=== PATIENT | female | born 1975 | race Caucasian/White ===

== ENCOUNTER 2018-06-09 14:32 | Emergency (ER) | payer OTHER ==
[2018-06-09 16:18] LABS: Urine Blood NEGATIVE (NEG); Urine Glucose NEGATIVE (NEG); Urine Protein NEGATIVE (NEG); Urine Specific Gravity 1.025 (1.005-1.030)
--- NOTE | 2018-06-09 16:25 | ER ---
Nurse's Notes [facility] Name: Dwight Hylton Age: 42 yrs Sex: Female : 1975 Arrival Date: 06/09/2018 Time: 14:34 Bed 28 Private MD: Diagnosis: Acute pharyngitis Presentation: 06/09 14:49 Presenting complaint: Patient states: Sore throat x 1 week. "I feel like something is aj caught in my throat. It feels like something is growing off my tonsils". Patchy exudate noted on bilateral tonsils. Left tonsil appears asymmetrical. Transition of care: patient was not received from another setting of care. Onset of symptoms was June 03, 2018. Risk Assessment: Do you want to hurt yourself or someone else? Patient reports no desire to harm self or others. Initial Sepsis Screen: Does the patient meet any 2 criteria? No. Patient's initial sepsis screen is negative. Does the patient have a suspected source of infection? No. Patient's initial sepsis screen is negative. Care prior to arrival: None. 14:49 Method Of Arrival: Ambulatory 14:49 Acuity: LUCIO 3 aj Triage Assessment: 14:51 General: Appears in no apparent distress. comfortable, Behavior is calm, cooperative, aj appropriate for age. Pain: Complains of pain in left aspect of posterior pharynx and right aspect of posterior pharynx. EENT: Throat has patchy exudate has enlarged tonsils bilaterally Reports pain when swallowing. Neuro: Level of Consciousness is awake, alert, obeys commands, Oriented to person, place, time, situation, Appropriate for age. Respiratory: Airway is patent Respiratory effort is even, unlabored, Respiratory pattern is regular, symmetrical. Derm: Skin is intact, is healthy with good turgor, Skin is pink, warm \\T\\ dry. normal. 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 - Social history:: Smoking status: Patient/guardian denies using tobacco. - Ebola Screening: : Patient negative for fever greater than or equal to 101.5 degrees Fahrenheit, and additional compatible Ebola Virus Disease symptoms Patient denies exposure to infectious person Patient denies travel to an Ebola-affected area in the 21 days before illness onset No symptoms or risks identified at this time. Screenin:15 Abuse screen: Denies threats or abuse. Denies injuries from another. Nutritional rv screening: No deficits noted. Tuberculosis screening: No symptoms or risk factors identified. Fall Risk None identified. Assessment: 15:12 General: Appears in no apparent distress. uncomfortable, Behavior is calm, cooperative. rv Pain: Complains of pain in THROAT. Neuro: Level of Consciousness is awake, alert, obeys commands, Oriented to person, place, time, situation. Cardiovascular: Heart tones S1 S2 present. Respiratory: Airway is patent Breath sounds are clear bilaterally. GI: No signs and/or symptoms were reported involving the gastrointestinal system. : No signs and/or symptoms were reported regarding the genitourinary system. EENT: Throat is reddened . Derm: Skin is intact. Vital Signs: 14:51 BP 171 / 82; Pulse 97; Resp 17; Temp 98.8; Pulse Ox 99% on R/A; Weight 83.91 kg; Height aj 5 ft. 5 in. (165.10 cm); 15:57 BP 131 / 84; Pulse 80; Pulse Ox 98% on R/A; rv 14:51 Body Mass Index 30.79 (83.91 kg, 165.10 cm) aj ED Course: 14:34 Patient arrived in ED. as 14:51 Triage completed. aj 14:51 Arm band placed on left wrist. Patient placed in waiting room, Patient notified of wait aj time. 14:59 Kristin Perez NP is PHCP. rh1 14:59 Edgar Lerma MD is Attending Physician. rh1 15:16 Patient has correct armband on for positive identification. Bed in low position. Call rv light in reach. Side rails up X 1. Adult w/ patient. Pulse ox on. NIBP on. 15:45 Inserted saline lock: 20 gauge in right antecubital area, using aseptic technique. rv 16:25 Cassie Sanchez MD is Referral Physician. rh1 16:55 No provider procedures requiring assistance completed. IV discontinued, bleeding rv controlled, No redness/swelling at site. Pressure dressing applied. Administered Medications: 15:29 CANCELLED (Duplicate Order): Decadron 10 mg IM once rv 15:45 Drug: Decadron - Dexamethasone 10 mg Route: IVP; Site: right antecubital; rv 16:17 Follow up: Response: No adverse reaction rv 15:56 Drug: Clindamycin 900 mg Route: IVPB; Infused Over: 30 mins; Site: right antecubital; rv 16:18 Follow up: Response: No adverse reaction; IV Status: Completed infusion rv Outcome: 16:25 Discharge ordered by . rh1 16:55 Discharged to home ambulatory. rv 16:55 Condition: improved 16:55 Discharge instructions given to patient, family, Instructed on discharge instructions, follow up and referral plans. medication usage. 16:56 Patient left the ED. rv Signatures: Cindy Hillman, RN RN Karolina Hatch Rachel, YASMANI DESIGN DRAFTER CHIEF rh1 Ammon Knowles RN RN rv
--- NOTE | 2018-06-09 16:26 | EDPHYS ---
Physician Documentation [facility] Name: Dwight Hylton Age: 42 yrs Sex: Female : 1975 Arrival Date: 06/09/2018 Time: 14:34 Bed 28 Private MD: ED Physician Edgar Lerma HPI: 06/09 15:10 This 42 yrs old Female presents to ER via Ambulatory with complaints of rh1 Swollen Glands, Sore Throat. 15:10 Onset: The symptoms/episode began/occurred last week, and became worse today. rh1 Associated signs and symptoms: Pertinent positives: sore throat, Pertinent negatives: congestion, cough, fever, nasal discharge, shortness of breath, vomiting. Modifying factors: The patient symptoms are alleviated by nothing, the patient symptoms are aggravated by swallowing. The patient has not experienced similar symptoms in the past. She reports sore throat for the past 1 week, with feeling of swelling at the left side yesterday. Throughout the day today she has felt something hitting her "vocal cords" causing her to gag. Denies any fever/chills, vomiting, SOB, dysphagia.. 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 - Social history:: Smoking status: Patient/guardian denies using tobacco. - Ebola Screening: : Patient negative for fever greater than or equal to 101.5 degrees Fahrenheit, and additional compatible Ebola Virus Disease symptoms Patient denies exposure to infectious person Patient denies travel to an Ebola-affected area in the 21 days before illness onset No symptoms or risks identified at this time. ROS: 15:10 Constitutional: Negative for fever, chills rh1 15:10 ENT: Positive for sore throat, Negative for rhinorrhea, sinus congestion, difficulty swallowing, difficulty handling secretions, hoarseness. 15:10 Neck: Negative for pain with movement, pain at rest, stiffness. 15:10 Cardiovascular: Negative for chest pain. 15:10 Respiratory: Negative for cough, dyspnea on exertion, shortness of breath, wheezing. 15:10 Abdomen/GI: Negative for abdominal pain, nausea, vomiting, and diarrhea. 15:10 Skin: Negative for rash. 15:10 Neuro: Negative for altered mental status, dizziness. 15:10 All other systems are negative. Exam: 15:10 Constitutional: This is a well developed, well nourished patient who is awake, alert, rh1 and in no acute distress. Head/Face: Normocephalic, atraumatic. Chest/axilla: Normal chest wall appearance and motion. Nontender with no deformity. No lesions are appreciated. Cardiovascular: Regular rate and rhythm with a normal S1 and S2. No gallops, murmurs, or rubs. No JVD. No pulse deficits. Respiratory: Lungs have equal breath sounds bilaterally, clear to auscultation. No rales, rhonchi or wheezes noted. No increased work of breathing. Abdomen/GI: Soft, non-tender, with normal bowel sounds. No distension. No guarding or rebound. No evidence of tenderness throughout. Back: No spinal tenderness. No costovertebral tenderness. Full range of motion. Skin: Warm, dry with normal turgor. Normal color with no rashes, no lesions, and no evidence of cellulitis. 15:10 ENT: External ear(s): are unremarkable, no pain with movement, Ear canal(s): are normal, clear, no cerumen impaction, no erythema, no foreign body, no purulent discharge, no swelling, TM's: are normal, no evidence of bulging, no dullness, no erythema, no fluid levels, no hemotympanum, no rupture, normal bony landmarks, Nose: is normal, no drainage, no edema, Mouth: is normal, (-) tongue elevation (-) trismus no lip abnormalities, no mucosal abnormalities, Posterior pharynx: Airway: normal, no evidence of obstruction, patent, Tonsils: bilaterally enlarged, with erythema, with exudate, tonsils 2.5 + bilaterally, left with exudate; no appreciable palacial erythema/fullness bilaterally; bilaterally with deep crypts; at medial left tonsil with approx. 3 mm area of thin tissue extending medially, Uvula: midline, non-edematous, erythema, swelling, that is moderate, erythema, that is moderate, exudate, that is moderate, at left. 15:10 Neck: External neck: swelling, is not appreciated, ROM/movement: pain, is not appreciated, limited range of motion, is not appreciated, Lymph nodes: lymphadenopathy is appreciated, anterior cervical nodes, submandibular nodes. 15:10 Neuro: Orientation: is normal, to person, place \\T\\ time. Mentation: is normal, lucid, able to follow commands, Motor: is normal, moves all fours, Gait: is steady, at a normal pace, without difficulty. Vital Signs: 14:51 BP 171 / 82; Pulse 97; Resp 17; Temp 98.8; Pulse Ox 99% on R/A; Weight 83.91 kg; Height aj 5 ft. 5 in. (165.10 cm); 15:57 BP 131 / 84; Pulse 80; Pulse Ox 98% on R/A; rv 14:51 Body Mass Index 30.79 (83.91 kg, 165.10 cm) aj MDM: 15:10 Patient medically screened. [facility] 16:24 Data reviewed: vital signs, nurses notes, lab test result(s), and as a result, I will 1 discharge patient. Data interpreted: Pulse oximetry: on room air is 98 %. Interpretation: normal. Counseling: I had a detailed discussion with the patient and/or guardian regarding: the historical points, exam findings, and any diagnostic results supporting the discharge/admit diagnosis, lab results, the need for outpatient follow up, an ENT specialist, a family practitioner, to return to the emergency department if symptoms worsen or persist or if there are any questions or concerns that arise at home. 06/09 15:18 Order name: Trinity Screen Profile; Complete Time: 16:11 [facility] 06/09 15:18 Order name: Strep; Complete Time: 16:16 [facility] 06/09 16:05 Order name: Urine Dipstick--Ancillary (enter results); Complete Time: 16:24 06/09 16:05 Order name: Urine --Ancillary (enter results); Complete Time: 16:24 06/09 16:16 Order name: Throat Culture [facility] 06/09 15:18 Order name: IV Start; Complete Time: 15:23 rh1 Administered Medications: 15:29 CANCELLED (Duplicate Order): Decadron 10 mg IM once rv 15:45 Drug: Decadron - Dexamethasone 10 mg Route: IVP; Site: right antecubital; rv 16:17 Follow up: Response: No adverse reaction rv 15:56 Drug: Clindamycin 900 mg Route: IVPB; Infused Over: 30 mins; Site: right antecubital; rv 16:18 Follow up: Response: No adverse reaction; IV Status: Completed infusion rv Disposition: 17:12 Co-signature as Attending Physician, Edgar Lerma MD I agree with the assessment and kdr plan of care. Disposition: 06/09/18 16:25 Discharged to Home. Impression: Acute pharyngitis. - Condition is Stable. - Discharge Instructions: Pharyngitis. - Prescriptions for Clindamycin HCl 300 mg Oral Capsule - take 1 capsule by ORAL route every 8 hours for 10 days; 30 capsule. - Medication Reconciliation Form, Thank You Letter, Antibiotic Education, Prescription Opioid Use form. - Follow up: Private Physician; When: 1 - 2 days; Reason: Recheck today's complaints, Continuance of care, Re-evaluation by your physician. Follow up: Cassie Sanchez MD; When: 5 - 6 days; Reason: If symptoms return, Further diagnostic work-up, Recheck today's complaints, Continuance of care. Follow up: Emergency Department; When: As needed; Reason: Fever > 102 F, If symptoms return, Trouble breathing, Worsening of condition. - Problem is new. - Symptoms have improved. Signatures: Dispatcher [employer] Cindy Martínez, RN Edgar Carter MD MD kdr Jones, Rachel, YASMANI FILM OR TAPE LIBRARIAN rh1 Ammon Knowles RN RN rv Corrections: (The following items were deleted from the chart) 15:29 15:18 Decadron 10 mg IM once ordered. rh1 rv 15:29 15:29 Decadron 10 mg IM once ordered. rv rv 16:56 16:25 06/09/2018 16:25 Discharged to Home. Impression: Acute pharyngitis. Condition is rv Stable. Forms are Medication Reconciliation Form, Thank You Letter, Antibiotic Education, Prescription Opioid Use. Follow up: Private Physician; When: 1 - 2 days; Reason: Recheck today's complaints, Continuance of care, Re-evaluation by your physician. Follow up: Cassie Sanchez; When: 5 - 6 days; Reason: If symptoms return, Further diagnostic work-up, Recheck today's complaints, Continuance of care. Follow up: Emergency Department; When: As needed; Reason: Fever > 102 F, If symptoms return, Trouble breathing, Worsening of condition. Problem is new. Symptoms have improved. rh1
== END 2018-06-09 16:56 | disposition home or self-care (01) ==
LOC: ER 14:32
DX: J02.9 Acute pharyngitis, unspecified (principal); I10 Essential (primary) hypertension; Z88.0 Allergy status to penicillin
CPT/HCPCS: 36415; 81003; 81025; 86308; 87070; 87081; 96365; 96375; 99283

== ENCOUNTER 2019-09-05 15:48 | Emergency (ER) | payer SELFPAY ==
[2019-09-05 16:33] LABS: Absolute Lymphocytes (CBC) 1.7 K/uL (0.7-4.9); Basophils % 0.6 % (0-1.3); Hematocrit 24.6 % (36.0-45.0); Lymphocytes % 20.6 % (15.3-44.8); RBC Red Blood Cell Count 3.15 M/uL (3.86-4.86)
[2019-09-05 16:42] LABS: Protime INR 0.94
[2019-09-05 16:55] LABS: ALT/SGPT 42 U/L (12-78); AST/SGOT 21 U/L (15-37); Albumin 3.6 g/dL (3.4-5.0); Alkaline Phosphatase 86 U/L (45-117); BUN Blood Urea Nitrogen 10 mg/dL (7-18); Bicarbonate 21 mmol/L (21-32); Bilirubin Direct 0.1 mg/dL (0-0.2); Bilirubin Total 0.4 mg/dL (0.2-1.0); Glucose Level 149 mg/dL (74-106); Magnesium 1.8 mg/dL (1.8-2.4); NT PRO-BNP 89 pg/mL (<125); Potassium 3.5 mmol/L (3.5-5.1); Protein, Total 6.9 g/dL (6.4-8.2); Sodium Level 140 mmol/L (136-145); Troponin (Emerg Dept Use Only) < 0.02 ng/mL (0.0-0.045)
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
--- NOTE | 2019-09-05 18:05 | ER ---
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 Reports midsternal chest pain that radiated to her left breast. She was given Nitro 0.4mg SQ, ASA 81 mg PO and NS IV by EMS and chest pain resolved. Patient denies pain at this time. Reports that she had a heart attack on June, but has not has chest pain since then until today. Transition of care: patient was not received from another setting of care. Onset of symptoms was September 05, 2019. Risk Assessment: Do you want to hurt yourself or someone else? Patient reports no desire to harm self or others. Initial Sepsis Screen: Does the patient meet any 2 criteria? No. Patient's initial sepsis screen is negative. Does the patient have a suspected source of infection? No. Patient's initial sepsis screen is negative. Care prior to arrival: None. 15:54 Method Of Arrival: EMS: [facility] aj 15:54 Acuity: LUCIO 2 aj1 Triage Assessment: 15:59 General: Appears in no apparent distress. comfortable, Behavior is calm, cooperative, aj1 appropriate for age. Pain: Denies pain. Cardiovascular: Rhythm is regular. 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 - Social history:: Smoking status: Patient/guardian denies using tobacco. - Ebola Screening: : Patient denies travel to an Ebola-affected area in the 21 days before illness onset. Screenin:00 Abuse screen: Denies threats or abuse. Denies injuries from another. Nutritional aj1 screening: No deficits noted. Tuberculosis screening: No symptoms or risk factors identified. 19:15 Fall Risk Ambulatory Aid- None/Bed Rest/Nurse Assist (0 pts). Gait- Normal/Bed cc3 Rest/Wheelchair (0 pts) Mental Status- Oriented to own ability (0 pts). Assessment: 16:00 General: Appears in no apparent distress. comfortable, Behavior is calm, cooperative, aj1 appropriate for age. Pain: Denies pain. Pain: pain is resolved at this time Pain began suddenly. Neuro: Level of Consciousness is awake, alert, obeys commands, Oriented to person, place, time, situation, Speech is normal, Facial symmetry appears normal. Cardiovascular: Reports chest pain, that is now resolved, patient has a history of HI Heart tones S1 S2 present Patient's skin is warm and dry. Rhythm is regular. Respiratory: Airway is patent Respiratory effort is even, unlabored, Respiratory pattern is regular, symmetrical. GI: No signs and/or symptoms were reported involving the gastrointestinal system. : No signs and/or symptoms were reported regarding the genitourinary system. EENT: No signs and/or symptoms were reported regarding the EENT system. Derm: No signs and/or symptoms reported regarding the dermatologic system. Skin is pink, warm \T\ dry. normal. Musculoskeletal: No signs and/or symptoms reported regarding the musculoskeletal system. Circulation, motion, and sensation intact. 17:00 Reassessment: Patient appears in no apparent distress at this time. No changes from aj1 previously documented assessment. Patient and/or family updated on plan of care and expected duration. Pain level reassessed. Patient is alert, oriented x 3, equal unlabored respirations, skin warm/dry/pink. 18:02 Reassessment: Patient and/or family updated on plan of care and expected duration. Pain aj1 level reassessed. General: Appears in no apparent distress. comfortable, Behavior is calm, cooperative, appropriate for age. Pain: Denies pain. Neuro: Level of Consciousness is awake, alert, obeys commands, Oriented to person, place, time, situation, Speech is normal, Facial symmetry appears normal. Cardiovascular: Patient's skin is warm and dry. Rhythm is sinus rhythm. Respiratory: Airway is patent Respiratory effort is even, unlabored, Respiratory pattern is regular, symmetrical. GI: No signs and/or symptoms were reported involving the gastrointestinal system. : No signs and/or symptoms were reported regarding the genitourinary system. EENT: No signs and/or symptoms were reported regarding the EENT system. Derm: No signs and/or symptoms reported regarding the dermatologic system. Skin is pink, warm \T\ dry. normal. Musculoskeletal: No signs and/or symptoms reported regarding the musculoskeletal system. Circulation, motion, and sensation intact. 19:13 Reassessment: Patient appears in no apparent distress at this time. No changes from aj1 previously documented assessment. Patient and/or family updated on plan of care and expected duration. Pain level reassessed. Patient is alert, oriented x 3, equal unlabored respirations, skin warm/dry/pink. 19:15 Reassessment: Patient appears in no apparent distress at this time. Patient and/or cc3 family updated on plan of care and expected duration. Pain level reassessed. Patient is alert, oriented x 3, equal unlabored respirations, skin warm/dry/pink. Received this female patient from morning shift RN Olena as a case of chest pain but currently patient denies pain. With IV cannula gauge 20 at the right hand saline locked. Patient denies pain at this time. General: Appears in no apparent distress. comfortable, Behavior is calm, cooperative, appropriate for age. Pain: Denies pain. Neuro: Level of Consciousness is awake, alert, obeys commands, Oriented to person, place, time, situation, Appropriate for age. Cardiovascular: Heart tones S1 S2 present Capillary refill < 3 seconds in bilateral fingers Patient's skin is warm and dry. Rhythm is sinus rhythm. Respiratory: Airway is patent Respiratory effort is even, unlabored, Respiratory pattern is regular, symmetrical. GI: Abdomen is round non-distended. : No signs and/or symptoms were reported regarding the genitourinary system. EENT: No signs and/or symptoms were reported regarding the EENT system. Derm: Skin is intact, is healthy with good turgor, Skin is pink, warm \T\ dry. normal. Musculoskeletal: Circulation, motion, and sensation intact. Range of motion: intact in all extremities. 19:35 Reassessment: Called lab to do phlebotomy for the patient. cc3 20:00 Reassessment: Patient appears in no apparent distress at this time. Patient and/or cc3 family updated on plan of care and expected duration. Pain level reassessed. Patient is alert, oriented x 3, equal unlabored respirations, skin warm/dry/pink. hydro plant technician came to do phlebotomy for the patient for repeat troponin and abo/rh no charge. 21:15 Reassessment: Patient appears in no apparent distress at this time. Patient and/or cc3 family updated on plan of care and expected duration. Pain level reassessed. Patient is alert, oriented x 3, equal unlabored respirations, skin warm/dry/pink. FLORENCE Bernstein discharged the patient home with prescription given. IV cannula removed and patient left ER vitally stable and ambulatory with her family. No valuables left in the patient's room. Patient denies pain at this time. Patient states feeling better. Patient states symptoms have improved. Vital Signs: 15:59 BP 120 / 62; Pulse 94; Resp 18; Temp 97.2; Pulse Ox 100% on R/A; Weight 101.6 kg (R); aj1 Height 5 ft. 5 in. (165.10 cm) (R); Pain 0/10; 17:00 BP 125 / 72; Pulse 79; Resp 18; Pulse Ox 100% on R/A; aj1 18:00 BP 122 / 75; Pulse 77; Resp 18; Pulse Ox 97% on R/A; aj1 19:00 BP 121 / 56; Pulse 90; Resp 19; Pulse Ox 99% on R/A; aj1 20:06 BP 115 / 67; Pulse 84; Resp 19 S; Temp 97.8(O); Pulse Ox 100% on R/A; Pain 0/10; cc3 21:10 BP 118 / 63; Pulse 85; Resp 17 S; Pulse Ox 100% on R/A; Pain 0/10; cc3 15:59 Body Mass Index 37.28 (101.60 kg, 165.10 cm) [facility] ED Course: 15:54 Patient arrived in ED. [facility] 15:54 Rip Bernstein PA is PHCP. [facility] 15:54 Edgar Lerma MD is Attending Physician. jm 15:57 Triage completed. aj1 15:59 Arm band placed on. aj1 16:00 Patient has correct armband on for positive identification. 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 Pulse aj1 ox on. NIBP on. 16:00 No provider procedures requiring assistance completed. Maintain EMS IV. Dressing aj1 intact. Good blood return noted. Site clean \T\ dry. Gauge \T\ site: 20g right hand. Patient maintains SpO2 saturation greater than 95% on room air. 16:01 EKG done, by medical instrument technician. reviewed by Rip HENRIQUEZ. sm3 16:03 Olena Winter, RN is Primary Nurse. aj1 18:04 Tyshawn Novak DO is Hospitalizing Provider. jmm 18:32 XRAY Chest (1 view) In Process Unspecified. EDMS 21:15 IV discontinued, intact, bleeding controlled, No redness/swelling at site. Pressure cc3 dressing applied. Administered Medications: No medications were administered Outcome: 18:05 Decision to Hospitalize by Provider. jmm 20:59 Discharge ordered by MD. [facility] 21:15 Discharged to home ambulatory, with family. cc3 21:15 Condition: stable 21:15 Discharge instructions given to patient, Instructed on discharge instructions, follow up and referral plans. medication usage, Demonstrated understanding of instructions, follow-up care, medications, Prescriptions given X 1. 21:25 Patient left the ED. cc3 Signatures: Dispatcher [employer] EDOlena Holland, RN RN Rip Fisher PA PA jmm Montes, Shakira 3 Vonnie Arenas cc3 Corrections: (The following items were deleted from the chart) 09/06 05:03 09/05 20:00 Reassessment: hydro plant technician came to do phlebotomy for the patient for cc3 repeat troponin and abo/rh no charge. cc3
--- NOTE | 2019-09-05 18:41 | RAD REPORT ---
EXAM DESCRIPTION: RAD - Chest Single View - 09/05/2019 6:31 pm CLINICAL HISTORY: CHEST PAIN Chest pain. COMPARISON: <Comparisons> FINDINGS: Portable technique limits examination quality. The lungs are grossly clear. The heart is normal in size. No displaced fractures. IMPRESSION: No acute intrathoracic process suspected.
[2019-09-05 23:14] VITALS: BP 115/67; TEMP 97.8; O2SAT 100
--- NOTE | 2019-09-06 07:24 | EKG ---
Test Date: 2019-09-05 Test Time: 15:53:58 Construction Administrator: YUNG MEASUREMENT RESULTS: Intervals: Rate: 89 WY: 138 QRSD: 90 QT: 380 QTc: 462 [place]: P: 62 WY: 138 QRS: 46 T: -9 INTERPRETIVE STATEMENTS: Normal sinus rhythm Cannot rule out Anterior infarct, age undetermined Abnormal ECG No previous ECG available for comparison Electronically Signed On 09-06-19 07:22:13 CDT by Slim Cabrera
== END 2019-09-05 21:25 | disposition home or self-care (01) ==
LOC: ER 15:48
DX: R07.9 Chest pain, unspecified (principal); I10 Essential (primary) hypertension; E78.5 Hyperlipidemia, unspecified; I25.2 Old myocardial infarction; Z88.0 Allergy status to penicillin; Z79.82 Long term (current) use of aspirin
CPT/HCPCS: 36415; 71045; 80048; 80076; 83735; 83880; 84484; 85025; 85610; 86850; 86900; 86901; 93005; 99285

== ENCOUNTER 2021-03-17 15:51 | Emergency (ER) | payer SELFPAY ==
--- OUTSIDE RECORDS SUMMARY | 2021-03-17 15:55 | XMS REPORT | Continuity of Care Document ---
:1975 Author Organization [facility] t Address [address] [place] [address] Care Team Providers Name Role Phone Andrea Castillo DO Attending Clinician Care, Primary Attending Clinician Unavailable Doctor Unassigned, Name Attending Clinician Unavailable Payers Payer Name Policy Type Policy Number Effective Date Expiration Date S ource Problems This patient has no known problems. Allergies, Adverse Reactions, Alerts Allergy Allergy Status Severity Reaction(s) Onset Inactive Treating Comm ents Source Name Type Date Date Clinician No Known DA Active U 2019-11 [facility] s 00:00: [address] [place] DA Active SV 2019-11 [facility] ins 0[facility]10 [facility] 00:00: [address] Medications This patient has no known medications. Procedures This patient has no known procedures. Encounters Start End Encounter Admission Attending Care Care Encounter Source Date/Time Date/Time Type Type Clinicians Facility Department ID 2021-01-28 2021-01-28 Patient STACY Castillo [id number] 00:00:00 00:00:00 Outreach [facility] [id number] Andrea REN [id number] RUMA [id number] 2021-01-21 2021-01-21 Office [facility] [id number] 13:42:32 15:04:25 Visit [facility] [id number] [facility] [id number] UNIT [id number] 2021-01-21 2021-01-21 Orders Doctor TYRONE [id number] 00:00:00 00:00:00 Only Unassigned, [place] 350.1.13.10 [place] [facility] [id number] [id number] Results Test Description Test Time Test Comments Results Result Comments Source TROPONIN-I 2020-08-23 12:02:00 Test Item Value Reference Range Interpretation Comme nts TROPONIN-I (test code = TROPI) 0.065 NG/ML 0.012-0.033 H [id number] 07:38:00 Test Item Value Reference Range Interpretation Comments TROPONIN-I (test code = TROPI) 0.088 NG/ML 0.012-0.033 H COMPREHENSIVE METABOLIC [id number] 07:37:00 Test Item Value Reference Range Interpretation Comments SODIUM (test code = 138 MMOL/L 137-145 N NA) POTASSIUM (test code 3.7 MMOL/L 3.5-5.1 N = K) CHLORIDE (test code = 106 MMOL/L 98-107 N CL) CARBON DIOXIDE (test 24 MMOL/L 22-30 N code = CO2) ANION GAP (test code 12 MMOL/L 14-24 L = GAP) GLUCOSE (test code = 101 MG/DL 74-106 N GLU) BLOOD UREA NITROGEN 8 MG/DL 7-17 N (test code = BUN) GLOMERULAR FILTRATION > 60 Report ing units: RATE (test code = ml/min/1.7 3 m2 GFR) (Modified MDRD Formula)Referen ce Range: > or = 6 0 ml/min/1.73 m2 CREATININE (test code 0.70 MG/DL 0.52-1.04 N = CREAT) TOTAL PROTEIN (test 6.1 G/DL 6.3-8.2 L code = PROT) ALBUMIN (test code = 3.5 G/DL 3.5-5.0 N ALB) CALCIUM (test code = 8.4 MG/DL 8.4-10.2 N CA) BILIRUBIN TOTAL (test 0.8 MG/DL 0.2-1.3 Eltrom bopag code = BILT) Interference fo r Vitros Product TBil, BuBc: ======= ======= ======A ssay Eltrombop ag Analyte/ Max Observed Avg. Bias Concentratio n Concentration Concentration== ======= ======= ======= =======TBil 7 mg/dl TBil/ 1.2m g/dl +0.23mg.dl +0.20mg/dlBuBc 3.5mg/dl Bu/0.8mg/dl +0.25mg/dl +0.24mg/dlBuBc 7 mg/dl Bu/14.2mg/dl +0.38mg/dl +0.25mg/dlBuBc 5mg/dl Bc/0mg/dl +0.25mg/dl +0.15mg/dlBuBc 3.5mg/dl Bc/2.8mg/dl +0.25mg/dl +0.23mg/dl SGOT/AST (test code = 89 UNITS/L 14-36 H AST) SGPT/ALT (test code = 52 UNITS/L <35 ALT) ALKALINE PHOSPHATASE 75 UNITS/L 38-126 (test code = ALKP) [id number] 07:37:00 Test Item Value Reference Range Interpretation Comments MAGNESIUM (test code = MAG) 2.0 MG/DL 1.6-2.3 N COMPREHENSIVE METABOLIC [id number] 07:28:00 Test Item Value Reference Range Interpretation Comments SODIUM (test code = NA) 138 MMOL/L 137-145 N POTASSIUM (test code = K) 3.7 MMOL/L 3.5-5.1 N CHLORIDE (test code = CL) 106 MMOL/L 98-107 N CARBON DIOXIDE (test code = CO2) MMOL/L 22-30 GLUCOSE (test code = GLU) MG/DL 74-106 BLOOD UREA NITROGEN (test code = MG/DL 7-17 BUN) GLOMERULAR FILTRATION RATE (test code = GFR) CREATININE (test code = CREAT) MG/DL 0.52-1.04 TOTAL PROTEIN (test code = PROT) G/DL 6.3-8.2 ALBUMIN (test code = ALB) 3.5 G/DL 3.5-5.0 N CALCIUM (test code = CA) MG/DL 8.7-9.7 BILIRUBIN TOTAL (test code = BILT) MG/DL 0.2-1.3 SGOT/AST (test code = AST) UNITS/L 15-37 SGPT/ALT (test code = ALT) UNITS/L <35 ALKALINE PHOSPHATASE (test code = UNITS/L 38-126 ALKP) [id number] 07:28:00 Test Item Value Reference Range Interpretation Comments MAGNESIUM (test code = MAG) MG/DL 1.6-2.3 COMPREHENSIVE METABOLIC [id number] 07:27:00 Test Item Value Reference Range Interpretation Comments SODIUM (test code = NA) MMOL/L 137-145 POTASSIUM (test code = K) MMOL/L 3.5-5.1 CHLORIDE (test code = CL) 106 MMOL/L 98-107 N CARBON DIOXIDE (test code = CO2) MMOL/L 22-30 GLUCOSE (test code = GLU) MG/DL 74-106 BLOOD UREA NITROGEN (test code = MG/DL 7-17 BUN) GLOMERULAR FILTRATION RATE (test code = GFR) CREATININE (test code = CREAT) MG/DL 0.52-1.04 TOTAL PROTEIN (test code = PROT) G/DL 6.3-8.2 ALBUMIN (test code = ALB) 3.5 G/DL 3.5-5.0 N CALCIUM (test code = CA) MG/DL 8.7-9.7 BILIRUBIN TOTAL (test code = BILT) MG/DL 0.2-1.3 SGOT/AST (test code = AST) UNITS/L 15-37 SGPT/ALT (test code = ALT) UNITS/L <35 ALKALINE PHOSPHATASE (test code = UNITS/L 38-126 ALKP) [id number] 07:27:00 Test Item Value Reference Range Interpretation Comments MAGNESIUM (test code = MAG) MG/DL 1.6-2.3 CBC W/AUTO [id number] 07:06:00 Test Item Value Reference Range Interpretation Comments WHITE BLOOD CELL (test code = 7.9 K/MM3 3.8-9.8 N WBC) RED BLOOD CELL (test code = 4.34 M/MM3 3.58-4.97 N RBC) HEMOGLOBIN (test code = HGB) 12.8 G/DL 11.2-14.9 N HEMATOCRIT (test code = HCT) 39.8 % 33.2-43.5 N MEAN CELL VOLUME (test code = 92 fL 80.7-99.1 N MCV) MEAN CELL HGB (test code = MCH) 29.5 pg 27.0-34.1 N MEAN CELL HGB CONCETRATION 32.2 % 32.2-35.7 N (test code = MCHC) RED CELL DISTRIBUTION WIDTH 14.1 % 12.1-15.2 N (test code = RDW) PLATELET COUNT (test code = 247 K/MM3 129-368 N PLT) MEAN PLATELET VOLUME (test code 11.8 fl 7.4-10.4 H = MPV) NEUTROPHIL % (test code = NT%) 65.1 % 43-75 N IMMATURE GRANULOCYTE % (test 0.4 % 0.0-2.0 N code = IG%) LYMPHOCYTE % (test code = LY%) 23.8 % 14-44 N MONOCYTE % (test code = MO%) 7.6 % 4-13 N EOSINOPHIL % (test code = EO%) 2.3 % 0-6 N BASOPHIL % (test code = BA%) 0.8 % 0-2 N NUCLEATED RBC % (test code = 0.0 % 0-1.0 N NRBC%) NEUTROPHIL # (test code = NT#) 5.14 K/mm3 2.0-7.6 N IMMATURE GRANULOCYTE # (test 0.03 x10 3/uL 0-0.03 N code = IG#) LYMPHOCYTE # (test code = LY#) 1.88 K/mm3 1.0-3.8 N MONOCYTE # (test code = MO#) 0.60 K/mm3 0.1-0.8 N EOSINOPHIL # (test code = EO#) 0.18 K/mm3 0.0-0.2 N BASOPHIL # (test code = BA#) 0.06 K/mm3 0.0-0.2 N NUCLEATED RBC # (test code = 0.00 K/mm3 0.0-0.1 N NRBC#) LIPID PROFILE (CORONARY RISK)2020-08-22 22:35:00 Test Item Value Reference Range Interpretation Comments TRIGLYCERIDES (test 239 MG/DL TRIGLYCE RIDES code = TRIG) REFERENCE RANGE:Normal: < 150 mg/dLBorderline High: 150-199 mg/dLHi gh: 200-499 mg/dLVe ry High: >=500 mg/ dL CHOLESTEROL (test code 150 MG/DL <200 = CHOL) HDL CHOLESTEROL (test 39 MG/DL 40-59 L code = HDL) LIPOPROTEIN LDL (test 83 MG/DL 0-99 N code = LDL) OPTIMAL........ .<100 mg/dLNEAR OPTIMAL/ABOVE OPTIMAL........ .100-12 9 mg/dL BORDERLINE HIGH.........13 0-159 mg/dL HIGH.........16 0-189 mg/dL VERY HIGH...... ...>/= 190 mg/dL GLYCOSYLATED HEMOGLOBIN [id number] 22:25:00 Test Item Value Reference Range Interpretation Comments GLYCOSYLATED 6.0 % 4.8-5.9 H Any condition t hat HEMOGLOBIN (HA1C) shortens e rythocyte (test code = survival or dec reasesmean GLYHGB) erythrocyte age (e.g., recovery from a cute blood loss,hemolytic anemia) will falsely lo wer HGBA1c resultsregardle ss of the method used. H GBA1c results from [facility] HbSS, HbCC, and HbSc must be interpreted with cautiongiven th e pathological pr ocesses, including anemia,increase d red cell turnover, trans fusion requirements, thatadversely i mpact HGBA1c as a mar ker of long-term glycemiccontrol . Alternative for ms of testing such as fructosaminesho uld be considered for these patients. MEAN BLOOD GLUCOSE 126 MG/DL 70-110 H (test code = MBG) LIPID PROFILE (CORONARY RISK)2020-08-22 22:24:00 Test Item Value Reference Range Interpretation Comments TRIGLYCERIDES (test code = TRIG) MG/DL CHOLESTEROL (test code = CHOL) 150 MG/DL <200 HDL CHOLESTEROL (test code = HDL) MG/DL 40-59 LIPOPROTEIN LDL (test code = LDL) MG/DL 0-99 LIPID PROFILE (CORONARY RISK)2020-08-22 22:24:00 Test Item Value Reference Range Interpretation Comments TRIGLYCERIDES (test 239 MG/DL TRIGLYCE RIDES code = TRIG) REFERENCE RANGE:Normal: < 150 mg/dLBorderline High: 150-199 mg/dLHi gh: 200-499 mg/dLVe ry High: >=500 mg/ dL CHOLESTEROL (test code 150 MG/DL <200 = CHOL) HDL CHOLESTEROL (test 39 MG/DL 40-59 L code = HDL) LIPOPROTEIN LDL (test MG/DL 0-99 code = LDL) [id number] 20:45:00 Test Item Value Reference Range Interpretation Comments TROPONIN-I (test code = TROPI) 0.091 NG/ML 0.012-0.033 H BASIC METABOLIC [id number] 20:25:00 Test Item Value Reference Range Interpretation Comments SODIUM (test code = 138 MMOL/L 137-145 N NA) POTASSIUM (test code = 3.8 MMOL/L 3.5-5.1 N K) CHLORIDE (test code = 107 MMOL/L 98-107 N CL) CARBON DIOXIDE (test 21 MMOL/L 22-30 L code = CO2) GLUCOSE (test code = 112 MG/DL 74-106 H GLU) BLOOD UREA NITROGEN 8 MG/DL 7-17 N (test code = BUN) GLOMERULAR FILTRATION > 60 Report ing units: RATE (test code = GFR) ml/mi n/1.73 m2 (Modified MDRD Formula)Referen ce Range: > or = 6 0 ml/min/1.73 m2 CREATININE (test code 0.60 MG/DL 0.52-1.04 N = CREAT) CALCIUM (test code = 8.8 MG/DL 8.4-10.2 N CA) HEPATIC FUNCTION [id number] 20:25:00 Test Item Value Reference Range Interpretation Comments TOTAL PROTEIN (test 7.0 G/DL 6.3-8.2 N code = PROT) ALBUMIN (test code = 4.1 G/DL 3.5-5.0 N ALB) BILIRUBIN TOTAL 0.7 MG/DL 0.2-1.3 N Eltrombopag (test code = BILT) Interfere nce for Vitros Product TBil, BuBc: ======= ======= ======A ssay Eltrombop ag Analyte/ Max Observed Avg. Bias Concentratio n Concentration Concentration== ======= ======= ======= =======TBil 7 mg/dl TBil/ 1.2m g/dl +0.23mg.dl +0.20mg/dlBuBc 3.5mg/dl Bu/0.8mg/dl +0.25mg/dl +0.24mg/dlBuBc 7 mg/dl Bu/14.2mg/dl +0.38mg/dl +0.25mg/dlBuBc 5mg/dl Bc/0mg/dl +0.25mg/dl +0.15mg/dlBuBc 3.5mg/dl Bc/2.8mg/dl +0.25mg/dl +0.23mg/dl BILIRUBIN DIRECT 0.0 MG/DL 0.0-0.3 N Eltrombopag (test code = BILD) Interfere nce for Vitros Product TBil, BuBc: ======= ======= ======A ssay Eltrombop ag Analyte/ Max Observed Avg. Bias Concentratio n Concentration Concentration== ======= ======= ======= =======TBil 7 mg/dl TBil/ 1.2m g/dl +0.23mg.dl +0.20mg/dlBuBc 3.5mg/dl Bu/0.8mg/dl +0.25mg/dl +0.24mg/dlBuBc 7 mg/dl Bu/14.2mg/dl +0.38mg/dl +0.25mg/dlBuBc 5mg/dl Bc/0mg/dl +0.25mg/dl +0.15mg/dlBuBc 3.5mg/dl Bc/2.8mg/dl +0.25mg/dl +0.23mg/dl SGOT/AST (test code 111 UNITS/L 14-36 H = AST) SGPT/ALT (test code 59 UNITS/L <35 = ALT) ALKALINE PHOSPHATASE 89 UNITS/L 38-126 N (test code = ALKP) [id number] 20:25:00 Test Item Value Reference Range Interpretation Comments LIPASE (test code = LIP) 58 UNITS/L 23-300 N [id number] 20:25:00 Test Item Value Reference Range Interpretation Comments MAGNESIUM (test code = MAG) 2.1 MG/DL 1.6-2.3 N LIPOPROTEIN LDL [id number] 20:25:00 Test Item Value Reference Range Interpretation Comments LIPOPROTEIN LDL DIRECT 80 mg/dL 100-129 L ===== (test code = LDLDIR) ======= ==Refe rence Interval: mg/dL mmol/L--------- ------ ------ ------ --Optimal <100 <2.6Near/abov e optimal 100-129 2.6-3.3Borderli ne High 130-159 3.4-4.1High 16 0-189 4.1-4.9Ve ry High >=190 >=4.9========= This LDL result is a direct measurement.=== ====== HCG SERUM [id number] 20:25:00 Test Item Value Reference Range Interpretation Comments HCG SERUM QUAL (test code = HCGQL) NEGATIVE NEGATIVE A THYROID STIMULATING [id number] 20:25:00 Test Item Value Reference Range Interpretation Comments THYROID STIMULATING 3.640 MIU/L 0.465-4.68 N Please b e aware that HORMONE (test code = bias re sults for TSH TSH) may occur forpa tient who are taking Biotin suppleme nts. [id number] 20:25:00 Test Item Value Reference Range Interpretation Comments TROPONIN-I (test code = TROPI) 0.069 NG/ML 0.012-0.033 H - CTA CHEST FOR [id number] 20:22:00 Patient Name: THERESA BROWN Unit No: [id number] EXAMS: CPT CODE: [id number] [place] [address] DICTATION LOCATION: H30 HISTORY: Chest pain. TECHNIQUE: Axial images of the chest were obtained following intravenous administration of 100 cc of Isovue-370 contrast evaluate the pulmonary artery phase at 7:50 PM. No prior exams are available for comparison. All CT scans are performed using radiation dose reduction techniques. Technical factors are evaluated and adjusted to ensure appropriate moderation of exposure. Automated dose management technology is applied to adjust the radiation dose tominimize exposure while achieving a diagnostic-quality image. FINDINGS: The lungs are clear. No pleural or pericardial effusion is seen. Heart size is at the upper limits of normal and pulmonary vascular prominence is present. There is no evidence of an acute aortic abnormality or pulmonary embolus on either side. A 2.5 cm left thyroidlobe nodule is present. Dedicated thyroid ultrasound recommended for further evaluation. No thoracic adenopathy is seen. Limited views of the upper abdomen show no acute findings. Review of the skeleton with bone windows shows no acute or destructive process. IMPRESSION: 1. Mild cardiac and pulmonary vascular prominence. 2. No evidence of pulmonary embolus or acute aortic abnormality. 3. 2.5 cm left thyroid nodule that should be furtherevaluated with a dedicated thyroid ultrasound. 4. No other significant findings. at 2021 Reported and signed by: James Rico Jr., M.D. CC: Kulwant De Oliveira MD Technologist: Andrea E. Haque, RT(R); ... CTDI: DLP: Trnscrpt: 08/22/2020 (2021) t.[email or web address].[id number] [facility] NAME: THERESA BROWN PHYS: [place] [address] : 1975 AGE:45 SEX: F LOC: Z.625 A PHONE #: [phone] EXAM DATE: 08/22/2020 STATUS: ADM IN FAX #: [phone] RAD #: D/C DT PAGE 1 Signed Report Patient Name: THERESA BROWN Unit No: [id number] EXAMS: CPT CODE: [id number] [place] [id number] <Continued> Orig Print D/T: S: 08/22/2020 (2024) [facility] NAME: THERESA BROWN PHYS: [place] [address] : 1975 AGE: 45 SEX: F LOC: Z.625 A PHONE #: [phone] EXAM DATE: 08/22/2020 STATUS: ADM IN FAX #: [phone] RAD #: D/C DT PAGE 2 Signed ReportBASIC METABOLIC [id number] 18:32:00 Test Item Value Reference Range Interpretation Comments SODIUM (test code = 138 MMOL/L 137-145 N NA) POTASSIUM (test code = 3.8 MMOL/L 3.5-5.1 N K) CHLORIDE (test code = 107 MMOL/L 98-107 N CL) CARBON DIOXIDE (test 21 MMOL/L 22-30 L code = CO2) GLUCOSE (test code = 112 MG/DL 74-106 H GLU) BLOOD UREA NITROGEN 8 MG/DL 7-17 N (test code = BUN) GLOMERULAR FILTRATION > 60 Report ing units: RATE (test code = GFR) ml/mi n/1.73 m2 (Modified MDRD Formula)Referen ce Range: > or = 6 0 ml/min/1.73 m2 CREATININE (test code 0.60 MG/DL 0.52-1.04 N = CREAT) CALCIUM (test code = 8.8 MG/DL 8.4-10.2 N CA) HEPATIC FUNCTION [id number] 18:32:00 Test Item Value Reference Range Interpretation Comments TOTAL PROTEIN (test 7.0 G/DL 6.3-8.2 N code = PROT) ALBUMIN (test code = 4.1 G/DL 3.5-5.0 N ALB) BILIRUBIN TOTAL 0.7 MG/DL 0.2-1.3 N Eltrombopag (test code = BILT) Interfere nce for Vitros Product TBil, BuBc: ======= ======= ======A ssay Eltrombop ag Analyte/ Max Observed Avg. Bias Concentratio n Concentration Concentration== ======= ======= ======= =======TBil 7 mg/dl TBil/ 1.2m g/dl +0.23mg.dl +0.20mg/dlBuBc 3.5mg/dl Bu/0.8mg/dl +0.25mg/dl +0.24mg/dlBuBc 7 mg/dl Bu/14.2mg/dl +0.38mg/dl +0.25mg/dlBuBc 5mg/dl Bc/0mg/dl +0.25mg/dl +0.15mg/dlBuBc 3.5mg/dl Bc/2.8mg/dl +0.25mg/dl +0.23mg/dl BILIRUBIN DIRECT 0.0 MG/DL 0.0-0.3 N Eltrombopag (test code = BILD) Interfere nce for Vitros Product TBil, BuBc: ======= ======= ======A ssay Eltrombop ag Analyte/ Max Observed Avg. Bias Concentratio n Concentration Concentration== ======= ======= ======= =======TBil 7 mg/dl TBil/ 1.2m g/dl +0.23mg.dl +0.20mg/dlBuBc 3.5mg/dl Bu/0.8mg/dl +0.25mg/dl +0.24mg/dlBuBc 7 mg/dl Bu/14.2mg/dl +0.38mg/dl +0.25mg/dlBuBc 5mg/dl Bc/0mg/dl +0.25mg/dl +0.15mg/dlBuBc 3.5mg/dl Bc/2.8mg/dl +0.25mg/dl +0.23mg/dl SGOT/AST (test code 111 UNITS/L 14-36 H = AST) SGPT/ALT (test code 59 UNITS/L <35 = ALT) ALKALINE PHOSPHATASE 89 UNITS/L 38-126 N (test code = ALKP) [id number] 18:32:00 Test Item Value Reference Range Interpretation Comments LIPASE (test code = LIP) 58 UNITS/L 23-300 N [id number] 18:32:00 Test Item Value Reference Range Interpretation Comments MAGNESIUM (test code = MAG) 2.1 MG/DL 1.6-2.3 N LIPOPROTEIN LDL [id number] 18:32:00 Test Item Value Reference Range Interpretation Comments LIPOPROTEIN LDL DIRECT (test code = mg/dL 100-129 LDLDIR) HCG SERUM [id number] 18:32:00 Test Item Value Reference Range Interpretation Comments HCG SERUM QUAL (test code = HCGQL) NEGATIVE NEGATIVE A THYROID STIMULATING [id number] 18:32:00 Test Item Value Reference Range Interpretation Comments THYROID STIMULATING 3.640 MIU/L 0.465-4.68 N Please b e aware that HORMONE (test code = bias re sults for TSH TSH) may occur forpa tient who are taking Biotin suppleme nts. [id number] 18:32:00 Test Item Value Reference Range Interpretation Comments TROPONIN-I (test code = TROPI) 0.069 NG/ML 0.012-0.033 H B-TYPE NATRIURETIC [id number] 18:20:00 Test Item Value Reference Range Interpretation Comments B-TYPE NATRIURETIC PEPTIDE (test 138.0 PG/ML 0-100 H code = BNP) BASIC METABOLIC [id number] 18:14:00 Test Item Value Reference Range Interpretation Comments SODIUM (test code = 138 MMOL/L 137-145 N NA) POTASSIUM (test code = 3.8 MMOL/L 3.5-5.1 N K) CHLORIDE (test code = 107 MMOL/L 98-107 N CL) CARBON DIOXIDE (test 21 MMOL/L 22-30 L code = CO2) GLUCOSE (test code = 112 MG/DL 74-106 H GLU) BLOOD UREA NITROGEN 8 MG/DL 7-17 N (test code = BUN) GLOMERULAR FILTRATION > 60 Report ing units: RATE (test code = GFR) ml/mi n/1.73 m2 (Modified MDRD Formula)Referen ce Range: > or = 6 0 ml/min/1.73 m2 CREATININE (test code 0.60 MG/DL 0.52-1.04 N = CREAT) CALCIUM (test code = 8.8 MG/DL 8.4-10.2 N CA) HEPATIC FUNCTION [id number] 18:14:00 Test Item Value Reference Range Interpretation Comments TOTAL PROTEIN (test 7.0 G/DL 6.3-8.2 N code = PROT) ALBUMIN (test code = 4.1 G/DL 3.5-5.0 N ALB) BILIRUBIN TOTAL 0.7 MG/DL 0.2-1.3 N Eltrombopag (test code = BILT) Interfere nce for Vitros Product TBil, BuBc: ======= ======= ======A ssay Eltrombop ag Analyte/ Max Observed Avg. Bias Concentratio n Concentration Concentration== ======= ======= ======= =======TBil 7 mg/dl TBil/ 1.2m g/dl +0.23mg.dl +0.20mg/dlBuBc 3.5mg/dl Bu/0.8mg/dl +0.25mg/dl +0.24mg/dlBuBc 7 mg/dl Bu/14.2mg/dl +0.38mg/dl +0.25mg/dlBuBc 5mg/dl Bc/0mg/dl +0.25mg/dl +0.15mg/dlBuBc 3.5mg/dl Bc/2.8mg/dl +0.25mg/dl +0.23mg/dl BILIRUBIN DIRECT 0.0 MG/DL 0.0-0.3 N Eltrombopag (test code = BILD) Interfere nce for Vitros Product TBil, BuBc: ======= ======= ======A ssay Eltrombop ag Analyte/ Max Observed Avg. Bias Concentratio n Concentration Concentration== ======= ======= ======= =======TBil 7 mg/dl TBil/ 1.2m g/dl +0.23mg.dl +0.20mg/dlBuBc 3.5mg/dl Bu/0.8mg/dl +0.25mg/dl +0.24mg/dlBuBc 7 mg/dl Bu/14.2mg/dl +0.38mg/dl +0.25mg/dlBuBc 5mg/dl Bc/0mg/dl +0.25mg/dl +0.15mg/dlBuBc 3.5mg/dl Bc/2.8mg/dl +0.25mg/dl +0.23mg/dl SGOT/AST (test code 111 UNITS/L 14-36 H = AST) SGPT/ALT (test code 59 UNITS/L <35 = ALT) ALKALINE PHOSPHATASE 89 UNITS/L 38-126 N (test code = ALKP) [id number] 18:14:00 Test Item Value Reference Range Interpretation Comments LIPASE (test code = LIP) 58 UNITS/L 23-300 N [id number] 18:14:00 Test Item Value Reference Range Interpretation Comments MAGNESIUM (test code = MAG) 2.1 MG/DL 1.6-2.3 N LIPOPROTEIN LDL [id number] 18:14:00 Test Item Value Reference Range Interpretation Comments LIPOPROTEIN LDL DIRECT (test code = mg/dL 100-129 LDLDIR) HCG SERUM [id number] 18:14:00 Test Item Value Reference Range Interpretation Comments HCG SERUM QUAL (test code = HCGQL) NEGATIVE NEGATIVE A THYROID STIMULATING [id number] 18:14:00 Test Item Value Reference Range Interpretation Comments THYROID STIMULATING HORMONE (test code MIU/L 0.465-4.68 = TSH) [id number] 18:14:00 Test Item Value Reference Range Interpretation Comments TROPONIN-I (test code = TROPI) 0.069 NG/ML 0.012-0.033 H BASIC METABOLIC [id number] 18:08:00 Test Item Value Reference Range Interpretation Comments SODIUM (test code = 138 MMOL/L 137-145 N NA) POTASSIUM (test code = 3.8 MMOL/L 3.5-5.1 N K) CHLORIDE (test code = 107 MMOL/L 98-107 N CL) CARBON DIOXIDE (test 21 MMOL/L 22-30 L code = CO2) GLUCOSE (test code = 112 MG/DL 74-106 H GLU) BLOOD UREA NITROGEN 8 MG/DL 7-17 N (test code = BUN) GLOMERULAR FILTRATION > 60 Report ing units: RATE (test code = GFR) ml/mi n/1.73 m2 (Modified MDRD Formula)Referen ce Range: > or = 6 0 ml/min/1.73 m2 CREATININE (test code 0.60 MG/DL 0.52-1.04 N = CREAT) CALCIUM (test code = 8.8 MG/DL 8.4-10.2 N CA) HEPATIC FUNCTION [id number] 18:08:00 Test Item Value Reference Range Interpretation Comments TOTAL PROTEIN (test 7.0 G/DL 6.3-8.2 N code = PROT) ALBUMIN (test code = 4.1 G/DL 3.5-5.0 N ALB) BILIRUBIN TOTAL 0.7 MG/DL 0.2-1.3 N Eltrombopag (test code = BILT) Interfere nce for Vitros Product TBil, BuBc: ======= ======= ======A ssay Eltrombop ag Analyte/ Max Observed Avg. Bias Concentratio n Concentration Concentration== ======= ======= ======= =======TBil 7 mg/dl TBil/ 1.2m g/dl +0.23mg.dl +0.20mg/dlBuBc 3.5mg/dl Bu/0.8mg/dl +0.25mg/dl +0.24mg/dlBuBc 7 mg/dl Bu/14.2mg/dl +0.38mg/dl +0.25mg/dlBuBc 5mg/dl Bc/0mg/dl +0.25mg/dl +0.15mg/dlBuBc 3.5mg/dl Bc/2.8mg/dl +0.25mg/dl +0.23mg/dl BILIRUBIN DIRECT 0.0 MG/DL 0.0-0.3 N Eltrombopag (test code = BILD) Interfere nce for Vitros Product TBil, BuBc: ======= ======= ======A ssay Eltrombop ag Analyte/ Max Observed Avg. Bias Concentratio n Concentration Concentration== ======= ======= ======= =======TBil 7 mg/dl TBil/ 1.2m g/dl +0.23mg.dl +0.20mg/dlBuBc 3.5mg/dl Bu/0.8mg/dl +0.25mg/dl +0.24mg/dlBuBc 7 mg/dl Bu/14.2mg/dl +0.38mg/dl +0.25mg/dlBuBc 5mg/dl Bc/0mg/dl +0.25mg/dl +0.15mg/dlBuBc 3.5mg/dl Bc/2.8mg/dl +0.25mg/dl +0.23mg/dl SGOT/AST (test code 111 UNITS/L 14-36 H = AST) SGPT/ALT (test code 59 UNITS/L <35 = ALT) ALKALINE PHOSPHATASE 89 UNITS/L 38-126 N (test code = ALKP) [id number] 18:08:00 Test Item Value Reference Range Interpretation Comments LIPASE (test code = LIP) 58 UNITS/L 23-300 N [id number] 18:08:00 Test Item Value Reference Range Interpretation Comments MAGNESIUM (test code = MAG) 2.1 MG/DL 1.6-2.3 N HCG SERUM [id number] 18:08:00 Test Item Value Reference Range Interpretation Comments HCG SERUM QUAL (test code = HCGQL) NEGATIVE NEGATIVE A THYROID STIMULATING [id number] 18:08:00 Test Item Value Reference Range Interpretation Comments THYROID STIMULATING HORMONE (test code MIU/L 0.465-4.68 = TSH) [id number] 18:08:00 Test Item Value Reference Range Interpretation Comments TROPONIN-I (test code = TROPI) NG/ML 0.0-0.045 URINALYSIS [id number] 18:05:00 Test Item Value Reference Range Interpretation Comments UA COLOR (test code = YELLOW YELLOW COLU) UA APPEARANCE (test code CLEAR CLEAR = APPU) UA GLUCOSE DIPSTICK (test NORMAL MG/DL NORMAL code = DGLUU) UA BILIRUBIN DIPSTICK NEGATIVE MG/DL NEGATIVE (test code = BILU) UA KETONE DIPSTICK (test NEGATIVE MG/DL NEGATIVE code = KETU) UA SPECIFIC GRAVITY (test 1.010 1.003-1.030 N code = SGU) UA BLOOD DIPSTICK (test NEGATIVE Michael/mm3 NEGATIVE code = CARO) UA PH DIPSTICK (test code 7.0 5.0-9.0 N = JOSEE) UA PROTEIN DIPSTICK (test NEGATIVE MG/DL NEGATIVE code = PROU) UA UROBILINIOGEN DIPSTICK NORMAL MG/DL NORMAL (test code = URO) UA NITRITE DIPSTICK (test NEGATIVE NEGATIVE code = MARJORIE) UA LEUKOCYTE ESTERASE NEGATIVE /mm3 NEGATIVE DIPSTICK (test code = LEUU) UA CULTURE NEEDED? (test NEGATIVE, NO CULTURE Culture Chk code = UACULT) Criteria SOURCE OF URINE: CLEAN CATCHDRUGS OF ABUSE SCREEN [id number] 18:05:00 Test Item Value Reference Range Interpretation Comments UR COCAINE (test code = NEGATIVE NEGATIVE Cut off Value: 300 COCAU) ng/mL UR CANNABINOIDS (THC) NEGATIVE NEGATIVE Cut of f Value: 50 (test code = CANU) ng/mL UR AMPHETAMINE (test code NEGATIVE NEGATIVE Cu t off Value: 1000 = AMPHU) ng/mL UR BARBITURATE QUAL (test NEGATIVE NEGATIVE Cu t off Value: 200 code = BARBQLU) ng/mL UR BENZODIAZEPINE (test NEGATIVE NEGATIVE Cut off Value: 200 code = BENZU) ng/mL UR OPIATES QUAL (test code NEGATIVE NEGATIVE C ut off Value: 300 = OPIAQLU) ng/mL UR PHENCYCLIDINE (PCP) NEGATIVE NEGATIVE Cut o ff Value: 25 (test code = PHENCU) ng/mL SOURCE OF URINE: CLEAN CATCHURINALYSIS [id number] 18:04:00 Test Item Value Reference Range Interpretation Comments UA COLOR (test code = YELLOW YELLOW COLU) UA APPEARANCE (test code CLEAR CLEAR = APPU) UA GLUCOSE DIPSTICK (test NORMAL MG/DL NORMAL code = DGLUU) UA BILIRUBIN DIPSTICK NEGATIVE MG/DL NEGATIVE (test code = BILU) UA KETONE DIPSTICK (test NEGATIVE MG/DL NEGATIVE code = KETU) UA SPECIFIC GRAVITY (test 1.010 1.003-1.030 N code = SGU) UA BLOOD DIPSTICK (test NEGATIVE Michael/mm3 NEGATIVE code = CARO) UA PH DIPSTICK (test code 7.0 5.0-9.0 N = JOSEE) UA PROTEIN DIPSTICK (test NEGATIVE MG/DL NEGATIVE code = PROU) UA UROBILINIOGEN DIPSTICK NORMAL MG/DL NORMAL (test code = URO) UA NITRITE DIPSTICK (test NEGATIVE NEGATIVE code = MARJORIE) UA LEUKOCYTE ESTERASE NEGATIVE /mm3 NEGATIVE DIPSTICK (test code = LEUU) UA CULTURE NEEDED? (test NEGATIVE, NO CULTURE Culture Chk code = UACULT) Criteria SOURCE OF URINE: CLEAN CATCHDRUGS OF ABUSE SCREEN [id number] 18:04:00 Test Item Value Reference Range Interpretation Comments UR COCAINE (test code = NEGATIVE NEGATIVE Cut off Value: 300 COCAU) ng/mL UR CANNABINOIDS (THC) NEGATIVE NEGATIVE Cut of f Value: 50 (test code = CANU) ng/mL UR AMPHETAMINE (test code NEGATIVE NEGATIVE Cu t off Value: 1000 = AMPHU) ng/mL UR BARBITURATE QUAL (test NEGATIVE NEGATIVE Cu t off Value: 200 code = BARBQLU) ng/mL UR BENZODIAZEPINE (test NEGATIVE NEGATIVE Cut off Value: 200 code = BENZU) ng/mL UR OPIATES QUAL (test code NEGATIVE NEGATIVE C ut off Value: 300 = OPIAQLU) ng/mL UR PHENCYCLIDINE (PCP) NEGATIVE (test code = PHENCU) SOURCE OF URINE: CLEAN CATCHURINALYSIS [id number] 18:03:00 Test Item Value Reference Range Interpretation Comments UA COLOR (test code = YELLOW YELLOW COLU) UA APPEARANCE (test code CLEAR CLEAR = APPU) UA GLUCOSE DIPSTICK (test NORMAL MG/DL NORMAL code = DGLUU) UA BILIRUBIN DIPSTICK NEGATIVE MG/DL NEGATIVE (test code = BILU) UA KETONE DIPSTICK (test NEGATIVE MG/DL NEGATIVE code = KETU) UA SPECIFIC GRAVITY (test 1.010 1.003-1.030 N code = SGU) UA BLOOD DIPSTICK (test NEGATIVE Michael/mm3 NEGATIVE code = CARO) UA PH DIPSTICK (test code 7.0 5.0-9.0 N = JOSEE) UA PROTEIN DIPSTICK (test NEGATIVE MG/DL NEGATIVE code = PROU) UA UROBILINIOGEN DIPSTICK NORMAL MG/DL NORMAL (test code = URO) UA NITRITE DIPSTICK (test NEGATIVE NEGATIVE code = MARJORIE) UA LEUKOCYTE ESTERASE NEGATIVE /mm3 NEGATIVE DIPSTICK (test code = LEUU) UA CULTURE NEEDED? (test NEGATIVE, NO CULTURE Culture Chk code = UACULT) Criteria SOURCE OF URINE: CLEAN CATCHDRUGS OF ABUSE SCREEN [id number] 18:03:00 Test Item Value Reference Range Interpretation Comments UR COCAINE (test code = NEGATIVE NEGATIVE Cut off Value: 300 COCAU) ng/mL UR CANNABINOIDS (THC) NEGATIVE (test code = CANU) UR AMPHETAMINE (test code NEGATIVE NEGATIVE Cu t off Value: 1000 = AMPHU) ng/mL UR BARBITURATE QUAL (test NEGATIVE NEGATIVE Cu t off Value: 200 code = BARBQLU) ng/mL UR BENZODIAZEPINE (test NEGATIVE NEGATIVE Cut off Value: 200 code = BENZU) ng/mL UR OPIATES QUAL (test code NEGATIVE = OPIAQLU) UR PHENCYCLIDINE (PCP) NEGATIVE (test code = PHENCU) SOURCE OF URINE: CLEAN CATCH- XR CHEST [id number] 18:03:00 Patient Name: DARION BROWN Unit No: [id number] EXAMS: CPT CODE: [id number] XR CHEST 1V 70030 EXAMINATION: - XR CHEST 1V. LOCATION: H42. HISTORY: Chest Pain, NSTEMI. COMPARISON: None. FINDINGS: Examination is limited due to portable technique, patient body habitus and low lung volumes. Cardiac silhouette/Mediastinal contour: Within normal limits. Lungs: No focal consolidation. No large pleural effusion. Osseous Structures: No acute osseous abnormalities. IMPRESSION: Low lung volumes, no focal consolidation. at 1803 Reportedand signed by: Johann Pompa CC: Kulwant De Oliveira MD Technologist: Jhon Wyatt RT(R) Transcrpt Date/Tm/Trnsp: 08/22/2020(1802) [email or web address] Orig Print D/T: S: 08/22/2020 (1805) [facility] NAME: DARION BROWN [id number] [address] PHYS: [id number] - [place] [address] : 1975 AGE: 45 SEX: F LOC: [facility] PHONE #: [phone] EXAM DATE: 08/22/2020 STATUS: PRE ER FAX #: [phone] RADIOLOGY NO: PAGE 1 Signed ReportURINALYSIS [id number] 18:02:00 Test Item Value Reference Range Interpretation Comments UA COLOR (test code = YELLOW YELLOW COLU) UA APPEARANCE (test code CLEAR CLEAR = APPU) UA GLUCOSE DIPSTICK (test NORMAL MG/DL NORMAL code = DGLUU) UA BILIRUBIN DIPSTICK NEGATIVE MG/DL NEGATIVE (test code = BILU) UA KETONE DIPSTICK (test NEGATIVE MG/DL NEGATIVE code = KETU) UA SPECIFIC GRAVITY (test 1.010 1.003-1.030 N code = SGU) UA BLOOD DIPSTICK (test NEGATIVE Michael/mm3 NEGATIVE code = CARO) UA PH DIPSTICK (test code 7.0 5.0-9.0 N = JOSEE) UA PROTEIN DIPSTICK (test NEGATIVE MG/DL NEGATIVE code = PROU) UA UROBILINIOGEN DIPSTICK NORMAL MG/DL NORMAL (test code = URO) UA NITRITE DIPSTICK (test NEGATIVE NEGATIVE code = MARJORIE) UA LEUKOCYTE ESTERASE NEGATIVE /mm3 NEGATIVE DIPSTICK (test code = LEUU) UA CULTURE NEEDED? (test NEGATIVE, NO CULTURE Culture Chk code = UACULT) Criteria SOURCE OF URINE: CLEAN CATCHDRUGS OF ABUSE SCREEN [id number] 18:02:00 Test Item Value Reference Range Interpretation Comments UR COCAINE (test code = NEGATIVE COCAU) UR CANNABINOIDS (THC) NEGATIVE (test code = CANU) UR AMPHETAMINE (test code NEGATIVE NEGATIVE Cu t off Value: 1000 = AMPHU) ng/mL UR BARBITURATE QUAL (test NEGATIVE NEGATIVE Cu t off Value: 200 code = BARBQLU) ng/mL UR BENZODIAZEPINE (test NEGATIVE NEGATIVE Cut off Value: 200 code = BENZU) ng/mL UR OPIATES QUAL (test code NEGATIVE = OPIAQLU) UR PHENCYCLIDINE (PCP) NEGATIVE (test code = PHENCU) SOURCE OF URINE: CLEAN CATCHPROTHROMBIN [id number] 18:01:00 Test Item Value Reference Range Interpretation Comments PROTHROMBIN TIME 11.3 SECONDS 9.4-12.5 N PATIENT (test code = PTP) INTERNATIONAL NORMAL 1.0 The INR is to be RATIO (test code = used only for INR) monitoring oral anticoagulantth erap y. INDICATION I NR VALUE ---- ---- ---- -------1. Prophylaxis, de ep venous thrombos is, including hig h risk surgery. 2.0 - 3.0 2. Prophylaxis, de ep venous thrombos is, hip surgery, treatment for d eep venous thrombosis or pulmonary prevention of systemic emboli sm in patients wit h valvular heart disease, atrial fibrillation, tissue heart va lve, or acute myocar dial infarction. 2.0 - 3 .0 3. Mechanical prosthesis hear t valves, recurrent syste ector embolism. 3.0 - 4.5 PTT [id number] 18:01:00 Test Item Value Reference Range Interpretation Comments PTT ACTIVATED (test code = APTT) 39.1 SECONDS 25.1-36.5 H [id number] 18:01:00 Test Item Value Reference Range Interpretation Comments D-DIMER (test 259 ng/mLFEU 0-499 N Negative Predi ctive Value code = DDIMER) cutoff for DV T & PE: < 500 ng/mL FEUInterp retation: A value of < 500 ng/mL FEU has a NegativeP redictive Value in ruling out a DVT or PE diagnosis .A value of 500 ng/mL or gr eater is considered Positive.Positi ve result cannot be used for the diagnosis of DV T andPE without using o f standard radiological pr ocedures. URINALYSIS [id number] 18:01:00 Test Item Value Reference Range Interpretation Comments UA COLOR (test code = YELLOW YELLOW COLU) UA APPEARANCE (test code CLEAR CLEAR = APPU) UA GLUCOSE DIPSTICK (test NORMAL MG/DL NORMAL code = DGLUU) UA BILIRUBIN DIPSTICK NEGATIVE MG/DL NEGATIVE (test code = BILU) UA KETONE DIPSTICK (test NEGATIVE MG/DL NEGATIVE code = KETU) UA SPECIFIC GRAVITY (test 1.010 1.003-1.030 N code = SGU) UA BLOOD DIPSTICK (test NEGATIVE Michael/mm3 NEGATIVE code = CARO) UA PH DIPSTICK (test code 7.0 5.0-9.0 N = JOSEE) UA PROTEIN DIPSTICK (test NEGATIVE MG/DL NEGATIVE code = PROU) UA UROBILINIOGEN DIPSTICK NORMAL MG/DL NORMAL (test code = URO) UA NITRITE DIPSTICK (test NEGATIVE NEGATIVE code = MARJORIE) UA LEUKOCYTE ESTERASE NEGATIVE /mm3 NEGATIVE DIPSTICK (test code = LEUU) UA CULTURE NEEDED? (test NEGATIVE, NO CULTURE Culture Chk code = UACULT) Criteria SOURCE OF URINE: CLEAN CATCHDRUGS OF ABUSE SCREEN [id number] 18:01:00 Test Item Value Reference Range Interpretation Comments UR COCAINE (test code = NEGATIVE COCAU) UR CANNABINOIDS (THC) NEGATIVE (test code = CANU) UR AMPHETAMINE (test code NEGATIVE = AMPHU) UR BARBITURATE QUAL (test NEGATIVE NEGATIVE Cu t off Value: 200 code = BARBQLU) ng/mL UR BENZODIAZEPINE (test NEGATIVE code = BENZU) UR OPIATES QUAL (test code NEGATIVE = OPIAQLU) UR PHENCYCLIDINE (PCP) NEGATIVE (test code = PHENCU) SOURCE OF URINE: CLEAN CATCHBASIC METABOLIC [id number] 18:01:00 Test Item Value Reference Range Interpretation Comments SODIUM (test code = 138 MMOL/L 137-145 N NA) POTASSIUM (test code = 3.8 MMOL/L 3.5-5.1 N K) CHLORIDE (test code = 107 MMOL/L 98-107 N CL) CARBON DIOXIDE (test 21 MMOL/L 22-30 L code = CO2) GLUCOSE (test code = 112 MG/DL 74-106 H GLU) BLOOD UREA NITROGEN 8 MG/DL 7-17 N (test code = BUN) GLOMERULAR FILTRATION > 60 Report ing units: RATE (test code = GFR) ml/mi n/1.73 m2 (Modified MDRD Formula)Referen ce Range: > or = 6 0 ml/min/1.73 m2 CREATININE (test code 0.60 MG/DL 0.52-1.04 N = CREAT) CALCIUM (test code = 8.8 MG/DL 8.4-10.2 N CA) HEPATIC FUNCTION [id number] 18:01:00 Test Item Value Reference Range Interpretation Comments TOTAL PROTEIN (test 7.0 G/DL 6.3-8.2 N code = PROT) ALBUMIN (test code = 4.1 G/DL 3.5-5.0 N ALB) BILIRUBIN TOTAL 0.7 MG/DL 0.2-1.3 N Eltrombopag (test code = BILT) Interfere nce for Vitros Product TBil, BuBc: ======= ======= ======A ssay Eltrombop ag Analyte/ Max Observed Avg. Bias Concentratio n Concentration Concentration== ======= ======= ======= =======TBil 7 mg/dl TBil/ 1.2m g/dl +0.23mg.dl +0.20mg/dlBuBc 3.5mg/dl Bu/0.8mg/dl +0.25mg/dl +0.24mg/dlBuBc 7 mg/dl Bu/14.2mg/dl +0.38mg/dl +0.25mg/dlBuBc 5mg/dl Bc/0mg/dl +0.25mg/dl +0.15mg/dlBuBc 3.5mg/dl Bc/2.8mg/dl +0.25mg/dl +0.23mg/dl BILIRUBIN DIRECT 0.0 MG/DL 0.0-0.3 N Eltrombopag (test code = BILD) Interfere nce for Vitros Product TBil, BuBc: ======= ======= ======A ssay Eltrombop ag Analyte/ Max Observed Avg. Bias Concentratio n Concentration Concentration== ======= ======= ======= =======TBil 7 mg/dl TBil/ 1.2m g/dl +0.23mg.dl +0.20mg/dlBuBc 3.5mg/dl Bu/0.8mg/dl +0.25mg/dl +0.24mg/dlBuBc 7 mg/dl Bu/14.2mg/dl +0.38mg/dl +0.25mg/dlBuBc 5mg/dl Bc/0mg/dl +0.25mg/dl +0.15mg/dlBuBc 3.5mg/dl Bc/2.8mg/dl +0.25mg/dl +0.23mg/dl SGOT/AST (test code 111 UNITS/L 14-36 H = AST) SGPT/ALT (test code 59 UNITS/L <35 = ALT) ALKALINE PHOSPHATASE 89 UNITS/L 38-126 N (test code = ALKP) [id number] 18:01:00 Test Item Value Reference Range Interpretation Comments LIPASE (test code = LIP) 58 UNITS/L 23-300 N [id number] 18:01:00 Test Item Value Reference Range Interpretation Comments MAGNESIUM (test code = MAG) 2.1 MG/DL 1.6-2.3 N HCG SERUM [id number] 18:01:00 Test Item Value Reference Range Interpretation Comments HCG SERUM QUAL (test code = HCGQL) NEGATIVE THYROID STIMULATING [id number] 18:01:00 Test Item Value Reference Range Interpretation Comments THYROID STIMULATING HORMONE (test code MIU/L 0.465-4.68 = TSH) [id number] 18:01:00 Test Item Value Reference Range Interpretation Comments TROPONIN-I (test code = TROPI) NG/ML 0.0-0.045 BASIC METABOLIC [id number] 18:00:00 Test Item Value Reference Range Interpretation Comments SODIUM (test code = 138 MMOL/L 137-145 N NA) POTASSIUM (test code = 3.8 MMOL/L 3.5-5.1 N K) CHLORIDE (test code = 107 MMOL/L 98-107 N CL) CARBON DIOXIDE (test 21 MMOL/L 22-30 L code = CO2) GLUCOSE (test code = MG/DL 74-106 GLU) BLOOD UREA NITROGEN MG/DL 7-17 (test code = BUN) GLOMERULAR FILTRATION > 60 Report ing units: RATE (test code = GFR) ml/mi n/1.73 m2 (Modified MDRD Formula)Referen ce Range: > or = 6 0 ml/min/1.73 m2 CREATININE (test code 0.60 MG/DL 0.52-1.04 N = CREAT) CALCIUM (test code = MG/DL 8.7-9.7 CA) HEPATIC FUNCTION [id number] 18:00:00 Test Item Value Reference Range Interpretation Comments TOTAL PROTEIN (test G/DL 6.3-8.2 code = PROT) ALBUMIN (test code = 4.1 G/DL 3.5-5.0 N ALB) BILIRUBIN TOTAL (test MG/DL 0.2-1.3 code = BILT) BILIRUBIN DIRECT 0.0 MG/DL 0.0-0.3 N Eltrombopag (test code = BILD) Interfere nce for Vitros Product TBil, BuBc: ======== ======== ====Assa y Eltrombopag Analyte/ Max Observed Avg. Bias Concentration Concentration Concentration== ======== ======== ======== ====TBil 7mg/ dl TBil/ 1.2mg/dl +0.23mg.dl +0.20mg/dlBuBc 3.5mg/dl Bu/0.8mg/dl +0.25mg/dl +0.24mg/dlBuBc 7 mg/dl Bu/14.2mg/dl +0.38mg/dl +0.25mg/dlBuBc 5mg/dl Bc/0mg/d l +0.25mg/dl +0.15mg/dlBuBc 3.5mg/dl Bc/2.8mg/dl +0.25mg/dl +0 .23mg/dl SGOT/AST (test code = UNITS/L 15-37 AST) SGPT/ALT (test code = UNITS/L <35 ALT) ALKALINE PHOSPHATASE UNITS/L 38-126 (test code = ALKP) [id number] 18:00:00 Test Item Value Reference Range Interpretation Comments LIPASE (test code = LIP) UNITS/L 23-300 [id number] 18:00:00 Test Item Value Reference Range Interpretation Comments MAGNESIUM (test code = MAG) MG/DL 1.6-2.3 HCG SERUM [id number] 18:00:00 Test Item Value Reference Range Interpretation Comments HCG SERUM QUAL (test code = HCGQL) NEGATIVE THYROID STIMULATING [id number] 18:00:00 Test Item Value Reference Range Interpretation Comments THYROID STIMULATING HORMONE (test code MIU/L 0.465-4.68 = TSH) [id number] 18:00:00 Test Item Value Reference Range Interpretation Comments TROPONIN-I (test code = TROPI) NG/ML 0.0-0.045 BASIC METABOLIC [id number] 17:58:00 Test Item Value Reference Range Interpretation Comments SODIUM (test code = NA) 138 MMOL/L 137-145 N POTASSIUM (test code = K) 3.8 MMOL/L 3.5-5.1 N CHLORIDE (test code = CL) 107 MMOL/L 98-107 N CARBON DIOXIDE (test code = CO2) MMOL/L 22-30 GLUCOSE (test code = GLU) MG/DL 74-106 BLOOD UREA NITROGEN (test code = MG/DL 7-17 BUN) GLOMERULAR FILTRATION RATE (test code = GFR) CREATININE (test code = CREAT) MG/DL 0.52-1.04 CALCIUM (test code = CA) MG/DL 8.7-9.7 HEPATIC FUNCTION [id number] 17:58:00 Test Item Value Reference Range Interpretation Comments TOTAL PROTEIN (test code = PROT) G/DL 6.3-8.2 ALBUMIN (test code = ALB) 4.1 G/DL 3.5-5.0 N BILIRUBIN TOTAL (test code = BILT) MG/DL 0.2-1.3 BILIRUBIN DIRECT (test code = BILD) MG/DL 0.0-0.3 SGOT/AST (test code = AST) UNITS/L 15-37 SGPT/ALT (test code = ALT) UNITS/L <35 ALKALINE PHOSPHATASE (test code = UNITS/L 38-126 ALKP) [id number] 17:58:00 Test Item Value Reference Range Interpretation Comments LIPASE (test code = LIP) UNITS/L 23-300 [id number] 17:58:00 Test Item Value Reference Range Interpretation Comments MAGNESIUM (test code = MAG) MG/DL 1.6-2.3 HCG SERUM [id number] 17:58:00 Test Item Value Reference Range Interpretation Comments HCG SERUM QUAL (test code = HCGQL) NEGATIVE THYROID STIMULATING [id number] 17:58:00 Test Item Value Reference Range Interpretation Comments THYROID STIMULATING HORMONE (test code MIU/L 0.465-4.68 = TSH) [id number] 17:58:00 Test Item Value Reference Range Interpretation Comments TROPONIN-I (test code = TROPI) NG/ML 0.0-0.045 URINALYSIS [id number] 17:54:00 Test Item Value Reference Range Interpretation Comments UA COLOR (test code = YELLOW YELLOW COLU) UA APPEARANCE (test code CLEAR CLEAR = APPU) UA GLUCOSE DIPSTICK (test NORMAL MG/DL NORMAL code = DGLUU) UA BILIRUBIN DIPSTICK NEGATIVE MG/DL NEGATIVE (test code = BILU) UA KETONE DIPSTICK (test NEGATIVE MG/DL NEGATIVE code = KETU) UA SPECIFIC GRAVITY (test 1.010 1.003-1.030 N code = SGU) UA BLOOD DIPSTICK (test NEGATIVE Michael/mm3 NEGATIVE code = CARO) UA PH DIPSTICK (test code 7.0 5.0-9.0 N = JOSEE) UA PROTEIN DIPSTICK (test NEGATIVE MG/DL NEGATIVE code = PROU) UA UROBILINIOGEN DIPSTICK NORMAL MG/DL NORMAL (test code = URO) UA NITRITE DIPSTICK (test NEGATIVE NEGATIVE code = MARJORIE) UA LEUKOCYTE ESTERASE NEGATIVE /mm3 NEGATIVE DIPSTICK (test code = LEUU) UA CULTURE NEEDED? (test NEGATIVE, NO CULTURE Culture Chk code = UACULT) Criteria SOURCE OF URINE: CLEAN CATCHDRUGS OF ABUSE SCREEN [id number] 17:54:00 Test Item Value Reference Range Interpretation Comments UR COCAINE (test code = COCAU) NEGATIVE UR CANNABINOIDS (THC) (test code = NEGATIVE CANU) UR AMPHETAMINE (test code = AMPHU) NEGATIVE UR BARBITURATE QUAL (test code = NEGATIVE BARBQLU) UR BENZODIAZEPINE (test code = BENZU) NEGATIVE UR OPIATES QUAL (test code = OPIAQLU) NEGATIVE UR PHENCYCLIDINE (PCP) (test code = NEGATIVE PHENCU) SOURCE OF URINE: CLEAN CATCHCBC W/AUTO [id number] 17:49:00 Test Item Value Reference Range Interpretation Comments WHITE BLOOD CELL (test code = 8.4 K/MM3 3.8-9.8 N WBC) RED BLOOD CELL (test code = 4.54 M/MM3 3.58-4.97 N RBC) HEMOGLOBIN (test code = HGB) 13.6 G/DL 11.2-14.9 N HEMATOCRIT (test code = HCT) 41.2 % 33.2-43.5 N MEAN CELL VOLUME (test code = 91 fL 80.7-99.1 N MCV) MEAN CELL HGB (test code = MCH) 30.0 pg 27.0-34.1 N MEAN CELL HGB CONCETRATION 33.0 % 32.2-35.7 N (test code = MCHC) RED CELL DISTRIBUTION WIDTH 14.2 % 12.1-15.2 N (test code = RDW) PLATELET COUNT (test code = 266 K/MM3 129-368 N PLT) MEAN PLATELET VOLUME (test code 11.3 fl 7.4-10.4 H = MPV) NEUTROPHIL % (test code = NT%) 65.2 % 43-75 N IMMATURE GRANULOCYTE % (test 0.2 % 0.0-2.0 N code = IG%) LYMPHOCYTE % (test code = LY%) 24.1 % 14-44 N MONOCYTE % (test code = MO%) 7.8 % 4-13 N EOSINOPHIL % (test code = EO%) 2.1 % 0-6 N BASOPHIL % (test code = BA%) 0.6 % 0-2 N NUCLEATED RBC % (test code = 0.0 % 0-1.0 N NRBC%) NEUTROPHIL # (test code = NT#) 5.46 K/mm3 2.0-7.6 N IMMATURE GRANULOCYTE # (test 0.02 x10 3/uL 0-0.03 N code = IG#) LYMPHOCYTE # (test code = LY#) 2.02 K/mm3 1.0-3.8 N MONOCYTE # (test code = MO#) 0.65 K/mm3 0.1-0.8 N EOSINOPHIL # (test code = EO#) 0.18 K/mm3 0.0-0.2 N BASOPHIL # (test code = BA#) 0.05 K/mm3 0.0-0.2 N NUCLEATED RBC # (test code = 0.00 K/mm3 0.0-0.1 N NRBC#) URINALYSIS [id number] 17:48:00 Test Item Value Reference Range Interpretation Comments UA COLOR (test code = COLU) YELLOW YELLOW UA APPEARANCE (test code = CLEAR CLEAR APPU) UA GLUCOSE DIPSTICK (test NORMAL MG/DL NORMAL code = DGLUU) UA BILIRUBIN DIPSTICK (test NEGATIVE MG/DL NEGATIVE code = BILU) UA KETONE DIPSTICK (test NEGATIVE MG/DL NEGATIVE code = KETU) UA SPECIFIC GRAVITY (test 1.010 1.003-1.030 N code = SGU) UA BLOOD DIPSTICK (test code NEGATIVE Michael/mm3 NEGATIVE = CARO) UA PH DIPSTICK (test code = 7.0 5.0-9.0 N JOSEE) UA PROTEIN DIPSTICK (test NEGATIVE MG/DL NEGATIVE code = PROU) UA UROBILINIOGEN DIPSTICK NORMAL MG/DL NORMAL (test code = URO) UA NITRITE DIPSTICK (test NEGATIVE NEGATIVE code = MARJORIE) UA LEUKOCYTE ESTERASE NEGATIVE /mm3 NEGATIVE DIPSTICK (test code = LEUU) UA CULTURE NEEDED? (test Criteria Culture Chk code = UACULT) SOURCE OF URINE: CLEAN CATCHDRUGS OF ABUSE SCREEN [id number] 17:48:00 Test Item Value Reference Range Interpretation Comments UR COCAINE (test code = COCAU) NEGATIVE UR CANNABINOIDS (THC) (test code = NEGATIVE CANU) UR AMPHETAMINE (test code = AMPHU) NEGATIVE UR BARBITURATE QUAL (test code = NEGATIVE BARBQLU) UR BENZODIAZEPINE (test code = BENZU) NEGATIVE UR OPIATES QUAL (test code = OPIAQLU) NEGATIVE UR PHENCYCLIDINE (PCP) (test code = NEGATIVE PHENCU) SOURCE OF URINE: CLEAN CATCH
--- NOTE | 2021-03-17 16:27 | ER ---
Nurse's Notes [facility] Name: Dwight Hylton Age: 45 yrs Sex: Female : 1975 Arrival Date: 03/17/2021 Time: 15:52 Bed Waiting Private MD: Diagnosis: Presentation: 03/17 16:00 Chief complaint: Patient states: Chest pain, L side and between shoulder blades since ca1 last night. Pain is described as pressure and started last night. +HX of heart attack. Coronavirus screen: Client denies travel out of the [place] in the last 14 days. At this time, the client does not indicate any symptoms associated with coronavirus-19. Ebola Screen: Patient negative for fever greater than or equal to 101.5 degrees Fahrenheit, and additional compatible Ebola Virus Disease symptoms Patient denies exposure to infectious person. Patient denies travel to an Ebola-affected area in the 21 days before illness onset. No symptoms or risks identified at this time. Initial Sepsis Screen: Does the patient meet any 2 criteria? No. Patient's initial sepsis screen is negative. Does the patient have a suspected source of infection? No. Patient's initial sepsis screen is negative. Risk Assessment: Do you want to hurt yourself or someone else? Patient reports no desire to harm self or others. Onset of symptoms was March 17, 2021. 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 Flu vaccine is not up to date. - Social history:: Smoking status: Patient denies any tobacco usage or history of. Assessment: 16:25 Reassessment: Pt states, "I am just going to [place] to my hospital since you don't ca1 have a room here". Vital Signs: 16:00 BP 138 / 69; Pulse 83; Resp 16 S; Temp 97.7(TE); Pulse Ox 99% on R/A; Weight 102.06 kg ca1 (R); Height 5 ft. 5 in. (165.10 cm) (R); Pain 9/10; 16:00 Body Mass Index 37.44 (102.06 kg, 165.10 cm) ca1 ED Course: 15:52 Patient arrived in ED. am2 16:16 Triage completed. ca1 16:16 Arm band placed on right wrist. ca1 16:24 EKG completed in triage. Results shown to MD. kaylie Administered Medications: No medications were administered Outcome: 16:27 Patient left the ED. ca1 Signatures: Cindy Clayton am2 Prema Kulkarni RN RN ca1
[2021-03-17 16:31] VITALS: BP 138/69; TEMP 97.7; O2SAT 99
--- NOTE | 2021-03-18 07:18 | EKG ---
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
== END 2021-03-17 16:27 | disposition left against medical advice (07) ==
LOC: ER 15:51
DX: Z53.21 Procedure and treatment not carried out due to patient leaving prior to being seen by health care provider (principal)
CPT/HCPCS: 93005; 99281

== ENCOUNTER 2021-09-29 15:13 | Emergency (ER) | payer BC, SELFPAY ==
--- OUTSIDE RECORDS SUMMARY | 2021-09-29 15:17 | XMS REPORT | Continuity of Care Document ---
:1975 Author Organization [facility] t Address [address] [place] [address] Care Team Providers Name Role Phone Caron CASTREJON Primary Care Physician HECTOR Attending Clinician Unavailable Caden STONE Attending Clinician Hector CASTREJON Attending Clinician Andrea Castillo DO Attending Clinician Care, Primary Attending Clinician Unavailable CADEN Attending Clinician Unavailable Doctor Unassigned, Name Attending Clinician Unavailable LARRY LEE Attending Clinician Unavailable Kellie MERAZ Attending Clinician Unavailable Payers Payer Name Policy Type Policy Number Effective Date Expiration Date [place] [employer] [place] [id number] 2019 00:00:00 [place] [facility] [id number] 2019 CARE 00:00:00 Problems Condition Condition Condition Status Onset Resolution Last Treating Co mments Source Name Details Category Date Date Treatment Clinician Date ASCUS on ASCUS on Disease Active Unive rs Pap smear Pap smear 3-15 ity of 00:00: [place] 00 Medical Branch Coronary Coronary Disease Active Unive rs artery artery 8-08 ity of spasm spasm 00:00: [place] 00 Medical Branch NSTEMI NSTEMI Disease Active Univers (non-ST (non-ST 8-06 ity of elevated elevated 00:00: [place] myocardial myocardial 00 Me dical infarction infarction Br anch ) ) Obesity Obesity Disease Active Univers (BMI (BMI 8-06 ity of 30-39.9) 30-39.9) 00:00: [place] 00 Medical Branch Hypertensi Hypertensi Disease Active U nivers ve ve 806 ity of emergency [facility] NSVT NSVT Disease Active Univers (nonsustai (nonsustai 06-18 it y of zainab zainab 00:00: [place] ventricula ventricula 00 Me dical r r Branch tachycardi tachycardi a) a) Bulging Bulging Disease Active Univers disc disc 9-04 ity of 00:00: [place] [address] Medical Branch Allergies, Adverse Reactions, Alerts Allergy Allergy Status Severity Reaction(s) Onset Inactive Treating Comm ents Source Name Type Date Date Clinician No Known DA Active U 2019-11 [facility] Allergie 0-10 [facility] 00:00: [address] [place] DA Active SV 2019-11 [facility] ins 0-10 [place] 00:00: [address] No Known DA Active U 2019-11 [facility] Allergie 0-10 [place] s 00:00: [address] [place] DA Active SV swelling, 2019-11 [facility] ins unable to 0-10 [place] breath 00:00: [address] [place]EN[place] DRUG Active Anaphylaxis Uni vers IN INGREDI 8-05 ity of 00:00: [place] [address] Medical Branch Pen[place] Propensi Active Anaphylaxis 2018- U nivers in ty to 8-05 ity of adverse 00:00: [place] reaction Medical s Branch Social History Social Habit Start Date Stop Date Quantity Comments Source Exposure to Not sure [place] of SARS-CoV-2 [place] [facility] (event) Branch Alcohol intake 2021-07-07 2021-07-07 Current drinker Unive rsity of 00:00:00 00:00:00 of alcohol [place] [facility] (finding) Branch History [facility] 2019-07-25 2019-07-25 2 University o f Alcohol Frequency 00:00:00 00:00:00 [place] M edical Branch History [facility] 2019-07-25 2019-07-25 1 University o f Alcohol Std 00:00:00 00:00:00 [place] Medical Drinks Branch History [facility] 2019-07-25 2019-07-25 1 University o f Alcohol Binge 00:00:00 00:00:00 [place] Medic al Branch Alcohol Comment 2019-07-25 2019-07-25 Occasional mixed Uni versity of 00:00:00 00:00:00 drink [facility] Tobacco use and 2019-06-18 2019-06-18 Never used Universit y of exposure 00:00:00 00:00:00 [facility] Sex [birth year] Universit y of 00:00:00 00:00:00 [facility] Smoking Status Start Date Stop Date Source Never smoker [facility] Medications Ordered Filled Start Stop Current Ordering Indication Dosage Frequency Signature Comments Components Source Medication Medication Date Date Medication? Clinician (SIG) Name Name lisinopriL Yes [id number] 20mg Take 1 Univers 20 mg 9-16 tablet by ity of tablet 00:00: mouth 2 [place] [address] (two) Medical times Branch daily. multivit-ir Yes Take by Un donna on-FA-calci 8-25 mouth. ity of um-mins 18 20:04: [place] mg iron-400 15 Medical mcg-500 mg Branch Ca Tab VITAMIN B Yes Take by Univ ers COMPLEX 8-25 mouth. ity of ORAL 20:04: [address] multivit-ir Yes Take by Un donna on-FA-calci 8-25 mouth. ity of um-mins 18 20:04: [place] mg iron-400 15 Medical mcg-500 mg Branch Ca Tab VITAMIN B Yes Take by Univ ers COMPLEX 8-25 mouth. ity of ORAL 20:04: [address] multivit-ir Yes Take by Un donna on-FA-calci 8-25 mouth. ity of um-mins 18 15:04: [place] mg iron-400 15 Medical mcg-500 mg Branch Ca Tab VITAMIN B Yes Take by Univ ers COMPLEX 8-25 mouth. ity of ORAL 15:04: [address] multivit-ir Yes Take by Un donna on-FA-calci 8-25 mouth. ity of um-mins 18 15:04: [place] mg iron-400 15 Medical mcg-500 mg Branch Ca Tab VITAMIN B Yes Take by Univ ers COMPLEX 8-25 mouth. ity of ORAL 15:04: [address] diltiazem Yes [id number] 120mg Take 1 U nivers 120 mg 24 8-25 tablet by ity o f hr tablet 00:00: mouth [place] 00 daily. Medical Branch diltiazem 0 Yes [id number] 120mg Take 1 U nivers 120 mg 24 8-25 tablet by ity o f hr tablet 00:00: mouth [place] 00 daily. Medical Branch diltiazem 0 Yes [id number] 120mg Take 1 U nivers 120 mg 24 8-25 tablet by ity o f hr tablet 00:00: mouth [place] 00 daily. Medical Branch diltiazem 0 Yes [id number] 120mg Take 1 U nivers 120 mg 24 8-25 tablet by ity o f hr tablet 00:00: mouth [place] 00 daily. Medical Branch atorvastati Yes [id number] 40mg Take 1 Univers n 40 mg 8-16 tablet by ity of tablet 00:00: mouth [place] 00 daily. Medical Branch atorvastati Yes [id number] 40mg Take 1 Univers n 40 mg 8-16 tablet by ity of tablet 00:00: mouth [place] 00 daily. Medical Branch atorvastati Yes [id number] 40mg Take 1 Univers n 40 mg 8-16 tablet by ity of tablet 00:00: mouth [place] 00 daily. Medical Branch atorvastati Yes [id number] 40mg Take 1 Univers n 40 mg 8-16 tablet by ity of tablet 00:00: mouth [place] 00 daily. Medical Branch fenofibrate Yes [id number] 145mg Take 1 Univers (TRICOR) 3-15 tablet by ity of 145 mg 00:00: mouth [place] tablet 00 daily. Medical Branch fenofibrate Yes [id number] 145mg Take 1 Univers (TRICOR) 3-15 tablet by ity of 145 mg 00:00: mouth [place] tablet 00 daily. Medical Branch fenofibrate Yes [id number] 145mg Take 1 Univers (TRICOR) 3-15 tablet by ity of 145 mg 00:00: mouth [place] tablet 00 daily. Medical Branch fenofibrate Yes [id number] 145mg Take 1 Univers (TRICOR) 3-15 tablet by ity of 145 mg 00:00: mouth [place] tablet 00 daily. Medical Branch diltiazem 2020- No [id number] 120mg Take 1 Univers 120 mg 24 3- 08-25 tablet by ity of hr tablet 00:00: 00:00 mouth [place] 00 :00 daily. Medical Branch diltiazem 2020- No [id number] 120mg Take 1 Univers 120 mg 24 3- 08-25 tablet by ity of hr tablet 00:00: 00:00 mouth [place] 00 :00 daily. Medical Branch lisinopriL 2019-11 Yes [id number] 20mg Take 1 Univers 20 mg 0-05 tablet by ity of tablet 00:00: mouth 2 [place] 00 (two) Medical times Branch daily. lisinopriL 2019-11 Yes [id number] 20mg Take 1 Univers 20 mg 0-05 tablet by ity of tablet 00:00: mouth 2 [place] 00 (two) Medical times Branch daily. lisinopriL 2019-11 Yes [id number] 20mg Take 1 Univers 20 mg 0-05 tablet by ity of tablet 00:00: mouth 2 [place] 00 (two) Medical times Branch daily. lisinopriL 2019-11 No [id number] 20mg Take 1 Univers 20 mg 0-05 09-16 tablet by ity of tablet 00:00: 00:00 mouth 2 [place] 00 :00 (two) Medical times Branch daily. aspirin 81 2020-0 Yes 81mg Take 81 mg U nivers mg chewable 7-09 by mouth ity of tablet 16:17: daily. [address] aspirin 81 2020-0 Yes 81mg Take 81 mg U nivers mg chewable 7-09 by mouth ity of tablet 16:17: daily. [address] aspirin 81 2020-0 Yes 81mg Take 81 mg U nivers mg chewable 7-09 by mouth ity of tablet 11:17: daily. [address] aspirin 81 2020-0 Yes 81mg Take 81 mg U nivers mg chewable 7-09 by mouth ity of tablet 11:17: daily. [address] Immunizations Ordered Filled Immunization Date Status Comments [facility] Immunization Name Name TDAP 2019-07-25 Completed [facility] 00:00:00 [facility] Influenza Virus 2019-07-25 Completed Universit y of Vaccine 00:00:00 [facility] TDAP 2019-07-25 Completed [facility] 00:00:00 [place] [facility] Influenza Virus 2019-07-25 Completed Universit y of Vaccine 00:00:00 [facility] TDAP 2019-07-25 Completed University of 00:00:00 [facility] Influenza Virus 2019-07-25 Completed Universit y of Vaccine 00:00:00 [facility] TDAP 2019-07-25 Completed University of 00:00:00 [facility] Influenza Virus 2019-07-25 Completed Universit y of Vaccine 00:00:00 [facility] Vital Signs Vital Name Observation Time Observation Value Comments Source Systolic blood 2021-07-07 20:01:00 124 mm[Hg] Univer sity [facility] Diastolic blood 2021-07-07 20:01:00 81 [facility]Hg[facility] rate 2021-07-07 20:01:00 94 /min [facility] Body weight 2021-07-07 20:01:00 104.781 kg [facility] BMI 2021-07-07 20:01:00 38.44 kg/m2 [facility] Oxygen saturation 2021-07-07 20:01:00 97 /min [facility] in Arterial blood [facility] anch by Pulse oximetry Procedures This patient has no known procedures. Encounters Start End Encounter Admission Attending Care Care Encounter Source Date/Time Date/Time Type Type Clinicians Facility Department ID 2021-09-12 Emergency [facility] [id number] Univers 17:23:54 [facility] 2020-08-[address] [facility] [id number] [facility] 17:18:00 [facility] 2022-07-08 2022-07-08 Outpatient HECTOR, [facility] [id number] Univers 15:20:00 15:20:00 NIC [id number] ity o f [facility] 2021-07-29 2021-07-29 Telephone Yanna Negrete [id number] Univers 00:00:00 00:00:00 [facility] [id number] [facility] of HEALTH [id number] [place] s UNIT [id number] [address] 2021-07-28 2021-07-28 Refill Yanna Negrete [facility] [id number] Univers 00:00:00 00:00:00 Health [id number] it [place].686 [place] [id number] [facility] 115 Branch (CLC) 2021-07-07 2021-07-07 Office Hector, [facility] [id number] Univers 14:46:45 15:14:49 Visit [place] [id number] ity of [place]2.7.2.686 [place] [id number] Nh dical nal 0[address] Branch Building 2021-07-07 2021-07-07 Outpatient R HECTOR, [facility] [id number] Univers 14:40:00 14:40:00 NIC [id number] ity o [facility] 2021-07-07 2021-07-07 Outpatient R HECTOR, [facility] [id number] Univers 14:40:00 14:40:00 [facility] 2021-07-05 2021-07-05 Outpatient R [facility] [id number] Univers 11:45:00 11:45:00 [id number] ity [facility] 2021-07-05 2021-07-05 Outpatient R HECTOR, [facility] [id number] Univers 11:45:00 11:45:00 NIC acostay [facility] 2021-06-09 2021-06-09 Outpatient R HECTOR, [facility] [id number] Univers 14:20:00 14:20:00 NIC [id number] ity o [facility] 2021-05-05 2021-05-05 Outpatient R HECTOR, [facility] [id number] Univers 14:00:00 14:00:00 NIC [id number] ity o [facility] 2021-05-05 2021-05-05 Outpatient R HECTOR, [facility] [id number] Univers 14:00:00 14:00:00 NIC acostay o [facility] 2021-04-05 2021-04-05 Outpatient R HECTOR, [facility] [id number] Univers 11:00:00 11:00:00 NIC [id number] ity o f [facility] 2021-04-05 2021-04-05 Outpatient R HECTOR [facility] [id number] Univers 11:00:00 11:00:00 NIC ity o f [facility] 2021-01-28 2021-01-28 Patient Jonathan [facility] [id number] 00:00:00 00:00:00 Outreach [place] PRIMARY [id number] [facility] [id number] [place] [id number] 2021-01-21 2021-01-21 Office Care, [place] GRIFFITH 1.2.840.114 [id number] 13:42:32 15:04:25 Visit [facility] [id number] [facility] [id number] UNIT [id number] 2021-01-21 2021-01-21 Outpatient [facility] [id number] Univers 13:30:00 13:30:00 [id number] [facility] 2021-01-21 2021-01-21 Outpatient YANNA LA [facility] [id number] Univers 13:30:00 13:30:00 [facility] 2021-01-21 2021-01-21 Orders Doctor TYRONE 1.2.840.114 [id number] 00:00:00 00:00:00 Only Unassigned, DULCE [id number] [facility] 4.2.7.2.686 [id number] 2020-07-22 2020-07-22 Outpatient R [facility] [id number] Univers 13:00:00 13:00:00 [facility] 2020-07-22 2020-07-22 Outpatient R [facility] [id number] Univers 13:00:00 13:00:00 [facility] 2020-07-15 2020-07-15 Outpatient YANNA LA [facility] [id number] Univers 14:20:00 14:20:00 [facility] 2020-07-15 2020-07-15 Outpatient R YANNA NEGRETE [facility] [id number] Univers 00:00:00 00:00:00 ity [facility] 2020-07-07 2020-07-07 Outpatient R YANNA NEGRETE [facility] [id number] Univers 13:40:00 13:40:00 [id number] ity [facility] 2020-07-07 2020-07-07 Outpatient R YANNA NEGRETE [facility] [id number] Univers 00:00:00 00:00:00 ity [facility] 2020-07-06 2020-07-06 Outpatient HECTOR, [facility] [id number] Univers 13:00:00 13:00:00 NIC [id number] ity o f [facility] 2020-07-06 2020-07-06 Outpatient R HECTOR, [facility] [id number] Univers 13:00:00 13:00:00 NIC ity o f [facility] 2020-05-21 2020-05-21 Outpatient [facility] [id number] Univers 11:30:00 11:30:00 [id number] 2020-05-21 Outpatient R CADEN YANNA [facility] [id number] Univers 11:30:00 11:30:00 ity [facility] 2020-05-05 2020-05-05 Outpatient R [facility] [id number] Univers 11:00:00 11:00:00 [id number] [facility] 2020-05-05 2020-05-05 Outpatient R ROSA [facility] [id number] Univers 11:00:00 11:00:00 [facility] 2020-03-18 2020-03-18 Outpatient [facility] [id number] Univers 13:30:00 13:30:00 [id number] ity [facility] 2020-03-18 2020-03-18 Outpatient R KT, [facility] [id number] Univers 13:30:00 13:30:00 [facility] 2020-01-06 2020-01-06 Outpatient R HECTOR, [facility] [id number] Univers 14:40:00 14:40:00 QIASUMIT ity o f [facility] Results Test Description Test Time Test Comments Results Result Comments Source TROPONIN-I 2020-08-23 12:02:00 Test Item Value Reference Range Interpretation Comme nts TROPONIN-I (test code = TROPI) 0.065 NG/ML 0.012-0.033 H [id number] 07:38:00 Test Item Value Reference Range Interpretation Comments TROPONIN-I (test code = TROPI) 0.088 NG/ML 0.012-0.033 H COMPREHENSIVE METABOLIC [id number] 07:37:00 Test Item Value Reference Range Interpretation [...] 75 UNITS/L 38-126 (test code = ALKP) [id number] 07:37:00 Test Item Value Reference Range Interpretation Comments MAGNESIUM (test code = MAG) 2.0 MG/DL 1.6-2.3 N COMPREHENSIVE METABOLIC [id number] 07:28:00 Test Item Value Reference Range Interpretation [...] PHOSPHATASE (test code = UNITS/L 38-126 ALKP) [id number] 07:28:00 Test Item Value Reference Range Interpretation Comments MAGNESIUM (test code = MAG) MG/DL 1.6-2.3 COMPREHENSIVE METABOLIC [id number] 07:27:00 Test Item Value Reference Range Interpretation [...] PHOSPHATASE (test code = UNITS/L 38-126 ALKP) [id number] 07:27:00 Test Item Value Reference Range Interpretation Comments MAGNESIUM (test code = MAG) MG/DL 1.6-2.3 CBC W/AUTO [id number] 07:06:00 Test Item Value Reference Range Interpretation [...] VERY HIGH...... ...>/= 190 mg/dL GLYCOSYLATED HEMOGLOBIN [id number] 22:25:00 Test Item Value Reference Range Interpretation [...] LDL (test MG/DL 0-99 code = LDL) [id number] 20:45:00 Test Item Value Reference Range Interpretation Comments TROPONIN-I (test code = TROPI) 0.091 NG/ML 0.012-0.033 H BASIC METABOLIC [id number] 20:25:00 Test Item Value Reference Range Interpretation [...] 8.8 MG/DL 8.4-10.2 N CA) HEPATIC FUNCTION [id number] 20:25:00 Test Item Value Reference Range Interpretation [...] UNITS/L 38-126 N (test code = ALKP) [id number] 20:25:00 Test Item Value Reference Range Interpretation Comments LIPASE (test code = LIP) 58 UNITS/L 23-300 N [id number] 20:25:00 Test Item Value Reference Range Interpretation Comments MAGNESIUM (test code = MAG) 2.1 MG/DL 1.6-2.3 N LIPOPROTEIN LDL [id number] 20:25:00 Test Item Value Reference Range Interpretation Comments LIPOPROTEIN LDL DIRECT 80 mg/dL 100-129 L ===== (test code = LDLDIR) ======= ==Refe rence Interval: mg/dL mmol/L--------- ------ ------ ------ --Optimal <100 <2.6Near/abov e optimal 100-129 2.6-3.3Borderli ne High 130-159 3.4-4.1High 16 0-189 4.1-4.9Ve ry High >=190 >=4.9========= This LDL result is a direct measurement.=== ====== HCG SERUM [id number] 20:25:00 Test Item Value Reference Range Interpretation Comments HCG SERUM QUAL (test code = HCGQL) NEGATIVE NEGATIVE A THYROID STIMULATING [id number] 20:25:00 Test Item Value Reference Range Interpretation Comments THYROID STIMULATING 3.640 MIU/L 0.465-4.68 N Please b e aware that HORMONE (test code = bias re sults for TSH TSH) may occur forpa tient who are taking Biotin suppleme nts. [id number] 20:25:00 Test Item Value Reference Range Interpretation Comments TROPONIN-I (test code = TROPI) 0.069 NG/ML 0.012-0.033 H - CTA CHEST FOR [id number] 20:22:00 Patient Name: THERESA BROWN Unit No: [id number] EXAMS: CPT CODE: [id number] [place] [address] DICTATION LOCATION: H30 HISTORY: Chest [...] CC: Kulwant De Oliveira MD Technologist: Andrea Haque, RT(R); ... CTDI: DLP: Trnscrpt: 08/22/2020 (2021) [facility] NAME: THERESA BROWN [id number] PHYS: [email or web address] - Kul[place] [address] : 1975 AGE:45 SEX: F LOC: Z.625 A PHONE #: [phone] EXAM DATE: 08/22/2020 STATUS: ADM IN FAX #: [phone] RAD #: D/C DT PAGE 1 Signed Report Patient Name: THERESA BROWN Unit No: [id number] EXAMS: CPT CODE: [id number] [place] [address] <Continued> Orig Print D/T: S: 08/22/2020 (2024) [facility]: THERES[facility] BROWN [id number] PHYS: [place] [address] : 1975 AGE: 45 SEX: F LOC: Z.625 A PHONE #: [phone] EXAM DATE: 08/22/2020 STATUS: ADM IN FAX #: [phone] RAD #: D/C DT PAGE 2 Signed ReportBASIC METABOLIC [id number] 18:32:00 Test Item Value Reference Range Interpretation [...] 8.8 MG/DL 8.4-10.2 N CA) HEPATIC FUNCTION [id number] 18:32:00 Test Item Value Reference Range Interpretation [...] UNITS/L 38-126 N (test code = ALKP) [id number] 18:32:00 Test Item Value Reference Range Interpretation Comments LIPASE (test code = LIP) 58 UNITS/L 23-300 N [id number] 18:32:00 Test Item Value Reference Range Interpretation Comments MAGNESIUM (test code = MAG) 2.1 MG/DL 1.6-2.3 N LIPOPROTEIN LDL [id number] 18:32:00 Test Item Value Reference Range Interpretation Comments LIPOPROTEIN LDL DIRECT (test code = mg/dL 100-129 LDLDIR) HCG SERUM [id number] 18:32:00 Test Item Value Reference Range Interpretation Comments HCG SERUM QUAL (test code = HCGQL) NEGATIVE NEGATIVE A THYROID STIMULATING [id number] 18:32:00 Test Item Value Reference Range Interpretation Comments THYROID STIMULATING 3.640 MIU/L 0.465-4.68 N Please b e aware that HORMONE (test code = bias re sults for TSH TSH) may occur forpa tient who are taking Biotin suppleme nts. [id number] 18:32:00 Test Item Value Reference Range Interpretation Comments TROPONIN-I (test code = TROPI) 0.069 NG/ML 0.012-0.033 H B-TYPE NATRIURETIC [id number] 18:20:00 Test Item Value Reference Range Interpretation Comments B-TYPE NATRIURETIC PEPTIDE (test 138.0 PG/ML 0-100 H code = BNP) BASIC METABOLIC [id number] 18:14:00 Test Item Value Reference Range Interpretation [...] 8.8 MG/DL 8.4-10.2 N CA) HEPATIC FUNCTION [id number] 18:14:00 Test Item Value Reference Range Interpretation [...] UNITS/L 38-126 N (test code = ALKP) [id number] 18:14:00 Test Item Value Reference Range Interpretation Comments LIPASE (test code = LIP) 58 UNITS/L 23-300 N [id number] 18:14:00 Test Item Value Reference Range Interpretation Comments MAGNESIUM (test code = MAG) 2.1 MG/DL 1.6-2.3 N LIPOPROTEIN LDL [id number] 18:14:00 Test Item Value Reference Range Interpretation Comments LIPOPROTEIN LDL DIRECT (test code = mg/dL 100-129 LDLDIR) HCG SERUM [id number] 18:14:00 Test Item Value Reference Range Interpretation Comments HCG SERUM QUAL (test code = HCGQL) NEGATIVE NEGATIVE A THYROID STIMULATING [id number] 18:14:00 Test Item Value Reference Range Interpretation Comments THYROID STIMULATING HORMONE (test code MIU/L 0.465-4.68 = TSH) [id number] 18:14:00 Test Item Value Reference Range Interpretation Comments TROPONIN-I (test code = TROPI) 0.069 NG/ML 0.012-0.033 H BASIC METABOLIC [id number] 18:08:00 Test Item Value Reference Range Interpretation [...] 8.8 MG/DL 8.4-10.2 N CA) HEPATIC FUNCTION [id number] 18:08:00 Test Item Value Reference Range Interpretation [...] UNITS/L 38-126 N (test code = ALKP) [id number] 18:08:00 Test Item Value Reference Range Interpretation Comments LIPASE (test code = LIP) 58 UNITS/L 23-300 N [id number] 18:08:00 Test Item Value Reference Range Interpretation Comments MAGNESIUM (test code = MAG) 2.1 MG/DL 1.6-2.3 N HCG SERUM [id number] 18:08:00 Test Item Value Reference Range Interpretation Comments HCG SERUM QUAL (test code = HCGQL) NEGATIVE NEGATIVE A THYROID STIMULATING [id number] 18:08:00 Test Item Value Reference Range Interpretation Comments THYROID STIMULATING HORMONE (test code MIU/L 0.465-4.68 = TSH) [id number] 18:08:00 Test Item Value Reference Range Interpretation Comments TROPONIN-I (test code = TROPI) NG/ML 0.0-0.045 URINALYSIS [id number] 18:05:00 Test Item Value Reference Range Interpretation [...] OF URINE: CLEAN CATCHDRUGS OF ABUSE SCREEN [id number] 18:05:00 Test Item Value Reference Range Interpretation [...] PHENCU) ng/mL SOURCE OF URINE: CLEAN CATCHURINALYSIS [id number] 18:04:00 Test Item Value Reference Range Interpretation [...] OF URINE: CLEAN CATCHDRUGS OF ABUSE SCREEN [id number] 18:04:00 Test Item Value Reference Range Interpretation [...] = PHENCU) SOURCE OF URINE: CLEAN CATCHURINALYSIS [id number] 18:03:00 Test Item Value Reference Range Interpretation [...] OF URINE: CLEAN CATCHDRUGS OF ABUSE SCREEN [id number] 18:03:00 Test Item Value Reference Range Interpretation [...] SOURCE OF URINE: CLEAN CATCH- XR CHEST [id number] 18:03:00 Patient Name: DARION BROWN Unit No: [id number] EXAMS: CPT CODE: [id number] XR CHEST 1V 90909 EXAMINATION: - XR CHEST 1V. LOCATION: 2. HISTORY: Chest Pain, NSTEMI. COMPARISON: None. FINDINGS: Examination is limited due to portable technique, patient body habitus and low lung volumes. Cardiac silhouette/Mediastinal contour: Within normal limits. Lungs: No focal consolidation. No large pleural effusion. Osseous Structures: No acute osseous abnormalities. IMPRESSION: Low lung volumes, no focal consolidation. at 1803 Reportedand signed by: Johann Pompa CC: Kulwant De Oliveira MD Technologist: John Wyatt, RT(R) Transcrpt Date/Tm/Trnsp: 08/22/2020(1802) t.SDR.ANS4 Orig Print D/T: S: 08/22/2020 (1805) [facility] NAME: DARION BROWN [id number] [address] PHYS: [id number] - Kul[place] [address] : 1975 AGE: 45 SEX: F LOC: [facility]ERS PHONE #: [phone] EXAM DATE: 08/22/2020 STATUS: PRE ER FAX #: [phone] RADIOLOGY NO: PAGE 1 Signed ReportURINALYSIS [id number] 18:02:00 Test Item Value Reference Range Interpretation [...] OF URINE: CLEAN CATCHDRUGS OF ABUSE SCREEN [id number] 18:02:00 Test Item Value Reference Range Interpretation [...] = PHENCU) SOURCE OF URINE: CLEAN CATCHPROTHROMBIN [id number] 18:01:00 Test Item Value Reference Range Interpretation [...] syste ector embolism. 3.0 - 4.5 PTT [id number] 18:01:00 Test Item Value Reference Range Interpretation Comments PTT ACTIVATED (test code = APTT) 39.1 SECONDS 25.1-36.5 H [id number] 18:01:00 Test Item Value Reference Range Interpretation [...] o f standard radiological pr ocedures. URINALYSIS [id number] 18:01:00 Test Item Value Reference Range Interpretation [...] OF URINE: CLEAN CATCHDRUGS OF ABUSE SCREEN [id number] 18:01:00 Test Item Value Reference Range Interpretation [...] PHENCU) SOURCE OF URINE: CLEAN CATCHBASIC METABOLIC [id number] 18:01:00 Test Item Value Reference Range Interpretation [...] 8.8 MG/DL 8.4-10.2 N CA) HEPATIC FUNCTION [id number] 18:01:00 Test Item Value Reference Range Interpretation [...] UNITS/L 38-126 N (test code = ALKP) [id number] 18:01:00 Test Item Value Reference Range Interpretation Comments LIPASE (test code = LIP) 58 UNITS/L 23-300 N [id number] 18:01:00 Test Item Value Reference Range Interpretation Comments MAGNESIUM (test code = MAG) 2.1 MG/DL 1.6-2.3 N HCG SERUM [id number] 18:01:00 Test Item Value Reference Range Interpretation Comments HCG SERUM QUAL (test code = HCGQL) NEGATIVE THYROID STIMULATING [id number] 18:01:00 Test Item Value Reference Range Interpretation Comments THYROID STIMULATING HORMONE (test code MIU/L 0.465-4.68 = TSH) [id number] 18:01:00 Test Item Value Reference Range Interpretation Comments TROPONIN-I (test code = TROPI) NG/ML 0.0-0.045 BASIC METABOLIC [id number] 18:00:00 Test Item Value Reference Range Interpretation [...] code = MG/DL 8.7-9.7 CA) HEPATIC FUNCTION [id number] 18:00:00 Test Item Value Reference Range Interpretation [...] PHOSPHATASE UNITS/L 38-126 (test code = ALKP) [id number] 18:00:00 Test Item Value Reference Range Interpretation Comments LIPASE (test code = LIP) UNITS/L 23-300 [id number] 18:00:00 Test Item Value Reference Range Interpretation Comments MAGNESIUM (test code = MAG) MG/DL 1.6-2.3 HCG SERUM [id number] 18:00:00 Test Item Value Reference Range Interpretation Comments HCG SERUM QUAL (test code = HCGQL) NEGATIVE THYROID STIMULATING [id number] 18:00:00 Test Item Value Reference Range Interpretation Comments THYROID STIMULATING HORMONE (test code MIU/L 0.465-4.68 = TSH) [id number] 18:00:00 Test Item Value Reference Range Interpretation Comments TROPONIN-I (test code = TROPI) NG/ML 0.0-0.045 BASIC METABOLIC [id number] 17:58:00 Test Item Value Reference Range Interpretation [...] code = CA) MG/DL 8.7-9.7 HEPATIC FUNCTION [id number] 17:58:00 Test Item Value Reference Range Interpretation Comments TOTAL PROTEIN (test code = PROT) G/DL 6.3-8.2 ALBUMIN (test code = ALB) 4.1 G/DL 3.5-5.0 N BILIRUBIN TOTAL (test code = BILT) MG/DL 0.2-1.3 BILIRUBIN DIRECT (test code = BILD) MG/DL 0.0-0.3 SGOT/AST (test code = AST) UNITS/L 15-37 SGPT/ALT (test code = ALT) UNITS/L <35 ALKALINE PHOSPHATASE (test code = UNITS/L 38-126 ALKP) [id number] 17:58:00 Test Item Value Reference Range Interpretation Comments LIPASE (test code = LIP) UNITS/L 23-300 [id number] 17:58:00 Test Item Value Reference Range Interpretation Comments MAGNESIUM (test code = MAG) MG/DL 1.6-2.3 HCG SERUM [id number] 17:58:00 Test Item Value Reference Range Interpretation Comments HCG SERUM QUAL (test code = HCGQL) NEGATIVE THYROID STIMULATING [id number] 17:58:00 Test Item Value Reference Range Interpretation Comments THYROID STIMULATING HORMONE (test code MIU/L 0.465-4.68 = TSH) [id number] 17:58:00 Test Item Value Reference Range Interpretation Comments TROPONIN-I (test code = TROPI) NG/ML 0.0-0.045 URINALYSIS [id number] 17:54:00 Test Item Value Reference Range Interpretation [...] OF URINE: CLEAN CATCHDRUGS OF ABUSE SCREEN [id number] 17:54:00 Test Item Value Reference Range Interpretation [...] PHENCU) SOURCE OF URINE: CLEAN CATCHCBC W/AUTO [id number] 17:49:00 Test Item Value Reference Range Interpretation [...] = 0.00 K/mm3 0.0-0.1 N NRBC#) URINALYSIS [id number] 17:48:00 Test Item Value Reference Range Interpretation [...] OF URINE: CLEAN CATCHDRUGS OF ABUSE SCREEN [id number] 17:48:00 Test Item Value Reference Range Interpretation [...]
[2021-09-29 15:25] LABS: Urine Blood 3+ (Negative); Urine Glucose Trace (Negative); Urine Protein Trace (Negative); Urine Specific Gravity 1.015 (1.005-1.030); Urine pH 6.5 (5.0-7.0)
[2021-09-29 15:50] LABS: Urine Specific Gravity/Preg 1.015 (1.005-1.030)
[2021-09-29 15:55] LABS: Absolute Lymphocytes (CBC) 1.1 K/uL (0.7-4.9); Basophils % 0.3 % (0-1.3); Hematocrit 29.1 % (36.0-45.0); Lymphocytes % 9.1 % (15.3-44.8); MPV 8.7 fL (7.6-11.3); RBC Red Blood Cell Count 4.17 M/uL (3.86-4.86)
[2021-09-29] MEDS ORDERED: CIPROFLOXACIN 400mg IV 400 MG/200 ML BAG IV ONE (15:55)
[2021-09-29 16:09] LABS: Urine Bacteria <20 /HPF (<20); Urine RBC >50 /HPF (NONE SEEN)
[2021-09-29 16:14] LABS: ALT/SGPT 22 U/L (12-78); AST/SGOT 10 U/L (15-37); Albumin 3.6 g/dL (3.4-5.0); Alkaline Phosphatase 79 U/L (45-117); BUN Blood Urea Nitrogen 9 mg/dL (7-18); Bicarbonate 23 mmol/L (21-32); Bilirubin Direct < 0.1 mg/dL (0-0.2); Bilirubin Total 0.4 mg/dL (0.2-1.0); Glucose Level 150 mg/dL (74-106); Lipase 51 U/L (73-393); Protein, Total 7.5 g/dL (6.4-8.2); Sodium Level 141 mmol/L (136-145)
--- NOTE | 2021-09-29 16:57 | RAD REPORT ---
EXAM DESCRIPTION: CT - Abdomen Pelvis W Contrast - 09/29/2021 4:28 pm CLINICAL HISTORY: ABD PAIN COMPARISON: No comparisons TECHNIQUE: Biphasic, helical CT imaging of the abdomen and pelvis was performed following 100 ml non -ionic IV contrast. No oral contrast administered. All CT scans are performed using dose optimization technique as appropriate and may include automated exposure control or mA/KV adjustment according to patient size. FINDINGS: No suspicious findings in the lung bases. The liver, spleen, and pancreas show no suspicious findings. Gallbladder and biliary tree are also wi thout suspicious finding. Symmetric renal function is seen with no hydronephrosis or suspicious renal mass. No pyelonephritis o r acute parenchymal process. Fully contracted urinary bladder shows no gross abnormality. No adrenal abnormalities. No uterine abnormality. Small cysts or follicles present on the left ovary. No suspici ous right ovarian finding. Tubal ligation clips are present. No fallopian tube dilatation. No dilated bowel loops or bowel wall thickening. Appendix is normal. No free air, free fluid or infla mmatory stranding. No hernia, mass or bulky lymphadenopathy. No acute or destructive bone process. Patient has advanced for age degenerative disc and endplate salma nges at L4-5. There is borderline to mild spinal stenosis and bilateral foraminal stenosis present. IMPRESSION: No appendicitis or emergent CT abdomen or pelvis finding. 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 Advanced for age L4-5 degenerative disc and endplate changes with spinal stenosis and bilateral quique inal stenosis.
--- NOTE | 2021-09-29 17:41 | EDPHYS ---
Physician Documentation [facility] Name: Dwight Hylton Age: 46 yrs Sex: Female : 1975 Arrival Date: 09/29/2021 Time: 15:14 Bed 8 Private MD: ED Physician Alejandro Caraballo HPI: 09/29 15:17 This 46 yrs old Female presents to ER via EMS with complaints of Abdominal rn pain. 15:17 The patient presents with abdominal pain right lower quadrant. Onset: The rn symptoms/episode began/occurred 3 day(s) ago. The symptoms do not radiate. Associated signs and symptoms: Pertinent positives: nausea, Pertinent negatives: blood in stools, constipation, diarrhea, fever, shortness of breath, vaginal discharge, vomiting blood. The symptoms are described as crampy, sharp. Modifying factors: The symptoms are alleviated by nothing, the symptoms are aggravated by movement, touching the area. Severity of pain: At its worst the pain was moderate in the emergency department the pain is unchanged. The patient has not experienced similar symptoms in the past. The patient has not recently seen a physician. 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 - Social history:: Smoking status: Patient denies any tobacco usage or history of. - Family history:: not pertinent. - Hospitalizations: : No recent hospitalization is reported. ROS: 15:17 Constitutional: Negative for fever, chills, and weight loss, Eyes: Negative for injury, rn pain, redness, and discharge, Neck: Negative for injury, pain, and swelling, Cardiovascular: Negative for chest pain, palpitations, and edema, Respiratory: Negative for shortness of breath, cough, wheezing, and pleuritic chest pain, Abdomen/GI: Positive for right lower quadrant abdominal pain and nausea Back: Negative for injury and pain, : Negative for injury, bleeding, discharge, and swelling, MS/Extremity: Negative for injury and deformity, Skin: Negative for injury, rash, and discoloration, Neuro: Negative for headache, weakness, numbness, tingling, and seizure. Exam: 15:17 Constitutional: This is a well developed, well nourished patient who is awake, alert, rn appears uncomfortable but able to move herself from EMS stretcher to our bed. Head/Face: Normocephalic, atraumatic. Eyes: Periorbital areas with no swelling, redness, or edema. Cardiovascular: Regular rate and rhythm. No pulse deficits. Respiratory: No increased work of breathing, no retractions or nasal flaring. Abdomen/GI: Soft, mild right lower quadrant and suprapubic tenderness, no masses, no rebound Skin: Warm, dry MS/ Extremity: Pulses equal, no cyanosis. Neuro: Awake and alert, GCS 15 Vital Signs: 15:14 BP 130 / 84; Pulse 97; Resp 17; Temp 99.1; Pulse Ox 100% on R/A; Weight 102.06 kg; ap3 Height 5 ft. 5 in. (165.10 cm); Pain 10/10; 16:15 BP 116 / 52; Pulse 89; Pulse Ox 100% on R/A; ap3 18:00 BP 130 / 84; Pulse 79; Resp 18; Pulse Ox 100% on R/A; ap3 15:14 Body Mass Index 37.44 (102.06 kg, 165.10 cm) ap3 MDM: 15:15 Patient medically screened. rn 17:39 Differential diagnosis: appendicitis, non-specific abd pain, Pyelonephritis, rn Ureterolithiasis, urinary tract infection. Data reviewed: vital signs, nurses notes, lab test result(s), radiologic studies, CT scan, and as a result, I will discharge patient. Counseling: I had a detailed discussion with the patient and/or guardian regarding: the historical points, exam findings, and any diagnostic results supporting the discharge/admit diagnosis, lab results, radiology results, the need for outpatient follow up, to return to the emergency department if symptoms worsen or persist or if there are any questions or concerns that arise at home. Response to treatment: the patient's symptoms have mildly improved after treatment, and as a result, I will discharge patient. Special discussion: Based on the patient's Hx, exam, and Dx evaluation, there is no indication for emergent surgery or inpatient Tx. It is understood by the patient/guardian that if the Sx's persist or worsen they need to return immediately for re-evaluation. I discussed with the patient/guardian in detail that at this point there is no indication for admission to the hospital. It is understood, however, that if the symptoms persist or worsen the patient needs to return immediately for re-evaluation. 09/29 15:16 Order name: Basic Metabolic Panel; Complete Time: 16:17 rn 09/29 15:16 Order name: CBC with Diff rn 09/29 15:16 Order name: Hepatic Function; Complete Time: 16:17 rn 09/29 15:16 Order name: Lipase; Complete Time: 16:17 rn 09/29 15:16 Order name: Urine Microscopic Only; Complete Time: 16:17 rn 09/29 15:25 Order name: Urine Dipstick-Ancillary; Complete Time: 15:26 EDMS 09/29 15:16 Order name: IV Saline Lock; Complete Time: 15:45 rn 09/29 15:16 Order name: Labs collected and sent; Complete Time: 15:45 rn 09/29 15:16 Order name: CT Abd/Pelvis - IV Contrast Only; Complete Time: 16:59 rn 09/29 15:16 Order name: Urine Dipstick-Ancillary (obtain specimen); Complete Time: 15:28 rn 09/29 15:16 Order name: Urine Test (obtain specimen); Complete Time: 15:28 rn 09/29 15:28 Order name: Urine --Ancillary (enter results); Complete Time: 16:17 bd Administered Medications: 16:19 Drug: Cipro (ciprofloxacin) 400 mg Volume: 200 ml; Route: IVPB; Infused Over: 60 mins; ap3 Site: right antecubital; 18:01 Follow up: IV Status: Completed infusion ap3 Disposition Summary: 09/29/21 17:40 Discharge Ordered Location: Home rn Problem: new rn Symptoms: have improved rn Condition: Stable rn Diagnosis - UTI/ Urinary tract infection, site not specified rn Followup: rn - With: Private Physician - When: As needed - Reason: Recheck today's complaints, Re-evaluation by your physician Discharge Instructions: - Discharge Summary Sheet rn - Urinary Tract Infection, Adult rn Forms: - Medication Reconciliation Form rn - Thank You Letter rn - Antibiotic fashion intern - Prescription Opioid Use rn Prescriptions: - Cipro 500 mg Oral Tablet - take 1 tablet by ORAL route every 12 hours for 10 days; 20 tablet; Refills: 0, rn Product Selection Permitted Signatures: Dispatcher [employer] Alejandro Wynn MD MD rn Prokisch, Amanda, RN RN ap3
--- NOTE | 2021-09-29 17:41 | ER ---
Nurse's Notes [facility] Name: Dwight Hylton Age: 46 yrs Sex: Female : 1975 Arrival Date: 09/29/2021 Time: 15:14 Bed 8 Private MD: Diagnosis: UTI/ Urinary tract infection, site not specified Presentation: 09/29 15:14 Chief complaint: EMS states: patient has had right lower quadrant pain X's 3 days. ap3 Patient denies N/V/D. Pain is a 10/10. Coronavirus screen: At this time, the client does not indicate any symptoms associated with coronavirus-19. Ebola Screen: No symptoms or risks identified at this time. Initial Sepsis Screen: Does the patient meet any 2 criteria? No. Patient's initial sepsis screen is negative. Does the patient have a suspected source of infection? No. Patient's initial sepsis screen is negative. Risk Assessment: Do you want to hurt yourself or someone else? Patient reports no desire to harm self or others. Onset of symptoms was September 26, 2021. 15:14 Method Of Arrival: EMS: [facility] ap3 15:14 Acuity: LUCIO 3 ap3 Triage Assessment: 15:18 General: Appears in no apparent distress. uncomfortable, Behavior is calm, cooperative. ap3 Pain: Complains of pain in right lower quadrant Pain does not radiate. Pain currently is 10 out of 10 on a pain scale. Pain began 2-3 days ago. Neuro: Level of Consciousness is awake, alert, obeys commands, Oriented to person, place, time, situation, Moves all extremities. Gait is steady, Speech is normal. Cardiovascular: Patient's skin is warm and dry. Respiratory: Airway is patent Respiratory effort is even, unlabored, Respiratory pattern is regular, symmetrical. GI: Abdomen is round Abdomen is tender to palpation in right lower quadrant. 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 - Social history:: Smoking status: Patient denies any tobacco usage or history of. - Family history:: not pertinent. - Hospitalizations: : No recent hospitalization is reported. Screenin:18 Abuse screen: Denies threats or abuse. Nutritional screening: No deficits noted. ap3 Tuberculosis screening: No symptoms or risk factors identified. Fall Risk None identified. Assessment: 16:15 Reassessment: Patient and/or family updated on plan of care and expected duration. Pain ap3 level reassessed. Patient is alert, oriented x 3, equal unlabored respirations, skin warm/dry/pink. patient assisted to the restroom. Vital Signs: 15:14 BP 130 / 84; Pulse 97; Resp 17; Temp 99.1; Pulse Ox 100% on R/A; Weight 102.06 kg; ap3 Height 5 ft. 5 in. (165.10 cm); Pain 10/10; 16:15 BP 116 / 52; Pulse 89; Pulse Ox 100% on R/A; ap3 18:00 BP 130 / 84; Pulse 79; Resp 18; Pulse Ox 100% on R/A; ap3 15:14 Body Mass Index 37.44 (102.06 kg, 165.10 cm) ap3 ED Course: 15:14 Patient arrived in ED. jl7 15:14 Cindy James, RN is Primary Nurse. ap3 15:15 Alejandro Caraballo MD is Attending Physician. rn 15:17 Triage completed. ap3 15:19 Arm band placed on right wrist. ap3 15:20 Patient has correct armband on for positive identification. Placed in gown. Call light ap3 in reach. Side rails up X2. Adult w/ patient. bow string maker on. Pulse ox on. NIBP on. Door closed. Noise minimized. 15:45 Initial lab(s) drawn, by me, sent to lab. Inserted saline lock: 22 gauge in right em1 forearm, using aseptic technique. Blood collected. 16:28 CT Abd/Pelvis - IV Contrast Only In Process Unspecified. EDMS 18:00 No provider procedures requiring assistance completed. IV discontinued, intact, ap3 bleeding controlled, No redness/swelling at site. Pressure dressing applied. Administered Medications: 16:19 Drug: Cipro (ciprofloxacin) 400 mg Volume: 200 ml; Route: IVPB; Infused Over: 60 mins; ap3 Site: right antecubital; 18:01 Follow up: IV Status: Completed infusion ap3 Outcome: 17:40 Discharge ordered by . rn 18:00 Discharged to home ambulatory, with family. ap3 18:00 Condition: good 18:00 Discharge instructions given to patient, family, Instructed on discharge instructions, follow up and referral plans. medication usage, Demonstrated understanding of instructions, follow-up care, medications, Prescriptions given X 1. 18:01 Patient left the ED. ap3 Signatures: Dispatcher [employer] EDMS Alejandro Caraballo MD MD rn Chester, Ruben em1 Viridiana Lopez RN RN jl7 Cindy James RN RN ap3
[2021-09-29 18:51] VITALS: TEMP 99.1; O2SAT 100
[2021-09-29 18:54] VITALS: BP 130/84
[2021-09-29 19:09] LABS: Blood Morphology Comment NOTED (NOT SEEN); Platelet Estimate ADEQ; White Blood Cell Scan OK (OK)
[2021-09-29 19:10] LABS: Anisocytosis 1+; Hypochromasia 1+
== END 2021-09-29 18:01 | disposition home or self-care (01) ==
LOC: ER 15:13
DX: N39.0 Urinary tract infection, site not specified (principal); I10 Essential (primary) hypertension; E78.5 Hyperlipidemia, unspecified; Z88.0 Allergy status to penicillin
CPT/HCPCS: 85025; 80048; 36415; 81025; 80076; 83690; 74177; Q9967; J0744; 81003; 81015

== ENCOUNTER 2022-02-10 13:51 | Emergency (ER) | payer BC ==
--- OUTSIDE RECORDS SUMMARY | 2022-02-10 13:55 | XMS REPORT | Continuity of Care Document ---
:1975 Author Organization [facility] t Address [address] [place] [address] Care Team Providers Name Role Phone [facility] Primary Care Physician Unavailable Nadeen Vera Attending Clinician Unavailable HECTOR Attending Clinician Unavailable Caden STONE Attending Clinician Hector CASTREJON Attending Clinician Andrea Castillo DO Attending Clinician Care, Primary Attending Clinician Unavailable CADEN Attending Clinician Unavailable Doctor Unassigned, Name Attending Clinician Unavailable LARRY LEE Attending Clinician Unavailable Kellie MERAZ Attending Clinician Unavailable KT Attending Clinician Unavailable MERAZ Admitting Clinician Unavailable Payers Payer Name Policy Type Policy Number Effective Date Expiration Date Syeda jones [employer] [id number] 2019 00:00:00 [place] [facility] [id number] 2019 CARE 00:00:00 Problems Condition Condition Condition Status Onset Resolution Last Treating Co mments Source Name Details Category Date Date Treatment Clinician Date ASCUS on ASCUS on Disease Active Unive rs Pap smear Pap smear 3-15 ity of 00:00: [place] [address] Medical Branch Coronary Coronary Disease Active Unive rs artery artery 8-08 ity of spasm spasm 00:00: [address] NSTEMI NSTEMI Disease Active Univers (non-ST (non-ST 8-06 ity of elevated elevated 00:00: [place] myocardial myocardial 00 Me dical infarction infarction Br anch ) ) Obesity Obesity Disease Active Univers (BMI (BMI 8-06 ity of 30-39.9) 30-39.9) 00:00: [place] 00 Medical Branch Hypertensi Hypertensi Disease Active U nivers ve ve 8-06 [place] emergency emergency [place] NSVT NSVT Disease Active Univers (nonsustai (nonsustai 8 it y of zainab zainab 00:00: [place] ventricula ventricula 00 Me dical r r Branch tachycardi tachycardi a) a) Bulging Bulging Disease Active Univers disc disc 9-04 ity of 00:00: [place] [address] Medical Branch Allergies, Adverse Reactions, Alerts Allergy Allergy Status Severity Reaction(s) Onset Inactive Treating Comm ents Source Name Type Date Date Clinician No Known DA Active U 2019-11 [facility] Allergie 0-10 [place] [facility] 00:00: [address] [place] DA Active SV 2019-11 [facility] ins 0-10 [place] 00:00: [address] No Known DA Active U 2019-11 [facility] Allergie 0-10 [place] s 00:00: [address] Pen[place] DA Active SV swelling, 2019-11 [facility] ins unable to 0-10 [place] breath 00:00: [address] PENICILL DRUG Active Anaphylaxis 2018- Uni vers IN INGREDI 8-05 ity of 00:00: [place] [address] Medical Branch Penicill Propensi Active Anaphylaxis 2018- U nivers in ty to 8-05 ity of adverse 00:00: [place] reaction Medical s Branch Social History Social Habit Start Date Stop Date Quantity Comments Source Exposure to Not sure [place] of SARS-CoV-2 [place] [facility] (event) Branch Alcohol intake 2021-07-07 2021-07-07 Current drinker Unive rsity of 00:00:00 00:00:00 of alcohol [place] [facility] (finding) Branch History [facility] 2019-07-25 2019-07-25 2 University o f Alcohol Frequency 00:00:00 00:00:00 [place] M edical Branch History [facility] 2019-07-25 2019-07-25 1 University o f Alcohol Std 00:00:00 00:00:00 [place] Medical Drinks Branch History [facility] 2019-07-25 2019-07-25 1 [place] o f Alcohol Binge 00:00:00 00:00:00 [facility] al Branch Alcohol Comment 2019-07-25 2019-07-25 Occasional mixed Uni versity of 00:00:00 00:00:00 drink [facility] Tobacco use and 2019-06-18 2019-06-18 Never used Universit y of exposure 00:00:00 00:00:00 [facility] Sex Ass[birth year] Universit y of 00:00:00 00:00:00 [facility] Smoking Status Start Date Stop Date Source Never smoker [facility] Medications Ordered Filled Start Stop Current Ordering Indication Dosage Frequency Signature Comments Components Source Medication Medication Date Date Medication? Clinician (SIG) Name Name lisinopriL Yes [id number] 20mg Take 1 Univers 20 mg 9-16 tablet by ity of tablet 00:00: mouth 2 [place] [address] (two) Medical times Branch daily. VITAMIN B Yes Take by [employer] ers COMPLEX 8-25 mouth. ity of ORAL 20:04: [place] 15 [facility] Branch multivit-ir 2020-0 Yes Take by Un donna on-FA-calci 8-25 mouth. ity of um-mins 18 20:04: [place] mg iron-400 15 Medical mcg-500 mg Branch Ca Tab VITAMIN B 2020-0 Yes Take by [employer] ers COMPLEX 8-25 mouth. ity of ORAL 20:04: [place] 15 [facility] multivit-ir 2020-0 Yes Take by Un donna on-FA-calci 8-25 mouth. ity of um-mins 18 20:04: [place] mg iron-400 15 Medical mcg-500 mg Branch Ca Tab multivit-ir 2020-0 Yes Take by Un donna on-FA-calci 8-25 mouth. ity of um-mins 18 15:04: [place] mg iron-400 15 Medical mcg-500 mg Branch Ca Tab VITAMIN B 2020-0 Yes Take by [employer] ers COMPLEX 8-25 mouth. ity of ORAL 15:04: [place] 15 Medical Branch multivit-ir 2020-0 Yes Take by Un donna on-FA-calci 8-25 mouth. ity of um-mins 18 15:04: [place] mg iron-400 15 Medical mcg-500 mg Branch Ca Tab VITAMIN B 2021-0 Yes Take by Univ ers COMPLEX 8-25 mouth. ity of ORAL 15:04: [place] 15 Medical Branch diltiazem Yes [id number] 120mg Take 1 U nivers 120 mg 24 8-25 tablet by ity o f hr tablet 00:00: mouth [place] 00 daily. Medical Branch diltiazem 0 Yes [id number] 120mg Take 1 U nivers 120 mg 24 8-25 tablet by ity o f hr tablet 00:00: mouth [place] 00 daily. Medical Branch diltiazem Yes [id number] 120mg Take 1 U nivers 120 mg 24 8-25 tablet by ity o f hr tablet 00:00: mouth [place] 00 daily. Medical Branch diltiazem Yes [id number] 120mg Take 1 U nivers 120 mg 24 8-25 tablet by ity o f hr tablet 00:00: mouth [place] 00 daily. Medical Branch atorvastati Yes [id number] 40mg Take 1 Univers n 40 mg 8-16 tablet by ity of tablet 00:00: mouth [place] 00 daily. Medical Branch atorvastati Yes [id number] 40mg Take 1 Univers n 40 mg 8-16 tablet by ity of tablet 00:00: mouth [place] 00 daily. Medical Branch atorvastati Yes [id number] 40mg Take 1 Univers n 40 mg 8-16 tablet by ity of tablet 00:00: mouth [place] 00 daily. Medical Branch atorvastati Yes [id number] 40mg Take 1 Univers n 40 mg 8-16 tablet by ity of tablet 00:00: mouth [place] 00 daily. Medical Branch fenofibrate Yes [id number] 145mg Take 1 Univers (TRICOR) 3-15 tablet by ity of 145 mg 00:00: mouth [place] tablet 00 daily. Medical Branch fenofibrate Yes [id number] 145mg Take 1 Univers (TRICOR) 3-15 tablet by ity of 145 mg 00:00: mouth [place] tablet 00 daily. Medical Branch fenofibrate Yes [id number] 145mg Take 1 Univers (TRICOR) 3-15 tablet by ity of 145 mg 00:00: mouth [place] tablet 00 daily. Medical Branch fenofibrate 2021-0 Yes [id number] 145mg Take 1 Univers (TRICOR) 3-15 tablet by ity of 145 mg 00:00: mouth [place] tablet 00 daily. Medical Branch diltiazem 2020- No [id number] 120mg Take 1 Univers 120 mg 24 3- 08-25 tablet by ity of hr tablet 00:00: 00:00 mouth [place] 00 :00 daily. [facility] Branch diltiazem 2020- No [id number] 120mg Take 1 Univers 120 mg 24 3- 08-25 tablet by ity of hr tablet 00:00: 00:00 mouth [place] 00 :00 daily. [facility] Branch lisinopriL 2019-11 Yes [id number] 20mg Take 1 Univers 20 mg 0-05 tablet by ity of tablet 00:00: mouth 2 [place] 00 (two) Medical times Branch daily. lisinopriL 2019-11 Yes [id number] 20mg Take 1 Univers 20 mg 0-05 tablet by ity of tablet 00:00: mouth 2 [place] 00 (two) Medical times Branch daily. lisinopriL 2019-11 Yes [id number] 20mg Take 1 Univers 20 mg 0-05 tablet by ity of tablet 00:00: mouth 2 [place] 00 (two) Medical times Branch daily. lisinopriL 2019-11- No [id number] 20mg Take 1 Univers 20 mg 0-05 09-16 tablet by ity of tablet 00:00: 00:00 mouth 2 [place] 00 :00 (two) Medical times Branch daily. aspirin 81 2020-0 Yes 81mg Take 81 mg U nivers mg chewable 7-09 by mouth ity of tablet 16:17: daily. [address] aspirin 81 2020-0 Yes 81mg Take 81 mg U nivers mg chewable 7-09 by mouth ity of tablet 16:17: daily. [address] aspirin 81 2020-0 Yes 81mg Take 81 mg U nivers mg chewable 7-09 by mouth ity of tablet 11:17: daily. [address] aspirin 81 2020-0 Yes 81mg Take 81 mg U nivers mg chewable 7-09 by mouth ity of tablet 11:17: daily. [address] Immunizations Ordered Filled Immunization Date Status Comments [facility] e Immunization Name Name TDAP 2019-07-25 Completed University 00:00:00 [facility] Influenza Virus 2019-07-25 Completed Universit y of Vaccine 00:00:00 [facility] TDAP 2019-07-25 Completed University of 00:00:00 [facility] Influenza Virus 2019-07-25 Completed Universit y of Vaccine 00:00:00 [facility] TDAP 2019-07-25 Completed University of 00:00:00 [facility] Influenza Virus 2019-07-25 Completed Universit y of Vaccine 00:00:00 [facility] TDAP 2019-07-25 Completed University of 00:00:00 [facility] Influenza Virus 2019-07-25 Completed Universit y of Vaccine 00:00:00 [facility] Vital Signs Vital Name Observation Time Observation Value Comments Source Systolic blood 2021-07-07 20:01:00 124 mm[Hg[facility] Diastolic blood 2021-07-07 20:01:00 81 mm[Hg] [facility] Heart rate 2021-07-07 20:01:00 94 /min [facility] Body weight 2021-07-07 20:01:00 104.781 kg [facility] BMI 2021-07-07 20:01:00 38.44 kg/m2 [facility] Oxygen saturation 2021-07-07 20:01:00 97 /min [facility] in Arterial blood [facility] anch by Pulse oximetry Procedures This patient has no known procedures. Encounters Start End Encounter Admission Attending Care Care Encounter Source Date/Time Date/Time Type Type Clinicians Facility Department ID 2021-12-17 Outpatient Jenni Vera [facility] [id number] 10:55:01 [facility] 2021-12-08 Outpatient Jenni Vera [facility] [id number] [facility]30[facility] 2021-09-12 Emergency [facility] [id number] Univers 17:23:54 ity [facility] 2020-08-22 Inpatient HCAWU SYBIL [id number] [facility] 17:18:00 [facility] 2022-07-08 2022-07-08 Outpatient HECTOR, [facility] [id number] Univers 15:20:00 15:20:00 NIC [id number] ity o [facility] 2021-12-24 2021-12-24 ambulatory [facility] [id number] [facility] 2021-12-21 2021-12-21 ambulatory [facility] [id number] [facility] 2021-11-15 2021-11-15 ambulatory [facility] [id number] [facility] 2021-07-29 2021-07-29 Yanna Calixto [id number] Univers 00:00:00 00:00:00 [facility] [id number] it y of [place] 4[place] [id number] [place] [address] Branch 2021-07-28 2021-07-28 Refill Yanna Negrete [facility] [id number] Univers 00:00:00 00:00:00 Health [id number] [place]2.[place] [id number] [facility] 115 Branch ([facility]) 2021-07-07 2021-07-07 Office Hector [facility] 1.2.840.114 [id number] Univers 14:46:45 15:14:49 Visit Nic Malin [id number] ity of [place] Profess[place] [id number] [facility] 059 Branch [facility] 2021-07-07 2021-07-07 Outpatient R HECTOR [facility] [id number] Univers 14:40:00 14:40:00 NIC [id number] lonny o [facility] 2021-07-07 2021-07-07 Outpatient Kellie YOUNG [facility] [id number] Univers 14:40:00 14:40:00 NIC bonilla [facility] 2021-07-05 2021-07-05 Outpatient R [facility] [id number] Univers 11:45:00 11:45:00 [id number] ity [facility] 2021-07-05 2021-07-05 Outpatient R HECTOR, [facility] [id number] Univers 11:45:00 11:45:00 NIC mukherjee o [facility] 2021-06-09 2021-06-09 Outpatient R HECTOR, [facility] [id number] Univers 14:20:00 14:20:00 NIC [id number] itelieser o [facility] 2021-05-05 2021-05-05 Outpatient R HECTOR, [facility] [id number] Univers 14:00:00 14:00:00 NIC [id number] itelieser o [facility] 2021-05-05 2021-05-05 Outpatient R HECTOR, [facility] [id number] Univers 14:00:00 14:00:00 ROMAINSUMIT mukherjee o [facility] 2021-04-05 2021-04-05 Outpatient R HECTOR, [facility] [id number] Univers 11:00:00 11:00:00 NIC [id number] lonny o [facility] 2021-04-05 2021-04-05 Outpatient R HECTOR, [facility] [id number] Univers 11:00:00 11:00:00 ROMAINSUMIT elieser [facility] 2021-01-28 2021-01-28 [facility] 1.2.840.114 [id number] 00:00:00 00:00:00 Outreach Merrick PRIMARY [id number] Andrea CARE 4.2.7.2.686 PAVILLION [id number] 2021-01-21 2021-01-21 Office Care, Clinton GRIFFITH 1.2.840.114 [id number] 13:42:32 15:04:25 Visit Primary [facility] [id number] HEALTH 4.2.7.2.686 UNIT [id number] 2021-01-21 2021-01-21 Outpatient [facility] [id number] Univers 13:30:00 13:30:00 [id number] ity [facility] 2021-01-21 2021-01-21 Outpatient Kellie NEGRETE YANNA [facility] [id number] Univers 13:30:00 13:30:00 ity [facility] 2021-01-21 2021-01-21 Orders Doctor TYRONE 1.2.840.114 [id number] 00:00:00 00:00:00 Only Unassigned, DULCE 350.1.13.10 Cody [facility] 4.2.7.2.686 [id number] 2020-07-22 2020-07-22 Outpatient R [facility] [id number] Univers 13:00:00 13:00:00 ity [facility] 2020-07-22 2020-07-22 Outpatient R [facility] [id number] Univers 13:00:00 13:00:00 ity [facility] 2020-07-15 2020-07-15 Outpatient Kellie [facility] [id number] Univers 14:20:00 14:20:00 ity [facility] 2020-07-15 2020-07-15 Outpatient Kellie [facility] [id number] Univers 00:00:00 00:00:00 ity [facility] 2020-07-07 2020-07-07 Outpatient Kellie [facility] [id number] Univers 13:40:00 13:40:00 [id number] ity [facility] 2020-07-07 2020-07-07 Outpatient Kellie [facility] [id number] Univers 00:00:00 00:00:00 ity [facility] 2020-07-06 2020-07-06 Outpatient EHCTOR [facility] [id number] Univers 13:00:00 13:00:00 NIC [id number] ity o f [facility] 2020-07-06 2020-07-06 Outpatient R HECTOR [facility] [id number] Univers 13:00:00 13:00:00 NIC ity o f [facility] 2020-05-21 2020-05-21 Outpatient [facility] [id number] Univers 11:30:00 11:30:00 [id number] [facility] 2020-05-21 2020-05-21 Outpatient R YANNA NEGRETE [facility] [id number] Univers 11:30:00 11:30:00 [facility] 2020-05-05 2020-05-05 Outpatient R [facility] [id number] Univers 11:00:00 11:00:00 [id number] [facility] 2020-05-05 2020-05-05 Outpatient R LETICIARAISSA, [facility] [id number] Univers 11:00:00 11:00:00 CHER [facility] 2020-03-18 2020-03-18 Outpatient [facility] [id number] Univers 13:30:00 13:30:00 [facility] 2020-03-18 2020-03-18 [facility] [id number] Univers 13:30:00 13:30:00 SAMANTHA [facility] 2020-01-06 2020-01-06 Outpatient R HECTOR, [facility] [id number] Univers 14:40:00 14:40:00 DANIELTYE mukherjee o f [facility] 2019-10-21 2019-10-21 Outpatient [facility] [id number] Univers 14:13:55 23:59:00 SONA [facility] Results Test Description Test Time Test Comments Results Result Comments Source TROPONIN-I 2020-08-23 12:02:00 Test Item Value Reference Range Interpretation Comme nts TROPONIN-I (test code = TROPI) 0.065 NG/ML 0.012-0.033 H [id number] 07:38:00 Test Item Value Reference Range Interpretation Comments TROPONIN-I (test code = TROPI) 0.088 NG/ML 0.012-0.033 H COMPREHENSIVE METABOLIC [id number] 07:37:00 Test Item Value Reference Range Interpretation [...] 75 UNITS/L 38-126 (test code = ALKP) [id number] 07:37:00 Test Item Value Reference Range Interpretation Comments MAGNESIUM (test code = MAG) 2.0 MG/DL 1.6-2.3 N COMPREHENSIVE METABOLIC [id number] 07:28:00 Test Item Value Reference Range Interpretation [...] PHOSPHATASE (test code = UNITS/L 38-126 ALKP) [id number] 07:28:00 Test Item Value Reference Range Interpretation Comments MAGNESIUM (test code = MAG) MG/DL 1.6-2.3 COMPREHENSIVE METABOLIC [id number] 07:27:00 Test Item Value Reference Range Interpretation [...] PHOSPHATASE (test code = UNITS/L 38-126 ALKP) [id number] 07:27:00 Test Item Value Reference Range Interpretation Comments MAGNESIUM (test code = MAG) MG/DL 1.6-2.3 CBC W/AUTO [id number] 07:06:00 Test Item Value Reference Range Interpretation [...] VERY HIGH...... ...>/= 190 mg/dL GLYCOSYLATED HEMOGLOBIN [id number] 22:25:00 Test Item Value Reference Range Interpretation [...] LDL (test MG/DL 0-99 code = LDL) [id number] 20:45:00 Test Item Value Reference Range Interpretation Comments TROPONIN-I (test code = TROPI) 0.091 NG/ML 0.012-0.033 H BASIC METABOLIC [id number] 20:25:00 Test Item Value Reference Range Interpretation [...] 8.8 MG/DL 8.4-10.2 N CA) HEPATIC FUNCTION [id number] 20:25:00 Test Item Value Reference Range Interpretation [...] UNITS/L 38-126 N (test code = ALKP) [id number] 20:25:00 Test Item Value Reference Range Interpretation Comments LIPASE (test code = LIP) 58 UNITS/L 23-300 N [id number] 20:25:00 Test Item Value Reference Range Interpretation Comments MAGNESIUM (test code = MAG) 2.1 MG/DL 1.6-2.3 N LIPOPROTEIN LDL [id number] 20:25:00 Test Item Value Reference Range Interpretation Comments LIPOPROTEIN LDL DIRECT 80 mg/dL 100-129 L ===== (test code = LDLDIR) ======= ==Refe rence Interval: mg/dL mmol/L--------- ------ ------ ------ --Optimal <100 <2.6Near/abov e optimal 100-129 2.6-3.3Borderli ne High 130-159 3.4-4.1High 16 0-189 4.1-4.9Ve ry High >=190 >=4.9========= This LDL result is a direct measurement.=== ====== HCG SERUM [id number] 20:25:00 Test Item Value Reference Range Interpretation Comments HCG SERUM QUAL (test code = HCGQL) NEGATIVE NEGATIVE A THYROID STIMULATING [id number] 20:25:00 Test Item Value Reference Range Interpretation Comments THYROID STIMULATING 3.640 MIU/L 0.465-4.68 N Please b e aware that HORMONE (test code = bias re sults for TSH TSH) may occur forpa tient who are taking Biotin suppleme nts. [id number] 20:25:00 Test Item Value Reference Range Interpretation Comments TROPONIN-I (test code = TROPI) 0.069 NG/ML 0.012-0.033 H - CTA CHEST FOR [id number] 20:22:00 Patient Name: THERESA BROWN Unit No: [id number] EXAMS: CPT CODE: [id number] [place] [address] DICTATION LOCATION: H30 HISTORY: Chest [...] RT(R); ... CTDI: DLP: Trnscrpt: 08/22/2020 (2021) Brad.ANNIE [facility] NAME: THERESA BROWNmond PHYS: [place] [address] : 1975 AGE:45 SEX: F LOC: Z.401 A PHONE #: [phone] EXAM DATE: 08/22/2020 STATUS: ADM IN FAX #: [phone] RAD #: D/C DT PAGE 1 Signed Report Patient Name: THERESA BROWN Unit No: [id number] EXAMS: CPT CODE: [id number] [place] [address] <Continued> Orig Print D/T: S: 08/22/2020 (2024) [facility] NAME: THERESA BROWN PHYS: [place] [address] : 1975 AGE: 45 SEX: F LOC: Z.834 A PHONE #: [phone] EXAM DATE: 08/22/2020 STATUS: ADM IN FAX #: [phone] RAD #: D/C DT PAGE 2 Signed ReportBASIC METABOLIC [id number] 18:32:00 Test Item Value Reference Range Interpretation [...] 8.8 MG/DL 8.4-10.2 N CA) HEPATIC FUNCTION [id number] 18:32:00 Test Item Value Reference Range Interpretation [...] UNITS/L 38-126 N (test code = ALKP) [id number] 18:32:00 Test Item Value Reference Range Interpretation Comments LIPASE (test code = LIP) 58 UNITS/L 23-300 N [id number] 18:32:00 Test Item Value Reference Range Interpretation Comments MAGNESIUM (test code = MAG) 2.1 MG/DL 1.6-2.3 N LIPOPROTEIN LDL [id number] 18:32:00 Test Item Value Reference Range Interpretation Comments LIPOPROTEIN LDL DIRECT (test code = mg/dL 100-129 LDLDIR) HCG SERUM [id number] 18:32:00 Test Item Value Reference Range Interpretation Comments HCG SERUM QUAL (test code = HCGQL) NEGATIVE NEGATIVE A THYROID STIMULATING [id number] 18:32:00 Test Item Value Reference Range Interpretation Comments THYROID STIMULATING 3.640 MIU/L 0.465-4.68 N Please b e aware that HORMONE (test code = bias re sults for TSH TSH) may occur forpa tient who are taking Biotin suppleme nts. [id number] 18:32:00 Test Item Value Reference Range Interpretation Comments TROPONIN-I (test code = TROPI) 0.069 NG/ML 0.012-0.033 H B-TYPE NATRIURETIC [id number] 18:20:00 Test Item Value Reference Range Interpretation Comments B-TYPE NATRIURETIC PEPTIDE (test 138.0 PG/ML 0-100 H code = BNP) BASIC METABOLIC [id number] 18:14:00 Test Item Value Reference Range Interpretation [...] 8.8 MG/DL 8.4-10.2 N CA) HEPATIC FUNCTION [id number] 18:14:00 Test Item Value Reference Range Interpretation [...] UNITS/L 38-126 N (test code = ALKP) [id number] 18:14:00 Test Item Value Reference Range Interpretation Comments LIPASE (test code = LIP) 58 UNITS/L 23-300 N [id number] 18:14:00 Test Item Value Reference Range Interpretation Comments MAGNESIUM (test code = MAG) 2.1 MG/DL 1.6-2.3 N LIPOPROTEIN LDL [id number] 18:14:00 Test Item Value Reference Range Interpretation Comments LIPOPROTEIN LDL DIRECT (test code = mg/dL 100-129 LDLDIR) HCG SERUM [id number] 18:14:00 Test Item Value Reference Range Interpretation Comments HCG SERUM QUAL (test code = HCGQL) NEGATIVE NEGATIVE A THYROID STIMULATING [id number] 18:14:00 Test Item Value Reference Range Interpretation Comments THYROID STIMULATING HORMONE (test code MIU/L 0.465-4.68 = TSH) [id number] 18:14:00 Test Item Value Reference Range Interpretation Comments TROPONIN-I (test code = TROPI) 0.069 NG/ML 0.012-0.033 H BASIC METABOLIC [id number] 18:08:00 Test Item Value Reference Range Interpretation [...] 8.8 MG/DL 8.4-10.2 N CA) HEPATIC FUNCTION [id number] 18:08:00 Test Item Value Reference Range Interpretation [...] UNITS/L 38-126 N (test code = ALKP) [id number] 18:08:00 Test Item Value Reference Range Interpretation Comments LIPASE (test code = LIP) 58 UNITS/L 23-300 N [id number] 18:08:00 Test Item Value Reference Range Interpretation Comments MAGNESIUM (test code = MAG) 2.1 MG/DL 1.6-2.3 N HCG SERUM [id number] 18:08:00 Test Item Value Reference Range Interpretation Comments HCG SERUM QUAL (test code = HCGQL) NEGATIVE NEGATIVE A THYROID STIMULATING [id number] 18:08:00 Test Item Value Reference Range Interpretation Comments THYROID STIMULATING HORMONE (test code MIU/L 0.465-4.68 = TSH) [id number] 18:08:00 Test Item Value Reference Range Interpretation Comments TROPONIN-I (test code = TROPI) NG/ML 0.0-0.045 URINALYSIS [id number] 18:05:00 Test Item Value Reference Range Interpretation [...] OF URINE: CLEAN CATCHDRUGS OF ABUSE SCREEN [id number] 18:05:00 Test Item Value Reference Range Interpretation [...] PHENCU) ng/mL SOURCE OF URINE: CLEAN CATCHURINALYSIS [id number] 18:04:00 Test Item Value Reference Range Interpretation [...] OF URINE: CLEAN CATCHDRUGS OF ABUSE SCREEN [id number] 18:04:00 Test Item Value Reference Range Interpretation [...] = PHENCU) SOURCE OF URINE: CLEAN CATCHURINALYSIS [id number] 18:03:00 Test Item Value Reference Range Interpretation [...] OF URINE: CLEAN CATCHDRUGS OF ABUSE SCREEN [id number] 18:03:00 Test Item Value Reference Range Interpretation [...] SOURCE OF URINE: CLEAN CATCH- XR CHEST [id number] 18:03:00 Patient Name: DARION BROWN Unit No: [id number] EXAMS: CPT CODE: [id number] XR CHEST 1V [id number] EXAMINATION: - XR CHEST 1V. LOCATION: H42. [...] Orig Print D/T: S: 08/22/2020 (1805) [facility] NAME: DARION BROWN [address] PHYS: [email or web address] - [place] [address] : 1975 AGE: 45 SEX: F LOC: .ERS PHONE #: [phone] EXAM DATE: 08/22/2020 STATUS: PRE ER FAX #: [phone] RADIOLOGY NO: PAGE 1 Signed ReportURINALYSIS [id number] 18:02:00 Test Item Value Reference Range Interpretation [...] OF URINE: CLEAN CATCHDRUGS OF ABUSE SCREEN [id number] 18:02:00 Test Item Value Reference Range Interpretation [...] = PHENCU) SOURCE OF URINE: CLEAN CATCHPROTHROMBIN [id number] 18:01:00 Test Item Value Reference Range Interpretation [...] syste ector embolism. 3.0 - 4.5 PTT [id number] 18:01:00 Test Item Value Reference Range Interpretation Comments PTT ACTIVATED (test code = APTT) 39.1 SECONDS 25.1-36.5 H [id number] 18:01:00 Test Item Value Reference Range Interpretation [...] o f standard radiological pr ocedures. URINALYSIS [id number] 18:01:00 Test Item Value Reference Range Interpretation [...] OF URINE: CLEAN CATCHDRUGS OF ABUSE SCREEN [id number] 18:01:00 Test Item Value Reference Range Interpretation [...] PHENCU) SOURCE OF URINE: CLEAN CATCHBASIC METABOLIC [id number] 18:01:00 Test Item Value Reference Range Interpretation [...] 8.8 MG/DL 8.4-10.2 N CA) HEPATIC FUNCTION [id number] 18:01:00 Test Item Value Reference Range Interpretation [...] UNITS/L 38-126 N (test code = ALKP) [id number] 18:01:00 Test Item Value Reference Range Interpretation Comments LIPASE (test code = LIP) 58 UNITS/L 23-300 N [id number] 18:01:00 Test Item Value Reference Range Interpretation Comments MAGNESIUM (test code = MAG) 2.1 MG/DL 1.6-2.3 N HCG SERUM [id number] 18:01:00 Test Item Value Reference Range Interpretation Comments HCG SERUM QUAL (test code = HCGQL) NEGATIVE THYROID STIMULATING [id number] 18:01:00 Test Item Value Reference Range Interpretation Comments THYROID STIMULATING HORMONE (test code MIU/L 0.465-4.68 = TSH) [id number] 18:01:00 Test Item Value Reference Range Interpretation Comments TROPONIN-I (test code = TROPI) NG/ML 0.0-0.045 BASIC METABOLIC [id number] 18:00:00 Test Item Value Reference Range Interpretation [...] code = MG/DL 8.7-9.7 CA) HEPATIC FUNCTION [id number] 18:00:00 Test Item Value Reference Range Interpretation [...] PHOSPHATASE UNITS/L 38-126 (test code = ALKP) [id number] 18:00:00 Test Item Value Reference Range Interpretation Comments LIPASE (test code = LIP) UNITS/L 23-300 [id number] 18:00:00 Test Item Value Reference Range Interpretation Comments MAGNESIUM (test code = MAG) MG/DL 1.6-2.3 HCG SERUM [id number] 18:00:00 Test Item Value Reference Range Interpretation Comments HCG SERUM QUAL (test code = HCGQL) NEGATIVE THYROID STIMULATING [id number] 18:00:00 Test Item Value Reference Range Interpretation Comments THYROID STIMULATING HORMONE (test code MIU/L 0.465-4.68 = TSH) [id number] 18:00:00 Test Item Value Reference Range Interpretation Comments TROPONIN-I (test code = TROPI) NG/ML 0.0-0.045 BASIC METABOLIC [id number] 17:58:00 Test Item Value Reference Range Interpretation [...] code = CA) MG/DL 8.7-9.7 HEPATIC FUNCTION [id number] 17:58:00 Test Item Value Reference Range Interpretation Comments TOTAL PROTEIN (test code = PROT) G/DL 6.3-8.2 ALBUMIN (test code = ALB) 4.1 G/DL 3.5-5.0 N BILIRUBIN TOTAL (test code = BILT) MG/DL 0.2-1.3 BILIRUBIN DIRECT (test code = BILD) MG/DL 0.0-0.3 SGOT/AST (test code = AST) UNITS/L 15-37 SGPT/ALT (test code = ALT) UNITS/L <35 ALKALINE PHOSPHATASE (test code = UNITS/L 38-126 ALKP) [id number] 17:58:00 Test Item Value Reference Range Interpretation Comments LIPASE (test code = LIP) UNITS/L 23-300 [id number] 17:58:00 Test Item Value Reference Range Interpretation Comments MAGNESIUM (test code = MAG) MG/DL 1.6-2.3 HCG SERUM [id number] 17:58:00 Test Item Value Reference Range Interpretation Comments HCG SERUM QUAL (test code = HCGQL) NEGATIVE THYROID STIMULATING [id number] 17:58:00 Test Item Value Reference Range Interpretation Comments THYROID STIMULATING HORMONE (test code MIU/L 0.465-4.68 = TSH) [id number] 17:58:00 Test Item Value Reference Range Interpretation Comments TROPONIN-I (test code = TROPI) NG/ML 0.0-0.045 URINALYSIS [id number] 17:54:00 Test Item Value Reference Range Interpretation [...] OF URINE: CLEAN CATCHDRUGS OF ABUSE SCREEN [id number] 17:54:00 Test Item Value Reference Range Interpretation [...] PHENCU) SOURCE OF URINE: CLEAN CATCHCBC W/AUTO [id number] 17:49:00 Test Item Value Reference Range Interpretation [...] = 0.00 K/mm3 0.0-0.1 N NRBC#) URINALYSIS [id number] 17:48:00 Test Item Value Reference Range Interpretation [...] SGU) UA BLOOD DIPSTICK (test code NEGATIVE Mihcael/mm3 NEGATIVE = CARO) UA PH DIPSTICK (test [...] OF URINE: CLEAN CATCHDRUGS OF ABUSE SCREEN [id number] 17:48:00 Test Item Value Reference Range Interpretation [...]
[2022-02-10] MEDS ORDERED: KETOROLAC 30 MG/ML INJ ONE (15:13)
[2022-02-10] MEDS ORDERED: dexAMETHasone 10 MG/ML VIAL ONE (15:13)
--- NOTE | 2022-02-10 16:16 | RAD REPORT ---
EXAM DESCRIPTION: RAD - Elbow Left 3 View - 02/10/2022 3:40 pm CLINICAL HISTORY: PAIN COMPARISON: None. FINDINGS: No fracture is identified and no elevated posterior fat pad. There is no dislocation or pe riosteal reaction noted. No foreign body or other soft tissue abnormality. IMPRESSION: Negative left elbow examination.
--- NOTE | 2022-02-10 16:26 | ER ---
Nurse's Notes [facility] Name: Dwight Hylton Age: 46 yrs Sex: Female : 1975 Arrival Date: 02/10/2022 Time: 14:11 Bed 12 Private MD: Diagnosis: Pain in left elbow Presentation: 02/10 14:25 Chief complaint: Patient states: she has been having left elbow pain for approx 2 weeks ap3 now. Patient states she presents to the ED today for evaluation due to increase in pain that now radiates down to her left hand and the inability to rotate her left forearm. Coronavirus screen: At this time, the client does not indicate any symptoms associated with coronavirus-19. Ebola Screen: No symptoms or risks identified at this time. Initial Sepsis Screen: Does the patient meet any 2 criteria? No. Patient's initial sepsis screen is negative. Does the patient have a suspected source of infection? No. Patient's initial sepsis screen is negative. Risk Assessment: Do you want to hurt yourself or someone else? Patient reports no desire to harm self or others. Onset of symptoms was January 27, 2022. 14:25 Method Of Arrival: Ambulatory ap3 14:25 Acuity: LUCIO 4 ap3 Triage Assessment: 14:28 General: Appears in no apparent distress. Behavior is calm, cooperative, appropriate ap3 for age. Pain: Complains of pain in left elbow Pain radiates to left arm, forearm Pain currently is 5 out of 10 on a pain scale. at worst was 10 out of 10 on a pain scale. Pain began gradually, over the last 2 weeks. Neuro: Level of Consciousness is awake, alert, obeys commands, Oriented to person, place, time, situation, Appropriate for age Speech is normal. Respiratory: Airway is patent Respiratory effort is even, unlabored, Respiratory pattern is regular, symmetrical. Musculoskeletal: Reports pain in left elbow. 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 Last tetanus immunization: up to date Flu vaccine status is unknown. - Social history:: Smoking status: Patient denies any tobacco usage or history of. Patient uses alcohol, but reports only rare drinking. Screenin:29 Abuse screen: Denies threats or abuse. Nutritional screening: No deficits noted. ap3 Tuberculosis screening: No symptoms or risk factors identified. 15:15 Fall Risk Total Krause Fall Scale indicates No Risk (0-24 pts). ll1 Assessment: 15:15 Reassessment: No changes from previously documented assessment. Patient and/or family ll1 updated on plan of care and expected duration. Pain level reassessed. Patient is alert, oriented x 3, equal unlabored respirations, skin warm/dry/pink. 16:15 Reassessment: No changes from previously documented assessment. Patient and/or family ll1 updated on plan of care and expected duration. Pain level reassessed. Patient is alert, oriented x 3, equal unlabored respirations, skin warm/dry/pink. 17:00 Reassessment: No changes from previously documented assessment. Patient and/or family ll1 updated on plan of care and expected duration. Pain level reassessed. Patient is alert, oriented x 3, equal unlabored respirations, skin warm/dry/pink. Vital Signs: 14:25 BP 153 / 76; Pulse 96; Resp 16; Temp 98.6; Pulse Ox 100% ; Weight 99.79 kg; Height 5 ap3 ft. 5 in. (165.10 cm); Pain 5/10; 14:25 Body Mass Index 36.61 (99.79 kg, 165.10 cm) ap3 ED Course: 14:11 Patient arrived in ED. ds1 14:27 Triage completed. ap3 14:29 Arm band placed on right wrist. ap3 14:47 Rip Bernstein PA is PHCP. jmm 14:48 Alejandro Caraballo MD is Attending Physician. [facility] 14:51 Garima Akins, CLAUDE is Primary Nurse. ll1 15:32 Patient has correct armband on for positive identification. Bed in low position. Call ll1 light in reach. Side rails up X 1. 15:39 X-ray completed. Portable x-ray completed in exam room. Patient tolerated procedure mh1 well. 15:42 XRAY Elbow LEFT 3 view In Process Unspecified. EDMS 16:25 Roger Martínez MD is Referral Physician. [facility] 16:46 Patient did not have IV access during this emergency room visit. Shoulder immobilizer ll1 applied on left shoulder. 17:00 No provider procedures requiring assistance completed. ll1 Administered Medications: 15:15 Drug: Ketorolac 30 mg Route: IM; Site: left gluteus; ll1 17:23 Follow up: Response: No adverse reaction ll1 15:15 Drug: Decadron (dexamethasone) 10 mg Route: IM; Site: right gluteus; ll1 17:23 Follow up: Response: No adverse reaction ll1 Outcome: 16:25 Discharge ordered by MD. skinner 17:00 Patient left the ED. ll1 17:00 Discharged to home ambulatory. ll1 17:00 Condition: stable 17:00 Discharge instructions given to patient, Instructed on discharge instructions, follow up and referral plans. medication usage, Demonstrated understanding of instructions, follow-up care, medications, Prescriptions given X 3. Signatures: Dispatcher [employer] EDMS Rip Bernstein PA PA jmm Harvey, Martha 1 Michelle Pardo 1 Cindy James RN RN ap3 Lewis, Lynsay, RN RN ll1 Corrections: (The following items were deleted from the chart) 17:25 17:15 Reassessment: No changes from previously documented assessment. Patient and/or ll1 family updated on plan of care and expected duration. Pain level reassessed. Patient is alert, oriented x 3, equal unlabored respirations, skin warm/dry/pink. ll1
--- NOTE | 2022-02-10 16:26 | EDPHYS ---
Physician Documentation [facility] Name: Dwight Hylton Age: 46 yrs Sex: Female : 1975 Arrival Date: 02/10/2022 Time: 14:11 Bed 12 Private MD: ED Physician Alejandro Caraballo HPI: 02/10 14:30 This 46 yrs old Female presents to ER via Ambulatory with complaints of Arm Pain. jmm 14:30 The patient or guardian complains of pain. Onset: The symptoms/episode began/occurred jmm gradually, 1 week(s) ago. Modifying factors: The symptoms are alleviated by nothing. the symptoms are aggravated by nothing. Associated signs and symptoms: Pertinent negatives: fever, numbness. This is a 46-year-old female with history of hyperlipidemia, hypertension, CAD the presents emerged part with complaints of left elbow pain which has been ongoing for approximately a week. Patient states she does perform strenuous and repetitive activities at work. Denies known trauma to the left elbow. Denies fever.. 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 Last tetanus immunization: up to date Flu vaccine status is unknown. - Social history:: Smoking status: Patient denies any tobacco usage or history of. Patient uses alcohol, but reports only rare drinking. ROS: 14:30 Constitutional: Negative for fever, chills, and weight loss, Cardiovascular: Negative jmm for chest pain, palpitations, and edema, Respiratory: Negative for shortness of breath, cough, wheezing, and pleuritic chest pain. 14:30 MS/extremity: Positive for pain. 14:30 All other systems are negative. Exam: 14:30 Constitutional: This is a well developed, well nourished patient who is awake, alert, jmm and in no acute distress. Head/Face: atraumatic. Eyes: EOMI, no conjunctival erythema appreciated ENT: Moist Mucus Membranes Neck: Trachea midline, Supple Chest/axilla: Normal chest wall appearance and motion. Cardiovascular: Regular rate and rhythm. No edema appreciated Respiratory: Normal respirations, no respiratory distress appreciated Abdomen/GI: Non distended, soft Back: Normal ROM Skin: General appearance color normal 14:30 Musculoskeletal/extremity: Full range of motion appreciated to the left elbow, pain is elicited on palpation of the olecranon, no erythema or induration is appreciated, full radial pulse, negative Tinel's sign, compartments are soft, neurovascular intact. 14:30 Skin: Appearance: Color: normal in color. 14:30 Neuro: Orientation: is normal, Mentation: is normal, Memory: is normal. Vital Signs: 14:25 BP 153 / 76; Pulse 96; Resp 16; Temp 98.6; Pulse Ox 100% ; Weight 99.79 kg; Height 5 ap3 ft. 5 in. (165.10 cm); Pain 5/10; 14:25 Body Mass Index 36.61 (99.79 kg, 165.10 cm) ap3 MDM: 14:58 Patient medically screened. [facility] 16:21 Data reviewed: vital signs, nurses notes. [facility] 16:21 Counseling: I had a detailed discussion with the patient and/or guardian regarding: the [facility] historical points, exam findings, and any diagnostic results supporting the discharge/admit diagnosis, radiology results, the need for outpatient follow up, to return to the emergency department if symptoms worsen or persist or if there are any questions or concerns that arise at home. ED course: Patient is alert and non toxic in appearance in the ED. I do not suspect septic joint. Patient is advised to follow up with ortho and otherwise given strict return precautions. Patient understood and agrees with the plan if care. . 02/10 14:30 Order name: XRAY Elbow LEFT 3 view; Complete Time: 16:18 rn 02/10 16:24 Order name: Sling; Complete Time: 16:46 [facility] Administered Medications: 15:15 Drug: Ketorolac 30 mg Route: IM; Site: left gluteus; ll1 17:23 Follow up: Response: No adverse reaction ll1 15:15 Drug: Decadron (dexamethasone) 10 mg Route: IM; Site: right gluteus; ll1 17:23 Follow up: Response: No adverse reaction ll1 Disposition: 18:48 Co-signature as Attending Physician, Alejandro Caraballo MD. rn Disposition Summary: 02/10/22 16:25 Discharge Ordered Location: Home [facility] Condition: Stable [facility] Diagnosis - Pain in left elbow [facility] Followup: jm - With: Roger Martínez MD - When: 2 - 3 days - Reason: Recheck today's complaints, Continuance of care, Re-evaluation by your physician Discharge Instructions: - Discharge Summary Sheet [facility] - Elbow Bursitis [facility] Forms: - Work release form [facility] - Medication Reconciliation Form [facility] - Thank You Letter [facility] - Antibiotic Education [facility] - Prescription Opioid Use [facility] Prescriptions: - Diclofenac Sodium 75 mg Oral Tablet Sustained Release - take 1 tablet by ORAL route 2 times per day; 30 tablet; Refills: 0, Product [facility] Selection Permitted - Medrol (Josr) 4 mg Oral Tablets, Dose Pack - take 1 tablet by ORAL route as directed - follow package instructions; 1 jm packet; Refills: 0, Product Selection Permitted - orphenadrine citrate 100 mg Oral Tablet Sustained Release - take 1 tablet by ORAL route 2 times per day As needed; 20 tablet; Refills: 0, jm Product Selection Permitted Signatures: Dispatcher [employer] Rip Zepeda PA PA [facility] Alejandro Caraballo MD MD rn Prokisch, Amanda RN RN ap3 Garima Akins RN RN ll1
[2022-02-10 17:18] VITALS: BP 153/76; TEMP 98.6; O2SAT 100
== END 2022-02-10 17:00 | disposition home or self-care (01) ==
LOC: ER 13:51
DX: M25.522 Pain in left elbow (principal); I10 Essential (primary) hypertension; Z88.0 Allergy status to penicillin
CPT/HCPCS: 73080; 96372; 99284; J1100

== ENCOUNTER 2022-05-09 14:16 | Emergency (ER) | payer BC ==
--- OUTSIDE RECORDS SUMMARY | 2022-05-09 14:23 | XMS REPORT | Continuity of Care Document ---
:1975 Author Organization [facility] t Address [address] [place] [address] Care Team Providers Name Role Phone [facility] Primary Care Physician Unavailable Nadeen Vera Attending [...] Syeda jones [facility] [id number] 2019 00:00:00 [facility] [id number] 2019 CARE 00:00:00 Problems Condition Condition Condition Status Onset Resolution Last Treating Co mments Source Name Details Category Date Date Treatment Clinician Date ASCUS on ASCUS on Disease Active Unive rs Pap smear Pap smear 3-15 ity of 00:00: [address] Branch Coronary Coronary Disease Active Unive rs artery artery 8-08 ity of spasm spasm 00:00: [address] NSTEMI NSTEMI Disease Active Univers (non-ST (non-ST 8-06 ity of elevated elevated 00:00: [place] myocardial myocardial 00 Me dical infarction infarction Br anch ) ) Obesity Obesity Disease Active Univers (BMI (BMI 8-06 ity of 30-39.9) 30-39.9) 00:00: [place] 00 Medical Branch Hypertensi Hypertensi Disease Active U nivers ve ve 8-06 [place] of emergency emergency [place] NSVT NSVT Disease Active Univers (nonsustai (nonsustai 806 it y of zainab zainab 00:00: [place] ventricula ventricula 00 Me dical r r Branch tachycardi tachycardi a) a) Bulging Bulging Disease Active Univers disc disc 9-04 ity of 00:00: [place] 00 Medical Branch Allergies, Adverse Reactions, Alerts Allergy Allergy Status Severity Reaction(s) Onset Inactive Treating Comm ents Source Name Type Date Date Clinician No Known DA Active U 2019-11 [facility]ie [facility]10 [place] s 00:[facility]: [address] [place] DA Active SV 2019-11 [facility] ins 0-10 [place] 00:00: [address] No Known DA Active U 2019-11 [facility] Allergie 0-10 [place] s 00:00: [address] Penic[place] DA Active SV swelling, 2019-11 [facility] ins unable to 0-10 [place] breath 00:00: [address] PENICILL DRUG Active Anaphylaxis Uni vers IN INGREDI 8-05 ity of 00:00: [place] [address] Medical Branch Penicill Propensi Active Anaphylaxis U nivers in ty to 8-05 ity of adverse 00:00: [place] reaction 00 Medical s Branch Social History Social Habit Start Date Stop Date Quantity Comments Source Exposure to Not sure [facility] SARS-CoV-2 [place] Medical (event) Branch Alcohol intake 2021-07-07 2021-07-07 Current drinker Unive rsity of 00:00:00 00:00:00 of alcohol [place] Medical (finding) Branch History [facility] 2019-07-25 2019-07-25 2 University o f Alcohol Frequency 00:00:00 00:00:00 [place] M edical Branch History [facility] 2019-07-25 2019-07-25 1 University o f Alcohol Std 00:00:00 00:00:00 [place] Medical Drinks Branch History [facility] 2019-07-25 2019-07-25 1 [place] o f Alcohol Binge 00:00:00 00:00:00 [place] Medic al Branch Alcohol Comment 2019-07-25 2019-07-25 Occasional mixed Uni versity of 00:00:00 00:00:00 drink [facility] Tobacco use and 2019-06-18 2019-06-18 Never used Universit y of exposure 00:00:00 00:00:00 [facility] Sex [birth year] Universit y of 00:00:00 00:00:00 [facility] Smoking Status Start Date Stop Date Source Never smoker [facility] Medications Ordered Filled Start Stop Current Ordering Indication Dosage Frequency Signature Comments Components Source Medication Medication Date Date Medication? Clinician (SIG) Name Name lisinopriL Yes [id number] 20mg Take 1 Univers 20 mg 9-16 tablet by ity of tablet 00:00: mouth 2 [place] [address] (two) Medical times Branch daily. VITAMIN B Yes Take by [employer] ers COMPLEX 8-25 mouth. ity of ORAL 20:04: [place] 15 Medical Branch multivit-ir Yes Take by Un donna on-FA-calci 8-25 mouth. ity of um-mins 18 20:04: [place] mg iron-400 15 Medical mcg-500 mg Branch Ca Tab VITAMIN B Yes Take by [employer] COMPLEX 8-25 mouth. ity of ORAL 20:04: [place] 15 Medical Branch multivit-ir Yes Take by Un donna on-FA-calci 8-25 mouth. ity of um-mins 18 20:04: [place] mg iron-400 15 Medical mcg-500 mg Branch Ca Tab multivit-ir Yes Take by Un donna on-FA-calci 8-25 mouth. ity of um-mins 18 15:04: [place] mg iron-400 15 Medical mcg-500 mg Branch Ca Tab VITAMIN B 0 Yes Take by [employer] ers COMPLEX 8-25 mouth. ity of ORAL 15:04: [place] 15 Medical Branch multivit-ir Yes Take by Un donna on-FA-calci 8-25 mouth. ity of um-mins 18 15:04: [place] mg iron-400 15 Medical mcg-500 mg Branch Ca Tab VITAMIN B Yes Take by Univ ers COMPLEX 8-25 mouth. ity of ORAL 15:04: [place] 15 Medical Branch diltiazem Yes [id number] 120mg Take 1 U nivers 120 mg 24 8-25 tablet by ity o f hr tablet 00:00: mouth [place] 00 daily. Medical Branch diltiazem Yes [id number] 120mg Take 1 U nivers 120 mg 24 8-25 tablet by ity o f hr tablet 00:00: mouth [place] 00 daily. Medical Branch diltiazem Yes [id number] 120mg Take 1 U nivers 120 mg 24 8-25 tablet by ity o f hr tablet 00:00: mouth [place] 00 daily. Medical Branch diltiazem Yes [id number] 120mg Take 1 U nivers 120 mg 24 8-25 tablet by ity o f hr tablet 00:00: mouth [place] 00 daily. Medical Branch atorvastati Yes [id number] 40mg Take 1 Univers n 40 mg 8-16 tablet by ity of tablet 00:00: mouth [place] 00 daily. Medical Branch atorvastati Yes [id number] 40mg Take 1 Univers n 40 mg 8-16 tablet by ity of tablet 00:00: mouth [place] 00 daily. Medical Branch atorvastati Yes [id number] 40mg Take 1 Univers n 40 mg 8-16 tablet by ity of tablet 00:00: mouth [place] 00 daily. Medical Branch atorvastati Yes [id number] 40mg Take 1 Univers n 40 mg 8-16 tablet by ity of tablet 00:00: mouth [place] 00 daily. Medical Branch fenofibrate Yes [id number] 145mg Take 1 Univers (TRICOR) 3-15 tablet by ity of 145 mg 00:00: mouth [place] tablet 00 daily. Medical Branch fenofibrate Yes [id number] 145mg Take 1 Univers (TRICOR) 3-15 tablet by ity of 145 mg 00:00: mouth [place] tablet 00 daily. Medical Branch fenofibrate Yes [id number] 145mg Take 1 Univers (TRICOR) 3-15 tablet by ity of 145 mg 00:00: mouth [place] tablet 00 daily. Medical Branch fenofibrate Yes [id number] 145mg Take 1 Univers (TRICOR) 3-15 tablet by ity of 145 mg 00:00: mouth [place] tablet 00 daily. Medical Branch diltiazem 2020- No [id number] 120mg Take 1 Univers 120 mg 24 3- 08-25 tablet by ity of hr tablet 00:00: 00:00 mouth [place] 00 :00 daily. Medical Branch diltiazem 2020- No [id number] 120mg Take 1 Univers 120 mg 24 3- 08-25 tablet by ity of hr tablet 00:00: 00:00 mouth [place] 00 :00 daily. Medical Branch lisinopriL 2019-11 Yes [id number] 20mg Take 1 Univers 20 mg 0-05 tablet by ity of tablet 00:00: mouth 2 [place] 00 (two) Medical times Branch daily. lisinopriL 2019-11 Yes [id number] 20mg Take 1 Univers 20 mg 0-05 tablet by ity of tablet 00:00: mouth 2 [place] 00 (two) Medical times Branch daily. lisinopriL 2019-11 Yes [id number] 20mg Take 1 Univers 20 mg 0-05 tablet by ity of tablet 00:00: mouth 2 [place] 00 (two) Medical times Branch daily. lisinopriL 2019-11- No [id number] 20mg Take 1 Univers 20 mg 0-05 09-16 tablet by ity of tablet 00:00: 00:00 mouth 2 [place] 00 :00 (two) Medical times Branch daily. aspirin 81 2020-0 Yes 81mg Take 81 mg U nivers mg chewable 7-09 by mouth ity of tablet 16:17: daily. [address] aspirin 81 2020-0 Yes 81mg Take 81 mg U nivers mg chewable 7-09 by mouth ity of tablet 16:17: daily. [address] aspirin 81 2020-0 Yes 81mg Take 81 mg U nivers mg chewable 7-09 by mouth ity of tablet 11:17: daily. [address] aspirin 81 2020-0 Yes 81mg Take 81 mg U nivers mg chewable 7-09 by mouth ity of tablet 11:17: daily. [address] Immunizations Ordered Filled Immunization Date Status Comments [facility] e Immunization Name Name TDAP 2019-07-25 Completed University of 00:00:00 [facility] Influenza Virus 2019-07-25 Completed Universit y of Vaccine 00:00:00 [facility] TDAP 2019-07-25 Completed University of 00:00:00 [facility] Influenza Virus 2019-07-25 Completed Universit y of Vaccine 00:00:00 [facility] TDAP 2019-07-25 Completed University of 00:00:00 [facility] Influenza Virus 2019-07-25 Completed Universit y of Vaccine 00:00:00 [facility] TDAP 2019-07-25 Completed University of 00:00:00 [facility] Influenza Virus 2019-07-25 Completed Universit y of Vaccine 00:00:00 [facility] Vital Signs Vital Name Observation Time Observation Value Comments Source Systolic blood 2021-07-07 20:01:00 124 [facility]Hg[facility] Diastolic blood 2021-07-07 20:01:00 81 mm[Hg] [facility] Heart rate 2021-07-07 20:01:00 94 /min [facility] Body weight 2021-07-07 20:01:00 104.781 kg [facility] BMI 2021-07-07 20:01:00 38.44 kg/m2 [facility] Oxygen saturation 2021-07-07 20:01:00 97 /min [facility] in Arterial blood [facility] by Pulse oximetry Procedures This patient has no known procedures. Encounters Start End Encounter Admission Attending Care Care Encounter Source Date/Time Date/Time Type Type Clinicians Facility Department ID 2022-04-20 [facility] [id number] 2 Common 15:26:01 [facility] 2022-02-22 [facility] [id number] 2 Common 10:20:02 [facility] 2021-12-17 Out[facility] [id number] 2 Common 10:55:01 [facility] 2021-12-08 Out[facility] [id number] 2 Common 14:30:16 [facility] 2021-09-12 Emergency [facility] [id number] Univers 17:23:54 ity [facility] [place] [facility] 2020-08-22 Inpatient HCAWU SYBIL [id number] [facility] 17:18:00 [facility] 2022-07-08 2022-07-08 Outpatient HECTOR [facility] [id number] Univers 15:20:00 15:20:00 ROMAINMABELTYE [id number] ity o f [facility] 2022-02-24 2022-02-24 ambulatory [facility] [id number] Common 00:00:00 00:00:00 [facility] 2022-02-23 2022-02-23 ambulatory [facility]C [facility] [id number] Common 00:00:00 00:00:00 [facility] 2021-12-24 2021-12-24 ambulatory STLMLC ST[facility]C [id number] Common 00:00:00 00:00:00 [facility] 2021-12-21 2021-12-21 ambulatory STLMLC ST[facility]C [id number] Common 00:00:00 00:00:00 [facility] 2021-11-15 2021-11-15 ambulatory STLMLC STLMLC [id number] Common 00:00:00 00:00:00 [facility] 2021-07-29 2021-07-29 [facility] [id number] Univers 00:00:00 00:00:00 [facility] 350.1.13.10 it y of HEALTH 4[place] [id number] [facility] 362 Branch 2021-07-28 2021-07-28 Refill Caden Yanna [facility] [id number] Univers 00:00:00 00:00:00 Health [id number] [place]2.686 [place] [id number] [facility] 115 Branch (CLC) 2021-07-07 2021-07-07 [facility] [id number] Univers 14:46:45 15:14:49 [id number] 4.2.7.2.686 Terry Wright [id number] [place] [id number] [facility] 2021-07-07 2021-07-07 Outpatient R HECTOR, [facility] [id number] Univers 14:40:00 14:40:00 DANIELTYE [id number] y o [facility] 2021-07-07 2021-07-07 Outpatient R HECTOR, [facility] [id number] Univers 14:40:00 14:40:00 NIC [facility] 2021-07-05 2021-07-05 Outpatient R [facility] [id number] Univers 11:45:00 11:45:00 [id number] ity [facility] [place] [facility] 2021-07-05 2021-07-05 Outpatient R HECTOR, [facility] [id number] Univers 11:45:00 11:45:00 [facility] 2021-06-09 2021-06-09 Outpatient R HECTOR, [facility] [id number] Univers 14:20:00 14:20:00 NIC [id number] [facility] 2021-05-05 2021-05-05 Outpatient R HECTOR, [facility] [id number] Univers 14:00:00 14:00:00 NIC [id number] [facility] 2021-05-05 2021-05-05 Outpatient R HECTOR, [facility] [id number] Univers 14:00:00 14:00:00 ROMAINSUMIT [facility] 2021-04-05 2021-04-05 Outpatient R HECTOR, [facility] [id number] Univers 11:00:00 11:00:00 NIC [id number] [facility] 2021-04-05 2021-04-05 Outpatient R HECTOR, [facility] [id number] Univers 11:00:00 11:00:00 ROMAINTYE [facility] 2021-01-28 2021-01-28 [facility] 1.2.840.114 [id number] 00:00:00 00:00:00 Outreach [place] [facility] [id number] [facility] 4.2.7.2.686 DREA [id number] 2021-01-21 2021-01-21 Office Care, [place] GRIFFITH 1.2.840.114 [id number] 13:42:32 15:04:25 Visit [facility] [id number] [facility] 4.2.7.2.686 UNIT [id number] 2021-01-21 2021-01-21 Outpatient [facility] [id number] Univers 13:30:00 13:30:00 [id number] ity [facility] [place] [facility] 2021-01-21 2021-01-21 Outpatient Kellie [facility] [id number] Univers 13:30:00 13:30:00 ity [facility] [place] [facility] 2021-01-21 2021-01-21 Orders Doctor TYRONE 1.2.840.114 [id number] 00:00:00 00:00:00 Only Unassigned, DULCE 350.1.13.10 [place] [facility] 4.2.7.2.686 [id number] 2020-07-22 2020-07-22 Outpatient R [facility] [id number] Univers 13:00:00 [facility]00[facility] 2020-[facility] 2020-07-22 Outpatient R [facility] [id number] Univers 13:00:00 13:00:00 ity [facility] 2020-07-15 2020-07-15 Outpatient Kellie NEGRETE YANNA [facility] [id number] Univers 14:20:00 14:20:00 ity [facility] 2020-07-15 2020-07-15 Outpatient Kellie NEGRETE YANNA [facility] [id number] Univers 00:00:00 00:00:00 ity [facility] [place] [facility] 2020-07-07 2020-07-07 Outpatient Kellie NEGRETE YANNA [facility] [id number] Univers 13:40:00 13:40:00 [id number] [facility] 2020-07-07 2020-07-07 Outpatient YANNA LA [facility] [id number] Univers 00:00:00 00:00:00 ity [facility] 2020-07-06 2020-07-06 Outpatient HECTOR, [facility] [id number] Univers 13:00:00 13:00:00 NIC [id number] karlay o [facility] 2020-07-06 2020-07-06 Outpatient R HECTOR [facility] [id number] Univers 13:00:00 13:00:00 NIC acostay o [facility] 2020-05-21 2020-05-21 Outpatient [facility] [id number] Univers 11:30:00 11:30:00 ity [facility] 2020-05-21 2020-05-21 Outpatient R YANNA NEGRETE [facility] [id number] Univers 11:30:00 11:30:00 [facility] 2020-05-05 2020-05-05 Outpatient R [facility] [id number] Univers 11:00:00 11:00:00 [id number] [facility] 2020-05-05 2020-05-05 Outpatient R ROSA [facility] [id number] Univers 11:00:00 11:00:00 CHER [facility] 2020-03-18 2020-03-18 Outpatient [facility] [id number] Univers 13:30:00 13:30:00 [id number] [facility] 2020-03-18 2020-03-18 Outpatient R MERAZ, [facility] [id number] Univers 13:30:00 13:30:00 SAMANTHA [facility] 2020-01-06 2020-01-06 Outpatient R HECTOR [facility] [id number] Univers 14:40:00 14:40:00 NIC mukherjee o [facility] 2019-10-21 2019-10-21 Outpatient R MERAZ, [facility] [id number] Univers 14:13:55 23:59:00 SONA [facility] Results Test Description Test Time Test Comments Results Result Comments Source TROPONIN-I 2020-08-23 12:02:00 Test Item Value Reference Range Interpretation Comme nts TROPONIN-I (test code = TROPI) 0.065 NG/ML 0.012-0.033 H [id number] 07:38:00 Test Item Value Reference Range Interpretation Comments TROPONIN-I (test code = TROPI) 0.088 NG/ML 0.012-0.033 H COMPREHENSIVE METABOLIC [id number] 07:37:00 Test Item Value Reference Range Interpretation [...] 75 UNITS/L 38-126 (test code = ALKP) [id number] 07:37:00 Test Item Value Reference Range Interpretation Comments MAGNESIUM (test code = MAG) 2.0 MG/DL 1.6-2.3 N COMPREHENSIVE METABOLIC [id number] 07:28:00 Test Item Value Reference Range Interpretation [...] PHOSPHATASE (test code = UNITS/L 38-126 ALKP) [id number] 07:28:00 Test Item Value Reference Range Interpretation Comments MAGNESIUM (test code = MAG) MG/DL 1.6-2.3 COMPREHENSIVE METABOLIC [id number] 07:27:00 Test Item Value Reference Range Interpretation [...] PHOSPHATASE (test code = UNITS/L 38-126 ALKP) [id number] 07:27:00 Test Item Value Reference Range Interpretation Comments MAGNESIUM (test code = MAG) MG/DL 1.6-2.3 CBC W/AUTO [id number] 07:06:00 Test Item Value Reference Range Interpretation [...] VERY HIGH...... ...>/= 190 mg/dL GLYCOSYLATED HEMOGLOBIN [id number] 22:25:00 Test Item Value Reference Range Interpretation [...] LDL (test MG/DL 0-99 code = LDL) [id number] 20:45:00 Test Item Value Reference Range Interpretation Comments TROPONIN-I (test code = TROPI) 0.091 NG/ML 0.012-0.033 H BASIC METABOLIC [id number] 20:25:00 Test Item Value Reference Range Interpretation [...] 8.8 MG/DL 8.4-10.2 N CA) HEPATIC FUNCTION [id number] 20:25:00 Test Item Value Reference Range Interpretation [...] UNITS/L 38-126 N (test code = ALKP) [id number] 20:25:00 Test Item Value Reference Range Interpretation Comments LIPASE (test code = LIP) 58 UNITS/L 23-300 N [id number] 20:25:00 Test Item Value Reference Range Interpretation Comments MAGNESIUM (test code = MAG) 2.1 MG/DL 1.6-2.3 N LIPOPROTEIN LDL [id number] 20:25:00 Test Item Value Reference Range Interpretation Comments LIPOPROTEIN LDL DIRECT 80 mg/dL 100-129 L ===== (test code = LDLDIR) ======= ==Refe rence Interval: mg/dL mmol/L--------- ------ ------ ------ --Optimal <100 <2.6Near/abov e optimal 100-129 2.6-3.3Borderli ne High 130-159 3.4-4.1High 16 0-189 4.1-4.9Ve ry High >=190 >=4.9========= This LDL result is a direct measurement.=== ====== HCG SERUM [id number] 20:25:00 Test Item Value Reference Range Interpretation Comments HCG SERUM QUAL (test code = HCGQL) NEGATIVE NEGATIVE A THYROID STIMULATING [id number] 20:25:00 Test Item Value Reference Range Interpretation Comments THYROID STIMULATING 3.640 MIU/L 0.465-4.68 N Please b e aware that HORMONE (test code = price le for TSH TSH) may occur forpa tient who are taking Biotin suppleme nts. [id number] 20:25:00 Test Item Value Reference Range Interpretation Comments TROPONIN-I (test code = TROPI) 0.069 NG/ML 0.012-0.033 H - CTA CHEST FOR [id number] 20:22:00 Patient Name: THERESA BROWN Unit No: [id number] EXAMS: CPT [place]: [id number] [place] [id number] DICTATION LOCATION: H30 HISTORY: Chest [...] RT(R); ... CTDI: DLP: Trnscrpt: 08/22/2020 (2021) [email or web address] [facility] NAME: THERESA BROWN [id number] [place] PHYS: [email or web address] - [place] [address] : 1975 AGE:45 SEX: F LOC: Z.625 A PHONE #: [phone] EXAM DATE: 08/22/2020 STATUS: ADM IN FAX #: [phone] RAD #: D/C DT PAGE 1 Signed Report Patient Name: THERESA BROWN Unit No: [id number] EXAMS: CPT CODE: [id number] [place] [id number] <Continued> Orig Print D/T: S: 08/22/2020 (2024) SHARON Marlon NAME: THERESA BROWN [address] PHYS: [place] [address] : 1975 AGE: 45 SEX: F LOC: Z.625 A PHONE #: [phone] EXAM DATE: 08/22/2020 STATUS: ADM IN FAX #: [phone] RAD #: D/C DT PAGE 2 Signed ReportBASIC METABOLIC [id number] 18:32:00 Test Item Value Reference Range Interpretation [...] 8.8 MG/DL 8.4-10.2 N CA) HEPATIC FUNCTION [id number] 18:32:00 Test Item Value Reference Range Interpretation [...] UNITS/L 38-126 N (test code = ALKP) [id number] 18:32:00 Test Item Value Reference Range Interpretation Comments LIPASE (test code = LIP) 58 UNITS/L 23-300 N [id number] 18:32:00 Test Item Value Reference Range Interpretation Comments MAGNESIUM (test code = MAG) 2.1 MG/DL 1.6-2.3 N LIPOPROTEIN LDL [id number] 18:32:00 Test Item Value Reference Range Interpretation Comments LIPOPROTEIN LDL DIRECT (test code = mg/dL 100-129 LDLDIR) HCG SERUM [id number] 18:32:00 Test Item Value Reference Range Interpretation Comments HCG SERUM QUAL (test code = HCGQL) NEGATIVE NEGATIVE A THYROID STIMULATING [id number] 18:32:00 Test Item Value Reference Range Interpretation Comments THYROID STIMULATING 3.640 MIU/L 0.465-4.68 N Please b e aware that HORMONE (test code = bias re sults for TSH TSH) may occur forpa tient who are taking Biotin suppleme nts. [id number] 18:32:00 Test Item Value Reference Range Interpretation Comments TROPONIN-I (test code = TROPI) 0.069 NG/ML 0.012-0.033 H B-TYPE NATRIURETIC [id number] 18:20:00 Test Item Value Reference Range Interpretation Comments B-TYPE NATRIURETIC PEPTIDE (test 138.0 PG/ML 0-100 H code = BNP) BASIC METABOLIC [id number] 18:14:00 Test Item Value Reference Range Interpretation [...] 8.8 MG/DL 8.4-10.2 N CA) HEPATIC FUNCTION [id number] 18:14:00 Test Item Value Reference Range Interpretation [...] UNITS/L 38-126 N (test code = ALKP) [id number] 18:14:00 Test Item Value Reference Range Interpretation Comments LIPASE (test code = LIP) 58 UNITS/L 23-300 N [id number] 18:14:00 Test Item Value Reference Range Interpretation Comments MAGNESIUM (test code = MAG) 2.1 MG/DL 1.6-2.3 N LIPOPROTEIN LDL [id number] 18:14:00 Test Item Value Reference Range Interpretation Comments LIPOPROTEIN LDL DIRECT (test code = mg/dL 100-129 LDLDIR) HCG SERUM [id number] 18:14:00 Test Item Value Reference Range Interpretation Comments HCG SERUM QUAL (test code = HCGQL) NEGATIVE NEGATIVE A THYROID STIMULATING [id number] 18:14:00 Test Item Value Reference Range Interpretation Comments THYROID STIMULATING HORMONE (test code MIU/L 0.465-4.68 = TSH) [id number] 18:14:00 Test Item Value Reference Range Interpretation Comments TROPONIN-I (test code = TROPI) 0.069 NG/ML 0.012-0.033 H BASIC METABOLIC [id number] 18:08:00 Test Item Value Reference Range Interpretation [...] 8.8 MG/DL 8.4-10.2 N CA) HEPATIC FUNCTION [id number] 18:08:00 Test Item Value Reference Range Interpretation [...] UNITS/L 38-126 N (test code = ALKP) [id number] 18:08:00 Test Item Value Reference Range Interpretation Comments LIPASE (test code = LIP) 58 UNITS/L 23-300 N [id number] 18:08:00 Test Item Value Reference Range Interpretation Comments MAGNESIUM (test code = MAG) 2.1 MG/DL 1.6-2.3 N HCG SERUM [id number] 18:08:00 Test Item Value Reference Range Interpretation Comments HCG SERUM QUAL (test code = HCGQL) NEGATIVE NEGATIVE A THYROID STIMULATING [id number] 18:08:00 Test Item Value Reference Range Interpretation Comments THYROID STIMULATING HORMONE (test code MIU/L 0.465-4.68 = TSH) [id number] 18:08:00 Test Item Value Reference Range Interpretation Comments TROPONIN-I (test code = TROPI) NG/ML 0.0-0.045 URINALYSIS [id number] 18:05:00 Test Item Value Reference Range Interpretation [...] OF URINE: CLEAN CATCHDRUGS OF ABUSE SCREEN [id number] 18:05:00 Test Item Value Reference Range Interpretation [...] PHENCU) ng/mL SOURCE OF URINE: CLEAN CATCHURINALYSIS [id number] 18:04:00 Test Item Value Reference Range Interpretation [...] OF URINE: CLEAN CATCHDRUGS OF ABUSE SCREEN [id number] 18:04:00 Test Item Value Reference Range Interpretation [...] = PHENCU) SOURCE OF URINE: CLEAN CATCHURINALYSIS [id number] 18:03:00 Test Item Value Reference Range Interpretation [...] OF URINE: CLEAN CATCHDRUGS OF ABUSE SCREEN [id number] 18:03:00 Test Item Value Reference Range Interpretation [...] SOURCE OF URINE: CLEAN CATCH- XR CHEST [id number] 18:03:00 Patient Name: DARION BROWN Unit No: [id number] EXAMS: CPT CODE: [id number] XR CHEST 1V [id number] EXAMINATION: - XR CHEST 1V. LOCATION: H42. [...] [email or web address] Orig Print D/T: S: 08/22/2020 (1805) [facility] NAME: DARION BROWN [id number] [address] [place] PHYS: [email or web address] - [place] [address] : 1975 AGE: 45 SEX: F LOC: [facility] PHONE #: [phone] EXAM DATE: 08/22/2020 STATUS: PRE ER FAX #: [phone] RADIOLOGY NO: PAGE 1 Signed ReportURINALYSIS [id number] 18:02:00 Test Item Value Reference Range Interpretation [...] OF URINE: CLEAN CATCHDRUGS OF ABUSE SCREEN [id number] 18:02:00 Test Item Value Reference Range Interpretation [...] = PHENCU) SOURCE OF URINE: CLEAN CATCHPROTHROMBIN [id number] 18:01:00 Test Item Value Reference Range Interpretation [...] syste ector embolism. 3.0 - 4.5 PTT [id number] 18:01:00 Test Item Value Reference Range Interpretation Comments PTT ACTIVATED (test code = APTT) 39.1 SECONDS 25.1-36.5 H [id number] 18:01:00 Test Item Value Reference Range Interpretation [...] o f standard radiological pr ocedures. URINALYSIS [id number] 18:01:00 Test Item Value Reference Range Interpretation [...] OF URINE: CLEAN CATCHDRUGS OF ABUSE SCREEN [id number] 18:01:00 Test Item Value Reference Range Interpretation [...] PHENCU) SOURCE OF URINE: CLEAN CATCHBASIC METABOLIC [id number] 18:01:00 Test Item Value Reference Range Interpretation [...] 8.8 MG/DL 8.4-10.2 N CA) HEPATIC FUNCTION [id number] 18:01:00 Test Item Value Reference Range Interpretation [...] UNITS/L 38-126 N (test code = ALKP) [id number] 18:01:00 Test Item Value Reference Range Interpretation Comments LIPASE (test code = LIP) 58 UNITS/L 23-300 N [id number] 18:01:00 Test Item Value Reference Range Interpretation Comments MAGNESIUM (test code = MAG) 2.1 MG/DL 1.6-2.3 N HCG SERUM [id number] 18:01:00 Test Item Value Reference Range Interpretation Comments HCG SERUM QUAL (test code = HCGQL) NEGATIVE THYROID STIMULATING [id number] 18:01:00 Test Item Value Reference Range Interpretation Comments THYROID STIMULATING HORMONE (test code MIU/L 0.465-4.68 = TSH) [id number] 18:01:00 Test Item Value Reference Range Interpretation Comments TROPONIN-I (test code = TROPI) NG/ML 0.0-0.045 BASIC METABOLIC [id number] 18:00:00 Test Item Value Reference Range Interpretation [...] code = MG/DL 8.7-9.7 CA) HEPATIC FUNCTION [id number] 18:00:00 Test Item Value Reference Range Interpretation [...] PHOSPHATASE UNITS/L 38-126 (test code = ALKP) [id number] 18:00:00 Test Item Value Reference Range Interpretation Comments LIPASE (test code = LIP) UNITS/L 23-300 [id number] 18:00:00 Test Item Value Reference Range Interpretation Comments MAGNESIUM (test code = MAG) MG/DL 1.6-2.3 HCG SERUM [id number] 18:00:00 Test Item Value Reference Range Interpretation Comments HCG SERUM QUAL (test code = HCGQL) NEGATIVE THYROID STIMULATING [id number] 18:00:00 Test Item Value Reference Range Interpretation Comments THYROID STIMULATING HORMONE (test code MIU/L 0.465-4.68 = TSH) [id number] 18:00:00 Test Item Value Reference Range Interpretation Comments TROPONIN-I (test code = TROPI) NG/ML 0.0-0.045 BASIC METABOLIC [id number] 17:58:00 Test Item Value Reference Range Interpretation [...] code = CA) MG/DL 8.7-9.7 HEPATIC FUNCTION [id number] 17:58:00 Test Item Value Reference Range Interpretation Comments TOTAL PROTEIN (test code = PROT) G/DL 6.3-8.2 ALBUMIN (test code = ALB) 4.1 G/DL 3.5-5.0 N BILIRUBIN TOTAL (test code = BILT) MG/DL 0.2-1.3 BILIRUBIN DIRECT (test code = BILD) MG/DL 0.0-0.3 SGOT/AST (test code = AST) UNITS/L 15-37 SGPT/ALT (test code = ALT) UNITS/L <35 ALKALINE PHOSPHATASE (test code = UNITS/L 38-126 ALKP) [id number] 17:58:00 Test Item Value Reference Range Interpretation Comments LIPASE (test code = LIP) UNITS/L 23-300 [id number] 17:58:00 Test Item Value Reference Range Interpretation Comments MAGNESIUM (test code = MAG) MG/DL 1.6-2.3 HCG SERUM [id number] 17:58:00 Test Item Value Reference Range Interpretation Comments HCG SERUM QUAL (test code = HCGQL) NEGATIVE THYROID STIMULATING [id number] 17:58:00 Test Item Value Reference Range Interpretation Comments THYROID STIMULATING HORMONE (test code MIU/L 0.465-4.68 = TSH) [id number] 17:58:00 Test Item Value Reference Range Interpretation Comments TROPONIN-I (test code = TROPI) NG/ML 0.0-0.045 URINALYSIS [id number] 17:54:00 Test Item Value Reference Range Interpretation [...] OF URINE: CLEAN CATCHDRUGS OF ABUSE SCREEN [id number] 17:54:00 Test Item Value Reference Range Interpretation [...] PHENCU) SOURCE OF URINE: CLEAN CATCHCBC W/AUTO [id number] 17:49:00 Test Item Value Reference Range Interpretation [...] = 0.00 K/mm3 0.0-0.1 N NRBC#) URINALYSIS [id number] 17:48:00 Test Item Value Reference Range Interpretation [...] OF URINE: CLEAN CATCHDRUGS OF ABUSE SCREEN [id number] 17:48:00 Test Item Value Reference Range Interpretation [...]
--- NOTE | 2022-05-09 14:51 | ER ---
Nurse's Notes [facility] Name: Dwight Hylton Age: 46 yrs Sex: Female : 1975 Arrival Date: 05/09/2022 Time: 14:19 Bed Waiting Private MD: Diagnosis: Historical: ED Course: 05/09 14:19 Patient arrived in ED. mr 14:36 Patient's name was called from ER lobby. No response. aa5 14:50 Alejandro Caraballo MD is Attending Physician. aa5 Administered Medications: No medications were administered Outcome: 14:50 Patient left the ED. aa5 Signatures: Aylin WilsonderonMallorie RN RN aa5 Corrections: (The following items were deleted from the chart) 14:49 14:35 Allergies: PENICILLINS; aa5 aa5 14:49 14:35 PMHx: Hyperlipidemia; aa5 aa5 14:49 14:35 PMHx: Hypertension; aa5 aa5 14:49 14:35 PMHx: Myocardial infarction; aa5 aa5 14:49 14:35 Arm band placed on aa5 aa5
== END 2022-05-09 14:50 | disposition left against medical advice (07) ==
LOC: ER 14:16
DX: Z02.9 Encounter for administrative examinations, unspecified (principal)

== ENCOUNTER 2023-09-24 18:27 | Emergency (ER) | payer OTHER ==
--- OUTSIDE RECORDS SUMMARY | 2023-09-24 18:31 | XMS REPORT | Continuity of Care Document ---
:1975 Author Organization [facility] t Address [address] [facility] [address] [place] [address] Care Team Providers Name Role Phone Bandar Cuevas Primary Care Physician Jenni Vera Attending Clinician Unavailable LAB90 Attending Clinician Unavailable LOGAN RDZ Attending Clinician Unavailable DAMIEN FOLEY Attending Clinician Unavailable NAVNEET WRIGHT Attending Clinician Unavailable Nic Young MD Attending Clinician NIC YOUNG Attending Clinician Unavailable JUNIE FUNES Attending Clinician Unavailable JUNIE FUNES Attending Clinician Unavailable Doctor Unassigned, [place] Attending Clinician Unavailable SONJA UMANZOR Attending Clinician Unavailable Sonja Meier Attending Clinician Bandar Cuevas Attending Clinician KEISHA LEE Attending Clinician Unavailable Merrick Castillo DO Attending Clinician Care, [place] Primary Attending Clinician Unavailable BANDAR NEGRETE Attending Clinician Unavailable CHER LEE Attending Clinician Unavailable SAMANTHA MERAZ Attending Clinician Unavailable SONA MERAZ Attending Clinician Unavailable SONJA UMANZOR Admitting Clinician Unavailable MALU JOINER Admitting Clinician Unavailable SONA MERAZ Admitting Clinician Unavailable Payers Payer Name Policy Type Policy Number Effective Date Expiration Date [place]. 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 94 ON STAND Blue [employer] Blue 6 [id number] 2021 [facility] Shield HMO 00:00:00 - [facility] Problems Condition Condition Condition Status Onset Resolution Last Treating Co mments Source Name Details Category Date Date Treatment Clinician Date DM type 2 DM type 2 Disease Active Toney sey with with 6-13 Seybold diabetic diabetic 00:00: - mixed mixed 00 Externa hyperlipid hyperlipid l emia emia ASCUS on ASCUS on Disease Active Unive rs Pap smear Pap smear 3-15 ity of 00:00: [place] 00 Medical Branch Coronary Coronary Disease Active Unive rs artery artery 8-08 ity of spasm spasm 00:00: Medical Branch NSTEMI NSTEMI Disease Active Univers (non-ST (non-ST 8-06 ity of elevated elevated 00:00: [place] myocardial myocardial 00 Me dical infarction infarction Br anch ) ) Obesity Obesity Disease Active Univers (BMI (BMI 8-06 ity of 30-39.9) 30-39.9) 00:00: 00 Medical Branch Hypertensi Hypertensi Disease Active U nivers ve ve 8-06 it[place] of emergency emergency [place] NSVT NSVT Disease Active Univers (nonsustai (nonsustai 8-06 it y of zainab zainab 00:00: [place] ventricula ventricula 00 Me dical r r Branch tachycardi tachycardi a) a) Bulging Bulging Disease Active Univers disc disc 9- ity of 00:00: [place] [facility] Bulging Bulging Disease Active Univers disc disc 9- ity of 00:00: [place] 00 Medical Branch [id number] History of Problem Co mmon MS [facility] (myocardia - [facility]I l infarction [facility] [id number] Mixed Problem Common hyperlipid [facility] emia [facility] [id number] Gastroesop Problem Co mmon [facility] reflux - [facility] disease, [facility] present [id number] Primary Problem Common hypertensi Spirit on [facility] HPV test HPV test Problem Commo n positive positive [facility] Abnormal Abnormal Problem Commo n Pap smear Pap smear Spir it of vagina of vagina - I and and St vaginal vaginal [facility] HPV HPV [facility] Allergies, Adverse Reactions, Alerts Allergy Allergy Status Severity Reaction(s) Onset Inactive Treating Comm ents Source Name Type Date Date Clinician Penicill Propensi Active Anaphylaxis K elsey ins ty to 04-03 Seybold adverse 00:00: - reaction 00 Externa s l No Known DA Active U 2019-11 [facility] Allergie [facility]10 [place] s 00:00: [address] Penicill DA Active SV 2019-11 [facility] ins 0-10 [place] 00:00: [address] No Known DA Active U 2019-11 [facility] Allergie 0-10 [place] s 00:00: [address] Penicill DA Active SV swelling, 2019-11 [facility] ins unable to 0-10 West breath 00:00: [address] PENICILL DRUG Active Anaphylaxis 2018- Uni vers IN INGREDI 805 ity of 00:00: [address] Penicill Propensi Active Anaphylaxis 2018-0 U nivers in ty to 805 ity of adverse 00:00: [place] reaction Medical s Branch penicill penicill Active anaphylaxis C ommon in V in V [facility] Social History Social Habit Start Date Stop Date Quantity Comments Source History of Tobacco [facility] - Use [facility] Sexual orientation Pacoer jeanie [facility] Gender identity Yanira talbot - External Alcohol intake 2023-05-23 2023-05-23 Current drinker Benji Shook - 00:00:00 00:00:00 of alcohol External (finding) Tobacco use and 2023-04-03 2023-04-03 Smokeless Yanira talbot - exposure 00:00:00 00:00:00 tobacco non-user External Alcohol Comment 2023-04-03 2023-04-03 socially Yanira talbot - 00:00:00 00:00:00 External Exposure to 2022-06-28 2022-07-08 Not sure [facility]-CoV-2 (event) 00:00:00 14:52:00 [facility] History of Social 2022-07-08 2022-07-08 Univers ity of function 00:00:00 00:00:00 [place] [facility] History [facility] 2019-07-25 2019-07-25 2 University o f Alcohol Frequency 00:00:00 00:00:00 [place] M edical Branch History [facility] 2019-07-25 2019-07-25 1 Dolph o f Alcohol Std Drinks 00:00:00 00:00:00 [place] [facility] History [facility] 2019-07-25 2019-07-25 1 University o f Alcohol Binge 00:00:00 00:00:00 [place] [facility] Branch Sex [birth year] Yanira Ferris ybold - 00:00:00 00:00:00 External Smoking Status Start Date Stop Date Source Never smoked tobacco Yanira Seyb old - External Medications Ordered Filled Start Stop Current Ordering Indication Dosage Frequency Signature Comments Components Source Medication Medication Date Date Medication? Clinician (SIG) Name Name Iron-Vitami Yes Take by Toney dalton C (Iron 7-11 mouth Seybold 100/C) 13:32: - 100-250 MG 38 Externa oral Tablet l ASPIRIN 81 Yes [id number] 2{tbl} Take 2 Yanira OR 7-11 tablets by Seybold 13:31: mouth - 45 daily Externa l Bioflavonoi Yes 1{tbl} Take 1 Ke lsey d Products 7-11 tablet by Seyb old (Vitamin C) 13:31: mouth - oral 45 daily Externa Chewable l Tablet Isosorbide Yes [id number] Take 1 Yanira Mononitrate 7-11 tablet by Alivia bold CR 60 MG 00:00: mouth once - oral TABLET 00 daily Externa SR 24 HR l Atorvastati Yes [id number] 20mg Take 1 Yanira dalton Calcium 6-19 3 tablet (20 Seyb old 20 MG oral 00:00: mg total) - Tablet 00 by mouth Externa daily l Lisinopril 2022-0 Yes [id number] 10mg Take 1 Yanira 10 MG oral 6-19 tablet (10 Sey bold Tablet 00:00: mg total) - 00 by mouth Externa daily l ASPIRIN 81 2022-0 Yes [id number] 2{tbl} Take 2 Yanira OR 6-13 tablets by Seybold 14:45: mouth - 32 daily Externa l Bioflavonoi 2022-0 Yes 1{tbl} Take 1 Ke lsey d Products 6-13 tablet by Seyb old (Vitamin C) 14:45: mouth - oral 32 daily Externa Chewable l Tablet Diltiazem 2022-0 Yes [id number] Toney sey HCl Coated 5-25 Seybold Beads 120 00:00: - MG oral 00 Externa Capsule 24 l Hour Sustained Release Diltiazem 2022-0 Yes [id number] Toney sey HCl Coated 5-25 Seybold Beads 120 00:00: - MG oral 00 Externa Capsule 24 l Hour Sustained Release Metformin 2022-0 Yes [id number] 500mg Take 1 K elsey HCl 500 MG 5-24 tablet Seybold oral Tablet 00:00: (500 mg - 00 total) by Externa mouth in l the morning and 1 tablet (500 mg total) in the evening. Take with meals. Metformin 2022-0 Yes [id number] 500mg Take 1 K elsey HCl 500 MG 5-24 tablet Seybold oral Tablet 00:00: (500 mg - 00 total) by Externa mouth in l the morning and 1 tablet (500 mg total) in the evening. Take with meals. Lisinopril 2022-0 2022- No 20mg Take 1 Lea ey 20 MG oral 5-22 05-22 tablet (20 Se ybold Tablet 15:18: 00:00 mg total) - 24 :00 by mouth Externa daily l Diltiazem 2022-0 2022- No 120mg Take 1 Lea ey HCl CR 120 5-22 05-22 capsule Seybo ld MG oral 15:18: 00:00 (120 mg - Capsule 24 24 :00 total) by Exte rna Hour mouth l Sustained daily Release ASPIRIN 81 2022-0 Yes [id number] 2{tbl} Take 2 Yanira OR 5-22 tablets by Seybold 14:49: mouth - 25 daily Externa l Bioflavonoi Yes 1{tbl} Take 1 Ke lsey d Products 5-22 tablet by Seyb old (Vitamin C) 14:49: mouth - oral 25 daily Externa Chewable l Tablet Lisinopril Yes [id number] 20mg Take 1 K elsey 20 MG oral 5-22 tablet (20 Sey bold Tablet 00:00: mg total) - 00 by mouth Externa daily l Diltiazem Yes [id number] 120mg Take 1 Yanira HCl CR 120 5-22 capsule Seybol d MG oral 00:00: (120 mg - Capsule 24 00 total) by Exte rna Hour mouth l Sustained daily Release Atorvastati Yes [id number] 40mg Take 1 Yanira n Calcium 5-22 tablet (40 Seyb old 40 MG oral 00:00: mg total) - Tablet 00 by mouth Externa daily l Lisinopril Yes [id number] 20mg Take 1 K elsey 20 MG oral 5-22 tablet (20 Sey bold Tablet 00:00: mg total) - 00 by mouth Externa daily l Diltiazem Yes [id number] 120mg Take 1 Yanira HCl CR 120 5-22 capsule Seybol d MG oral 00:00: (120 mg - Capsule 24 00 total) by Exte rna Hour mouth l Sustained daily Release Atorvastati Yes [id number] 40mg Take 1 Yanira n Calcium 5-22 tablet (40 Seyb old 40 MG oral 00:00: mg total) - Tablet 00 by mouth Externa daily l Diltiazem Yes [id number] 120mg Take 1 Yanira HCl CR 120 5-22 capsule Seybol d MG oral 00:00: (120 mg - Capsule 24 00 total) by Exte rna Hour mouth l Sustained daily Release atorvastati 2021-11 Yes [id number] 40mg Take 1 Univers n 40 mg 2-19 tablet by ity of tablet 00:00: mouth in [place] 00 the Medical morning. Branch atorvastati 2021-11 Yes [id number] 40mg Take 1 Univers n 40 mg 2-19 tablet by ity of tablet 00:00: mouth in [place] 00 the Medical morning. Branch Atorvastati 2021-11- No 40mg Take 1 Toney sey n Calcium 2-19 -22 tablet (40 Sey bold 40 MG oral 00:00: 00:00 mg total) - Tablet 00 :00 by mouth Externa daily l multivit-ir 0 Yes Take by Uni vers on-FA-calci 8- mouth. ity of um-mins 18 15:06: [place] mg iron-400 56 Medical mcg-500 mg Branch Ca Tab Vitamin C 0 Yes 100mg Take 100 Uni vers 100 mg 8-26 mg by ity of tablet 15:06: mouth in [place] [address] the Medical morning. Branch multivit-ir 0 Yes Take by Uni vers on-FA-calci 8-26 mouth. ity of um-mins 18 15:06: [place] mg iron-400 56 Medical mcg-500 mg Branch Ca Tab Vitamin C 0 Yes 100mg Take 100 Uni vers 100 mg 8-26 mg by ity of tablet 15:06: mouth in [place] [address] the Medical morning. Branch multivit-ir 0 Yes Take by Uni vers on-FA-calci 8-26 mouth. ity of um-mins 18 15:06: [place] mg iron-400 56 Medical mcg-500 mg Branch Ca Tab Vitamin C 0 Yes 100mg Take 100 Uni vers 100 mg 8-26 mg by ity of tablet 15:06: mouth in [place] [address] the Medical morning. Branch multivit-ir 0 Yes Take by Uni vers on-FA-calci 8-26 mouth. ity of um-mins 18 15:06: [place] mg iron-400 56 Medical mcg-500 mg Branch Ca Tab diltiazem 0 Yes [id number] 240mg Take 1 U nivers 240 mg 24 8-26 capsule by ity of hr capsule 00:00: mouth in [place] 00 the Medical morning. Branch diltiazem 2021-0 Yes [id number] 240mg Take 1 U nivers 240 mg 24 8-26 capsule by ity of hr capsule 00:00: mouth in [place] 00 the Medical morning. Branch diltiazem 2021-0 Yes [id number] 240mg Take 1 U nivers 240 mg 24 8-26 capsule by ity of hr capsule 00:00: mouth in [place] 00 the Medical morning. Branch Medrol 4 MG Medrol 4 MG 2021- No QD Medrol 4 4-14 04-20 MG 00:00: 00:00 00 :00 Pantoprazol Pantoprazol 2021-0 No 1{table QD Pantoprazo e Sodium 40 e Sodium 40 1-03 t} le Sodium MG MG 00:00: 40 MG 00 Pantoprazol Pantoprazol 0 No 1{table QD Pantoprazo e Sodium 40 e Sodium 40 03 t} le Sodium MG MG 00:00: 40 MG 00 Pantoprazol Pantoprazol 0 No 1{table QD Pantoprazo e Sodium 40 e Sodium 40 03 t} le Sodium MG MG 00:00: 40 MG 00 lisinopriL Yes [id number] 20mg Take 1 Univers 20 mg 9-16 tablet by ity of tablet 00:00: mouth 2 [place] (two) Medical times Branch daily. lisinopriL Yes [id number] 20mg Take 1 Univers 20 mg 9-16 tablet by ity of tablet 00:00: mouth 2 [place] (two) Medical times Branch daily. lisinopriL Yes [id number] 20mg Take 1 Univers 20 mg 9-16 tablet by ity of tablet 00:00: mouth 2 [place] (two) Medical times Branch daily. VITAMIN B Yes Take by Unive rs COMPLEX 8-25 mouth. ity of ORAL 15:04: [address] VITAMIN B Yes Take by Unive rs COMPLEX 8-25 mouth. ity of ORAL 15:04: [address] VITAMIN B Yes Take by Unive rs COMPLEX 8-25 mouth. ity of ORAL 15:04: [address] VITAMIN B Yes Take by Unive rs COMPLEX 8-25 mouth. ity of ORAL 15:04: [address] diltiazem 2021- No [id number] 120mg Take 1 Univers 120 mg 24 8-25 08-26 tablet by ity of hr tablet 00:00: 00:00 mouth [place] 00 :00 daily. Medical Branch atorvastati 0 Yes [id number] 40mg Take 1 Univers n 40 mg 8-16 tablet by ity of tablet 00:00: mouth [place] 00 daily. Medical Branch atorvastati 2021- No [id number] 40mg Take 1 Univers n 40 mg 8-16 12-19 tablet by ity of tablet 00:00: 00:00 mouth [place] 00 :00 daily. Medical Branch atorvastati 2021- No [id number] 40mg Take 1 Univers n 40 mg 8-16 12-19 tablet by ity of tablet 00:00: 00:00 mouth [place] 00 :00 daily. Medical Branch fenofibrate Yes [id number] 145mg Take 1 Univers (TRICOR) 3-15 tablet by ity of 145 mg 00:00: mouth [place] tablet 00 daily. Medical Branch fenofibrate Yes [id number] 145mg Take 1 Univers (TRICOR) 3-15 tablet by ity of 145 mg 00:00: mouth [place] tablet 00 daily. Medical Branch fenofibrate Yes [id number] 145mg Take 1 Univers (TRICOR) 3-15 tablet by ity of 145 mg 00:00: mouth [place] tablet 00 daily. Medical Branch fenofibrate Yes [id number] 145mg Take 1 Univers (TRICOR) 3-15 tablet by ity of 145 mg 00:00: mouth [place] tablet 00 daily. [facility] aspirin 81 2020-0 Yes 81mg Take 81 mg U nivers mg chewable 7-09 by mouth ity of tablet 11:17: daily. [address] aspirin 81 2020-0 Yes 81mg Take 81 mg U nivers mg chewable 7-09 by mouth ity of tablet 11:17: daily. [address] aspirin 81 2020-0 Yes 81mg Take 81 mg U nivers mg chewable 7-09 by mouth ity of tablet 11:17: daily. [address] aspirin 81 2020-0 Yes 81mg Take 81 mg U nivers mg chewable 7-09 by mouth ity of tablet 11:17: daily. [address] aspirin 81 2020-0 Yes 81mg Take 81 mg U nivers mg chewable 7-09 by mouth ity of tablet 11:17: daily. [address] Fenofibrate Fenofibrate No 1{table QD Fenofibrat 145 MG 145 MG t} e 145 MG Lisinopril Lisinopril No 1{table BID Lisinopril 20 MG 20 MG t} 20 MG Aspirin 81 Aspirin 81 No 1{table QD Aspirin 81 81 MG 81 MG t} 81 MG Pantoprazol Pantoprazol No 1{table QD Pantoprazo e Sodium 40 e Sodium 40 t} le Sodium MG MG 40 MG Atorvastati Atorvastati No 1{table QD Atorvastat n Calcium n Calcium t} in Calcium 40 MG 40 MG 40 MG dilTIAZem dilTIAZem No 1{table QD dilTIAZem HCl 120 MG HCl 120 MG t} HCl 120 MG Fenofibrate Fenofibrate No 1{table QD Fenofibrat 145 MG 145 MG t} e 145 MG Lisinopril Lisinopril No 1{table BID Lisinopril 20 MG 20 MG t} 20 MG Aspirin 81 Aspirin 81 No 1{table QD Aspirin 81 81 MG 81 MG t} 81 MG Pantoprazol Pantoprazol No 1{table QD Pantoprazo e Sodium 40 e Sodium 40 t} le Sodium MG MG 40 MG Atorvastati Atorvastati No 1{table QD Atorvastat n Calcium n Calcium t} in Calcium 40 MG 40 MG 40 MG dilTIAZem dilTIAZem No 1{table QD dilTIAZem HCl 120 MG HCl 120 MG t} HCl 120 MG Fenofibrate Fenofibrate No 1{table QD Fenofibrat 145 MG 145 MG t} e 145 MG Lisinopril Lisinopril No 1{table BID Lisinopril 20 MG 20 MG t} 20 MG Aspirin 81 Aspirin 81 No 1{table QD Aspirin 81 81 MG 81 MG t} 81 MG Atorvastati Atorvastati No 1{table QD Atorvastat n Calcium n Calcium t} in Calcium 40 MG 40 MG 40 MG Aspirin 81 Aspirin 81 No 1{table QD Aspirin 81 81 MG 81 MG t} 81 MG Lisinopril Lisinopril No 1{table BID Lisinopril 20 MG 20 MG t} 20 MG dilTIAZem dilTIAZem No 1{table QD dilTIAZem HCl 120 MG HCl 120 MG t} HCl 120 MG Fenofibrate Fenofibrate No 1{table QD Fenofibrat 145 MG 145 MG t} e 145 MG Pantoprazol Pantoprazol No 1{table QD Pantoprazo e Sodium 40 e Sodium 40 t} le Sodium MG MG 40 MG Atorvastati Atorvastati No 1{table QD Atorvastat n Calcium n Calcium t} in Calcium 40 MG 40 MG 40 MG Lisinopril Lisinopril No Lisinopril 20 MG 20 MG 20 MG Pantoprazol Pantoprazol No 1{table QD Pantoprazo e Sodium 40 e Sodium 40 t} le Sodium MG MG 40 MG dilTIAZem dilTIAZem No 1{table QD dilTIAZem HCl 120 MG HCl 120 MG t} HCl 120 MG Fenofibrate Fenofibrate No 1{table QD Fenofibrat 145 MG 145 MG t} e 145 MG Aspirin 81 Aspirin 81 No 1{table QD Aspirin 81 81 MG 81 MG t} 81 MG Atorvastati Atorvastati No 1{table QD Atorvastat n Calcium n Calcium t} in Calcium 40 MG 40 MG 40 MG Aspirin 81 Aspirin 81 No 1{table QD Aspirin 81 81 MG 81 MG t} 81 MG Fenofibrate Fenofibrate No 1{table QD Fenofibrat 145 MG 145 MG t} e 145 MG Lisinopril Lisinopril No 1{table BID Lisinopril 20 MG 20 MG t} 20 MG dilTIAZem dilTIAZem No 1{table QD dilTIAZem HCl 120 MG HCl 120 MG t} HCl 120 MG Fenofibrate Fenofibrate No 1{table QD Fenofibrat 145 MG 145 MG t} e 145 MG dilTIAZem dilTIAZem No 1{table QD dilTIAZem HCl 120 MG HCl 120 MG t} HCl 120 MG Atorvastati Atorvastati No 1{table QD Atorvastat n Calcium n Calcium t} in Calcium 40 MG 40 MG 40 MG Lisinopril Lisinopril No 1{table BID Lisinopril 20 MG 20 MG t} 20 MG Aspirin 81 Aspirin 81 No 1{table QD Aspirin 81 81 MG 81 MG t} 81 MG Fenofibrate Fenofibrate No 1{table QD Fenofibrat 145 MG 145 MG t} e 145 MG dilTIAZem dilTIAZem No 1{table QD dilTIAZem HCl 120 MG HCl 120 MG t} HCl 120 MG Atorvastati Atorvastati No 1{table QD Atorvastat n Calcium n Calcium t} in Calcium 40 MG 40 MG 40 MG Lisinopril Lisinopril No 1{table BID Lisinopril 20 MG 20 MG t} 20 MG Aspirin 81 Aspirin 81 No 1{table QD Aspirin 81 81 MG 81 MG t} 81 MG Pantoprazol Pantoprazol No 1{table QD Pantoprazo e Sodium 40 e Sodium 40 t} le Sodium MG MG 40 MG dilTIAZem dilTIAZem No 1{table QD dilTIAZem HCl 120 MG HCl 120 MG t} HCl 120 MG Aspirin 81 Aspirin 81 No 1{table QD Aspirin 81 81 MG 81 MG t} 81 MG Lisinopril Lisinopril No 1{table BID Lisinopril 20 MG 20 MG t} 20 MG Fenofibrate Fenofibrate No 1{table QD Fenofibrat 145 MG 145 MG t} e 145 MG Atorvastati Atorvastati No 1{table QD Atorvastat n Calcium n Calcium t} in Calcium 40 MG 40 MG 40 MG Pantoprazol Pantoprazol No 1{table QD Pantoprazo e Sodium 40 e Sodium 40 t} le Sodium MG MG 40 MG Atorvastati Atorvastati No 1{table QD Atorvastat n Calcium n Calcium t} in Calcium 40 MG 40 MG 40 MG dilTIAZem dilTIAZem No 1{table QD dilTIAZem HCl 120 MG HCl 120 MG t} HCl 120 MG Immunizations Ordered Filled Date Status Comments Source Immunization Name Immunization Name TDAP 2019-07-25 Completed [facility] 00:00:00 [facility] Influenza Virus 2019-07-25 Completed Universit y of Vaccine 00:00:00 [facility] TDAP 2019-07-25 Completed [facility] 00:00:00 [facility] Influenza Virus 2019-07-25 Completed Universit y of Vaccine 00:00:00 [facility] TDAP 2019-07-25 Completed [facility] 00:00:00 [facility] Influenza Virus 2019-07-25 Completed Universit y of Vaccine 00:00:00 [facility] Tdap- (Boostrix, 2019-07-25 Completed Yanira Valdez) 00:00:00 External Tdap- (Boostrix, 2019-07-25 Completed Yanira Valdez) 00:00:00 External Influenza Virus 2019-07-25 Completed Yanira talbot - Vaccine, 00:00:00 External Unspecified Formulation Tdap- (Boostrix, 2019-07-25 Completed Yanira S eybold - Adacel) 00:00:00 External Influenza Virus 2019-07-25 Completed Yanira Se ybold - Vaccine, 00:00:00 External Unspecified Formulation TDAP Unknown Completed [facility] Influenza Virus Unknown Completed [facility] y Vaccine [facility] TDAP Unknown Completed [facility] Influenza Virus Unknown Completed [facility] Vital Signs Vital Name Observation Time Observation Value Comments Source Systolic blood 2023-05-23 18:27:00 132 mm[Hg] Yanira Seybold - pressure External Diastolic blood 2023-05-23 18:27:00 80 mm[Hg] Toneyse y Seybold - pressure External Heart rate 2023-05-23 18:27:00 80 /min Yanira Hager eybold - External Body temperature 2023-05-23 18:27:00 36.44 [place] Lea ey Seybold - External Respiratory rate 2023-05-23 18:27:00 16 /min Lea ey Seybold - External Body height 2023-05-23 18:27:00 165.1 cm Yanira S eybold - External Body weight 2023-05-23 18:27:00 99.882 kg Yanira Hager eybold - External BMI 2023-05-23 18:27:00 36.64 kg/m2 Yanira Hager eybold - External Oxygen saturation in 2023-05-23 18:27:00 97 /min Yanira Shook - Arterial blood by External Pulse oximetry Heart rate 2023-04-25 19:43:00 75 /min Yanira Hager eybold - External Body temperature 2023-04-25 19:43:00 36.44 [place] Lea ey Seybold - External Body height 2023-04-25 19:43:00 165.1 cm Yanira S eybold - External Body weight 2023-04-25 19:43:00 101.606 kg Yanira S eybold - External BMI 2023-04-25 19:43:00 37.28 kg/m2 Yanira S eybold - External Systolic blood 2023-04-03 19:44:00 130 mm[Hg] Yanira Seybold - pressure External Diastolic blood 2023-04-03 19:44:00 80 mm[Hg] Kelse y Seybold - pressure External Heart rate 2023-04-03 19:44:00 87 /min Yanira torresbomalina - External Body temperature 2023-04-03 19:44:00 36.11 [place] Lea Shook - External Respiratory rate 2023-04-03 19:44:00 16 /min Lea Shook - External Body height 2023-04-03 19:44:00 165.1 cm Yanira torresbomalina - External Body weight 2023-04-03 19:44:00 103.057 kg Yanira torresbomalina - External BMI 2023-04-03 19:44:00 37.81 kg/m2 Yanira torresbomalina - External Oxygen saturation in 2023-04-03 19:44:00 97 /min Yanira Shook - Arterial blood by External Pulse oximetry [facility] 2022-07-13 12:00:00 65 [in_i] [facility] weight 2022-07-13 12:00:00 226 [lb_av] [facility] bmi 2022-07-13 12:00:00 37.6 kg/m2 [facility] Systolic blood 2022-07-08 20:08:00 145 mm[Hg] Univer sity of [facility] Diastolic blood 2022-07-08 20:08:00 90 mm[Hg] Unive rsity of [facility] Heart rate 2022-07-08 20:07:00 80 /min Universi ty [facility] Respiratory rate 2022-07-08 20:07:00 20 /min Univ ersity [facility] Body height 2022-07-08 20:07:00 152.4 cm Universi ty [facility] Body weight 2022-07-08 20:07:00 102.921 kg Universi ty [facility] BMI 2022-07-08 20:07:00 44.31 kg/m2 Universi [facility] Oxygen saturation in 2022-07-08 20:07:00 98 /min University of Arterial blood by [facility] Pulse oximetry Branch height 2021-12-21 14:00:00 65 [in_i] [facility] weight 2021-12-21 14:00:00 227.4 [lb_av] Common [facility] temperature 2021-12-21 14:00:00 98.0 [degF] Common [facility] bmi 2021-12-21 14:00:00 37.84 kg/m2 Common [facility] oximetry 2021-12-21 14:00:00 98 % Common [facility] respiratory rate 2021-12-21 14:00:00 16 /min Comm on [facility] blood pressure 2021-12-21 14:00:00 169 mm[Hg] Common [facility] - systolic [facility] blood pressure 2021-12-21 14:00:00 81 mm[Hg] Common [facility] diastolic [facility] height 2021-11-15 15:20:00 65 [in_i] Common [facility] weight 2021-11-15 15:20:00 227 [lb_av] Common [facility] temperature 2021-11-15 15:20:00 98 [degF] Common [facility] bmi 2021-11-15 15:20:00 37.77 kg/m2 [facility] oximetry 2021-11-15 15:20:00 99 % [facility] respiratory rate 2021-11-15 15:20:00 22 /min Comm on [facility] blood pressure 2021-11-15 15:20:00 132 mm[Hg] Common [facility] - systolic [facility] blood pressure 2021-11-15 15:20:00 80 mm[Hg] Common [facility] diastolic [facility] Procedures Procedure Date / Time Performed Performing Clinician [facility] e ECG- ADULT 2023-04-25 20:14:48 Damien Foley ld - External Encounters Start End Encounter Admission Attending Care Care Encounter Source Date/Time Date/Time Type Type Clinicians Facility Department ID 2022-10-17 Outpatient Jenni [facility] [id number] Common 11:04:02 [facility] 2022-10-10 Outpatient Vera, Na STLMLC [facility] [id number] Common 14:21:02 [facility] 2022-07-11 Outpatient Vera, Na STLMLC [facility] [id number] Common 08:48:01 [facility] 2022-05-26 Outpatient Vera, Na STLMLC [facility] [id number] Common 13:04:01 [facility] 2022-04-20 Outpatient Vera, Na STLMLC ST[facility] [id number] Common 15:26:01 [facility] 2022-02-22 Outpatient Vera, Na STLMLC ST[facility]C [id number] Common 10:20:02 [facility] 2021-12-17 Outpatient Vera, Na STLMLC STLMLC [id number] Common 10:55:01 [facility] 2021-12-08 Outpatient Vera, Na STLMLC STLMLC [id number] Common 14:30:16 [facility] 2021-09-12 Emergency [facility] [id number] Univers 17:23:[address] [facility] 2020-08-22 Inpatient HCAWU SYBIL [id number] [facility] 17:18:00 73 [facility] 2023-09-15 2023-09-15 Outpatient LAB90 YANIRA BUTLER [id number] Yanira 10:00:00 10:00:00 Seybol d 2023-08-24 2023-08-24 Outpatient PREYANIRA OZUNA [id number] Yanira 00:00:00 00:00:00 LOGAN Seybol d 2023-07-04 2023-07-04 Outpatient LAB90 YANIRA BUTLER [id number] Yanira 15:10:00 15:10:00 Seybol d 2023-06-25 2023-06-25 Outpatient YANIRA FOLEY [id number] Yanira 00:00:00 00:00:00 DAMIEN Seybol d 2023-05-23 2023-05-23 Outpatient HUNDL, YANIRA YANIRA [id number] [place] 14:00:00 14:00:00 DAMIEN Seybol d 2023-05-21 2023-05-21 Outpatient HARMS, YANIRA YANIRA [id number] Yanira 00:00:00 00:00:00 NAVNEET Seybol d 2023-05-03 2023-05-03 Outpatient YANIRA BUTLER [id number] Yanira 14:45:00 14:45:00 Seybol d 2023-05-01 2023-05-01 Outpatient HARMS, YANIRA BUTLER [id number] Yanira 11:10:00 11:10:00 NAVNEET Seybol d 2023-05-01 2023-05-01 Outpatient HUNDL, YANIRA YANIRA [id number] Yanira 00:00:00 00:00:00 DAMIEN Seybol d 2023-04-25 2023-04-25 Outpatient LAB90 YANIRA BUTLER [id number] [place] 15:45:00 15:45:00 Seybol d 2023-04-25 2023-04-25 Outpatient HUNDL, YANIRA BUTLER [id number] Yanira 15:00:00 15:00:00 DAMIEN Seybol d 2023-04-19 2023-04-19 Outpatient PREZAS, YANIRA BUTLER [id number] Yanira 00:00:00 00:00:00 LOGAN Seybol d 2023-04-06 2023-04-06 Outpatient LAB90 YANIRA BUTLER [id number] Yanira 13:55:00 13:55:00 Seybol d 2023-04-05 2023-04-05 Outpatient HUNDL, YANIRA BUTLER [id number] [place]ira 00:00:00 00:00:00 DAMIEN Seybol d 2023-04-03 2023-04-03 Outpatient LAB90 YANIRA BUTLER [id number] Yanira 15:45:00 15:45:00 Seybol d 2023-04-03 2023-04-03 Outpatient HUNDL, YANIRA BUTLER [id number] Yanira 15:00:00 15:00:00 DAMIEN Seybol d 2022-10-28 2022-10-28 [facility] 1.2.840.114 [id number] Univers 00:00:00 00:00:00 Nic HUMPHREYS [id number] ity of [facility] [id number] [phone] Ak dical NAL [address] [place] [address] 2022-10-19 2022-10-19 OL DIG E/M STLMLC STLMLC [id number] Common 00:00:00 00:00:00 [facility] 11-20 Spir it MIN [facility] 2022-10-04 2022-10-04 Outpatient R HUSSEIN, [facility] [id number] Univers 13:20:00 13:20:00 NIC mukherjee [facility] 2022-07-21 2022-07-21 Outpatient R HUSSEIN, [facility] [id number] Univers 13:00:00 13:00:00 NIC mukherjee o [facility] 2022-07-21 2022-07-21 Outpatient R HUSSEIN, [facility] [id number] Univers 13:00:00 13:00:00 NIC mukherjee o [facility] 2022-07-19 2022-07-19 Outpatient R CHARO FUNESDENadeen [facility] [id number] Univers 14:00:00 14:00:00 JUNIE FUNES ity [facility] 2022-07-13 2022-07-13 OL DIG E/M STLMLC STLMLC [id number] Common 00:00:00 00:00:00 [facility] -20 Spir it [facility] 2022-07-08 2022-07-08 Outpatient R HUSSEIN, [facility] [id number] Univers 15:20:00 15:22:03 NIC mukherjee [facility] 2022-07-08 2022-07-08 Office [facility] 1.2.840.114 [id number] Univers 15:20:00 15:22:03 Visit Brandyyulisette HUMPHREYS [id number] ity of [id number] [phone] [facility] NAL [address] [place] [address] 2022-07-08 2022-07-08 Orders Doctor TYRONE 1.2.840.114 [id number] Univers 00:00:00 00:00:00 Only Unassigned, DULCE 350.1.13.10 ity of [place] [facility] [id number] Alexei as [phone] [address] 2022-06-24 2022-06-24 (TEL) [facility] [id number] Co mmon 00:00:00 00:00:00 [facility] 2022-06-15 2022-06-15 (TEL) [facility] STL[facility]C [id number] Co mmon 00:00:00 00:00:00 [facility] 2022-06-15 2022-06-15 Orders Doctor TYRONE 1.2.840.114 [id number] Univers 00:00:00 00:00:00 Only Unassigned, DULCE 350.1.13.10 ity of [place] [facility] 4.2.7.2.686 Alexei as [phone] [address] 2022-05-09 2022-05-09 Emergency X UMANZOR, [facility] ERT [id number] Univers 14:51:00 18:40:00 SONJA acostay [facility] 2022-05-09 2022-05-09 Emergency Umanzor, [facility] 1.2.840.114 [id number] Univers 14:51:00 18:40:00 Sonja HUMPHREYS 350.1.13.10 i ty [facility] 4.2.7.2.686 [facility] [phone] [address] 2022-05-09 2022-05-09 Orders Doctor TYRONE 1.2.840.114 [id number] Univers 00:00:00 00:00:00 Only Unassigned, DULCE 350.1.13.10 ity of [place] [facility] 4.2.7.2.686 Alexei as [phone] [address] 2022-02-24 2022-02-[address] [facility] [id number] Co mmon 00:00:00 00:00:00 VISIT EST Spir it PT LEVEL 3 - [facility] 2022-02-23 2022-02-23 (TEL) STLMLC STLMLC [id number] Co mmon 00:00:00 00:00:00 [facility] 2021-12-24 2021-12-24 (TEL) STLMLC STLMLC [id number] Co mmon 00:00:00 00:00:00 [facility] 2021-12-21 2021-12-21 PREV VISIT STLMLC STLMLC [id number] Common 00:00:00 00:00:00 EST AGE Cristian 40-64 - [facility] 2021-11-15 2021-11-15 OFFICE STLMLC STLMLC [id number] Co mmon 00:00:00 00:00:00 VISIT RAE Boswell it PT LEVEL 4 - [facility] 2021-07-29 2021-07-29 Telephone Bandar Negrete 1.2.840.114 [id number] Univers 00:00:00 00:00:00 [facility] 350.1.13.10 it y [id number] [phone] [facility] [address] 2021-07-28 2021-07-28 Refill Bandar Negrete [facility] 1.2.840.114 [id number] Univers 00:00:00 00:00:00 Health 350.1.13.10 [place] [phone] [facility] [address] ([employer]) 2021-07-12 2021-07-12 Patient Doctor [facility] 1.2.840.114 [id number] Univers 00:00:00 00:00:00 Secure Msg Unassigned, PETR 350.1.13.10 ity of [place] [phone] [place] [address]7079 [facility] 2021-07-07 2021-07-07 Office Hussein [facility] 1.2.840.114 [id number] Univers 14:46:45 15:14:49 Visit iNc Humphreys 350.1.13.10 ity of [place] 4.2.7.2.686 Terry Wright [phone] Ak dical nal [address] 2021-07-07 2021-07-07 Outpatient R HUSESIN, [facility] [id number] Univers 14:40:00 14:40:00 NIC bonilla [facility] 2021-07-05 2021-07-05 Outpatient R HUSSEIN, [facility] [id number] Univers 11:45:00 11:45:00 NIC mukherjee o [facility] 2021-05-05 2021-05-05 Outpatient R HUSSEIN, [facility] [id number] Univers 14:00:00 14:00:00 NIC mukherjee [facility] 2021-04-05 2021-04-05 Outpatient R HUSSEIN, [facility] [id number] Univers 11:00:00 11:00:00 [facility] 2021-03-17 2021-03-18 Emergency X ROSA, [facility] ERT [id number] Univers 18:41:00 01:41:[address] [facility] 2021-01-28 2021-01-28 Patient Jonathan [facility] 1.2.840.114 [id number] 00:00:00 00:00:00 Outreach [facility] 350.1.13.10 [facility] 4.2.7.2.686 [facility] [phone] 388 2021-01-21 2021-01-21 Office Care, Clinton GRIFFITH 1.2.840.114 [id number] 13:42:32 15:04:25 Visit [facility] [id number] [facility] 4.2.7.2.686 UNIT [id number] [id number] 2021-01-21 2021-01-21 Outpatient R BANDAR NEGRETE [facility] [id number] Univers 13:30:00 13:30:[address] [facility] 2021-01-21 2021-01-21 Orders Doctor TYRONE 1.2.840.114 [id number] 00:00:00 00:00:00 Only Unassigned, DULCE 350.1.13.10 [place] [facility] [phone] [id number] 2020-07-22 2020-07-22 Outpatient R [facility] [id number] Univers 13:00:00 [facility] 2020-07-22 2020-07-22 [facility] 1.2.840.114 [id number] Univers 00:00:00 00:00:00 Secure Msg Nic [place] [facility].13.10 [facility] 4.2.7.2.686 Alexeisaba hager SARIKA [phone] [place] 207079 [facility] 2020-07-15 2020-07-15 Outpatient R [facility] [id number] Univers 00:00:00 00:00:[facility] 2020-07-07 2020-07-07 Outpatient R [facility] [id number] Univers 00:00:00 00:00:[facility] 2020-07-06 2020-07-06 [facility] [id number] Univers 13:00:00 13:00:00 NIC mukherjee o f [facility] 2020-05-21 2020-05-21 Outpatient R [facility] [id number] Univers 11:30:00 11:30:[address] [facility] 2020-05-05 2020-05-05 [facility] [id number] Univers 11:00:00 11:00:[address] [facility] 2020-03-18 2020-03-18 [facility] [id number] Univers 13:30:00 13:30:[address] [facility] 2020-01-06 2020-01-06 [facility] [id number] Univers 14:40:00 14:40:00 NIC acostay o f [facility] 2019-10-21 2019-10-21 Outpatient [facility] [id number] Univers 14:13:55 23:59:[address] [facility] Results Test Description Test Time Test Comments Results Result Comments Source ECG- ADULT 2023-04-25 21:09:30 Test Item Value Reference Range Interpretation Comme nts VENTRICULAR RATE (test code = 73 BPM 81989) ATRIAL RATE (test code = 26371) 73 BPM P-R INTERVAL (test code = 46073) 168 ms QRS DURATION (test code = 04994) 90 ms Q-T INTERVAL (test code = 04187) 422 ms QTC CALCULATION(BEZE (test code 464 ms = 59381) CALCULATED P AXIS (test code = 55 degrees 64116) CALCULATED R AXIS (test code = 64 degrees 06010) CALCULATED T AXIS (test code = -10 degrees 91744) DIAGNOSIS (test code = 72868) Normal sinus rhythmSeptal infarct , a ge undeterminedAbnormal ECGNo previous ECGs availableConfirmed by DUSTIN HAIR ([id number]) on 04/25/2023 4:09:27 PM Yanira [id number] 12:02:00 Test Item Value Reference Range Interpretation Comments TROPONIN-I (test code = TROPI) 0.065 NG/ML 0.012-0.033 H [id number] 07:38:00 Test Item Value Reference Range Interpretation Comments TROPONIN-I (test code = TROPI) 0.088 NG/ML 0.012-0.033 H COMPREHENSIVE METABOLIC [id number] 07:37:00 Test Item Value Reference Range Interpretation [...] Product TBil, BuBc: ======= ======= ======A ssay Eltrombopa g Analyte/ Max Ob served Avg. Bias Concentration Concentration Concentration== ======= ======= ======= =======TBil 7mg /dl TBil/ 1.2mg/dl +0.23mg.dl +0.20mg/dlBuBc 3.5mg/dl Bu/0.8 mg/dl +0.25mg/dl +0.24mg/dlBuBc 7 mg/dl Bu/14.2mg/dl +0.38mg/dl +0.25mg/dlBuBc 5mg/dl Bc/0mg/dl +0.25 mg/dl +0.15mg/dlBuBc 3.5mg/dl Bc/2.8 mg/dl +0.25mg/dl +0.2 3mg/dl SGOT/AST (test code = 89 UNITS/L 14-36 H AST) SGPT/ALT (test code = 52 UNITS/L <35 ALT) ALKALINE PHOSPHATASE 75 UNITS/L 38-126 (test code = ALKP) [id number] 07:37:00 Test Item Value Reference Range Interpretation Comments MAGNESIUM (test code = MAG) 2.0 MG/DL 1.6-2.3 N COMPREHENSIVE METABOLIC [id number] 07:28:00 Test Item Value Reference Range Interpretation [...] PHOSPHATASE (test code = UNITS/L 38-126 ALKP) [id number] 07:28:00 Test Item Value Reference Range Interpretation Comments MAGNESIUM (test code = MAG) MG/DL 1.6-2.3 COMPREHENSIVE METABOLIC [id number] 07:27:00 Test Item Value Reference Range Interpretation [...] PHOSPHATASE (test code = UNITS/L 38-126 ALKP) [id number] 07:27:00 Test Item Value Reference Range Interpretation Comments MAGNESIUM (test code = MAG) MG/DL 1.6-2.3 CBC W/AUTO [id number] 07:06:00 Test Item Value Reference Range Interpretation [...] LIPOPROTEIN LDL (test 83 MG/DL 0-99 N OPTIM AL.........<100 code = LDL) mg/dLNEAR OPTIMAL/ABOVE OPTIMAL........ .100-12 9 mg/dL BORDERL INE HIGH.........13 0-159 mg/dL HIGH.........16 0-189 mg/dL VERY HIGH.........>/ = 190 mg/dL GLYCOSYLATED HEMOGLOBIN [id number] 22:25:00 Test Item Value Reference Range Interpretation Comments GLYCOSYLATED 6.0 % 4.8-5.9 H Any condition t hat HEMOGLOBIN (HA1C) shortens e rythocyte (test code = survival or dec reasesmean GLYHGB) erythrocyte age (e.g., recovery from a cute blood loss,hemolytic anemia) will falsely lo wer HGBA1c resultsregardle ss of the method used. HG BA1c results from gume ramon HbSS, HbCC, and [...] LDL (test MG/DL 0-99 code = LDL) [id number] 20:45:00 Test Item Value Reference Range Interpretation Comments TROPONIN-I (test code = TROPI) 0.091 NG/ML 0.012-0.033 H BASIC METABOLIC [id number] 20:25:00 Test Item Value Reference Range Interpretation [...] 8.8 MG/DL 8.4-10.2 N CA) HEPATIC FUNCTION [id number] 20:25:00 Test Item Value Reference Range Interpretation Comments TOTAL PROTEIN (test 7.0 G/DL 6.3-8.2 N code = PROT) ALBUMIN (test code = 4.1 G/DL 3.5-5.0 N ALB) BILIRUBIN TOTAL 0.7 MG/DL 0.2-1.3 N Eltrombopag (test code = BILT) Interfere nce for Vitros Product TBil, BuBc: ======= ======= ======A ssay Eltrombopa g Analyte/ Max Ob served Avg. Bias Concentration Concentration Concentration== ======= ======= ======= =======TBil 7mg /dl TBil/ 1.2mg/dl +0.23mg.dl +0.20mg/dlBuBc 3.5mg/dl Bu/0.8 mg/dl +0.25mg/dl +0.24mg/dlBuBc 7 mg/dl Bu/14.2mg/dl +0.38mg/dl +0.25mg/dlBuBc 5mg/dl Bc/0mg/dl +0.25 mg/dl +0.15mg/dlBuBc 3.5mg/dl Bc/2.8 mg/dl +0.25mg/dl +0.2 3mg/dl BILIRUBIN DIRECT 0.0 MG/DL 0.0-0.3 N Eltrombopag (test code = BILD) Interfere nce for Vitros Product TBil, BuBc: ======= ======= ======A ssay Eltrombopa g Analyte/ Max Ob served Avg. Bias Concentration Concentration Concentration== ======= ======= ======= =======TBil 7mg /dl TBil/ 1.2mg/dl +0.23mg.dl +0.20mg/dlBuBc 3.5mg/dl Bu/0.8 mg/dl +0.25mg/dl +0.24mg/dlBuBc 7 mg/dl Bu/14.2mg/dl +0.38mg/dl +0.25mg/dlBuBc 5mg/dl Bc/0mg/dl +0.25 mg/dl +0.15mg/dlBuBc 3.5mg/dl Bc/2.8 mg/dl +0.25mg/dl +0.2 3mg/dl SGOT/AST (test code 111 UNITS/L 14-36 H = AST) SGPT/ALT (test code 59 UNITS/L <35 = ALT) ALKALINE PHOSPHATASE 89 UNITS/L 38-126 N (test code = ALKP) [id number] 20:25:00 Test Item Value Reference Range Interpretation Comments LIPASE (test code = LIP) 58 UNITS/L 23-300 N [id number] 20:25:00 Test Item Value Reference Range Interpretation Comments MAGNESIUM (test code = MAG) 2.1 MG/DL 1.6-2.3 N LIPOPROTEIN LDL [id number] 20:25:00 Test Item Value Reference Range Interpretation Comments LIPOPROTEIN LDL DIRECT 80 mg/dL 100-129 L ===== (test code = LDLDIR) ======= ==Refe rence Interval: mg/dL mmol/L--------- ------ ------ ------ --Optimal <100 <2.6Near/above optimal 100-129 2.6-3.3Borderli ne High 130-159 3.4-4.1High 160 -189 4.1-4.9Very Hig h >=190 >=4.9==== ===== This LDL result is a direct measurement.=== ====== HCG SERUM [id number] 20:25:00 Test Item Value Reference Range Interpretation Comments HCG SERUM QUAL (test code = HCGQL) NEGATIVE NEGATIVE A THYROID STIMULATING [id number] 20:25:00 Test Item Value Reference Range Interpretation Comments THYROID STIMULATING 3.640 MIU/L 0.465-4.68 N Please b e aware that HORMONE (test code = bias re sults for TSH TSH) may occur forpa tient who are taking Biotin suppleme nts. [id number] 20:25:00 Test Item Value Reference Range Interpretation Comments TROPONIN-I (test code = TROPI) 0.069 NG/ML 0.012-0.033 H - CTA CHEST FOR [id number] 20:22:00 Patient Name: THERESA BROWN Unit No: [id number] EXAMS: CPT CODE: [id number] [place] [id number] DICTATION LOCATION: H30 HISTORY: Chest pain. TECHNIQUE: Axial images of the chest were obtained following intravenous administration of 100 cc of Isovue-370 contrast evaluate the pulmonary arteryphase at 7:50 PM. No prior exams are available for comparison. All CT scans are performed using radiation dose reduction techniques. Technical factors are evaluated and adjusted to ensure appropriate m oderation of exposure. Automated dose management technology is applied to adjust the radiation dose to minimize exposure while achieving a diagnostic-quality image. FINDINGS: The lungs are clear. No pleural or pericardial effusion is seen. Heart size is at the upper limits of normal and pulmonary vascular prominence is present. There is no evidence of an acute aortic abnormality or pulmonary embolus on either side. A 2.5 cm left thyroid lobe nodule is present. Dedicated thyroid ultrasound recommended for further evaluation. No thoracic adenopathy is seen. Limited views of the upper abdomen show noacute findings. Review of the skeleton with bone windows shows no acute or destructive process. IMPRESSION: 1. Mild cardiac and pulmonary vascular prominence. 2. No evidence of pulmonary embolus or acute aortic abnormality. 3. 2.5 cm left thyroid nodule that should be further evaluated with a dedicated thyroid ultrasound. 4. No other significant findings. at 2021 Reported and signed by: James Rico Jr., M.D. CC: Kulwant De Oliveira MD Technologist: Andrea Haque, RT(R); ... CTDI: DLP: Trnscrpt: 08/22/2020 (2021) t.SDR.FAM [facility] Marlon NAME: THERESA BROWN PHYS: Kulwant Tyler MD [place] [id number] : 1975 AGE: 45 SEX: F LOC: Z.764 A PHONE #: [phone] EXAM DATE: 08/22/2020 STATUS: ADM IN FAX #: [phone] RAD #: D/C DT PAGE 1 Signed Report Patient Name: THERESA BROWN Unit No: [id number] EXAMS: CPT CODE: [id number] [place] [id number] (Continued) Orig PrintD/T: S: 08/22/2020 (2024) [facility] Marlon NAME: THERESA BROWN PHYS: JACKIENoreenKulwant Meyer MD [place] [id number] : 1975 AGE: 45 SEX: F LOC: Z.466 A PHONE #: [phone] EXAM DATE: 08/22/2020 STATUS: ADM IN FAX #: [phone] RAD #: D/C DT PAGE 2 Signed ReportBASIC METABOLIC [id number] 18:32:00 Test Item Value Reference Range Interpretation [...] 8.8 MG/DL 8.4-10.2 N CA) HEPATIC FUNCTION [id number] 18:32:00 Test Item Value Reference Range Interpretation Comments TOTAL PROTEIN (test 7.0 G/DL 6.3-8.2 N code = PROT) ALBUMIN (test code = 4.1 G/DL 3.5-5.0 N ALB) BILIRUBIN TOTAL 0.7 MG/DL 0.2-1.3 N Eltrombopag (test code = BILT) Interfere nce for Vitros Product TBil, BuBc: ======= ======= ======A ssay Eltrombopa g Analyte/ Max Ob served Avg. Bias Concentration Concentration Concentration== ======= ======= ======= =======TBil 7mg /dl TBil/ 1.2mg/dl +0.23mg.dl +0.20mg/dlBuBc 3.5mg/dl Bu/0.8 mg/dl +0.25mg/dl +0.24mg/dlBuBc 7 mg/dl Bu/14.2mg/dl +0.38mg/dl +0.25mg/dlBuBc 5mg/dl Bc/0mg/dl +0.25 mg/dl +0.15mg/dlBuBc 3.5mg/dl Bc/2.8 mg/dl +0.25mg/dl +0.2 3mg/dl BILIRUBIN DIRECT 0.0 MG/DL 0.0-0.3 N Eltrombopag (test code = BILD) Interfere nce for Vitros Product TBil, BuBc: ======= ======= ======A ssay Eltrombopa g Analyte/ Max Ob served Avg. Bias Concentration Concentration Concentration== ======= ======= ======= =======TBil 7mg /dl TBil/ 1.2mg/dl +0.23mg.dl +0.20mg/dlBuBc 3.5mg/dl Bu/0.8 mg/dl +0.25mg/dl +0.24mg/dlBuBc 7 mg/dl Bu/14.2mg/dl +0.38mg/dl +0.25mg/dlBuBc 5mg/dl Bc/0mg/dl +0.25 mg/dl +0.15mg/dlBuBc 3.5mg/dl Bc/2.8 mg/dl +0.25mg/dl +0.2 3mg/dl SGOT/AST (test code 111 UNITS/L 14-36 H = AST) SGPT/ALT (test code 59 UNITS/L <35 = ALT) ALKALINE PHOSPHATASE 89 UNITS/L 38-126 N (test code = ALKP) [id number] 18:32:00 Test Item Value Reference Range Interpretation Comments LIPASE (test code = LIP) 58 UNITS/L 23-300 N [id number] 18:32:00 Test Item Value Reference Range Interpretation Comments MAGNESIUM (test code = MAG) 2.1 MG/DL 1.6-2.3 N LIPOPROTEIN LDL [id number] 18:32:00 Test Item Value Reference Range Interpretation Comments LIPOPROTEIN LDL DIRECT (test code = mg/dL 100-129 LDLDIR) HCG SERUM [id number] 18:32:00 Test Item Value Reference Range Interpretation Comments HCG SERUM QUAL (test code = HCGQL) NEGATIVE NEGATIVE A THYROID STIMULATING [id number] 18:32:00 Test Item Value Reference Range Interpretation Comments THYROID STIMULATING 3.640 MIU/L 0.465-4.68 N Please b e aware that HORMONE (test code = bias re sults for TSH TSH) may occur forpa tient who are taking Biotin suppleme nts. [id number] 18:32:00 Test Item Value Reference Range Interpretation Comments TROPONIN-I (test code = TROPI) 0.069 NG/ML 0.012-0.033 H B-TYPE NATRIURETIC [id number] 18:20:00 Test Item Value Reference Range Interpretation Comments B-TYPE NATRIURETIC PEPTIDE (test 138.0 PG/ML 0-100 H code = BNP) BASIC METABOLIC [id number] 18:14:00 Test Item Value Reference Range Interpretation [...] 8.8 MG/DL 8.4-10.2 N CA) HEPATIC FUNCTION [id number] 18:14:00 Test Item Value Reference Range Interpretation Comments TOTAL PROTEIN (test 7.0 G/DL 6.3-8.2 N code = PROT) ALBUMIN (test code = 4.1 G/DL 3.5-5.0 N ALB) BILIRUBIN TOTAL 0.7 MG/DL 0.2-1.3 N Eltrombopag (test code = BILT) Interfere nce for Vitros Product TBil, BuBc: ======= ======= ======A ssay Eltrombopa g Analyte/ Max Ob served Avg. Bias Concentration Concentration Concentration== ======= ======= ======= =======TBil 7mg /dl TBil/ 1.2mg/dl +0.23mg.dl +0.20mg/dlBuBc 3.5mg/dl Bu/0.8 mg/dl +0.25mg/dl +0.24mg/dlBuBc 7 mg/dl Bu/14.2mg/dl +0.38mg/dl +0.25mg/dlBuBc 5mg/dl Bc/0mg/dl +0.25 mg/dl +0.15mg/dlBuBc 3.5mg/dl Bc/2.8 mg/dl +0.25mg/dl +0.2 3mg/dl BILIRUBIN DIRECT 0.0 MG/DL 0.0-0.3 N Eltrombopag (test code = BILD) Interfere nce for Vitros Product TBil, BuBc: ======= ======= ======A ssay Eltrombopa g Analyte/ Max O bserved Avg. Bias Concentration Concentration Concentration== ======= ======= ======= =======TBil 7mg /dl TBil/ 1.2mg/dl +0.23mg.dl +0.20mg/dlBuBc 3.5mg/dl Bu/0.8 mg/dl +0.25mg/dl +0.24mg/dlBuBc 7 mg/dl Bu/14.2mg/dl +0.38mg/dl +0.25mg/dlBuBc 5mg/dl Bc/0mg/dl +0.25 mg/dl +0.15mg/dlBuBc 3.5mg/dl Bc/2.8 mg/dl +0.25mg/dl +0.2 3mg/dl SGOT/AST (test code 111 UNITS/L 14-36 H = AST) SGPT/ALT (test code 59 UNITS/L <35 = ALT) ALKALINE PHOSPHATASE 89 UNITS/L 38-126 N (test code = ALKP) [id number] 18:14:00 Test Item Value Reference Range Interpretation Comments LIPASE (test code = LIP) 58 UNITS/L 23-300 N [id number] 18:14:00 Test Item Value Reference Range Interpretation Comments MAGNESIUM (test code = MAG) 2.1 MG/DL 1.6-2.3 N LIPOPROTEIN LDL [id number] 18:14:00 Test Item Value Reference Range Interpretation Comments LIPOPROTEIN LDL DIRECT (test code = mg/dL 100-129 LDLDIR) HCG SERUM [id number] 18:14:00 Test Item Value Reference Range Interpretation Comments HCG SERUM QUAL (test code = HCGQL) NEGATIVE NEGATIVE A THYROID STIMULATING [id number] 18:14:00 Test Item Value Reference Range Interpretation Comments THYROID STIMULATING HORMONE (test code MIU/L 0.465-4.68 = TSH) [id number] 18:14:00 Test Item Value Reference Range Interpretation Comments TROPONIN-I (test code = TROPI) 0.069 NG/ML 0.012-0.033 H BASIC METABOLIC [id number] 18:08:00 Test Item Value Reference Range Interpretation [...] 8.8 MG/DL 8.4-10.2 N CA) HEPATIC FUNCTION [id number] 18:08:00 Test Item Value Reference Range Interpretation Comments TOTAL PROTEIN (test 7.0 G/DL 6.3-8.2 N code = PROT) ALBUMIN (test code = 4.1 G/DL 3.5-5.0 N ALB) BILIRUBIN TOTAL 0.7 MG/DL 0.2-1.3 N Eltrombopag (test code = BILT) Interfere nce for Vitros Product TBil, BuBc: ======= ======= ======A ssay Eltrombopa g Analyte/ Max Ob served Avg. Bias Concentration Concentration Concentration== ======= ======= ======= =======TBil 7mg /dl TBil/ 1.2mg/dl +0.23mg.dl +0.20mg/dlBuBc 3.5mg/dl Bu/0.8 mg/dl +0.25mg/dl +0.24mg/dlBuBc 7 mg/dl Bu/14.2mg/dl +0.38mg/dl +0.25mg/dlBuBc 5mg/dl Bc/0mg/dl +0.25 mg/dl +0.15mg/dlBuBc 3.5mg/dl Bc/2.8 mg/dl +0.25mg/dl +0.2 3mg/dl BILIRUBIN DIRECT 0.0 MG/DL 0.0-0.3 N Eltrombopag (test code = BILD) Interfere nce for Vitros Product TBil, BuBc: ======= ======= ======A ssay Eltrombopa g Analyte/ Max Ob served Avg. Bias Concentration Concentration Concentration== ======= ======= ======= =======TBil 7mg /dl TBil/ 1.2mg/dl +0.23mg.dl +0.20mg/dlBuBc 3.5mg/dl Bu/0.8 mg/dl +0.25mg/dl +0.24mg/dlBuBc 7 mg/dl Bu/14.2mg/dl +0.38mg/dl +0.25mg/dlBuBc 5mg/dl Bc/0mg/dl +0.25 mg/dl +0.15mg/dlBuBc 3.5mg/dl Bc/2.8 mg/dl +0.25mg/dl +0.2 3mg/dl SGOT/AST (test code 111 UNITS/L 14-36 H = AST) SGPT/ALT (test code 59 UNITS/L <35 = ALT) ALKALINE PHOSPHATASE 89 UNITS/L 38-126 N (test code = ALKP) [id number] 18:08:00 Test Item Value Reference Range Interpretation Comments LIPASE (test code = LIP) 58 UNITS/L 23-300 N [id number] 18:08:00 Test Item Value Reference Range Interpretation Comments MAGNESIUM (test code = MAG) 2.1 MG/DL 1.6-2.3 N HCG SERUM [id number] 18:08:00 Test Item Value Reference Range Interpretation Comments HCG SERUM QUAL (test code = HCGQL) NEGATIVE NEGATIVE A THYROID STIMULATING [id number] 18:08:00 Test Item Value Reference Range Interpretation Comments THYROID STIMULATING HORMONE (test code MIU/L 0.465-4.68 = TSH) [id number] 18:08:00 Test Item Value Reference Range Interpretation Comments TROPONIN-I (test code = TROPI) NG/ML 0.0-0.045 URINALYSIS [id number] 18:05:00 Test Item Value Reference Range Interpretation [...] OF URINE: CLEAN CATCHDRUGS OF ABUSE SCREEN [id number] 18:05:00 Test Item Value Reference Range Interpretation [...] PHENCU) ng/mL SOURCE OF URINE: CLEAN CATCHURINALYSIS [id number] 18:04:00 Test Item Value Reference Range Interpretation [...] OF URINE: CLEAN CATCHDRUGS OF ABUSE SCREEN [id number] 18:04:00 Test Item Value Reference Range Interpretation [...] = PHENCU) SOURCE OF URINE: CLEAN CATCHURINALYSIS [id number] 18:03:00 Test Item Value Reference Range Interpretation [...] OF URINE: CLEAN CATCHDRUGS OF ABUSE SCREEN [id number] 18:03:00 Test Item Value Reference Range Interpretation [...] SOURCE OF URINE: CLEAN CATCH- XR CHEST [id number] 18:03:00 Patient Name: DARION BROWN Unit No: [id number] EXAMS: CPT CODE: [id number] XR CHEST 1V [id number] EXAMINATION: - XR CHEST 1V. LOCATION: H42. HISTORY: Chest Pain, NSTEMI. COMPARISON: None. FINDINGS: Examination is limited due to portable technique, patient body habitus and low lung volumes. Cardiac silhouette/Mediastinal contour: Within normal limits. Lungs: No focal consolidation. No large pleural effusion. Osseous Structures: No acute osseous abnormalities. IMPRESSION: Low lung volumes, no focal consolidation. at 1803 Reported and signed by: Johann Pompa CC: Kulwant De Oliveira MD Technologist: John Wyatt, RT(R) Transcrpt Date/Tm/Trn sp: 08/22/2020 (1803) t.[email or web address] Orig Print D/T: S: 08/22/2020 (1806) [facility] NAME: DARION BROWN [id number] [address] PHYS: [place] [address] : 1975 AGE: 45 SEX: F LOC: [facility] PHONE #: [phone] EXAM DATE: 08/22/2020 STATUS: PRE ER FAX #: [phone] RADIOLOGY NO: PAGE 1 Signed ReportURINALYSIS [id number] 18:02:00 Test Item Value Reference Range Interpretation [...] OF URINE: CLEAN CATCHDRUGS OF ABUSE SCREEN [id number] 18:02:00 Test Item Value Reference Range Interpretation [...] = PHENCU) SOURCE OF URINE: CLEAN CATCHPROTHROMBIN [id number] 18:01:00 Test Item Value Reference Range Interpretation Comments PROTHROMBIN TIME 11.3 SECONDS 9.4-12.5 N PATIENT (test code = PTP) INTERNATIONAL NORMAL 1.0 The INR is to be RATIO (test code = used only for INR) monitoring oral anticoagulantth erap y. INDICATION I NR VALUE ---- ---- ---- -------1. Prophylaxis, de ep venous thrombos is, including high risk surgery. 2.0 - 3.0 2. Prophylaxis, deep venous thrombosis, hip surgery, treatm ent for deep venous thrombosis or pulmonary prevention of systemic emboli sm in patients wit h valvular heart disease, atrial fibrillation, tissue heart va lve, or acute myocar dial infarction. 2.0 - 3.0 3. Chicken Vaccinator al prosthesis hear t valves, recurre nt systemic emboli sm. 3.0 - 4.5 PTT [id number] 18:01:00 Test Item Value Reference Range Interpretation Comments PTT ACTIVATED (test code = APTT) 39.1 SECONDS 25.1-36.5 H [id number] 18:01:00 Test Item Value Reference Range Interpretation [...] o f standard radiological pr ocedures. URINALYSIS [id number] 18:01:00 Test Item Value Reference Range Interpretation [...] OF URINE: CLEAN CATCHDRUGS OF ABUSE SCREEN [id number] 18:01:00 Test Item Value Reference Range Interpretation [...] PHENCU) SOURCE OF URINE: CLEAN CATCHBASIC METABOLIC [id number] 18:01:00 Test Item Value Reference Range Interpretation [...] 8.8 MG/DL 8.4-10.2 N CA) HEPATIC FUNCTION [id number] 18:01:00 Test Item Value Reference Range Interpretation Comments TOTAL PROTEIN (test 7.0 G/DL 6.3-8.2 N code = PROT) ALBUMIN (test code = 4.1 G/DL 3.5-5.0 N ALB) BILIRUBIN TOTAL 0.7 MG/DL 0.2-1.3 N Eltrombopag (test code = BILT) Interfere nce for Vitros Product TBil, BuBc: ======= ======= ======A ssay Eltrombopa g Analyte/ Max Ob served Avg. Bias Concentration Concentration Concentration== ======= ======= ======= =======TBil 7mg /dl TBil/ 1.2mg/dl +0.23mg.dl +0.20mg/dlBuBc 3.5mg/dl Bu/0.8 mg/dl +0.25mg/dl +0.24mg/dlBuBc 7 mg/dl Bu/14.2mg/dl +0.38mg/dl +0.25mg/dlBuBc 5mg/dl Bc/0mg/dl +0.25 mg/dl +0.15mg/dlBuBc 3.5mg/dl Bc/2.8 mg/dl +0.25mg/dl +0.2 3mg/dl BILIRUBIN DIRECT 0.0 MG/DL 0.0-0.3 N Eltrombopag (test code = BILD) Interfere nce for Vitros Product TBil, BuBc: ======= ======= ======A ssay Eltrombopa g Analyte/ Max Ob served Avg. Bias Concentration Concentration Concentration== ======= ======= ======= =======TBil 7mg /dl TBil/ 1.2mg/dl +0.23mg.dl +0.20mg/dlBuBc 3.5mg/dl Bu/0.8 mg/dl +0.25mg/dl +0.24mg/dlBuBc 7 mg/dl Bu/14.2mg/dl +0.38mg/dl +0.25mg/dlBuBc 5mg/dl Bc/0mg/dl +0.25 mg/dl +0.15mg/dlBuBc 3.5mg/dl Bc/2.8 mg/dl +0.25mg/dl +0.2 3mg/dl SGOT/AST (test code 111 UNITS/L 14-36 H = AST) SGPT/ALT (test code 59 UNITS/L <35 = ALT) ALKALINE PHOSPHATASE 89 UNITS/L 38-126 N (test code = ALKP) [id number] 18:01:00 Test Item Value Reference Range Interpretation Comments LIPASE (test code = LIP) 58 UNITS/L 23-300 N [id number] 18:01:00 Test Item Value Reference Range Interpretation Comments MAGNESIUM (test code = MAG) 2.1 MG/DL 1.6-2.3 N HCG SERUM [id number] 18:01:00 Test Item Value Reference Range Interpretation Comments HCG SERUM QUAL (test code = HCGQL) NEGATIVE THYROID STIMULATING [id number] 18:01:00 Test Item Value Reference Range Interpretation Comments THYROID STIMULATING HORMONE (test code MIU/L 0.465-4.68 = TSH) [id number] 18:01:00 Test Item Value Reference Range Interpretation Comments TROPONIN-I (test code = TROPI) NG/ML 0.0-0.045 BASIC METABOLIC [id number] 18:00:00 Test Item Value Reference Range Interpretation [...] code = MG/DL 8.7-9.7 CA) HEPATIC FUNCTION [id number] 18:00:00 Test Item Value Reference Range Interpretation Comments TOTAL PROTEIN (test G/DL 6.3-8.2 code = PROT) ALBUMIN (test code = 4.1 G/DL 3.5-5.0 N ALB) BILIRUBIN TOTAL (test MG/DL 0.2-1.3 code = BILT) BILIRUBIN DIRECT 0.0 MG/DL 0.0-0.3 N Eltrombopag (test code = BILD) Interfere nce for Vitros Product TBil, BuBc: ======== ======== ====Assa y Eltrombopag A nalyte/ Max Observed Av g. Bias Concentration Concentration Concentration== ======== ======== ======== ====TBil 7mg/dl TBil/ 1.2mg/dl +0.23m g.dl +0.20mg/dlBuBc 3.5mg/dl Bu/0.8mg/dl +0. 25mg/dl +0.24mg/dlBuBc 7 mg/dl Bu/14.2mg/dl +0 .38mg/dl +0.25mg/dlBuBc 5mg/dl Bc/0mg/dl +0.25 mg/dl +0.15mg/dlBuBc 3.5mg/dl Bc/2.8mg/dl +0. 25mg/dl +0.23mg/dl SGOT/AST (test code = UNITS/L 15-37 AST) SGPT/ALT (test code = UNITS/L <35 ALT) ALKALINE PHOSPHATASE UNITS/L 38-126 (test code = ALKP) [id number] 18:00:00 Test Item Value Reference Range Interpretation Comments LIPASE (test code = LIP) UNITS/L 23-300 [id number] 18:00:00 Test Item Value Reference Range Interpretation Comments MAGNESIUM (test code = MAG) MG/DL 1.6-2.3 HCG SERUM [id number] 18:00:00 Test Item Value Reference Range Interpretation Comments HCG SERUM QUAL (test code = HCGQL) NEGATIVE THYROID STIMULATING [id number] 18:00:00 Test Item Value Reference Range Interpretation Comments THYROID STIMULATING HORMONE (test code MIU/L 0.465-4.68 = TSH) [id number] 18:00:00 Test Item Value Reference Range Interpretation Comments TROPONIN-I (test code = TROPI) NG/ML 0.0-0.045 BASIC METABOLIC [id number] 17:58:00 Test Item Value Reference Range Interpretation [...] code = CA) MG/DL 8.7-9.7 HEPATIC FUNCTION [id number] 17:58:00 Test Item Value Reference Range Interpretation Comments TOTAL PROTEIN (test code = PROT) G/DL 6.3-8.2 ALBUMIN (test code = ALB) 4.1 G/DL 3.5-5.0 N BILIRUBIN TOTAL (test code = BILT) MG/DL 0.2-1.3 BILIRUBIN DIRECT (test code = BILD) MG/DL 0.0-0.3 SGOT/AST (test code = AST) UNITS/L 15-37 SGPT/ALT (test code = ALT) UNITS/L <35 ALKALINE PHOSPHATASE (test code = UNITS/L 38-126 ALKP) [id number] 17:58:00 Test Item Value Reference Range Interpretation Comments LIPASE (test code = LIP) UNITS/L 23-300 [id number] 17:58:00 Test Item Value Reference Range Interpretation Comments MAGNESIUM (test code = MAG) MG/DL 1.6-2.3 HCG SERUM [id number] 17:58:00 Test Item Value Reference Range Interpretation Comments HCG SERUM QUAL (test code = HCGQL) NEGATIVE THYROID STIMULATING [id number] 17:58:00 Test Item Value Reference Range Interpretation Comments THYROID STIMULATING HORMONE (test code MIU/L 0.465-4.68 = TSH) [id number] 17:58:00 Test Item Value Reference Range Interpretation Comments TROPONIN-I (test code = TROPI) NG/ML 0.0-0.045 URINALYSIS [id number] 17:54:00 Test Item Value Reference Range Interpretation [...] OF URINE: CLEAN CATCHDRUGS OF ABUSE SCREEN [id number] 17:54:00 Test Item Value Reference Range Interpretation [...] PHENCU) SOURCE OF URINE: CLEAN CATCHCBC W/AUTO [id number] 17:49:00 Test Item Value Reference Range Interpretation [...] = 0.00 K/mm3 0.0-0.1 N NRBC#) URINALYSIS [id number] 17:48:00 Test Item Value Reference Range Interpretation [...] OF URINE: CLEAN CATCHDRUGS OF ABUSE SCREEN [id number] 17:48:00 Test Item Value Reference Range Interpretation [...] = NEGATIVE PHENCU) SOURCE OF URINE: CLEAN CATCHPDF ReportPDF Report
[2023-09-24 18:57] LABS: Absolute Lymphocytes (CBC) 1.9 K/uL (0.7-4.9); Hematocrit 31.1 % (36.0-45.0); Lymphocytes % 24.3 % (15.3-44.8); MCV 69.5 fL (80-100); MPV 8.9 fL (7.6-11.3); Platelets 305 thou/uL (152-406); RBC Red Blood Cell Count 4.47 M/uL (3.86-4.86)
[2023-09-24 19:10] LABS: Protime INR 1.01
[2023-09-24 19:16] LABS: Magnesium 2.1 mg/dL (1.6-2.4); Potassium 3.7 mEq/L (3.5-5.1); Troponin High Sensitivity 44.3 pg/mL (<58.9)
[2023-09-24 19:17] LABS: Blood Morphology Comment NOTED (NOT SEEN); Hypochromasia 1+; Platelet Estimate ADEQ; White Blood Cell Scan OK (OK)
--- NOTE | 2023-09-24 19:27 | ER ---
Nurse's Notes [facility] Name: Dwight Hylton Age: 48 yrs Sex: Female : 1975 Arrival Date: 09/24/2023 Time: 18:27 Bed 7 Private MD: Diagnosis: Chest pain, unspecified Presentation: 09/24 18:29 Chief complaint: EMS states: Right sided chest pain 8/10 that radiates to right arm hb that started after getting home from grocery store. Hx of VT, w/o stent placement. NITRO SL X 1, ASA 324 MG PO, FENTANYL 50 MG RADIATOR CORE TESTER, AND ZOFRAN 4 MG IVP TO 20G R HAND ASSISTIVE TECHNOLOGY TRAINER. Coronavirus screen: At this time, the client does not indicate any symptoms associated with coronavirus-19. Ebola Screen: No symptoms or risks identified at this time. Initial Sepsis Screen: Does the patient meet any 2 criteria? No. Patient's initial sepsis screen is negative. Does the patient have a suspected source of infection? No. Patient's initial sepsis screen is negative. Risk Assessment: Do you want to hurt yourself or someone else? Patient reports no desire to harm self or others. Onset of symptoms was September 24, 2023. 18:29 Method Of Arrival: EMS: [facility] hb 18:29 Acuity: LUCIO 3 hb Historical: - Allergies: 18:32 PENICILLINS; hb - Home Meds: 18:32 lisinopril 20 mg Oral tab 1 tab once daily [Active]; atorvastatin 40 mg Oral tab 1 tab hb once daily [Active]; Cardizem Oral [Active]; - PMHx: 18:32 Hypertensive disorder; Myocardial infarction; hb - Immunization history:: Adult Immunizations up to date. - Social history:: Smoking status: Patient denies any tobacco usage or history of. Screenin:33 [facility] ED Fall Risk Assessment (Adult) Score/Fall Risk Level 0 - 2 = Low Risk hb Oriented to surroundings, Maintained a safe environment, Educated pt \T\ family on fall prevention, incl call for assistance when getting out of bed. Abuse screen: Denies threats or abuse. Denies injuries from another. Nutritional screening: No deficits noted. Tuberculosis screening: No symptoms or risk factors identified. Assessment: 18:33 General: Appears in no apparent distress. Behavior is calm, cooperative. Pain: Pain hb currently is 4 out of 10 on a pain scale. at worst was 8 out of 10 on a pain scale. Neuro: Level of Consciousness is awake, alert, obeys commands, Oriented to person, place, time, situation. Cardiovascular: Reports chest pain, Patient's skin is warm and dry. Respiratory: Respiratory effort is even, unlabored, Respiratory pattern is regular, symmetrical. GI: No signs and/or symptoms were reported involving the gastrointestinal system. : No signs and/or symptoms were reported regarding the genitourinary system. EENT: No signs and/or symptoms were reported regarding the EENT system. Derm: Skin is pink, warm \T\ dry. Musculoskeletal: No signs and/or symptoms reported regarding the musculoskeletal system. Vital Signs: 18:29 BP 178 / 88; Pulse 72; Resp 17; Temp 98.3; Pulse Ox 100% on R/A; Pain 4/10; hb 18:29 Pain Scale: Adult hb ED Course: 18:29 Patient arrived in ED. hb 18:30 [facility]C [facility]. kb 18:30 Paco Calhoun MD is Attending Physician. kb 18:32 Triage completed. hb 18:33 Arm band placed on. hb 18:33 Patient has correct armband on for positive identification. Provided Education on: ED hb PROCEDURES AND RESULT TIMES. pluck trimmer on. 18:33 No provider procedures requiring assistance completed. Patient maintains SpO2 hb saturation greater than 95% on room air. 18:43 Basic Metabolic Panel Sent. hb 18:43 CBC with Diff Sent. hb 18:43 Magnesium Sent. hb 18:43 NT PRO-BNP Sent. hb 18:43 PT-INR Sent. hb 18:43 Troponin HS Sent. hb 18:43 Maintain EMS IV. Dressing intact. Good blood return noted. Site clean \T\ dry. Gauge \T\ hb site: 20G RIGHT HAND. 19:22 XRAY Chest (1 view) In Process Unspecified. EDMS 19:26 Graciela Chua MD is Hospitalizing Provider. kb 19:34 Nicolás Denis, CLAUDE is Primary Nurse. bp 22:01 IV discontinued, intact, bleeding controlled, No redness/swelling at site. Pressure bp dressing applied. Administered Medications: 21:19 Drug: ALPRAZolam PO Tablet 0.5 mg PO once; ordered for dr chua Route: PO; bp 21:19 Follow up: Response: No adverse reaction bp Medication: 18:33 VIS not applicable for this client. hb Outcome: 19:26 Decision to Hospitalize by Provider. kb 22:01 Admitted to ER Hold. Please see [facility] for further documentation. bp 22:01 Condition: stable 22:01 Discharge instructions given to patient, Instructed on discharge instructions, follow up and referral plans. medication usage, Demonstrated understanding of instructions, follow-up care, medications, Prescriptions given X 3, 22:02 Patient left the ED. bp Signatures: Dispatcher [employer] EDMS Sherine Lara, ELECTRONIC SALES AND SERVICE TECHNICIAN-C ELECTRONIC SALES AND SERVICE TECHNICIAN-Cheri Samuel, RN RN Nicolás Denis, RN RN bp
--- NOTE | 2023-09-24 19:27 | EDPHYS ---
Physician Documentation [facility] Name: Dwight Hylton Age: 48 yrs Sex: Female : 1975 Arrival Date: 09/24/2023 Time: 18:27 Bed 7 Private MD: ED Physician Paco Calhoun HPI: 09/24 18:57 This 48 yrs old Female presents to ER via EMS with complaints of Chest Pain. kb 18:59 Patient is a 48-year-old female who presents for right-sided chest pain that radiates kb down right arm and upper right side of the neck that started at 1600 today. Patient has history of prior VT, hypertension, high cholesterol.. Historical: - Allergies: 18:32 PENICILLINS; hb - Home Meds: 18:32 lisinopril 20 mg Oral tab 1 tab once daily [Active]; atorvastatin 40 mg Oral tab 1 tab hb once daily [Active]; Cardizem Oral [Active]; - PMHx: 18:32 Hypertensive disorder; Myocardial infarction; hb - Immunization history:: Adult Immunizations up to date. - Social history:: Smoking status: Patient denies any tobacco usage or history of. ROS: 18:55 Constitutional: Negative for fever, chills, and weight loss, kb 18:55 Cardiovascular: Positive for chest pain, Negative for edema, orthopnea, palpitations, paroxysmal nocturnal dyspnea, 18:55 All other systems are negative, Exam: 18:55 Constitutional: This is a well developed, well nourished patient who is awake, alert, kb and in no acute distress. Head/Face: Normocephalic, atraumatic. ENT: Moist Mucous membranes Cardiovascular: Regular rate Respiratory: Respirations even and unlabored. No increased work of breathing. Talking in full sentences Skin: Warm, dry with normal turgor. Normal color. MS/ Extremity: Pulses equal, no cyanosis. Neurovascular intact. Full, normal range of motion. Neuro: Awake and alert, GCS 15, oriented to person, place, time, and situation. Moves all extremities. Normal gait. Vital Signs: 18:29 BP 178 / 88; Pulse 72; Resp 17; Temp 98.3; Pulse Ox 100% on R/A; Pain 4/10; hb 18:29 Pain Scale: Adult hb MDM: 18:30 Patient medically screened. kb 18:56 Data reviewed: vital signs, nurses notes. kb 18:59 Differential diagnosis: abnormal EKG, acute myocardial infarction, anxiety, coronary kb artery disease chest wall pain. The patient was not given aspirin in the Emergency Department. Administered by EMS. 19:25 Consideration of Admission/Observation Patient was admitted/placed on observation. kb Escalation of care including admission/observation considered. Management of patient was discussed with the following: Hospitalist: Dr Chua accepts pt for admission. Historians other than the Patient: EMS: [facility]. Counseling: I had a detailed discussion with the patient and/or guardian regarding the historical points, exam findings, and any diagnostic results supporting the discharge/admit diagnosis, lab results, radiology results, the need for further work-up and treatment in the hospital. ED course: HEART score 5. 09/24 18:30 Order name: Basic Metabolic Panel; Complete Time: 19:17 kb 09/24 18:30 Order name: CBC with Diff; Complete Time: 19:18 kb 09/24 18:30 Order name: Magnesium; Complete Time: 19:17 kb 09/24 18:30 Order name: NT PRO-BNP; Complete Time: 19:17 kb 09/24 18:30 Order name: PT-INR; Complete Time: 19:11 kb 09/24 18:30 Order name: Troponin HS; Complete Time: 19:17 kb 09/24 19:03 Order name: CBC Smear Scan; Complete Time: 19:18 EDMS 09/24 21:01 Order name: Troponin HS; Complete Time: 21:59 bp 09/24 21:33 Order name: Lipid Profile; Complete Time: 21:59 EDMS 09/24 21:33 Order name: C-Reactive Protein; Complete Time: 21:59 EDMS 09/24 18:30 Order name: XRAY Chest (1 view); Complete Time: 19:44 kb 09/24 18:30 Order name: EKG; Complete Time: 18:31 kb 09/24 18:30 Order name: Cardiac monitoring; Complete Time: 18:35 kb 09/24 18:30 Order name: EKG - Nurse/Tech; Complete Time: 18:43 kb 09/24 18:30 Order name: IV Saline Lock; Complete Time: 18:43 kb 09/24 18:30 Order name: Labs collected and sent; Complete Time: 18:43 kb 09/24 18:30 Order name: O2 Per Protocol; Complete Time: 18:43 kb 09/24 18:30 Order name: O2 Sat Monitoring; Complete Time: 18:35 kb Administered Medications: 21:19 Drug: ALPRAZolam PO Tablet 0.5 mg PO once; ordered for dr chua Route: PO; bp 21:19 Follow up: Response: No adverse reaction bp Disposition Summary: 09/24/23 19:26 Hospitalization Ordered Notes: Hospitalization Status: Observation kb Provider: Graciela Chua Condition: Stable kb Problem: new kb Symptoms: are unchanged kb Bed/Room Type: Standard kb Location: [facility] ER HOLD(09/24/23 21:17) Room Assignment: ERHOLD-(09/24/23 21:17) Diagnosis - Chest pain, unspecified kb Forms: - Medication Reconciliation Form kb - SBAR form kb - Leadership Thank You Letter kb Addendum: 09/26/2023 07:43 I was immediately available for consultation during this patient's visit. I did not e c2 personally see the patient or guide the patient's care.. Signatures: Dispatcher [employer] EDMS Sherine Lara, BERTHA-Aileen Diallo RN RN Cheri Floyd RN RN Nicolás Silva RN RN Chichi Hurley PA-C PA-C sb4 Paco Calhoun MD MD ec2 Corrections: (The following items were deleted from the chart) 09/24 21:17 19:26 Telemetry/MedSurg (observation) kb cg 21:17 19:26 kb 21:33 19:42 C-Reactive Protein ordered. EDMS EDMS 21:33 19:42 Lipid Profile ordered. EDMS EDMS 21:33 19:42 Troponin High Sensitivity ordered. EDMS EDMS
--- NOTE | 2023-09-24 19:37 | RAD REPORT ---
EXAM DESCRIPTION: Esther Single View09/24/2023 7:20 pm CLINICAL HISTORY: Chest pain COMPARISON: February 2023 FINDINGS: The lungs appear clear of acute infiltrate. The heart is normal size IMPRESSION: No acute abnormalities displayed
--- NOTE | 2023-09-24 20:21 | P.HP ---
Certification for Inpatient Patient admitted to: Observation With expected LOS: <2 Midnights Patient will require the following post-hospital care: None Practitioner: I am a practitioner with admitting privileges, knowledge of patient current condition, hospital course, and medical plan of care. Services: Services provided to patient in accordance with Admission requirements found in Title 42 Section 412.3 of the Code of Federal Regulations Patient History Date of Service: 09/24/23 Reason for admission: Right-sided chest pain History of Present Illness: Patient is a 48-year-old female came to the hospital with right-sided chest pain. Chest pain was mainly in the sternal region. There was radiation to the right side of the arm. Patient denies any shortness of breath or nausea or vomiting. There is no diaphoresis. Patient came into the hospital for further evaluation. She does admit that she has been having a lot of stress. She recently became the guardian of her goddaughter. She has not been taking care of kids for a long time and she is very anxious and nervous about having a child living with her. She had chest pain a couple years ago and she was sent to [facility] and had a cardiac catheterization which she states showed normal coronaries. She is followed up with her flask carrier over in the [place] area. She says she is happy that all her tests are coming back unremarkable and she would prefer to go home. I did advise her to stay overnight and maybe get a echocardiogram and possibly stress test, but she says she would prefer to do this with her personal flask carrier. We will go ahead and repeat her troponin and if this is negative then I will go ahead and let her discharge with close outpatient follow-up. Continue with lipid therapy and antiplatelet therapy. Monitor her blood pressure. She does have a component of anxiety associated with this I will send her home with some anxiolytics. Allergies Penicillins Allergy (Unverified 06/09/18 17:00) Unknown - Past Medical/Surgical History -: Psychogenic angina -: Cardiac catheterization - Family History Father Family History: Reviewed- Non-Contributory - Social History Smoking Status: Former smoker Alcohol use: No CD- Drugs: No Review of Systems 10-point ROS is otherwise unremarkable Physical Examination - Vital Signs Temperature: 98 F (Reviewed) Blood Pressure: 130/80 Pulse: 80 Respirations: 18 Pulse Ox (%): 98 - Physical Exam General: Alert, In no apparent distress, Oriented x3 HEENT: Atraumatic, PERRLA, Mucous membr. moist/pink, EOMI, Sclerae nonicteric Neck: Supple, 2+ carotid pulse no bruit, No LAD, Without JVD or thyroid abnormality Respiratory: Clear to auscultation bilaterally, Normal air movement Cardiovascular: Regular rate/rhythm, Normal S1 S2 Gastrointestinal: Normal bowel sounds, Soft and benign, Non-distended, No tenderness Musculoskeletal: No clubbing, No swelling, No tenderness Integumentary: No rashes Neurological: Normal gait, Normal speech, Normal strength at 5/5 x4 extr, Normal tone, Normal affect Lymphatics: No axilla or inguinal lymphadenopathy - Studies Laboratory Data (last 24 hrs) 09/24/23 09/24/23 09/24/23 18:41 18:41 18:41 WBC 7.90 Hgb 9.7 L Hct 31.1 L Plt Count 305 PT 11.1 INR 1.01 Sodium 140 Potassium 3.7 BUN 10 Creatinine 0.91 Glucose 98 Magnesium 2.1 Assessment & Plan - Problems (Diagnosis) (1) Chest pain, rule out acute myocardial infarction Current Visit: Yes Status: Acute (2) Atypical angina Current Visit: Yes Status: Acute (3) Anxiety Current Visit: Yes Status: Acute - Plan Plan: 1. Patient with right-sided chest pain. Very atypical. She had extensive cardiac work-up in the past including cardiac catheterization. This was just a couple years ago. She had completely normal coronaries at [facility]. Unlikely to have atherosclerotic disease at this point. We will go ahead and continue with antiplatelet therapy and statin therapy. Repeat her troponin. If her repeat troponin remains negative then I will go ahead and discharge her with outpatient cardiology follow-up as she does not want to stay here. She had a lot of anxiety and she believes that this is what caused her chest pain a couple years ago when she needed a cardiac catheterization. If her troponins are elevated then I would advise her to stay in the hospital for observation and cardiology follow-up in the morning along with an echocardiogram and cardiac stress test. Patient will be admitted for observation. Possible discharge home over the next few hours. Discharge Plan: Home Plan to discharge in: 24 Hours - Advance Directives Does patient have a Living Will: No Does patient have a Durable POA for Healthcare: No - Code Status/Comfort Care Code Status Assessed: Yes Code Status: Full Code Critical Care: No Time Spent Managing PTS Care (In Minutes): 45
[2023-09-24] MEDS ORDERED: ALPRAZOLAM 0.5 MG TABLET PO ONE (20:27)
[2023-09-24] MEDS ORDERED: ALPRAZOLAM 0.5 MG TABLET ONE (21:20)
[2023-09-24 21:46] LABS: HDL Cholesterol 41 mg/dL (40-60); LDL Cholesterol, Calculated 105 mg/dL (<130); Troponin High Sensitivity 57.8 pg/mL (<58.9)
[2023-09-24 21:47] LABS: C-Reactive Protein < 2.90 mg/L (<3.00)
[2023-09-24 22:19] VITALS: BP 178/88; TEMP 98.3; O2SAT 100
--- NOTE | 2023-09-27 17:33 | EKG ---
Test Date: 2023-09-24 Test Time: 18:39:53 [employer]able [employer] Collector: [employer] MEASUREMENT RESULTS: Intervals: Rate: 73 CO: 150 QRSD: 92 QT: 418 QTc: 460 [place]: P: 46 CO: 150 QRS: 12 T: 24 INTERPRETIVE STATEMENTS: Normal sinus rhythm Possible Anterior infarct, age undetermined Abnormal ECG Compared to ECG 02/13/2023 16:51:51 No significant changes Electronically Signed On 09-27-23 17:24:24 PERFORMANCE IMPROVEMENT SPECIALIST by Jeremi Stewart
== END 2023-09-24 22:03 | disposition home or self-care (01) ==
LOC: ER 18:27
DX: R07.89 Other chest pain (principal); F41.9 Anxiety disorder, unspecified; I10 Essential (primary) hypertension; I25.2 Old myocardial infarction; Z88.0 Allergy status to penicillin
CPT/HCPCS: 36415; 71045; 80048; 80061; 83735; 83880; 84484; 85025; 85610; 86140; 93005; 99285

== ENCOUNTER 2024-05-15 17:06 | Emergency (ER) | payer OTHER ==
--- OUTSIDE RECORDS SUMMARY | 2024-05-15 17:13 | XMS REPORT | Continuity of Care Document ---
Author Name Unknown Address [address] [facility] [address] [place] [address] [facility] Address [address] [facility] [address] [place] [address] Care Team Providers Care Hose Wrapper Name Role Phone Bandar Cuevas Primary Care Physician [phone] Jenni Vera Attending Clinician Unavailable DAMIEN FOLEY Attending Clinician Unavailable NAVNEET WRIGHT Attending Clinician Unaevai EMILIA Martin Attending Clinician Unava ilable LAB90 Attending Clinician Unavailable LOGAN RDZ Attending Clinician Unavailable Nic Young MD Attending Clinician [phone] NIC YOUNG Attending Clinician Unavailable JUNIE FUNES Attending Clinician Unavaila ble JUNIE FUNES Attending Clinician Unavaila ronny Doctor Unassigned, [place] Attending Clinician U SONJA Meza Attending Clinician Unavailable Sonja Meier Attending Clinician [phone] Bandar Cuevas Attending Clinician [phone] KEISHA LEE Attending Clinician Unavailabl e Jonathan JENKINS Merrick Andrea Attending Clinician Care, [place] Primary Attending Clinician UnavailBANDAR Mora Attending Clinician Unavailable CHER LEE Attending Clinician Unavaila SAMANTHA Dotson Attending Clinician Unavailable SONA MERAZ Attending Clinician Unavailable SONJA UMANZOR Admitting Clinician Unavailable MALU JOINER Admitting Clinician Unavaila ronny MERAZ, SONA Admitting Clinician Unavailable Payers Payer Name Policy Type Policy Number Effective Date Expirati on Date Source [place] [facility] 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) Disease Active 6-13 00:00: 00 Yanira Sedahiana - Externa l ASCUS on Pap smear ASCUS on Pap smear Disease Active 3-15 00:00: 00 [facility] Coronary artery spasm Coronary artery spasm Disease Active 06-20 00:00: 00 [facility] NSTEMI (non-ST elevated myocardial infarction ) NSTEMI (non-ST elevated myocardial infarction ) Disease Active 06-18 00:00: 00 [facility] Obesity (BMI 30-39.9) Obesity (BMI 30-39.9) Disease Active 06-18 00:00: 00 [facility] Hypertensi ve emergency Hypertensi ve emergency Disease Active 06-18 00:00: 00 [facility] NSVT (nonsustai zainab ventricula r tachycardi a) NSVT (nonsustai zainab ventricula r tachycardi a) Disease Active 06-18 00:00: 00 [facility] Bulging disc Bulging disc Disease Active 07-17 00:00: 00 [facility] Bulging disc Bulging disc Disease Active 07-17 00:00: 00 [facility] [id number] History of MO (myocardia l infarction ) Problem [facility] [id number] Mixed hyperlipid emia Problem [facility] [id number] Gastroesop hageal reflux disease, unspecifie d whether esophagiti s present Problem [facility] [id number] Primary hypertensi on Problem [facility] HPV test positive HPV test positive Problem [facility] Abnormal Pap smear of vagina and vaginal HPV Abnormal Pap smear of vagina and vaginal HPV Problem [facility] Allergies, Adverse Reactions, Alerts Allergy Name Allergy Type Status Severity Reaction(s) Onset Date Inactive Date Treating Clinician Comments Source Penicill ins Propensi ty to adverse reaction s Active Anaphylaxis 04-03 00:00: 00 Yanira Shook - Externa l No Known Allergie s DA Active U 2019-11 0-10 00:00: 00 [facility] Penicill ins DA Active SV 2019-11 0-10 00:00: 00 [facility] No Known Allergie s DA Active U 1 0-10 00:00: 00 [facility] Penicill ins DA Active SV swelling, unable to breath 2019-11 0-10 00:00: 00 [facility] PENICILL IN DRUG INGREDI Active Anaphylaxis 805 00:00: 00 [facility] Penicill in Propensi ty to adverse reaction s Active Anaphylaxis 805 00:00: 00 [facility] penicill in V penicill in V Active anaphylaxis [facility] Social History Social Habit Start Date Stop Date Quantity Comments Source [facility] Lea Shook - External History of Tobacco Use [facility] Alcoholic beverage intake 2024-04-25 00:00:00 2024-04-25 00:00:00 Current drinker of alcohol (finding) Yanira Shook - External Alcohol intake 2023-12-21 00:00:00 2023-12-21 00:00:00 Current drinker of alcohol (finding) Yanira Shook - External Tobacco use and exposure 2023-04-03 00:00:00 2023-04-03 00:00:00 Smokeless tobacco non-user Yanira Shook - External Alcohol Comment 2023-04-03 00:00:00 2023-04-03 00:00:00 socially Yanira Shook - External Exposure to SARS-CoV-2 (event) 2022-06-28 00:00:00 2022-07-08 14:52:00 Not sure [facility] History of Social function 2022-07-08 00:00:00 2022-07-08 00:00:00 [facility] History SDOH Alcohol Frequency 2019-07-25 00:00:00 2019-07-25 00:00:00 2 [facility] History SDOH Alcohol Std Drinks 2019-07-25 00:00:00 2019-07-25 00:00:00 1 [facility] History SDOH Alcohol Binge 2019-07-25 00:00:00 2019-07-25 00:00:00 1 [facility] Sex assigned at 1975 00:00:00 1975 00:00:00 Yanira Shook - External Smoking Status Start Date Stop Date Source Never smoked tobacco Yanira Shook - External Medications Ordered Medication Name Filled Medication Name Start Date Stop Date Current Medication? Ordering Clinician Indication Dosage Frequency Signature (SIG) Comments Components Source ASPIRIN 81 OR 04-25 14:27: 35 Yes [id number] 2{tbl} Take 2 tablets by mouth daily Yanira valdes Iron-Vitami n C (Iron 100/C) 100-250 MG oral Tablet 04-25 14:27: 35 Yes Take by mouth Yanira valdes Trulicity 0.75 MG/0.5ML subcutaneou s Solution Pen-injecto r 04-12 00:00: 00 Yes [id number] 3 .75mg Inject 0.75 mg into the skin once a week. Yanira valdes dilTIAZem HCl ER Beads 120 MG oral Capsule 24 Hour Sustained Release 04-12 00:00: 00 Yes [id number] 120mg Take 1 capsule (120 mg total) by mouth daily. Yanira valdes ASPIRIN 81 OR 02-19 16:00: 25 Yes [id number] 2{tbl} Take 2 tablets by mouth daily Yanira valdes Iron-Vitami n C (Iron 100/C) 100-250 MG oral Tablet 02-19 16:00: 25 Yes Take by mouth Yanira valdes Trulicity 0.75 MG/0.5ML subcutaneou s Solution Pen-injecto r 02-19 00:00: 00 Yes [id number] 3 .75mg Inject 0.75 mg into the skin once a week. Yanira valdes Bioflavonoi d Products (Vitamin C) oral Chewable Tablet 12-21 16:08: 15 12-21 00:00 :00 No 1{tbl} Take 1 tablet by mouth daily Yanira valdes ASPIRIN 81 OR 12-21 16:08: 13 Yes [id number] 2{tbl} Take 2 tablets by mouth daily Yanira valdes Iron-Vitami n C (Iron 100/C) 100-250 MG oral Tablet 12-21 16:08: 13 Yes Take by mouth Yanira valdes Trulicity 1.5 MG/0.5ML subcutaneou s Solution Pen-injecto r 12-21 00:00: 00 Yes [id number] 3 1.5mg Inject 1.5 mg into the skin once a week. Yanira valdes Azithromyci n 250 MG oral Tablet 12-21 00:00: 00 12-27 05:59 :00 No [id number] Take 2 tablets by mouth on day 1 then 1 tablet by mouth daily for 4 days thereafter .. Yanira valdes Trulicity 0.75 MG/0.5ML subcutaneou s Solution Pen-injecto r 2024-0 2-02 00:00: 00 12-21 00:00 :00 No [id number] 3 .75mg Inject 0.75 mg into the skin once a week. Yanira valdes ASPIRIN 81 OR 10 15:44: 55 Yes [id number] 2{tbl} Take 2 tablets by mouth daily Yanira valdes Bioflavonoi d Products (Vitamin C) oral Chewable Tablet 11-22 15:44: 55 Yes 1{tbl} Take 1 tablet by mouth daily Yanira valdes Iron-Vitami n C (Iron 100/C) 100-250 MG oral Tablet 11-22 15:44: 55 Yes Take by mouth Yanira valdes Trulicity 0.75 MG/0.5ML subcutaneou s Solution Pen-injecto r 11-22 00:00: 00 Yes [id number] 3 .75mg Inject 0.75 mg into the skin once a week. Yanira valdes Alprazolam 0.5 MG oral Tablet 2022-11 00:00: 00 Yes .5mg Q.5D Take 1 tablet (0.5 mg total) by mouth 2 times daily as needed for anxiety. Yanira valdes Metformin HCl 500 MG oral Tablet 17 00:00: 00 11-22 00:00 :00 No [id number] TAKE 1 TABLET BY MOUTH IN THE MORNING AND 1 IN THE EVENING WITH MEALS Yanira valdes Iron-Vitami n C (Iron 100/C) 100-250 MG oral Tablet 05-23 13:32: 38 Yes Take by mouth Yanira valdes ASPIRIN 81 OR 05-23 13:31: 45 Yes [id number] 2{tbl} Take 2 tablets by mouth daily Yanira valdes Bioflavonoi d Products (Vitamin C) oral Chewable Tablet 05-23 13:31: 45 Yes 1{tbl} Take 1 tablet by mouth daily Yanira valdes Isosorbide Mononitrate CR 60 MG oral TABLET SR 24 HR 7-11 00:00: 00 Yes [id number] Take 1 tablet by mouth once daily Yanira valdes Atorvastati n Calcium 20 MG oral Tablet 05-01 00:00: 00 Yes [id number] 3 20mg Take 1 tablet (20 mg total) by mouth daily Yanira valdes Lisinopril 10 MG oral Tablet 05-01 00:00: 00 Yes [id number] 10mg Take 1 tablet (10 mg total) by mouth daily Yanira valdes ASPIRIN 81 OR 04-25 14:45: 32 Yes [id number] 2{tbl} Take 2 tablets by mouth daily Yanira valdes Bioflavonoi d Products (Vitamin C) oral Chewable Tablet 04-25 14:45: 32 Yes 1{tbl} Take 1 tablet by mouth daily Yanira valdes Diltiazem HCl Coated Beads 120 MG oral Capsule 24 Hour Sustained Release 04-06 00:00: 00 Yes [id number] Yanira valdes Metformin HCl 500 MG oral Tablet 04-05 00:00: 00 Yes [id number] 500mg Take 1 tablet (500 mg total) by mouth in the morning and 1 tablet (500 mg total) in the evening. Take with meals. Yanira valdes Lisinopril 20 MG oral Tablet 04-03 15:18: 24 04-03 00:00 :00 No 20mg Take 1 tablet (20 mg total) by mouth daily Yanira valdes Diltiazem HCl CR 120 MG oral Capsule 24 Hour Sustained Release 04-03 15:18: 24 04-03 00:00 :00 No 120mg Take 1 capsule (120 mg total) by mouth daily Yanira valdes ASPIRIN 81 OR 04-03 14:49: 25 Yes [id number] 2{tbl} Take 2 tablets by mouth daily Yanira valdes Bioflavonoi d Products (Vitamin C) oral Chewable Tablet 04-03 14:49: 25 Yes 1{tbl} Take 1 tablet by mouth daily Yanira valdes Diltiazem HCl CR 120 MG oral Capsule 24 Hour Sustained Release 04-03 00:00: 00 Yes [id number] 120mg Take 1 capsule (120 mg total) by mouth daily Yanira valdes Lisinopril 20 MG oral Tablet 04-03 00:00: 00 Yes [id number] 20mg Take 1 tablet (20 mg total) by mouth daily Yanira valdes Atorvastati n Calcium 40 MG oral Tablet 04-03 00:00: 00 Yes [id number] 40mg Take 1 tablet (40 mg total) by mouth daily Yanira valdes Atorvastati n Calcium 40 MG oral Tablet 2021-11 00:00: 00 04-03 00:00 :00 No 40mg Take 1 tablet (40 mg total) by mouth daily Yanira valdes multivit-ir on-FA-calci um-mins 18 mg iron-400 mcg-500 mg Ca Tab 07-08 15:06: 56 Yes Take by mouth. [facility] Vitamin C 100 mg tablet 07-08 15:06: 56 Yes 100mg Take 100 mg by mouth in the morning. [facility] multivit-ir on-FA-calci um-mins 18 mg iron-400 mcg-500 mg Ca Tab 07-08 15:06: 56 Yes Take by mouth. [facility] diltiazem 240 mg 24 hr capsule 07-08 00:00: 00 Yes [id number] 240mg Take 1 capsule by mouth in the morning. [facility] Medrol 4 MG Medrol 4 MG 4-14 00:00: 00 03-02 00:00 :00 No QD Medrol 4 MG Pantoprazol e Sodium 40 MG Pantoprazol e Sodium 40 MG 1-03 00:00: 00 No 1{table t} QD Pantoprazo le Sodium 40 MG lisinopriL 20 mg tablet 9-16 00:00: 00 Yes [id number] 20mg Take 1 tablet by mouth 2 (two) times daily. [facility] VITAMIN B COMPLEX ORAL 07-07 15:04: 15 Yes Take by mouth. [facility] diltiazem 120 mg 24 hr tablet 07-07 00:00: 00 07-08 00:00 :00 No [id number] 120mg Take 1 tablet by mouth daily. [facility] atorvastati n 40 mg tablet 06-28 00:00: 00 10-31 00:00 :00 No [id number] 40mg Take 1 tablet by mouth daily. [facility] fenofibrate (TRICOR) 145 mg tablet 01-25 00:00: 00 Yes [id number] 145mg Take 1 tablet by mouth daily. [facility] aspirin 81 mg chewable tablet 05-21 11:17: 39 Yes 81mg Take 81 mg by mouth daily. [facility] Fenofibrate 145 MG Fenofibrate 145 MG No 1{table t} QD Fenofibrat e 145 MG Lisinopril 20 MG Lisinopril 20 MG No 1{table t} BID Lisinopril 20 MG Aspirin 81 81 MG Aspirin 81 81 MG No 1{table t} QD Aspirin 81 81 MG Pantoprazol e Sodium 40 MG Pantoprazol e Sodium 40 MG No 1{table t} QD Pantoprazo le Sodium 40 MG Atorvastati n Calcium 40 MG Atorvastati n Calcium 40 MG No 1{table t} QD Atorvastat in Calcium 40 MG dilTIAZem HCl 120 MG dilTIAZem HCl 120 MG No 1{table t} QD dilTIAZem HCl 120 MG Atorvastati n Calcium 40 MG Atorvastati n Calcium 40 MG No 1{table t} QD Atorvastat in Calcium 40 MG Lisinopril 20 MG Lisinopril 20 MG No Lisinopril 20 MG Pantoprazol e Sodium 40 MG Pantoprazol e Sodium 40 MG No 1{table t} QD Pantoprazo le Sodium 40 MG dilTIAZem HCl 120 MG dilTIAZem HCl 120 MG No 1{table t} QD dilTIAZem HCl 120 MG Fenofibrate 145 MG Fenofibrate 145 MG No 1{table t} QD Fenofibrat e 145 MG Aspirin 81 81 MG Aspirin 81 81 MG No 1{table t} QD Aspirin 81 81 MG Atorvastati n Calcium 40 MG Atorvastati n Calcium 40 MG No 1{table t} QD Atorvastat in Calcium 40 MG Aspirin 81 81 MG Aspirin 81 81 MG No 1{table t} QD Aspirin 81 81 MG Fenofibrate 145 MG Fenofibrate 145 MG No 1{table t} QD Fenofibrat e 145 MG Lisinopril 20 MG Lisinopril 20 MG No 1{table t} BID Lisinopril 20 MG dilTIAZem HCl 120 MG dilTIAZem HCl 120 MG No 1{table t} QD dilTIAZem HCl 120 MG Immunizations Ordered Immunization Name Filled Immunization Name Date Status Comments Source TDAP 2019-07-25 00:00:00 Completed [facility] Influenza Virus Vaccine 2019-07-25 00:00:00 Completed [facility] TDAP 2019-07-25 00:00:00 Completed [facility] Influenza Virus Vaccine 2019-07-25 00:00:00 Completed [facility] TDAP 2019-07-25 00:00:00 Completed [facility] Influenza Virus Vaccine 2019-07-25 00:00:00 Completed [facility] Tdap- (Boostrix, Adacel) 2019-07-25 00:00:00 Completed Ynaira Posadaold - External Tdap- (Boostrix, Adacel) 2019-07-25 00:00:00 Completed Yanira Shook - External Influenza Virus Vaccine, Unspecified Formulation 2019-07-25 00:00:00 Completed Yanira Ferrisybold - External Tdap- (Boostrix, Adacel) 2019-07-25 00:00:00 Completed Yanira Posadaold - External Influenza Virus Vaccine, Unspecified Formulation 2019-07-25 00:00:00 Completed Yanira Shook - External TDAP Unknown Completed [facility] Influenza Virus Vaccine Unknown Completed [facility] TDAP Unknown Completed [facility] Influenza Virus Vaccine Unknown Completed [facility] Tdap- (Boostrix, Adacel) Unknown Completed Yanira Posadaold - External Influenza Virus Vaccine, Unspecified Formulation Unknown Completed Yanira Seybold - External Tdap- (Boostrix, Adacel) Unknown Completed Yanira Seybold - External Influenza Virus Vaccine, Unspecified Formulation Unknown Completed Yanira Seybold - External Tdap- (Boostrix, Adacel) Unknown Completed Yanira Seybold - External Influenza Virus Vaccine, Unspecified Formulation Unknown Completed Yanira Seybold - External Tdap- (Boostrix, Adacel) Unknown Completed Yanira Seybold - External Influenza Virus Vaccine, Unspecified Formulation Unknown Completed Yanira Seybold - External Vital Signs Vital Name Observation Time Observation Value Comments S ource Systolic blood pressure 2024-02-20 21:02:00 150 mm[Hg] Yanira Seybo ld - External Diastolic blood pressure 2024-02-20 21:02:00 84 mm[Hg] Yanira Seybo ld - External Heart rate 2024-02-20 21:02:00 87 /min Kelse y Seybold - External Body temperature 2024-02-20 21:02:00 36.22 Socorro Yanira Seybold - External Respiratory rate 2024-02-20 21:02:00 14 /min Yanira Seybold - External Body height 2024-02-20 21:02:00 165.1 cm Lea ey Seybold - External Body weight 2024-02-20 21:02:00 101.152 kg Lea ey Seybold - External BMI 2024-02-20 21:02:00 37.11 kg/m2 Lea ey Seybold - External Systolic blood pressure 2023-12-21 22:05:00 130 mm[Hg] Yanira Seybo ld - External Diastolic blood pressure 2023-12-21 22:05:00 90 mm[Hg] Yanira Seybo ld - External Heart rate 2023-12-21 22:05:00 85 /min Kelse y Seybold - External Body temperature 2023-12-21 22:05:00 35.56 Socorro Yanira Seybold - External Respiratory rate 2023-12-21 22:05:00 15 /min Yanira Seybold - External Body height 2023-12-21 22:05:00 165.1 cm Lea ey Seybold - External Body weight 2023-12-21 22:05:00 97.977 kg Lea ey Seybold - External BMI 2023-12-21 22:05:00 35.94 kg/m2 Lea ey Seybold - External Diastolic blood pressure 2023-11-22 21:41:00 76 mm[Hg] Yanira Seybo ld - External Heart rate 2023-11-22 21:41:00 96 /min Kelse y Seybold - External Body temperature 2023-11-22 21:41:00 36.56 Socorro Yanira Seybold - External Respiratory rate 2023-11-22 21:41:00 14 /min Yanira Seybold - External Body height 2023-11-22 21:41:00 165.1 cm Lea ey Seybold - External Body weight 2023-11-22 21:41:00 99.338 kg Lea ey Seybold - External BMI 2023-11-22 21:41:00 36.44 kg/m2 Lea ey Seybold - External Systolic blood pressure 2023-11-22 21:41:00 134 mm[Hg] Yanira Seybo ld - External Systolic blood pressure 2023-05-23 18:27:00 132 mm[Hg] Yanira Seybo ld - External Diastolic blood pressure 2023-05-23 18:27:00 80 mm[Hg] Yanira Seybo ld - External Heart rate 2023-05-23 18:27:00 80 /min Kelse y Seybold - External Body temperature 2023-05-23 18:27:00 36.44 [place] Yanira Seybold - External Respiratory rate 2023-05-23 18:27:00 16 /min Yanira Seybold - External Body height 2023-05-23 18:27:00 165.1 cm Lea ey Seybold - External Body weight 2023-05-23 18:27:00 99.882 kg Lea ey Seybold - External BMI 2023-05-23 18:27:00 36.64 kg/m2 Lea ey Seybold - External Oxygen saturation in Arterial blood by Pulse oximetry 2023-05-23 18:27:00 97 /min Yanira Seybo ld - External Heart rate 2023-04-25 19:43:00 75 /min Kelse y Seybold - External Body temperature 2023-04-25 19:43:00 36.44 Socorro Yanira Seybold - External Body height 2023-04-25 19:43:00 165.1 cm Lea ey Seybold - External Body weight 2023-04-25 19:43:00 101.606 kg Lea ey Seybold - External BMI 2023-04-25 19:43:00 37.28 kg/m2 Lea ey Seybold - External Systolic blood pressure 2023-04-03 19:44:00 130 mm[Hg] Yanira Seybo ld - External Diastolic blood pressure 2023-04-03 19:44:00 80 mm[Hg] Yanira Ferrisybo ld - External Heart rate 2023-04-03 19:44:00 87 /min Kel y Seybold - External Body temperature 2023-04-03 19:44:00 36.11 Socorro Yanira Seybold - External Respiratory rate 2023-04-03 19:44:00 16 /min Yanira Seybold - External Body height 2023-04-03 19:44:00 165.1 cm Lea ey Seybold - External Body weight 2023-04-03 19:44:00 103.057 kg Lea ey Seybold - External BMI 2023-04-03 19:44:00 37.81 kg/m2 Lea ey Seybold - External Oxygen saturation in Arterial blood by Pulse oximetry 2023-04-03 19:44:00 97 /min Yanira Posadao ld - External height 2022-07-13 12:00:00 65 [in_i] Commo n [facility] weight 2022-07-13 12:00:00 226 [lb_av] Comm on [facility] bmi 2022-07-13 12:00:00 37.6 kg/m2 Commo n [facility] Systolic blood pressure 2022-07-08 20:08:00 145 mm[Hg] [facility] Diastolic blood pressure 2022-07-08 20:08:00 90 mm[Hg] [facility] Heart rate 2022-07-08 20:07:00 80 /min [facility] Respiratory rate 2022-07-08 20:07:00 20 /min [facility] Body height 2022-07-08 20:07:[address] [facility] Body weight 2022-07-08 20:07:[address] [facility] BMI 2022-07-08 20:07:00 44.31 kg/m2 [facility] Oxygen saturation in Arterial blood by Pulse oximetry 2022-07-08 20:07:00 98 /min [facility] height 2021-12-21 14:00:00 65 [in_i] Commo n [facility] weight 2021-12-21 14:00:00 227.4 [lb_av] Co mmon [facility] temperature 2021-12-21 14:00:00 98.0 [degF] Com mon [facility] bmi 2021-12-21 14:00:00 37.84 kg/m2 Comm on [facility] oximetry 2021-12-21 14:00:00 98 % Commo n [facility] respiratory rate 2021-12-21 14:00:00 16 /min [facility] blood pressure systolic 2021-12-21 14:00:00 169 mm[Hg] [facility] blood pressure diastolic 2021-12-21 14:00:00 81 mm[Hg] [facility] height 2021-11-15 15:20:00 65 [in_i] Commo n [facility] weight 2021-11-15 15:20:00 227 [lb_av] Comm on [facility] temperature 2021-11-15 15:20:00 98 [degF] Comm on [facility] bmi 2021-11-15 15:20:00 37.77 kg/m2 Comm on [facility] oximetry 2021-11-15 15:20:00 99 % Commo n [facility] respiratory rate 2021-11-15 15:20:00 22 /min [facility] blood pressure systolic 2021-11-15 15:20:00 132 mm[Hg] [facility] blood pressure diastolic 2021-11-15 15:20:00 80 mm[Hg] [facility] Procedures Procedure Date / Time Performed Performing Clinicia n Source ECG- ADULT 2023-04-25 20:14:48 Damien Foley S eybold - External Encounters Start Date/Time End Date/Time Encounter Type Admission Type Attending [facility] Care Facility Care Department Encounter ID Source 2022-10-17 11:04:02 Outpatient Evra, Na STLMLC STLMLC [id number] [facility] 2022-10-10 14:21:02 Outpatient Vera, Na STLMLC STLMLC [id number] [facility] 2022-07-11 08:48:01 Outpatient Vera, Na STLMLC STLMLC [id number] [facility] 2022-05-26 13:04:01 Outpatient Vera, Na STLMLC STLMLC [id number] [facility] 2022-04-20 15:26:01 Outpatient Vera, Na STLMLC STLMLC [id number] [facility] 2022-02-22 10:20:02 Outpatient Vera, Na STLMLC STLMLC [id number] [facility] 2021-12-17 10:55:01 Outpatient Vera, Na STLMLC STLMLC [id number] [facility] 2021-12-08 14:30:16 Outpatient Vera, Na STLMLC STLMLC [id number] [facility] 2021-09-12 17:23:54 Emergency [facility] [id number] [facility] 2020-08-22 17:18:00 Inpatient ALYSSAU SYBIL [id number] [facility] 2024-05-21 15:30:00 2024-05-21 15:30:00 Outpatient HUNDL, DAMIEN YANIRA BUTLER [id number] Yanira Seybbindu 2024-05-15 00:00:00 2024-05-15 00:00:00 Outpatient NAVNEET WRIGHT YANIRA BUTLER [id number] Yanira Ferrisybbindu 2024-04-25 15:00:00 2024-04-25 15:00:00 Outpatient MERAZEMILIA RANDALL YANIRA BUTLER [id number] Yanira Seybbindu 2024-04-11 00:00:00 2024-04-11 00:00:00 Outpatient HUNDL, DAMIEN BUTLER [id number] Yanira Seybbindu 2024-04-09 00:00:00 2024-04-09 00:00:00 Outpatient HUNDL, DAMIEN BUTLER [id number] Yanira Seybbindu 2024-03-22 00:00:00 2024-03-22 00:00:00 Outpatient HUNDL, DAMIEN BUTLER [id number] Yanira Seybold 2024-02-20 16:45:00 2024-02-20 16:45:00 Outpatient LAB90 YANIRA BUTLER [id number] Yanira Seybold 2024-02-20 16:00:00 2024-02-20 16:00:00 Outpatient HUNDL, DAMIEN BUTLER [id number] Yanira Seybold 2023-12-21 16:30:00 2023-12-21 16:30:00 Outpatient HUNDL, DAMIEN BUTLER [id number] Yanira Seybold 2023-12-14 00:00:00 2023-12-14 00:00:00 Outpatient HUNDL, DAMIEN BUTLER [id number] Yanira Seybold 2023-11-22 16:00:00 2023-11-22 16:00:00 Outpatient HUNDL, DAMIEN BUTLER [id number] Yanira Seybold 2023-11-17 00:00:00 2023-11-17 00:00:00 Outpatient PREZASLOGAN [id number] Yanira Seybold 2023-11-16 09:40:00 2023-11-16 09:40:00 Outpatient LAB90 YANIRA BUTLER [id number] Yanira Shook 2023-11-15 00:00:00 2023-11-15 00:00:00 Outpatient PREZALOGAN Landa YANIRA BUTLRE [id number] Yanira Shook 2023-09-15 10:00:00 2023-09-15 10:00:00 Outpatient LAB90 YANIRA BUTLER [id number] Yanira Shook 2023-08-24 00:00:00 2023-08-24 00:00:00 Outpatient PREZALOGAN Landa YANIRA BUTLER [id number] Yanira Ferrisybbindu 2023-07-04 15:10:00 2023-07-04 15:10:00 Outpatient LAB90 YANIRA BUTLER [id number] Yanira Ferrisybbindu 2023-06-25 00:00:00 2023-06-25 00:00:00 Outpatient HUNDL, DAMIEN BUTLER [id number] [facility] 2023-05-23 14:00:00 2023-05-23 14:00:00 Outpatient HUNDL, DAMIEN BUTLER [id number] [facility] 2023-05-21 00:00:00 2023-05-21 00:00:00 Outpatient ADRIANA, NAVNEET YANIRA BUTLER [id number] [facility] 2023-05-03 14:45:00 2023-05-03 14:45:00 Outpatient YANIRA BUTLER [id number] [facility] 2023-05-01 11:10:00 2023-05-01 11:10:00 Outpatient HARMS, NAVNEET YANIRA BUTLER [id number] [facility] 2023-05-01 00:00:00 2023-05-01 00:00:00 Outpatient HUNDL, DAMIEN BUTLER [id number] [facility] 2023-04-25 15:45:00 2023-04-25 15:45:00 Outpatient LAB90 YANIRA BUTLER [id number] [facility] 2023-04-25 15:00:00 2023-04-25 15:00:00 Outpatient HUNDL, DAMIEN BUTLER [id number] [facility] 2023-04-19 00:00:00 2023-04-19 00:00:00 Outpatient PREZAS, LOGANLUC ROTHSEY YANIRA [id number] [facility] 2023-04-06 13:55:00 2023-04-06 13:55:00 Outpatient LAB90 YANIRA BUTLER [id number] Yanira [facility] 2023-04-05 00:00:00 2023-04-05 00:00:00 Outpatient DAMIEN FOLEY YANIRA [id number] [facility] 2023-04-03 15:45:00 2023-04-03 15:45:00 Outpatient LAB90 YANIRA BUTLER [id number] Yanira [facility] 2023-04-03 15:00:00 2023-04-03 15:00:00 Outpatient DAMIEN FOLEY YANIRA [id number] Yanira [facility] 2022-10-28 00:00:00 2022-10-28 00:00:[facility] 1.2.840.114 350.1.13.10 4.2.7.2.686 [id number] [facility] 2022-10-19 00:00:00 2022-10-19 00:00:00 OL DIG E/M SVC 11-20 MIN STLMLC STLMLC [id number] [facility] 2022-10-04 13:20:00 2022-10-04 13:20:00 Outpatient NIC HERNANDEZ [facility] [id number] [facility] 2022-07-21 13:00:00 2022-07-21 13:00:00 [id number] 2022-07-21 13:00:00 2022-07-21 13:00:00 [facility] [id number] [facility] 2022-07-19 14:00:00 2022-07-19 14:00:00 Outpatient R JUNIE FUNES STRAHIL [facility] [id number] [facility] 2022-07-13 00:00:00 2022-07-13 00:00:00 OL DIG E/M SVC 11-[address] [facility] [id number] [facility] 2022-07-08 15:20:00 2022-07-08 15:22:03 [facility] [id number] [facility] 2022-07-08 15:20:00 2022-07-08 15:22:03 [facility] 1.840.114 350.1.13.10 4.2.7.2.686 [id number] [facility] 2022-07-08 00:00:00 2022-07-08 00:00:00 Orders Only Doctor Unassigned, [place] [facility] 1.840.114 350.1.13.10 4.2.7.2.686 [id number] [facility] 2022-06-24 00:00:00 2022-06-24 00:00[id number] 2022-06-15 00:00:00 2022-06-15 00:00:00 Orders Only Doctor Unassigned, [place] [facility] 1.840.114 350.1.13.10 4.2.7.2.686 [id number] [facility] 2022-06-15 00:00:00 2022-06-15 00:00:00 [facility] [id number] 2022-05-09 14:51:00 2022-05-09 18:40:00 Emergency X SONJA UMANZOR [facility] ERT [id number] [facility] 2022-05-09 14:51:00 2022-05-09 18:40:00 Emergency Sonja Umanzor [facility] 1.284.114 350.1.13.10 4.2.7.2.686 [id number] [facility] 2022-05-09 00:00:00 2022-05-09 00:00:00 Orders Only Doctor Unassigned, [place] [facility] 1.2.840.114 350.1.13.10 4.2.7.2.686 [id number] [facility] 2022-02-24 00:00:00 2022-02-24 00:00:00 OFFICE VISIT EST PT LEVEL 3 STLMLC STLMLC [id number] [facility] 2022-02-23 00:00:00 2022-02-23 00:00:00 (TEL) STLMLC STLMLC [id number] [facility] 2021-12-24 00:00:00 2021-12-24 00:00:00 (TEL) STLMLC STLMLC [id number] [facility] 2021-12-21 00:00:00 2021-12-21 00:00:00 PREV VISIT EST AGE 40-64 STLMLC STLMLC [id number] [facility] 2021-11-15 00:00:00 2021-11-15 00:00:00 OFFICE VISIT NEW PT LEVEL 4 STLMLC STLMLC [id number] [facility] 2021-07-29 00:00:00 2021-07-29 00:00:00 Telephone Simon Bandar [facility] 1.2.840.114 350.1.13.10 4.2.7.2.686 [id number] [facility] 2021-07-28 00:00:00 2021-07-28 00:00:00 Refill Simon Bandar [facility] ([facility]) 1.2.840.114 350.1.13.10 4.2.7.2.686 [id number] [facility] 2021-07-12 00:00:00 2021-07-12 00:00:00 Patient Secure Msg Doctor Unassigned, [place] [facility] 1.840.114 350.1.13.10 4.2.7.2.686 [id number] [facility] 2021-07-07 14:46:45 2021-07-07 15:14:49 [facility] 1.284.114 350.1.13.10 4.2.7.2.686 [id number] [facility] 2021-07-07 14:40:00 2021-07-07 14:40:00 Outpatient R HUSSEIN [facility] [id number] [facility] 2021-07-05 11:45:00 2021-07-05 11:45:00 Outpatient R HUSSEIN [facility] [id number] [facility] 2021-05-05 14:00:00 2021-05-05 14:00:00 Outpatient R HUSSEIN [facility] [id number] [facility] 2021-04-05 11:00:00 2021-04-05 11:00:00 Outpatient R HUSSEIN [facility] [id number] [facility] 2021-03-17 18:41:00 2021-03-18 01:41:00 Emergency X KEISHA LEE [facility] ERT [id number] [facility] 2021-01-28 00:00:00 2021-01-28 00:00:00 Patient Outreach Merrick Castillo [facility] 1.840.114 350.1.13.10 4.2.7.2.686 [id number] 2021-01-21 13:42:32 2021-01-21 15:04:25 Office Visit Care, [facility] 1.84.114 350.1.13.10 4.2.7.2.686 [id number] 2021-01-21 13:30:00 2021-01-21 13:30:00 Outpatient BANDAR AL [facility] [id number] [facility] 2021-01-21 00:00:00 2021-01-21 00:00:00 Orders Only Doctor Unassigned, [place] [facility] 1..840.114 350.1.13.10 4.2.7.2.686 [id number] 2020-07-22 13:00:00 2020-07-22 13:00:00 Outpatient R [facility] [id number] [facility] 2020-07-22 00:00:00 2020-07-22 00:00:00 Patient Secure Msg Young Nic [facility] 1..840.114 350.1.13.10 4.2.7.2.686 [id number] [facility] 2020-07-15 00:00:00 2020-07-15 00:00:00 Outpatient BANDAR LA [facility] [id number] [facility] 2020-07-07 00:00:00 2020-07-07 00:00:00 Outpatient BANDAR LA [facility] [id number] [facility] 2020-07-06 13:00:00 2020-07-06 13:00:00 Outpatient NIC HERNANDEZ [facility] [id number] [facility] 2020-05-21 11:30:00 2020-05-21 11:30:00 Outpatient BANDAR LA [facility] [id number] [facility] 2020-05-05 11:00:00 2020-05-05 11:00:00 Outpatient CHER SANDOVAL [facility] [id number] [facility] 2020-03-18 13:30:00 2020-03-18 13:30:00 Outpatient SAMANTHA ARAUJO [facility] [id number] [facility] 2020-01-06 14:40:00 2020-01-06 14:40:00 Outpatient NIC HERNANDEZ [facility] [id number] [facility] 2019-10-21 14:13:55 2019-10-21 23:59:00 Outpatient SONA ARAUJO [facility] [id number] [facility] Results Test Description Test Time Test Comments Results Result Co mments Source Yanira Shook [id number] 12:02:00* Test Item Value Reference Range Interpretation Comme nts TROPONIN-I (test code = TROPI) 0.065 NG/ML 0.012-0.033 H [id number] 07:38:00* Test Item Value Reference Range Interpretation Comme nts TROPONIN-I (test code = TROPI) 0.088 NG/ML 0.012-0.033 H COMPREHENSIVE METABOLIC [id number] 07:37:00* Test Item Value Reference Range Interpretation Comme nts SODIUM (test code = NA) 138 MMOL/L 137-145 N POTASSIUM (test code = K) 3.7 MMOL/L 3.5-5.1 N CHLORIDE (test code = CL) 106 MMOL/L 98-107 N CARBON DIOXIDE (test code = CO2) 24 MMOL/L 22-30 N ANION GAP (test code = GAP) 12 MMOL/L 14-24 L GLUCOSE (test code = GLU) 101 MG/DL 74-106 N BLOOD UREA NITROGEN (test code = BUN) 8 MG/DL 7-17 N GLOMERULAR FILTRATION RATE (test code = GFR) > 60 Reporting units: ml/min/1.73 m2 (Modified MDRD Formula)Reference Range: > or = 60 ml/min/1.73 m2 CREATININE (test code = CREAT) 0.70 MG/DL 0.52-1.04 N TOTAL PROTEIN (test code = PROT) 6.1 G/DL 6.3-8.2 L ALBUMIN (test code = ALB) 3.5 G/DL 3.5-5.0 N CALCIUM (test code = CA) 8.4 MG/DL 8.4-10.2 N BILIRUBIN TOTAL (test code = BILT) 0.8 MG/DL 0.2-1.3 Eltrombopag Interference for Vitros Product TBil, BuBc: A ssay Eltrombopag Analyte/ Max Observed Avg. Bias Concentration Concentration Concentration========= =======TBil 7mg/dl TBil/ 1.2mg/dl +0.23mg.dl +0.20mg/dlBuBc 3.5mg/dl Bu/0.8mg/dl +0.25mg/dl +0.24mg/dlBuBc 7 mg/dl Bu/14.2mg/dl +0.38mg/dl +0.25mg/dlBuBc 5mg/dl Bc/0mg/dl +0.25mg/dl +0.15mg/dlBuBc 3.5mg/dl Bc/2.8mg/dl +0.25mg/dl +0.23mg/dl SGOT/AST (test code = AST) 89 UNITS/L 14-36 H SGPT/ALT (test code = ALT) 52 UNITS/L <35 ALKALINE PHOSPHATASE (test code = ALKP) 75 UNITS/L 38-126 [id number] 07:37:00* Test Item Value Reference Range Interpretation Comme nts MAGNESIUM (test code = MAG) 2.0 MG/DL 1.6-2.3 N COMPREHENSIVE METABOLIC [id number] 07:28:00* Test Item Value Reference Range Interpretation Comme nts SODIUM (test code = NA) 138 MMOL/L 137-145 N POTASSIUM (test code = K) 3.7 MMOL/L 3.5-5.1 N CHLORIDE (test code = CL) 106 MMOL/L 98-107 N CARBON DIOXIDE (test code = CO2) MMOL/L 22-30 GLUCOSE (test code = GLU) MG/DL 74-106 BLOOD UREA NITROGEN (test co de = BUN) MG/DL 7-17 GLOMERULAR FILTRATION RATE ( test code = GFR) CREATININE (test code = CREAT) MG/DL 0.52-1.04 TOTAL PROTEIN (test code = PROT) G/DL 6.3-8.2 ALBUMIN (test code = ALB) 3.5 G/DL 3.5-5.0 N CALCIUM (test code = CA) MG/DL 8.7-9.7 BILIRUBIN TOTAL (test code = BILT) MG/DL 0.2-1.3 SGOT/AST (test code = AST) UNITS/L 15-37 SGPT/ALT (test code = ALT) UNITS/L <35 ALKALINE PHOSPHATASE (test c ode = ALKP) UNITS/L 38-126 [id number] 07:28:00* Test Item Value Reference Range Interpretation Comme nts MAGNESIUM (test code = MAG) MG/DL 1.6-2.3 COMPREHENSIVE METABOLIC [id number] 07:27:00* Test Item Value Reference Range Interpretation Comme nts SODIUM (test code = NA) MMOL/L 137-145 POTASSIUM (test code = K) MMOL/L 3.5-5.1 CHLORIDE (test code = CL) 106 MMOL/L 98-107 N CARBON DIOXIDE (test code = CO2) MMOL/L 22-30 GLUCOSE (test code = GLU) MG/DL 74-106 BLOOD UREA NITROGEN (test co de = BUN) MG/DL 7-17 GLOMERULAR FILTRATION RATE ( test code = GFR) CREATININE (test code = CREAT) MG/DL 0.52-1.04 TOTAL PROTEIN (test code = PROT) G/DL 6.3-8.2 ALBUMIN (test code = ALB) 3.5 G/DL 3.5-5.0 N CALCIUM (test code = CA) MG/DL 8.7-9.7 BILIRUBIN TOTAL (test code = BILT) MG/DL 0.2-1.3 SGOT/AST (test code = AST) UNITS/L 15-37 SGPT/ALT (test code = ALT) UNITS/L <35 ALKALINE PHOSPHATASE (test c ode = ALKP) UNITS/L 38-126 [id number] 07:27:00* Test Item Value Reference Range Interpretation Comme nts MAGNESIUM (test code = MAG) MG/DL 1.6-2.3 CBC W/AUTO [id number] 07:06:00* Test Item Value Reference Range Interpretation Comme nts WHITE BLOOD CELL (test code = WBC) 7.9 K/MM3 3.8-9.8 N RED BLOOD CELL (test code = RBC) 4.34 M/MM3 3.58-4.97 N HEMOGLOBIN (test code = HGB) 12.8 G/DL 11.2-14.9 N HEMATOCRIT (test code = HCT) 39.8 % 33.2-43.5 N MEAN CELL VOLUME (test code = MCV) 92 fL 80.7-99.1 N MEAN CELL HGB (test code = MCH) 29.5 pg 27.0-34.1 N MEAN CELL HGB CONCETRATION (test code = MCHC) 32.2 % 32.2-35.7 N RED CELL DISTRIBUTION WIDTH (test code = RDW) 14.1 % 12.1-15.2 N PLATELET COUNT (test code = PLT) 247 K/MM3 129-368 N MEAN PLATELET VOLUME (test c ode = MPV) 11.8 fl 7.4-10.4 H NEUTROPHIL % (test code = NT%) 65.1 % 43-75 N IMMATURE GRANULOCYTE % (test code = IG%) 0.4 % 0.0-2.0 N LYMPHOCYTE % (test code = LY%) 23.8 % 14-44 N MONOCYTE % (test code = MO%) 7.6 % 4-13 N EOSINOPHIL % (test code = EO%) 2.3 % 0-6 N BASOPHIL % (test code = BA%) 0.8 % 0-2 N NUCLEATED RBC % (test code = NRBC%) 0.0 % 0-1.0 N NEUTROPHIL # (test code = NT#) 5.14 K/mm3 2.0-7.6 N IMMATURE GRANULOCYTE # (test code = IG#) 0.03 x10 3/uL 0-0.03 N LYMPHOCYTE # (test code = LY#) 1.88 K/mm3 1.0-3.8 N MONOCYTE # (test code = MO#) 0.60 K/mm3 0.1-0.8 N EOSINOPHIL # (test code = EO#) 0.18 K/mm3 0.0-0.2 N BASOPHIL # (test code = BA#) 0.06 K/mm3 0.0-0.2 N NUCLEATED RBC # (test code = NRBC#) 0.00 K/mm3 0.0-0.1 N LIPID PROFILE (CORONARY RISK)2020-08-22 22:35:00* Test Item Value Reference Range Interpretation Comme nts TRIGLYCERIDES (test code = TRIG) 239 MG/DL TRIGLYCERIDES REFERENCE RANGE:Normal: <150 mg/dLBorderline High: 150-199 mg/dLHigh: 200-499 mg/dLVery High: >=500 mg/dL CHOLESTEROL (test code = CHOL) 150 MG/DL <200 HDL CHOLESTEROL (test code = HDL) 39 MG/DL 40-59 L LIPOPROTEIN LDL (test code = LDL) 83 MG/DL 0-99 N OPTIMAL......... <100 mg/dLNEAR OPTIMAL/ABOVE OPTIMAL.........100-12 9 mg/dL BORDERLINE HIGH.........130-159 mg/dL HIGH.........160-189 mg/dL VERY HIGH.........>/= 190 mg/dL GLYCOSYLATED HEMOGLOBIN [id number] 22:25:00* Test Item Value Reference Range Interpretation Comme nts GLYCOSYLATED HEMOGLOBIN (HA1C) (test code = GLYHGB) 6.0 % 4.8-5.9 H Any condition th at shortens erythocyte survival or decreasesmean erythrocyte age (e.g., recovery from acute blood loss,hemolytic anemia) will falsely lower HGBA1c resultsregardless of the method used. HGBA1c results from patientswith HbSS, HbCC, and HbSc must be interpreted with cautiongiven the pathological processes, including anemia,increased red cell turnover, transfusion requirements, thatadversely impact HGBA1c as a marker of long-term glycemiccontrol. Alternative forms of testing such as fructosamineshould be considered for these patients. MEAN BLOOD GLUCOSE (test code = MBG) 126 MG/DL 70-110 H LIPID PROFILE (CORONARY RISK)2020-08-22 22:24:00* Test Item Value Reference Range Interpretation Comme nts TRIGLYCERIDES (test code = TRIG) MG/DL CHOLESTEROL (test code = CHOL) 150 MG/DL <200 HDL CHOLESTEROL (test code = HDL) MG/DL 40-59 LIPOPROTEIN LDL (test code = LDL) MG/DL 0-99 LIPID PROFILE (CORONARY RISK)2020-08-22 22:24:00* Test Item Value Reference Range Interpretation Comme nts TRIGLYCERIDES (test code = TRIG) 239 MG/DL TRIGLYCERIDES REFERENCE RANGE:Normal: <150 mg/dLBorderline High: 150-199 mg/dLHigh: 200-499 mg/dLVery High: >=500 mg/dL CHOLESTEROL (test code = CHOL) 150 MG/DL <200 HDL CHOLESTEROL (test code = HDL) 39 MG/DL 40-59 L LIPOPROTEIN LDL (test code = LDL) MG/DL 0-99 [id number] 20:45:00* Test Item Value Reference Range Interpretation Comme nts TROPONIN-I (test code = TROPI) 0.091 NG/ML 0.012-0.033 H BASIC METABOLIC [id number] 20:25:00* Test Item Value Reference Range Interpretation Comme nts SODIUM (test code = NA) 138 MMOL/L 137-145 N POTASSIUM (test code = K) 3.8 MMOL/L 3.5-5.1 N CHLORIDE (test code = CL) 107 MMOL/L 98-107 N CARBON DIOXIDE (test code = CO2) 21 MMOL/L 22-30 L GLUCOSE (test code = GLU) 112 MG/DL 74-106 H BLOOD UREA NITROGEN (test code = BUN) 8 MG/DL 7-17 N GLOMERULAR FILTRATION RATE (test code = GFR) > 60 Reporting units: ml/min/1.73 m2 (Modified MDRD Formula)Reference Range: > or = 60 ml/min/1.73 m2 CREATININE (test code = CREAT) 0.60 MG/DL 0.52-1.04 N CALCIUM (test code = CA) 8.8 MG/DL 8.4-10.2 N HEPATIC FUNCTION [id number] 20:25:00* Test Item Value Reference Range Interpretation Comme nts TOTAL PROTEIN (test code = PROT) 7.0 G/DL 6.3-8.2 N ALBUMIN (test code = ALB) 4.1 G/DL 3.5-5.0 N BILIRUBIN TOTAL (test code = BILT) 0.7 MG/DL 0.2-1.3 N Eltrombopag Interference for Vitros Product TBil, BuBc: A ssay Eltrombopag Analyte/ Max Observed Avg. Bias Concentration Concentration Concentration========= =======TBil 7mg/dl TBil/ 1.2mg/dl +0.23mg.dl +0.20mg/dlBuBc 3.5mg/dl Bu/0.8mg/dl +0.25mg/dl +0.24mg/dlBuBc 7 mg/dl Bu/14.2mg/dl +0.38mg/dl +0.25mg/dlBuBc 5mg/dl Bc/0mg/dl +0.25mg/dl +0.15mg/dlBuBc 3.5mg/dl Bc/2.8mg/dl +0.25mg/dl +0.23mg/dl BILIRUBIN DIRECT (test code = BILD) 0.0 MG/DL 0.0-0.3 N Eltrombopag Interference for Vitros Product TBil, BuBc: A ssay Eltrombopag Analyte/ Max Observed Avg. Bias Concentration Concentration Concentration========= =======TBil 7mg/dl TBil/ 1.2mg/dl +0.23mg.dl +0.20mg/dlBuBc 3.5mg/dl Bu/0.8mg/dl +0.25mg/dl +0.24mg/dlBuBc 7 mg/dl Bu/14.2mg/dl +0.38mg/dl +0.25mg/dlBuBc 5mg/dl Bc/0mg/dl +0.25mg/dl +0.15mg/dlBuBc 3.5mg/dl Bc/2.8mg/dl +0.25mg/dl +0.23mg/dl SGOT/AST (test code = AST) 111 UNITS/L 14-36 H SGPT/ALT (test code = ALT) 59 UNITS/L <35 ALKALINE PHOSPHATASE (test code = ALKP) 89 UNITS/L 38-126 N [id number] 20:25:00* Test Item Value Reference Range Interpretation Comme nts LIPASE (test code = LIP) 58 UNITS/L 23-300 N [id number] 20:25:00* Test Item Value Reference Range Interpretation Comme nts MAGNESIUM (test code = MAG) 2.1 MG/DL 1.6-2.3 N LIPOPROTEIN LDL [id number] 20:25:00* Test Item Value Reference Range Interpretation Comme nts LIPOPROTEIN LDL DIRECT (test code = LDLDIR) 80 mg/dL 100-129 L Refe rence Interval: mg/dL mmol/L --Optimal <100 <2.6Near/above optimal 100-129 2.6-3.3Borderline High 130-159 3.4-4.1High 160-189 4.1-4.9Very High >=190 >=4.9========= This LDL result is a direct measurement.========= HCG SERUM [id number] 20:25:00* Test Item Value Reference Range Interpretation Comme nts HCG SERUM QUAL (test code = HCGQL) NEGATIVE NEGATIVE A THYROID STIMULATING [id number] 20:25:00* Test Item Value Reference Range Interpretation Comme nts THYROID STIMULATING HORMONE (test code = TSH) 3.640 MIU/L 0.465-4.68 N Please be aware that bias results for TSH may occur forpatient who are taking Biotin supplements. [id number] 20:25:00* Test Item Value Reference Range Interpretation Comme nts TROPONIN-I (test code = TROPI) 0.069 NG/ML 0.012-0.033 H - CTA CHEST FOR [id number] 20:22:00Patient Name: THERESA BROWN Unit No: [id number] EXAMS: CPT [place]: [id number] [place] [id number] DICTATION LOCATION: H30 HISTORY: Chest [...] dose to minimize exposure while achieving a diagnostic- quality image. FINDINGS: The lungs are clear. No pleural or pericardial effusion is seen. Heart size is at the upper limits of normal and pulmonaryvascular prominence is present. There is no evidence [...] thyroid nodule that should be further evaluated witha dedicated thyroid ultrasound. 4. No other significant findings. at 2021 Reported and signed by: James Rico Jr., M.D. CC: Kulwant De Oliveira MD Technologist: Andrea Haque, RT(R); ... CTDI: DLP: Trnscrpt: 08/22/2020 (2021) [email or web address].[facility] NAME: THERESA BROWN41 Uday PHYS: Kulwant Tyler MD [place] [id number] : 1975 AGE: 45 SEX: F LOC: Z.625 A PHONE #: [phone] EXAM DATE: 08/22/2020 STATUS: ADM IN FAX #: [phone] RAD #: D/C DT PAGE 1 Signed Report Patient Name: THERESA BROWN Unit No: [id number] EXAMS: CPT CODE: [id number] [place] [address] (Continued) Orig Print D/T: S: 08/22/2020 (2024) [facility] NAME: THERESA BROWN PHYS: Kulwant Diallo MD [place] [id number] : 1975 AGE: 45 SEX: F LOC: Z.780 A PHONE #: [phone] EXAM DATE: 08/22/2020 STATUS: ADM IN FAX #: [phone] RAD #: D/C DTPAGE 2 Signed ReportBASIC METABOLIC [id number] 18:32:00* Test Item Value Reference Range Interpretation Comme nts SODIUM (test code = NA) 138 MMOL/L 137-145 N POTASSIUM (test code = K) 3.8 MMOL/L 3.5-5.1 N CHLORIDE (test code = CL) 107 MMOL/L 98-107 N CARBON DIOXIDE (test code = CO2) 21 MMOL/L 22-30 L GLUCOSE (test code = GLU) 112 MG/DL 74-106 H BLOOD UREA NITROGEN (test code = BUN) 8 MG/DL 7-17 N GLOMERULAR FILTRATION RATE (test code = GFR) > 60 Reporting units: ml/min/1.73 m2 (Modified MDRD Formula)Reference Range: > or = 60 ml/min/1.73 m2 CREATININE (test code = CREAT) 0.60 MG/DL 0.52-1.04 N CALCIUM (test code = CA) 8.8 MG/DL 8.4-10.2 N HEPATIC FUNCTION [id number] 18:32:00* Test Item Value Reference Range Interpretation Comme nts TOTAL PROTEIN (test code = PROT) 7.0 G/DL 6.3-8.2 N ALBUMIN (test code = ALB) 4.1 G/DL 3.5-5.0 N BILIRUBIN TOTAL (test code = BILT) 0.7 MG/DL 0.2-1.3 N Eltrombopag Interference for Vitros Product TBil, BuBc: A ssay Eltrombopag Analyte/ Max Observed Avg. Bias Concentration Concentration Concentration========= =======TBil 7mg/dl TBil/ 1.2mg/dl +0.23mg.dl +0.20mg/dlBuBc 3.5mg/dl Bu/0.8mg/dl +0.25mg/dl +0.24mg/dlBuBc 7 mg/dl Bu/14.2mg/dl +0.38mg/dl +0.25mg/dlBuBc 5mg/dl Bc/0mg/dl +0.25mg/dl +0.15mg/dlBuBc 3.5mg/dl Bc/2.8mg/dl +0.25mg/dl +0.23mg/dl BILIRUBIN DIRECT (test code = BILD) 0.0 MG/DL 0.0-0.3 N Eltrombopag Interference for Vitros Product TBil, BuBc: A ssay Eltrombopag Analyte/ Max Observed Avg. Bias Concentration Concentration Concentration========= =======TBil 7mg/dl TBil/ 1.2mg/dl +0.23mg.dl +0.20mg/dlBuBc 3.5mg/dl Bu/0.8mg/dl +0.25mg/dl +0.24mg/dlBuBc 7 mg/dl Bu/14.2mg/dl +0.38mg/dl +0.25mg/dlBuBc 5mg/dl Bc/0mg/dl +0.25mg/dl +0.15mg/dlBuBc 3.5mg/dl Bc/2.8mg/dl +0.25mg/dl +0.23mg/dl SGOT/AST (test code = AST) 111 UNITS/L 14-36 H SGPT/ALT (test code = ALT) 59 UNITS/L <35 ALKALINE PHOSPHATASE (test code = ALKP) 89 UNITS/L 38-126 N [id number] 18:32:00* Test Item Value Reference Range Interpretation Comme nts LIPASE (test code = LIP) 58 UNITS/L 23-300 N [id number] 18:32:00* Test Item Value Reference Range Interpretation Comme nts MAGNESIUM (test code = MAG) 2.1 MG/DL 1.6-2.3 N LIPOPROTEIN LDL [id number] 18:32:00* Test Item Value Reference Range Interpretation Comme nts LIPOPROTEIN LDL DIRECT (test code = LDLDIR) mg/dL 100-129 HCG SERUM [id number] 18:32:00* Test Item Value Reference Range Interpretation Comme nts HCG SERUM QUAL (test code = HCGQL) NEGATIVE NEGATIVE A THYROID STIMULATING [id number] 18:32:00* Test Item Value Reference Range Interpretation Comme nts THYROID STIMULATING HORMONE (test code = TSH) 3.640 MIU/L 0.465-4.68 N Please be aware that bias results for TSH may occur forpatient who are taking Biotin supplements. [id number] 18:32:00* Test Item Value Reference Range Interpretation Comme nts TROPONIN-I (test code = TROPI) 0.069 NG/ML 0.012-0.033 H B-TYPE NATRIURETIC [id number] 18:20:00* Test Item Value Reference Range Interpretation Comme nts B-TYPE NATRIURETIC PEPTIDE ( test code = BNP) 138.0 PG/ML 0-100 H BASIC METABOLIC [id number] 18:14:00* Test Item Value Reference Range Interpretation Comme nts SODIUM (test code = NA) 138 MMOL/L 137-145 N POTASSIUM (test code = K) 3.8 MMOL/L 3.5-5.1 N CHLORIDE (test code = CL) 107 MMOL/L 98-107 N CARBON DIOXIDE (test code = CO2) 21 MMOL/L 22-30 L GLUCOSE (test code = GLU) 112 MG/DL 74-106 H BLOOD UREA NITROGEN (test code = BUN) 8 MG/DL 7-17 N GLOMERULAR FILTRATION RATE (test code = GFR) > 60 Reporting units: ml/min/1.73 m2 (Modified MDRD Formula)Reference Range: > or = 60 ml/min/1.73 m2 CREATININE (test code = CREAT) 0.60 MG/DL 0.52-1.04 N CALCIUM (test code = CA) 8.8 MG/DL 8.4-10.2 N HEPATIC FUNCTION [id number] 18:14:00* Test Item Value Reference Range Interpretation Comme nts TOTAL PROTEIN (test code = PROT) 7.0 G/DL 6.3-8.2 N ALBUMIN (test code = ALB) 4.1 G/DL 3.5-5.0 N BILIRUBIN TOTAL (test code = BILT) 0.7 MG/DL 0.2-1.3 N Eltrombopag Interference for Vitros Product TBil, BuBc: A ssay Eltrombopag Analyte/ Max Observed Avg. Bias Concentration Concentration Concentration========= =======TBil 7mg/dl TBil/ 1.2mg/dl +0.23mg.dl +0.20mg/dlBuBc 3.5mg/dl Bu/0.8mg/dl +0.25mg/dl +0.24mg/dlBuBc 7 mg/dl Bu/14.2mg/dl +0.38mg/dl +0.25mg/dlBuBc 5mg/dl Bc/0mg/dl +0.25mg/dl +0.15mg/dlBuBc 3.5mg/dl Bc/2.8mg/dl +0.25mg/dl +0.23mg/dl BILIRUBIN DIRECT (test code = BILD) 0.0 MG/DL 0.0-0.3 N Eltrombopag Interference for Vitros Product TBil, BuBc: A ssay Eltrombopag Analyte/ Max Observed Avg. Bias Concentration Concentration Concentration========= =======TBil 7mg/dl TBil/ 1.2mg/dl +0.23mg.dl +0.20mg/dlBuBc 3.5mg/dl Bu/0.8mg/dl +0.25mg/dl +0.24mg/dlBuBc 7 mg/dl Bu/14.2mg/dl +0.38mg/dl +0.25mg/dlBuBc 5mg/dl Bc/0mg/dl +0.25mg/dl +0.15mg/dlBuBc 3.5mg/dl Bc/2.8mg/dl +0.25mg/dl +0.23mg/dl SGOT/AST (test code = AST) 111 UNITS/L 14-36 H SGPT/ALT (test code = ALT) 59 UNITS/L <35 ALKALINE PHOSPHATASE (test code = ALKP) 89 UNITS/L 38-126 N [id number] 18:14:00* Test Item Value Reference Range Interpretation Comme nts LIPASE (test code = LIP) 58 UNITS/L 23-300 N [id number] 18:14:00* Test Item Value Reference Range Interpretation Comme nts MAGNESIUM (test code = MAG) 2.1 MG/DL 1.6-2.3 N LIPOPROTEIN LDL [id number] 18:14:00* Test Item Value Reference Range Interpretation Comme nts LIPOPROTEIN LDL DIRECT (test code = LDLDIR) mg/dL 100-129 HCG SERUM [id number] 18:14:00* Test Item Value Reference Range Interpretation Comme nts HCG SERUM QUAL (test code = HCGQL) NEGATIVE NEGATIVE A THYROID STIMULATING [id number] 18:14:00* Test Item Value Reference Range Interpretation Comme nts THYROID STIMULATING HORMONE (test code = TSH) MIU/L 0.465-4.68 [id number] 18:14:00* Test Item Value Reference Range Interpretation Comme nts TROPONIN-I (test code = TROPI) 0.069 NG/ML 0.012-0.033 H BASIC METABOLIC [id number] 18:08:00* Test Item Value Reference Range Interpretation Comme nts SODIUM (test code = NA) 138 MMOL/L 137-145 N POTASSIUM (test code = K) 3.8 MMOL/L 3.5-5.1 N CHLORIDE (test code = CL) 107 MMOL/L 98-107 N CARBON DIOXIDE (test code = CO2) 21 MMOL/L 22-30 L GLUCOSE (test code = GLU) 112 MG/DL 74-106 H BLOOD UREA NITROGEN (test code = BUN) 8 MG/DL 7-17 N GLOMERULAR FILTRATION RATE (test code = GFR) > 60 Reporting units: ml/min/1.73 m2 (Modified MDRD Formula)Reference Range: > or = 60 ml/min/1.73 m2 CREATININE (test code = CREAT) 0.60 MG/DL 0.52-1.04 N CALCIUM (test code = CA) 8.8 MG/DL 8.4-10.2 N HEPATIC FUNCTION [id number] 18:08:00* Test Item Value Reference Range Interpretation Comme nts TOTAL PROTEIN (test code = PROT) 7.0 G/DL 6.3-8.2 N ALBUMIN (test code = ALB) 4.1 G/DL 3.5-5.0 N BILIRUBIN TOTAL (test code = BILT) 0.7 MG/DL 0.2-1.3 N Eltrombopag Interference for Vitros Product TBil, BuBc: A ssay Eltrombopag Analyte/ Max Observed Avg. Bias Concentration Concentration Concentration========= =======TBil 7mg/dl TBil/ 1.2mg/dl +0.23mg.dl +0.20mg/dlBuBc 3.5mg/dl Bu/0.8mg/dl +0.25mg/dl +0.24mg/dlBuBc 7 mg/dl Bu/14.2mg/dl +0.38mg/dl +0.25mg/dlBuBc 5mg/dl Bc/0mg/dl +0.25mg/dl +0.15mg/dlBuBc 3.5mg/dl Bc/2.8mg/dl +0.25mg/dl +0.23mg/dl BILIRUBIN DIRECT (test code = BILD) 0.0 MG/DL 0.0-0.3 N Eltrombopag Interference for Vitros Product TBil, BuBc: A ssay Eltrombopag Analyte/ Max Observed Avg. Bias Concentration Concentration Concentration========= =======TBil 7mg/dl TBil/ 1.2mg/dl +0.23mg.dl +0.20mg/dlBuBc 3.5mg/dl Bu/0.8mg/dl +0.25mg/dl +0.24mg/dlBuBc 7 mg/dl Bu/14.2mg/dl +0.38mg/dl +0.25mg/dlBuBc 5mg/dl Bc/0mg/dl +0.25mg/dl +0.15mg/dlBuBc 3.5mg/dl Bc/2.8mg/dl +0.25mg/dl +0.23mg/dl SGOT/AST (test code = AST) 111 UNITS/L 14-36 H SGPT/ALT (test code = ALT) 59 UNITS/L <35 ALKALINE PHOSPHATASE (test code = ALKP) 89 UNITS/L 38-126 N [id number] 18:08:00* Test Item Value Reference Range Interpretation Comme nts LIPASE (test code = LIP) 58 UNITS/L 23-300 N [id number] 18:08:00* Test Item Value Reference Range Interpretation Comme nts MAGNESIUM (test code = MAG) 2.1 MG/DL 1.6-2.3 N HCG SERUM [id number] 18:08:00* Test Item Value Reference Range Interpretation Comme nts HCG SERUM QUAL (test code = HCGQL) NEGATIVE NEGATIVE A THYROID STIMULATING [id number] 18:08:00* Test Item Value Reference Range Interpretation Comme nts THYROID STIMULATING HORMONE (test code = TSH) MIU/L 0.465-4.68 [id number] 18:08:00* Test Item Value Reference Range Interpretation Comme nts TROPONIN-I (test code = TROPI) NG/ML 0.0-0.045 URINALYSIS [id number] 18:05:00* Test Item Value Reference Range Interpretation Comme nts UA COLOR (test code = COLU) YELLOW YELLOW UA APPEARANCE (test code = APPU) CLEAR CLEAR UA GLUCOSE DIPSTICK (test code = DGLUU) NORMAL MG/DL NORMAL UA BILIRUBIN DIPSTICK (test code = BILU) NEGATIVE MG/DL NEGATIVE UA KETONE DIPSTICK (test code = KETU) NEGATIVE MG/DL NEGATIVE UA SPECIFIC GRAVITY (test code = SGU) 1.010 1.003-1.030 N UA BLOOD DIPSTICK (test code = CARO) NEGATIVE Michael/mm3 NEGATIVE UA PH DIPSTICK (test code = JOSEE) 7.0 5.0-9.0 N UA PROTEIN DIPSTICK (test code = PROU) NEGATIVE MG/DL NEGATIVE UA UROBILINIOGEN DIPSTICK (test code = URO) NORMAL MG/DL NORMAL UA NITRITE DIPSTICK (test code = MARJORIE) NEGATIVE NEGATIVE UA LEUKOCYTE ESTERASE DIPSTICK (test code = LEUU) NEGATIVE /mm3 NEGATIVE UA CULTURE NEEDED? (test code = UACULT) NEGATIVE, NO CULTURE Criteria Culture Chk SOURCE OF URINE: CLEAN CATCHDRUGS OF ABUSE SCREEN [id number] 18:05:00* Test Item Value Reference Range Interpretation Comme nts UR COCAINE (test code = COCAU) NEGATIVE NEGATIVE Cut off Value: 3 00 ng/mL UR CANNABINOIDS (THC) (test code = CANU) NEGATIVE NEGATIVE Cut off Value : 50 ng/mL UR AMPHETAMINE (test code = AMPHU) NEGATIVE NEGATIVE Cut off Value: 1 000 ng/mL UR BARBITURATE QUAL (test code = BARBQLU) NEGATIVE NEGATIVE Cut off Value: 2 00 ng/mL UR BENZODIAZEPINE (test code = BENZU) NEGATIVE NEGATIVE Cut off Value: 2 00 ng/mL UR OPIATES QUAL (test code = OPIAQLU) NEGATIVE NEGATIVE Cut off Value: 3 00 ng/mL UR PHENCYCLIDINE (PCP) (test code = PHENCU) NEGATIVE NEGATIVE Cut off Aranza ue: 25 ng/mL SOURCE OF URINE: CLEAN CATCHURINALYSIS [id number] 18:04:00* Test Item Value Reference Range Interpretation Comme nts UA COLOR (test code = COLU) YELLOW YELLOW UA APPEARANCE (test code = APPU) CLEAR CLEAR UA GLUCOSE DIPSTICK (test code = DGLUU) NORMAL MG/DL NORMAL UA BILIRUBIN DIPSTICK (test code = BILU) NEGATIVE MG/DL NEGATIVE UA KETONE DIPSTICK (test code = KETU) NEGATIVE MG/DL NEGATIVE UA SPECIFIC GRAVITY (test code = SGU) 1.010 1.003-1.030 N UA BLOOD DIPSTICK (test code = CARO) NEGATIVE Michael/mm3 NEGATIVE UA PH DIPSTICK (test code = JOSEE) 7.0 5.0-9.0 N UA PROTEIN DIPSTICK (test code = PROU) NEGATIVE MG/DL NEGATIVE UA UROBILINIOGEN DIPSTICK (test code = URO) NORMAL MG/DL NORMAL UA NITRITE DIPSTICK (test code = MARJORIE) NEGATIVE NEGATIVE UA LEUKOCYTE ESTERASE DIPSTICK (test code = LEUU) NEGATIVE /mm3 NEGATIVE UA CULTURE NEEDED? (test code = UACULT) NEGATIVE, NO CULTURE Criteria Culture Chk SOURCE OF URINE: CLEAN CATCHDRUGS OF ABUSE SCREEN [id number] 18:04:00* Test Item Value Reference Range Interpretation Comme nts UR COCAINE (test code = COCAU) NEGATIVE NEGATIVE Cut off Value: 3 00 ng/mL UR CANNABINOIDS (THC) (test code = CANU) NEGATIVE NEGATIVE Cut off Value : 50 ng/mL UR AMPHETAMINE (test code = AMPHU) NEGATIVE NEGATIVE Cut off Value: 1 000 ng/mL UR BARBITURATE QUAL (test code = BARBQLU) NEGATIVE NEGATIVE Cut off Value: 2 00 ng/mL UR BENZODIAZEPINE (test code = BENZU) NEGATIVE NEGATIVE Cut off Value: 2 00 ng/mL UR OPIATES QUAL (test code = OPIAQLU) NEGATIVE NEGATIVE Cut off Value: 3 00 ng/mL UR PHENCYCLIDINE (PCP) (test code = PHENCU) NEGATIVE SOURCE OF URINE: CLEAN CATCHURINALYSIS [id number] 18:03:00* Test Item Value Reference Range Interpretation Comme nts UA COLOR (test code = COLU) YELLOW YELLOW UA APPEARANCE (test code = APPU) CLEAR CLEAR UA GLUCOSE DIPSTICK (test code = DGLUU) NORMAL MG/DL NORMAL UA BILIRUBIN DIPSTICK (test code = BILU) NEGATIVE MG/DL NEGATIVE UA KETONE DIPSTICK (test code = KETU) NEGATIVE MG/DL NEGATIVE UA SPECIFIC GRAVITY (test code = SGU) 1.010 1.003-1.030 N UA BLOOD DIPSTICK (test code = CARO) NEGATIVE Michael/mm3 NEGATIVE UA PH DIPSTICK (test code = JOSEE) 7.0 5.0-9.0 N UA PROTEIN DIPSTICK (test code = PROU) NEGATIVE MG/DL NEGATIVE UA UROBILINIOGEN DIPSTICK (test code = URO) NORMAL MG/DL NORMAL UA NITRITE DIPSTICK (test code = MARJORIE) NEGATIVE NEGATIVE UA LEUKOCYTE ESTERASE DIPSTICK (test code = LEUU) NEGATIVE /mm3 NEGATIVE UA CULTURE NEEDED? (test code = UACULT) NEGATIVE, NO CULTURE Criteria Culture Chk SOURCE OF URINE: CLEAN CATCHDRUGS OF ABUSE SCREEN [id number] 18:03:00* Test Item Value Reference Range Interpretation Comme nts UR COCAINE (test code = COCAU) NEGATIVE NEGATIVE Cut off Value: 3 00 ng/mL UR CANNABINOIDS (THC) (test code = CANU) NEGATIVE UR AMPHETAMINE (test code = AMPHU) NEGATIVE NEGATIVE Cut off Value: 1 000 ng/mL UR BARBITURATE QUAL (test code = BARBQLU) NEGATIVE NEGATIVE Cut off Value: 2 00 ng/mL UR BENZODIAZEPINE (test code = BENZU) NEGATIVE NEGATIVE Cut off Value: 2 00 ng/mL UR OPIATES QUAL (test code = OPIAQLU) NEGATIVE UR PHENCYCLIDINE (PCP) (test code = PHENCU) NEGATIVE SOURCE OF URINE: CLEAN CATCH- XR CHEST [id number] 18:03:00Patient Name: DARION BROWN Unit No: [id number] EXAMS: CPT CODE: [id number] XR CHEST 1V [id number] EXAMINATION: - XR CHEST 1V. LOCATION: H42. [...] Oliveira MD Technologist: John Wyatt, RT(R) Transcrpt Date /Tm/Trnsp: 08/22/2020 (1803) t.[id number] Orig Print D/T: S: 08/22/2020 (1800) [facility] NAME: DARION BROWN [id number] [address] PHYS: [place] [address] : 1975 AGE: 45SEX: F LOC: [facility] PHONE #: [phone] EXAM DATE: 08/22/2020 STATUS: PRE ERFAX #: [phone] RADIOLOGY NO: PAGE 1 Signed ReportURINALYSIS [id number] 18:02:00* Test Item Value Reference Range Interpretation Comme nts UA COLOR (test code = COLU) YELLOW YELLOW UA APPEARANCE (test code = APPU) CLEAR CLEAR UA GLUCOSE DIPSTICK (test code = DGLUU) NORMAL MG/DL NORMAL UA BILIRUBIN DIPSTICK (test code = BILU) NEGATIVE MG/DL NEGATIVE UA KETONE DIPSTICK (test code = KETU) NEGATIVE MG/DL NEGATIVE UA SPECIFIC GRAVITY (test code = SGU) 1.010 1.003-1.030 N UA BLOOD DIPSTICK (test code = CARO) NEGATIVE Michael/mm3 NEGATIVE UA PH DIPSTICK (test code = JOSEE) 7.0 5.0-9.0 N UA PROTEIN DIPSTICK (test code = PROU) NEGATIVE MG/DL NEGATIVE UA UROBILINIOGEN DIPSTICK (test code = URO) NORMAL MG/DL NORMAL UA NITRITE DIPSTICK (test code = MARJORIE) NEGATIVE NEGATIVE UA LEUKOCYTE ESTERASE DIPSTICK (test code = LEUU) NEGATIVE /mm3 NEGATIVE UA CULTURE NEEDED? (test code = UACULT) NEGATIVE, NO CULTURE Criteria Culture Chk SOURCE OF URINE: CLEAN CATCHDRUGS OF ABUSE SCREEN [id number] 18:02:00* Test Item Value Reference Range Interpretation Comme nts UR COCAINE (test code = COCAU) NEGATIVE UR CANNABINOIDS (THC) (test code = CANU) NEGATIVE UR AMPHETAMINE (test code = AMPHU) NEGATIVE NEGATIVE Cut off Value: 1 000 ng/mL UR BARBITURATE QUAL (test code = BARBQLU) NEGATIVE NEGATIVE Cut off Value: 2 00 ng/mL UR BENZODIAZEPINE (test code = BENZU) NEGATIVE NEGATIVE Cut off Value: 2 00 ng/mL UR OPIATES QUAL (test code = OPIAQLU) NEGATIVE UR PHENCYCLIDINE (PCP) (test code = PHENCU) NEGATIVE SOURCE OF URINE: CLEAN CATCHPROTHROMBIN [id number] 18:01:00* Test Item Value Reference Range Interpretation [facility] PROTHROMBIN TIME PATIENT (test code = PTP) 11.3 SECONDS 9.4-12.5 N INTERNATIONAL NORMAL RATIO (test code = INR) 1.0 The INR is to be used only for monitoring oral anticoagulanttherap y. INDICATION INR VALUE -------1. Prophylaxis, deep venous thrombosis, including high risk surgery. 2.0 - 3.0 2. Prophylaxis, deep venous thrombosis, hip surgery, treatment for deep venous thrombosis or pulmonary prevention of systemic embolism in patients with valvular heart disease, atrial fibrillation, tissue heart valve, or acute myocardial infarction. 2.0 - 3.0 3. Mechanical prosthesis heart valves, recurrent systemic embolism. 3.0 - 4.5 PTT [id number] 18:01:00* Test Item Value Reference Range Interpretation [facility] PTT ACTIVATED (test code = APTT) 39.1 SECONDS 25.1-36.5 H [id number] 18:01:00* Test Item Value Reference Range Interpretation [facility] D-DIMER (test code = DDIMER) 259 ng/mLFEU 0-499 N Negative Predict betty Value cutoff for DVT & PE: < 500 ng/mL FEUInterpretation: A value of < 500 ng/mL FEU has a NegativePredictive Value in ruling out a DVT or PE diagnosis.A value of 500 ng/mL or greater is considered Positive.Positive result cannot be used for the diagnosis of DVT andPE without using of standard radiological procedures. URINALYSIS [id number] 18:01:00* Test Item Value Reference Range Interpretation Comme nts UA COLOR (test code = COLU) YELLOW YELLOW UA APPEARANCE (test code = APPU) CLEAR CLEAR UA GLUCOSE DIPSTICK (test code = DGLUU) NORMAL MG/DL NORMAL UA BILIRUBIN DIPSTICK (test code = BILU) NEGATIVE MG/DL NEGATIVE UA KETONE DIPSTICK (test code = KETU) NEGATIVE MG/DL NEGATIVE UA SPECIFIC GRAVITY (test code = SGU) 1.010 1.003-1.030 N UA BLOOD DIPSTICK (test code = CARO) NEGATIVE Michael/mm3 NEGATIVE UA PH DIPSTICK (test code = JOSEE) 7.0 5.0-9.0 N UA PROTEIN DIPSTICK (test code = PROU) NEGATIVE MG/DL NEGATIVE UA UROBILINIOGEN DIPSTICK (test code = URO) NORMAL MG/DL NORMAL UA NITRITE DIPSTICK (test code = MARJORIE) NEGATIVE NEGATIVE UA LEUKOCYTE ESTERASE DIPSTICK (test code = LEUU) NEGATIVE /mm3 NEGATIVE UA CULTURE NEEDED? (test code = UACULT) NEGATIVE, NO CULTURE Criteria Culture Chk SOURCE OF URINE: CLEAN CATCHDRUGS OF ABUSE SCREEN [id number] 18:01:00* Test Item Value Reference Range Interpretation Comme nts UR COCAINE (test code = COCAU) NEGATIVE UR CANNABINOIDS (THC) (test code = CANU) NEGATIVE UR AMPHETAMINE (test code = AMPHU) NEGATIVE UR BARBITURATE QUAL (test code = BARBQLU) NEGATIVE NEGATIVE Cut off Value: 2 00 ng/mL UR BENZODIAZEPINE (test code = BENZU) NEGATIVE UR OPIATES QUAL (test code = OPIAQLU) NEGATIVE UR PHENCYCLIDINE (PCP) (test code = PHENCU) NEGATIVE SOURCE OF URINE: CLEAN CATCHBASIC METABOLIC [id number] 18:01:00* Test Item Value Reference Range Interpretation Comme nts SODIUM (test code = NA) 138 MMOL/L 137-145 N POTASSIUM (test code = K) 3.8 MMOL/L 3.5-5.1 N CHLORIDE (test code = CL) 107 MMOL/L 98-107 N CARBON DIOXIDE (test code = CO2) 21 MMOL/L 22-30 L GLUCOSE (test code = GLU) 112 MG/DL 74-106 H BLOOD UREA NITROGEN (test code = BUN) 8 MG/DL 7-17 N GLOMERULAR FILTRATION RATE (test code = GFR) > 60 Reporting units: ml/min/1.73 m2 (Modified MDRD Formula)Reference Range: > or = 60 ml/min/1.73 m2 CREATININE (test code = CREAT) 0.60 MG/DL 0.52-1.04 N CALCIUM (test code = CA) 8.8 MG/DL 8.4-10.2 N HEPATIC FUNCTION [id number] 18:01:00* Test Item Value Reference Range Interpretation Comme nts TOTAL PROTEIN (test code = PROT) 7.0 G/DL 6.3-8.2 N ALBUMIN (test code = ALB) 4.1 G/DL 3.5-5.0 N BILIRUBIN TOTAL (test code = BILT) 0.7 MG/DL 0.2-1.3 N Eltrombopag Interference for Vitros Product TBil, BuBc: A ssay Eltrombopag Analyte/ Max Observed Avg. Bias Concentration Concentration Concentration========= =======TBil 7mg/dl TBil/ 1.2mg/dl +0.23mg.dl +0.20mg/dlBuBc 3.5mg/dl Bu/0.8mg/dl +0.25mg/dl +0.24mg/dlBuBc 7 mg/dl Bu/14.2mg/dl +0.38mg/dl +0.25mg/dlBuBc 5mg/dl Bc/0mg/dl +0.25mg/dl +0.15mg/dlBuBc 3.5mg/dl Bc/2.8mg/dl +0.25mg/dl +0.23mg/dl BILIRUBIN DIRECT (test code = BILD) 0.0 MG/DL 0.0-0.3 N Eltrombopag Interference for Vitros Product TBil, BuBc: A ssay Eltrombopag Analyte/ Max Observed Avg. Bias Concentration Concentration Concentration========= =======TBil 7mg/dl TBil/ 1.2mg/dl +0.23mg.dl +0.20mg/dlBuBc 3.5mg/dl Bu/0.8mg/dl +0.25mg/dl +0.24mg/dlBuBc 7 mg/dl Bu/14.2mg/dl +0.38mg/dl +0.25mg/dlBuBc 5mg/dl Bc/0mg/dl +0.25mg/dl +0.15mg/dlBuBc 3.5mg/dl Bc/2.8mg/dl +0.25mg/dl +0.23mg/dl SGOT/AST (test code = AST) 111 UNITS/L 14-36 H SGPT/ALT (test code = ALT) 59 UNITS/L <35 ALKALINE PHOSPHATASE (test code = ALKP) 89 UNITS/L 38-126 N [id number] 18:01:00* Test Item Value Reference Range Interpretation Comme nts LIPASE (test code = LIP) 58 UNITS/L 23-300 N [id number] 18:01:00* Test Item Value Reference Range Interpretation Comme nts MAGNESIUM (test code = MAG) 2.1 MG/DL 1.6-2.3 N HCG SERUM [id number] 18:01:00* Test Item Value Reference Range Interpretation Comme nts HCG SERUM QUAL (test code = HCGQL) NEGATIVE THYROID STIMULATING [id number] 18:01:00* Test Item Value Reference Range Interpretation Comme nts THYROID STIMULATING HORMONE (test code = TSH) MIU/L 0.465-4.68 [id number] 18:01:00* Test Item Value Reference Range Interpretation Comme nts TROPONIN-I (test code = TROPI) NG/ML 0.0-0.045 BASIC METABOLIC [id number] 18:00:00* Test Item Value Reference Range Interpretation Comme nts SODIUM (test code = NA) 138 MMOL/L 137-145 N POTASSIUM (test code = K) 3.8 MMOL/L 3.5-5.1 N CHLORIDE (test code = CL) 107 MMOL/L 98-107 N CARBON DIOXIDE (test code = CO2) 21 MMOL/L 22-30 L GLUCOSE (test code = GLU) MG/DL 74-106 BLOOD UREA NITROGEN (test code = BUN) MG/DL 7-17 GLOMERULAR FILTRATION RATE (test code = GFR) > 60 Reporting units: ml/min/1.73 m2 (Modified MDRD Formula)Reference Range: > or = 60 ml/min/1.73 m2 CREATININE (test code = CREAT) 0.60 MG/DL 0.52-1.04 N CALCIUM (test code = CA) MG/DL 8.7-9.7 HEPATIC FUNCTION [id number] 18:00:00* Test Item Value Reference Range Interpretation Comme nts TOTAL PROTEIN (test code = PROT) G/DL 6.3-8.2 ALBUMIN (test code = ALB) 4.1 G/DL 3.5-5.0 N BILIRUBIN TOTAL (test code = BILT) MG/DL 0.2-1.3 BILIRUBIN DIRECT (test code = BILD) 0.0 MG/DL 0.0-0.3 N Eltrombopag Interference for Vitros Product TBil, BuBc: Assa y Eltrombopag Analyte/ Max Observed Avg. Bias Concentration Concentration Concentration ====TBil 7mg/dl TBil/ 1.2mg/dl +0.23mg.dl +0.20mg/dlBuBc 3.5mg/dl Bu/0.8mg/dl +0.25mg/dl +0.24mg/dlBuBc 7 mg/dl Bu/14.2mg/dl +0.38mg/dl +0.25mg/dlBuBc 5mg/dl Bc/0mg/dl +0.25mg/dl +0.15mg/dlBuBc 3.5mg/dl Bc/2.8mg/dl +0.25mg/dl +0.23mg/dl SGOT/AST (test code = AST) UNITS/L 15-37 SGPT/ALT (test code = ALT) UNITS/L <35 ALKALINE PHOSPHATASE (test code = ALKP) UNITS/L 38-126 [id number] 18:00:00* Test Item Value Reference Range Interpretation Comme nts LIPASE (test code = LIP) UNITS/L 23-300 [id number] 18:00:00* Test Item Value Reference Range Interpretation Comme nts MAGNESIUM (test code = MAG) MG/DL 1.6-2.3 HCG SERUM [id number] 18:00:00* Test Item Value Reference Range Interpretation Comme nts HCG SERUM QUAL (test code = HCGQL) NEGATIVE THYROID STIMULATING [id number] 18:00:00* Test Item Value Reference Range Interpretation Comme nts THYROID STIMULATING HORMONE (test code = TSH) MIU/L 0.465-4.68 [id number] 18:00:00* Test Item Value Reference Range Interpretation Comme nts TROPONIN-I (test code = TROPI) NG/ML 0.0-0.045 BASIC METABOLIC [id number] 17:58:00* Test Item Value Reference Range Interpretation Comme nts SODIUM (test code = NA) 138 MMOL/L 137-145 N POTASSIUM (test code = K) 3.8 MMOL/L 3.5-5.1 N CHLORIDE (test code = CL) 107 MMOL/L 98-107 N CARBON DIOXIDE (test code = CO2) MMOL/L 22-30 GLUCOSE (test code = GLU) MG/DL 74-106 BLOOD UREA NITROGEN (test co de = BUN) MG/DL 7-17 GLOMERULAR FILTRATION RATE ( test code = GFR) CREATININE (test code = CREAT) MG/DL 0.52-1.04 CALCIUM (test code = CA) MG/DL 8.7-9.7 HEPATIC FUNCTION [id number] 17:58:00* Test Item Value Reference Range Interpretation Comme nts TOTAL PROTEIN (test code = PROT) G/DL 6.3-8.2 ALBUMIN (test code = ALB) 4.1 G/DL 3.5-5.0 N BILIRUBIN TOTAL (test code = BILT) MG/DL 0.2-1.3 BILIRUBIN DIRECT (test code = BILD) MG/DL 0.0-0.3 SGOT/AST (test code = AST) UNITS/L 15-37 SGPT/ALT (test code = ALT) UNITS/L <35 ALKALINE PHOSPHATASE (test c ode = ALKP) UNITS/L 38-126 [id number] 17:58:00* Test Item Value Reference Range Interpretation Comme nts LIPASE (test code = LIP) UNITS/L 23-300 [id number] 17:58:00* Test Item Value Reference Range Interpretation Comme nts MAGNESIUM (test code = MAG) MG/DL 1.6-2.3 HCG SERUM [id number] 17:58:00* Test Item Value Reference Range Interpretation Comme nts HCG SERUM QUAL (test code = HCGQL) NEGATIVE THYROID STIMULATING [id number] 17:58:00* Test Item Value Reference Range Interpretation Comme nts THYROID STIMULATING HORMONE (test code = TSH) MIU/L 0.465-4.68 [id number] 17:58:00* Test Item Value Reference Range Interpretation Comme nts TROPONIN-I (test code = TROPI) NG/ML 0.0-0.045 URINALYSIS [id number] 17:54:00* Test Item Value Reference Range Interpretation Comme nts UA COLOR (test code = COLU) YELLOW YELLOW UA APPEARANCE (test code = APPU) CLEAR CLEAR UA GLUCOSE DIPSTICK (test code = DGLUU) NORMAL MG/DL NORMAL UA BILIRUBIN DIPSTICK (test code = BILU) NEGATIVE MG/DL NEGATIVE UA KETONE DIPSTICK (test code = KETU) NEGATIVE MG/DL NEGATIVE UA SPECIFIC GRAVITY (test code = SGU) 1.010 1.003-1.030 N UA BLOOD DIPSTICK (test code = CARO) NEGATIVE Michael/mm3 NEGATIVE UA PH DIPSTICK (test code = JOSEE) 7.0 5.0-9.0 N UA PROTEIN DIPSTICK (test code = PROU) NEGATIVE MG/DL NEGATIVE UA UROBILINIOGEN DIPSTICK (test code = URO) NORMAL MG/DL NORMAL UA NITRITE DIPSTICK (test code = MARJORIE) NEGATIVE NEGATIVE UA LEUKOCYTE ESTERASE DIPSTICK (test code = LEUU) NEGATIVE /mm3 NEGATIVE UA CULTURE NEEDED? (test code = UACULT) NEGATIVE, NO CULTURE Criteria Culture Chk SOURCE OF URINE: CLEAN CATCHDRUGS OF ABUSE SCREEN [id number] 17:54:00* Test Item Value Reference Range Interpretation Comme nts UR COCAINE (test code = COCAU) NEGATIVE UR CANNABINOIDS (THC) (test code = CANU) NEGATIVE UR AMPHETAMINE (test code = AMPHU) NEGATIVE UR BARBITURATE QUAL (test co de = BARBQLU) NEGATIVE UR BENZODIAZEPINE (test code = BENZU) NEGATIVE UR OPIATES QUAL (test code = OPIAQLU) NEGATIVE UR PHENCYCLIDINE (PCP) (test code = PHENCU) NEGATIVE SOURCE OF URINE: CLEAN CATCHCBC W/AUTO [id number] 17:49:00* Test Item Value Reference Range Interpretation Comme nts WHITE BLOOD CELL (test code = WBC) 8.4 K/MM3 3.8-9.8 N RED BLOOD CELL (test code = RBC) 4.54 M/MM3 3.58-4.97 N HEMOGLOBIN (test code = HGB) 13.6 G/DL 11.2-14.9 N HEMATOCRIT (test code = HCT) 41.2 % 33.2-43.5 N MEAN CELL VOLUME (test code = MCV) 91 fL 80.7-99.1 N MEAN CELL HGB (test code = MCH) 30.0 pg 27.0-34.1 N MEAN CELL HGB CONCETRATION (test code = MCHC) 33.0 % 32.2-35.7 N RED CELL DISTRIBUTION WIDTH (test code = RDW) 14.2 % 12.1-15.2 N PLATELET COUNT (test code = PLT) 266 K/MM3 129-368 N MEAN PLATELET VOLUME (test c ode = MPV) 11.3 fl 7.4-10.4 H NEUTROPHIL % (test code = NT%) 65.2 % 43-75 N IMMATURE GRANULOCYTE % (test code = IG%) 0.2 % 0.0-2.0 N LYMPHOCYTE % (test code = LY%) 24.1 % 14-44 N MONOCYTE % (test code = MO%) 7.8 % 4-13 N EOSINOPHIL % (test code = EO%) 2.1 % 0-6 N BASOPHIL % (test code = BA%) 0.6 % 0-2 N NUCLEATED RBC % (test code = NRBC%) 0.0 % 0-1.0 N NEUTROPHIL # (test code = NT#) 5.46 K/mm3 2.0-7.6 N IMMATURE GRANULOCYTE # (test code = IG#) 0.02 x10 3/uL 0-0.03 N LYMPHOCYTE # (test code = LY#) 2.02 K/mm3 1.0-3.8 N MONOCYTE # (test code = MO#) 0.65 K/mm3 0.1-0.8 N EOSINOPHIL # (test code = EO#) 0.18 K/mm3 0.0-0.2 N BASOPHIL # (test code = BA#) 0.05 K/mm3 0.0-0.2 N NUCLEATED RBC # (test code = NRBC#) 0.00 K/mm3 0.0-0.1 N URINALYSIS [id number] 17:48:00* Test Item Value Reference Range Interpretation Comme nts UA COLOR (test code = COLU) YELLOW YELLOW UA APPEARANCE (test code = APPU) CLEAR CLEAR UA GLUCOSE DIPSTICK (test code = DGLUU) NORMAL MG/DL NORMAL UA BILIRUBIN DIPSTICK (test code = BILU) NEGATIVE MG/DL NEGATIVE UA KETONE DIPSTICK (test code = KETU) NEGATIVE MG/DL NEGATIVE UA SPECIFIC GRAVITY (test code = SGU) 1.010 1.003-1.030 N UA BLOOD DIPSTICK (test code = CARO) NEGATIVE Michael/mm3 NEGATIVE UA PH DIPSTICK (test code = JOSEE) 7.0 5.0-9.0 N UA PROTEIN DIPSTICK (test code = PROU) NEGATIVE MG/DL NEGATIVE UA UROBILINIOGEN DIPSTICK (test code = URO) NORMAL MG/DL NORMAL UA NITRITE DIPSTICK (test code = MARJORIE) NEGATIVE NEGATIVE UA LEUKOCYTE ESTERASE DIPSTICK (test code = LEUU) NEGATIVE /mm3 NEGATIVE UA CULTURE NEEDED? (test code = UACULT) Criteria Culture Chk SOURCE OF URINE: CLEAN CATCHDRUGS OF ABUSE SCREEN [id number] 17:48:00* Test Item Value Reference Range Interpretation Comme nts UR COCAINE (test code = COCAU) NEGATIVE UR CANNABINOIDS (THC) (test code = CANU) NEGATIVE UR AMPHETAMINE (test code = AMPHU) NEGATIVE UR BARBITURATE QUAL (test co de = BARBQLU) NEGATIVE UR BENZODIAZEPINE (test code = BENZU) NEGATIVE UR OPIATES QUAL (test code = OPIAQLU) NEGATIVE UR PHENCYCLIDINE (PCP) (test code = PHENCU) NEGATIVE SOURCE OF URINE: CLEAN CATCHPDF ReportPDF Report Notes Date/Time Note Provider Source 2024-04-25 14:27:40 1812-16-13M85:27:40F ormatting of this note is different from the original.Chief ComplaintPatient presents withCallie Mckeon 98794-0Tclxb RatkFF3807-82-81M28:39:14Nurse NoteTXT1.2.840.698126.1.13.131.2.7.2.7278 79|[id number] for patient zsvz37718-2Ludqp NoteLNNARRATIVEFormatted C-CDA narrative [facility] [place], [place] [id number]:39:141.2.840.211996.1.72.3.15|1 .2.840.773425.1.13.131.2.7.2.727879_42627 2893 [facility] 2024-02-20 16:05:40 1630-28-64Q83:05:40F ormatting of this note is different from the original.Chief ComplaintPatient presents withFollow-upFollow up on Trulicity. She has not received it [place] [address]-7Koeho NagxRY2785-00-01P41:05:52Nurse NoteTXT1.2.840.965983.1.13.131.2.7.2.7278 79|[id number] for patient qkco59447-4Hcbhe NoteLNNARRATIVEFormatted C-CDA narrative [id number]:05:521.2.840.531227.1.72.3.15|1 .2.840.445457.1.13.131.2.7.2.727879_41238 8471 [facility] 2023-12-21 16:08:17 8345-83-62G05:08:17F ormatting of this note is different from the original.Chief ComplaintPatient presents withFollow-upFollow [place] [address]-0Ozuna SeqvOD5964-11-37E07:08:42Nurse NoteTXT1.2.840.963181.1.13.131.2.7.2.7278 79|[id number] for patient fzpn51370-4Whuur NoteLNNARRATIVEFormatted C-CDA narrative [id number]:08:421.2.840.129955.1.72.3.15|1 .2.840.118730.1.13.131.2.7.2.727879_39885 6544 [facility] 2023-11-22 15:44:58 8729-77-73C38:44:58F ormatting of this note is different from the original.Chief ComplaintPatient presents withEar PainRight ear pain that comes and goes for about 2 [place] [address]-9Tvzto ShktIG4672-77-24S11:45:15Nurse NoteTXT1.2.840.043936.1.13.131.2.7.2.7278 79|[id number] for patient mhce93525-5Fuhoh NoteLNNARRATIVEFormatted C-CDA narrative textAurora [facility]– [facility]2727 [facility].[id number] -01-10T15:45:151.2.840.375207.1.72.3.15|1 .2.840.993376.1.13.131.2.7.2.727879_39183 4710 [facility] 2020-08-23 12:07:00 LXpirqppver77353691K sqZid0J4jExgyOyTqXyh7 /UpmnWMPcd704sNSRiPghpGkYQCj/JCg8kRN0s22k 76695-47-64B46:07:719408-6239 [place] [address] PATIENT NAME: DARION BROWN ADMIT DATE: 08/22/20ACCOUNT NO: [id number] ROOM NO: Z.625 AGE: 45 REPORT TYPE: DISCHARGE SUMMARY REPORT SEX: F ADMITTING PHYSICIAN:Lindsay Bal MD ATTENDING PHYSICIAN:Lindsay Bal MD ADMISSION DATE: 08/22/2020DISCHARGE DATE: 08/23/2020 DISCHARGE DIAGNOSES:1. Chest pain.2. History of myocardial infarction.3. Morbid obesity.4. Hyperlipidemia.5. Hypertension. HOSPITAL COURSE: A 45-year-old female who was initially seen at [facility], transferred here at [facility] for further evaluation. Thepatient was evaluated by the horse exerciser in which the echocardiogram has beendone as well as the CT scan of the PE protocol. The patient did not have anysignificant of pulmonary embolism. Hence, no significant problem with theechocardiogram felt. The plan is for the patient to be discharge oncecardiologist has cleared the patient. The patient was advised to follow up with her own horse exerciser as well as withP. Hence, the patient is able to be discharged home today. Case discussed with the patient, nursing staff, and Dr. Lindsay Bal. Dictated By: Wilner Samuel NP for Lindsay Bal MD WT: DS:SOLEDAD/HOLLEY.01-ELEJO/NTSDD: 08/23/2020 12:07:16DT: 08/23/2020 20:50:06Conf#: [id number]/DID#: [id number] Authenticated by Wilner Samuel NP On 08/25/2020 07:17:50 PM Authenticated by Lindsay Bal MD On 08/28/2020 09:00:28 AM at 0900 at 0900 PATIENT NAME: DARION BROWN fvtbuyw4161-07-58B37:50:00Z.HAL61335997-4 286AVAvailable for patient mxmmBBBEQXWZMPMNCO9632-01-39Z73:00:59 [facility] 2020-08-23 12:05:00 AJnjhmrwiqo81555373/ wB1azgr58MfOw7ltZRCEi cxFJWfYDkOSLvDf733yjrVJ4Z+kKHaS5n1eMrMhBt l0683-47-18I82:05:840825-4243 [place] [id number] PATIENT NAME: DARION BROWN ADMIT DATE: 08/22/20ACCOUNT NO: [id number] ROOM NO: Z.625 AGE: 45 REPORT TYPE: HISTORY AND PHYSICAL SEX: F ADMITTING PHYSICIAN:Lindsay Bal MD ATTENDING PHYSICIAN:Lindsay Bal MD ADMISSION DATE: 08/22/2020 INTERNAL MEDICINE HISTORY AND PHYSICAL REASON FOR ADMISSION: Chest pain. HISTORY OF PRESENT ILLNESS: This is a 45-year-old [facility], [facility]. The patient does have a history of myocardial infarction. The patient was inher usual state of health yesterday when she took her mom to the doctor'sappointment. The patient experienced chest pain radiating to the arm, feltsweating, transferred next door to [facility] by EMS. The patientadmitted overnight for observation after resolution of symptoms. She didreceive an aspirin and Lovenox. Chest x-ray was performed at the [facility]. Troponin trended yesterday at 0.46, today is 0.130, 0.182 and 0. The patientwas seen by Dr. De Paz for cardiology. Bandar Dinero for primary care. Thepatient reports no continued symptoms. The patient had an MO a year ago, but nostents. Outpatient medications include lisinopril, diltiazem, atorvastatin, andaspirin. REVIEW OF SYSTEMS: A 14-point review of systems was all reviewed, all negativeexcept the one in HPI. PAST MEDICAL HISTORY: Coronary artery disease, hyperlipidemia, andhypertension. SOCIAL HISTORY: Denies any illicit drugs, smoking or drinking. PHYSICAL EXAMINATION:VITAL SIGNS: Blood pressure 147/66, respirations 16, heart rate 57, andtemperature 36.4.GENERAL: The patient does not appear in any acute distress.NEUROLOGIC: Awake, alert, and oriented x4.NECK: No JVD.HEART: S1 and S2 normal.LUNGS: Fair entry bilaterally.ABDOMEN: Soft.EXTREMITIES: No clubbing, no cyanosis. No edema noted. LABORATORY DATA: Has been reviewed. WBC count of 8.4, hemoglobin of 13.6,hematocrit of 41.2, and platelet of 266. D-dimer is 259. Troponin level of PATIENT NAME: DARION BROWN 0.091. Hemoglobin A1c of 6.0. CT scan of the chest for PE protocol showed no evidence of pulmonary embolism. Chest x-ray showed low lung volumes. No focal consolidation. IMPRESSION:1. Elevated D-dimer with negative CT scan of pulmonary embolism.2. Non-ST elevation myocardial infarction.3. Chest pain.4. History of myocardial infarction.5. Morbid obesity. PLAN AND RECOMMENDATIONS:1. To review and reconcile home medications.2. Consult horse exerciser.3. Deep venous thrombosis and gastrointestinal prophylaxes.4. Continue with observation status.5. To discharge as soon as horse exerciser has cleared the patient. Case discussed with the patient, nursing staff, and with Dr. Lindsay Bal. Dictated By: Wilner Samuel NP for Lindsay Bal MD WT: HP:ZMARGRAITA/HOLLEY.01-ELEJO/NTSDD: 08/23/2020 12:05:51DT: 08/23/2020 16:42:04Conf#: [id number]/DID#: [id number] by Wilner Samuel NP On 08/25/2020 07:17:49 PM Authenticated by Lindsay Bal MD On 08/28/2020 09:00:28 AM at 0900 at 0900 PATIENT NAME: DARION BROWN and physical zssjayppzzh0618-45-35I83:42:00Z.[id number] -0187AVAvailable for patient pmshATBTAAMNGIYMIC3733-79-23O50:00:59 [facility] 2020-08-23 11:51:00 CMcxcqlymbd18059333U ipDkikrJnlQfdesNwEJx+ jaRJ4H93w5z9gDB38uXG6W9pKPFCyR02UQb4UuhJW 14295-48-92V95:51:534376-[address] [address] PATIENT NAME: DARION BROWN ADMIT DATE: 08/22/20ACCOUNT NO: [id number] ROOM NO: .625 AGE: 45 REPORT TYPE: ECHOCARDIOGRAM SEX: F ADMITTING PHYSICIAN:Lindsay Bal MD ATTENDING PHYSICIAN:Lindsay Bal MD *[facility]*[address] [place] [address] [id number] Transthoracic Echocardiogram Patient: Darion Brown KStudy Date: 08/23/2020 BP: 116 / 74 Location: NEPTALI: [id number] : 1975 Age: 45 Height: 65 in / 165.1 cmAccession#: [id number] Gender: F Weight: 216.5 lb / 98.4 kgBMI/BSA: 36.1 kg/m 2 / 2.17 m 2 *Ordering Physician: * Mario Wright MD *Interpreting Physician: * Mario Wright MD*Embossing Machine Tender: * Cassie Acosta [facility], T Indication s: AMI. Study data: Transthoracic echocardiogram. Procedure: Transthoracicechocardiography was performed. Images were obtained using a [employer] cardiacultrasound machine. Image quality was good. Complete 2D, completespectral Doppler, and color Doppler. Location: Bedside. Patientstatus: Inpatient. Patient room number: 625. Study status: Routine. Findings Left ventricle: The cavity size is normal. Wall thickness is mildlyincreased. Systolic function is normal. The estimated ejection fractionis 55-59%. Wall motion is normal; there are no regional wall motionabnormalities. Features are consistent with a pseudonormal leftventricular filling pattern, with concomitant abnormal relaxation andincreased filling pressure (grade 2 diastolic dysfunction). PATIENT NAME: DARION BROWN Right ventricle: The cavity size is normal. Systolic function isnormal. The tricuspid jet envelope definition is inadequate forestimation of RV systolic pressure.Ventricular septum: The outflow septum has a sigmoid appearance.Left atrium: The atrium is normal in size.Right atrium: The atrium is normal in size.Atrial septum: No defect or patent foramen ovale is identified.Aorta: The aorta is normal. The aortic root is not dilated.Aortic valve: The valve is structurally normal. The valve istrileaflet. Cusp separation is normal. Transvalvular velocity iswithin the normal range. There is no evidence of stenosis. There istrivial regurgitation.Mitral valve: The valve is structurally normal. There is noevidence of stenosis. There is trivial regurgitation.Tricuspid valve: The valve is structurally normal. There is noevidence of stenosis. There is trivial regurgitation.Pulmonic valve: The valve is structurally normal. There is noevidence of stenosis. There is no significant regurgitation.Pericardium: There is no pericardial effusion.Systemic veins:Inferior vena cava: The vessel is normal in size. Measuremen ts Left ventricle Value Ref Left atrium Value Ref CORY, LAX 4.2 cm 3.8 - AP dim, ES 2.47 cm 2.70 - 3.80 5.2 AP dim, ES MM 3.1 cm 2.7 - 3.8 ESD, LAX 2.8 cm 2.2 - LA/Ao root ratio, MM 0.86 3.5 ESD/bsa, LAX 1.3 cm/m 2 1.3 - Aortic valve Value Ref 2.1 Leaflet sep, MM 2.45 cm FS, LAX 34 % 27 - 45 Peak v, S 1.17 m/sec ESD/bsa major ax, 3.1 cm/m 2 ------- Mean v, S 0.86 m/sec A4C VTI, S 23.9 cm CORY/bsa minor ax, 3.1 cm/m 2 ------- Mean grad, S 3.2 mm Hg A4C Peak grad, S 5.5 mm Hg CORY major ax, A2C 8.2 cm ------- LVOT/AV, VTI ratio 0.74 ESD major ax, A2C 6.7 cm ------- DANNY, VTI 2.32 cm 2 CORY/bsa major ax, 3.8 cm/m 2 ------- LVOT/AV, Vpeak ratio 0.75 PATIENT NAME: DARION BROWN A2C DANNY, Vmax 2.35 cm 2 ESD/bsa major ax, 3.1 cm/m 2 ------- A2C Mitral valve Value Ref PW, ED 1.1 cm 0.6 - Peak E 0.69 m/sec 0.9 Peak A 0.52 m/sec PW, ES 1.8 cm ------- Mean v, D 0.46 m/sec IVS/PW, ED 1.01 ------- VTI leaflet coapt 20.1 cm EF 64 % 54 - 74 Decel time 195 ms PHT 92 ms LVOT Value Ref Mean grad, D 0.9 mm Hg Diam, S 2.00 cm ------- Peak grad, D 1.9 mm Hg Area 3.1 cm 2 ------- Peak E/A ratio 1.33 Peak jill, S 0.88 m/sec ------- MVA, PHT 2.4 cm 2 Mean jill, S 0.63 m/sec ------- VTI, S 17.7 cm ------- Pulmonic valve Value Ref Peak grad, S 3 mm Hg ------- DE v, ED 0.74 m/sec Mean grad, S 2 mm Hg ------- SV 55 ml ------- Aortic root Value Ref Qs 4.09 L/min ------- Root diam, ED MM 3.61 cm Qs/bsa 1.9 L/(min-m 2) ------- SV/bsa 25 ml/m 2 ------- Ventricular septum Value Ref IVS, ED 1.1 cm 0.6 - 0.9 IVS, ES 2.0 cm ------- RVOT Value Ref Peak v, S 0.71 m/sec ------- Peak grad, S 2 mm Hg ------- Conclusion s Summary: Left ventricle: The cavity size is normal. Wall thickness ismildly increased. Systolic function is normal. The estimated ejectionfraction is 55-59%. Wall motion is normal; there are no regional wallmotion abnormalities. Features are consistent with a pseudonormal left PATIENT NAME: DARION BROWN Alfredo ventricular filling pattern, with concomitant abnormal relaxation andincreased filling pressure (grade 2 diastolic dysfunction).Prepared and electronically signed by Mario Wright MD08/23/2020 11:51 at 1152 PATIENT NAME: DARION BROWN T11:51:00Z.[id number] for patient hmijRNYLLRHNYYXFIZ0343-43-68G61:52:22 [facility] 2020-08-23 10:36:00 JQatkqlywwt83659907b nM3g0/Afs9RQVnfYYn9zd T/z3ddcc2hTSLccH+V2V/kGqJFF+Oz2jqhF6Vf8MG M9257-16-68M72:36:211764-[address] [address] PATIENT NAME: DARION BROWN ADMIT DATE: 08/22/20ACCOUNT NO: [id number] ROOM NO: [facility] AGE: 45 REPORT TYPE: CONSULTATION REPORT SEX: F ADMITTING PHYSICIAN:Lindsay Bal MD ATTENDING PHYSICIAN:Lindsay Bal MD CONSULTATION DATE: 08/23/2020 CONSULTING PHYSICIAN: Mario Wright MD CARDIOLOGY CONSULT REFERRING PHYSICIAN: Juan R Bal MD CLINICAL INFORMATION: Acute gak-KY-stjtjepzr myocardial infarction. HISTORY OF PRESENT ILLNESS: Thanks for asking me to see this very wlfalzuf08-kcto-uss white female, who is from [place] and she [facility]. The patient says that she had a myocardial infarction in 2019, but nointerventions were performed. Heart catheterization showed no blockages. Thepatient had another episode of chest pain, which was different from the chestpain 1 year ago. It is more sharp pain across the chest, worse on exertion,relieved with rest. Cardiac enzymes show a rise and fall in troponin consistentwith a bmq-WS-xqzhebwnh myocardial infarction. Cardiology has been consulted. Electrocardiogram shows minimal T-wave changes. ALLERGIES: PENICILLIN. PAST MEDICAL HISTORY:1. Diabetes mellitus type 2.2. Hypertension.3. Hypercholesterolemia. FAMILY HISTORY: There is family history of heart disease. REVIEW OF SYSTEMS: Unremarkable except for HPI and PMH. PHYSICAL EXAMINATION:GENERAL: Overweight white female, in no acute distress at rest. Rest of thephysical exam is normal. ASSESSMENT AND PLAN: Middle-aged white female with possibly type 2 myocardialinfarction because heart catheterization less than a year ago was normal. Iwill order an echocardiogram to assess wall motion and if wall motion is intact,then I will not proceed with heart catheterization. Thanks for this consult. Please do not hesitate to contact me if you have anyfurther questions. PATIENT NAME: DARION BROWN Dictated By: Mario Wright MD WT: CON:SOLEDAD/CRISTIANA/NTSDD: 08/23/2020 10:36:37DT: 08/23/2020 11:59:58Conf#: [id number]/DID#: [id number] Authenticated by Mario Wrihgt MD On 08/30/2020 11:49:12 AM at 1149 PATIENT NAME: DARION BROWN :5 9:00Z.[id number] for patient hydkDLIWIMXWCWJEUJ1869-94-14Z19:49:38 [facility] 2020-08-22 19:44:00 [id number] cICYxBM9BZOliPTiMWLC2 T9qIHQqhj6LdzfY+d/yyZ7cWoNrniDwLT55ambWk3 b7341-87-96M51:44:00 [facility] ([facility])DT PROGRESS NOTEREPORT#:[id number] REPORT STATUS: SignedDATE:08/22/20 TIME: 1943 PATIENT: THERESA BROWN UNIT #: [id number]#: [id number] ROOM[facility]BED: [facility]DOB: [birth year] AGE: 45 SEX: F ATTEND: Lindsay Bal MDADM AUTHOR: Lindsay Bal MD * ALL edits or amendments must be made on the electronic/computer document * Progress NoteProgress NotePATIENT SEEN AND EXAMINED CAME IN WITH CHEST PAIN. CURRENTLY CHEST PAIN FREE. VITALS REVIEWED AND LABS REVIEWED. WILL CONSULT CARDIOLOGY. TRANSFERRED FROM [place] CURRENTLY STABLE. COMPLETE H P TO BE DICTATED. LINDSAY BAL MD at 1943 RPT #:[id number] OF REPORTPRProgress Gpcq4382-81-59O56:44:00Z.WAFE86296120-558 3AVAvailable for patient toqzFDBYCZPPEKEQFC1025-45-56G40:45:00 [facility] 2020-08-22 18:15:00 ZWphuhijqhu04929675S dYDU/nFsINmrQCTuiOxXt n9SaIoNFdhp7J1S0/V/t0kIppNlXI29mr/HgZ1xAO 52367-88-46R09:15:00 [facility] ([facility])EMERGENCY PROVIDER REPORTREPORT#:[id number] REPORT STATUS: SignedDATE:08/22/20 TIME: 1814 PATIENT: DARION BROWN UNIT #: [id number]#: [id number] ROOM/BED:AGE: 45 SEX: F PCP PHYS:SERVICE DT: AUTHOR: Ty Garcia MD R1 LOCATION: [facility] * ALL edits or amendments must be made on the electronic/computer document * HPI-Chest Pain 40 and Over GeneralInitial Greet Date/Time 08/22/20 1723 PresentationChief Complaint Chest pain, DiaphoresisSudden in Onset? Yes)( Migration/Movement None Free Text HPI NotesFree Text HPI NotesPt is a 45 yo woman with history of [place] transfer after NSTEMI. Pt was in her usual state of health yesterday when she took her mom to doctors appt. Pt experienced CP radiating to arm, pale, sweating. Transferred next door to [facility] by EMS. Pt was admitted overnight for observation after resolution of symptoms. She received aspirin and enoxaparin (last dose 1000 today 60mg). CXR was performed at [facility]. Trops trended yesterday 2007 .046, today 0130 0.182, 0625 0.183, 0954 0.143, [address] Garcia for cardiology, Bandar Montes for primary care. Pt reports no continued symptoms. Pt had MO one year ago, no stents. Outpt meds include lisinopril, diltiazem, atorvastatin, and aspirin. Surgical history: tubal ligation. Review of Systems Focused Review of SystemsConstitutionalDenies: Chills, Fever, Malaise. RespiratoryReports: Dyspnea on exertion. Denies: Cough, non-productive, Cough, productive,Shortness of breath. CardiovascularReports: Chest pain (resolved). Denies: Syncope. GIDenies: Abdominal pain, Diarrhea, Nausea, Vomiting. NeurologicDenies: Syncope. Past Medical History - AdultStated Complaint [facility]ies:Penicillins (UNKNOWN 08/22/20) Home MedicationsReported MedicationsASPIRIN 81 MG PO DAILY ATORVASTATIN (LIPITOR) 40 MG PO BEDTIME DILTIAZEM SR (CARDIZEM SR) 120 MG PO DAILY LISINOPRIL (ZESTRIL) 20 MG PO BID EZETIMIBE (ZETIA) 10 MG PO DAILY Smoking status for patients 13 years old or older: Never SmokerFree Text PMH NotesHTN, MO Physical Exam Vital SignsVital SignsFirst Documented: Result Date Time Pulse Ox 100 08/22 1733 B/P 181/77 08/22 1733 B/P Mean 111 08/22 1733 O2 Delivery Room air 08/22 1733 Pulse 75 08/22 1733 Resp 18 08/22 1733 Temp 98.3 08/22 1735 Last Documented: Result Date Time Temp 98.3 08/22 1735 Pulse Ox 100 08/22 1733 B/P 181/77 08/22 173 B/P Mean 111 08/22 173 O2 Delivery Room air 08/22 1733 Pulse 75 08/22 1733 Resp 18 08/22 1733 Review of Vital Signs Reviewed, Vital signs abnormal (HTN) Focused PEGeneral/Const General/Const Awake, Alert, No acute distress, Well appearing, Well developed, Well hydrated, Well nourished, Cooperative, Not toxic appearingResp/Chest Respiratory/Chest Breath sounds NL, Breath sounds = bilat, No respiratory distress, No rales, No rhonchi, No wheezing, No retractionsCardiovascular Cardiovascular Heart rate NL, Regular rhythm, Heart sounds NL, No gallop, No murmurs, No rubsAbdomen/GI Abdomen/GI Soft, Non-tender, No guarding, No rebound, BS normoactive, No distention, No hernia, No palpable mass, No pulsatile massNeurologic Neurologic Oriented X3, Speech NL, Memory NLPsychiatric Psychiatric Affect NL, Mood NL, Cognitive function NL, Judgment/insight NL, Thought content NL Interpretation Diagnostics Lab Results InterpretationResultsLaboratory Tests 08/22/201739:[Embedded Image Not Available]Laboratory Tests: 08/22 1740 Chemistry Sodium (137 - 145 MMOL/L) 138 Potassium (3.5 - 5.1 MMOL/L) 3.8 Chloride (98 - 107 MMOL/L) 107 Carbon Dioxide (22 - 30 MMOL/L) 21 L BUN (7 - 17 MG/DL) 8 Creatinine (0.52 - 1.04 MG/DL) 0.60 Glomerular Filtr Rate > 60 Glucose (74 - 106 MG/DL) 112 H Calcium (8.4 - 10.2 MG/DL) 8.8 Magnesium (1.6 - 2.3 MG/DL) 2.1 Total Bilirubin (0.2 - 1.3 MG/DL) 0.7 Direct Bilirubin (0.0 - 0.3 MG/DL) 0.0 AST (14 - 36 UNITS/L) 111 H ALT (<35 UNITS/L) 59 Total Alk Phosphatase (38 - 126 UNITS/L) 89 Troponin I (0.012 - 0.033 NG/ML) 0.069 H Total Protein (6.3 - 8.2 G/DL) 7.0 Albumin (3.5 - 5.0 G/DL) 4.1 Lipase (23 - 300 UNITS/L) 58 Serum , Qual (NEGATIVE) NEGATIVE L Coagulation INR 1.0 APTT (25.1 - 36.5 SECONDS) 39.1 H PT Patient/Control Mix (9.4 - 12.5 SECONDS) 11.3 D-Dimer (0 - 499 ng/mLFEU) 259 Hematology WBC (3.8 - 9.8 K/MM3) 8.4 RBC (3.58 - 4.97 M/MM3) 4.54 Hgb (11.2 - 14.9 G/DL) 13.6 Hct (33.2 - 43.5 %) 41.2 MCV (80.7 - 99.1 fL) 91 MCH (27.0 - 34.1 pg) 30.0 MCHC (32.2 - 35.7 %) 33.0 RDW (12.1 - 15.2 %) 14.2 Plt Count (129 - 368 K/MM3) 266 MPV (7.4 - 10.4 fl) 11.3 H Neut % (Auto) (43 - 75 %) 65.2 Lymph % (Auto) (14 - 44 %) 24.1 [place] % (Auto) (4 - 13 %) 7.8 Eos % (Auto) (0 - 6 %) 2.1 Baso % (Auto) (0 - 2 %) 0.6 Neut # (Auto) (2.0 - 7.6 K/mm3) 5.46 Lymph # (Auto) (1.0 - 3.8 K/mm3) 2.02 [place] # (Auto) (0.1 - 0.8 K/mm3) 0.65 Eos # (Auto) (0.0 - 0.2 K/mm3) 0.18 Baso # (Auto) (0.0 - 0.2 K/mm3) 0.05 Immature Gran % (0.0 - 2.0 %) 0.2 Nucleated RBC % (0 - 1.0 %) 0.0 Nucleated RBCs # (Man) (0.0 - 0.1 K/mm3) 0.00 Toxicology Urine Opiates Screen (NEGATIVE) NEGATIVE Ur Barbiturates, Qual (NEGATIVE) NEGATIVE Ur Phencyclidine Scrn (NEGATIVE) NEGATIVE Ur Amphetamines Screen (NEGATIVE) NEGATIVE U Benzodiazepines Scrn (NEGATIVE) NEGATIVE Urine Cocaine Screen (NEGATIVE) NEGATIVE Urine Cannabinoids (NEGATIVE) NEGATIVE Urines Urine Color (YELLOW) YELLOW Urine Appearance (CLEAR) CLEAR Urine pH (5.0 - 9.0) 7.0 Ur Specific [place] (1.003 - 1.030) 1.010 Urine Protein (NEGATIVE MG/DL) NEGATIVE Urine Glucose (UA) (NORMAL MG/DL) NORMAL Urine Ketones (NEGATIVE MG/DL) NEGATIVE Urine Blood (NEGATIVE Michael/mm3) NEGATIVE Urine Nitrite (NEGATIVE) NEGATIVE Urine Bilirubin (NEGATIVE MG/DL) NEGATIVE Urine Urobilinogen (NORMAL MG/DL) NORMAL Ur Leukocyte Esterase (NEGATIVE /mm3) NEGATIVE Urine Culture Screen (Culture Chk Criteria) NEGATIVE, NO CULTURE Recent Impressions:RADIOLOGY - XR CHEST 1V 08/22 1750 Report Impression - Status: SIGNED Entered: 08/22/2020 1806 IMPRESSION: Low lung volumes, no focal consolidation.Impression By: Jaspreet Pompa ECG #1 InterpretationText/Dict NoteNormal sinus rhythm, narrow QRS, no ST elevation, no STEMI, QT <500ms, poor R wave progression, q wave in V2.Date 08/22/20Time 1735Interpreted by and reviewed by me, ED physicianNL ECG Interpretation Normal rate, Normal sinus rhythm, No acute ischemic changes, No STEMI, Normal QRS, Normal ST waves, Adequate tracingRate 69 Patient Discharge Departure Vital Signs/ConditionVital SignsFirst Documented: Result Date Time Pulse Ox 100 08/22 1733 B/P 181/77 08/22 1733 B/P Mean 111 08/22 1733 O2 Delivery Room air 08/22 1733 Pulse 75 08/22 1733 Resp 18 08/22 1733 Temp 98.3 08/22 1735 Last Documented: Result Date Time Temp 98.3 08/22 1735 Pulse Ox 100 08/22 1733 B/P 181/77 08/22 1733 B/P Mean 111 08/22 1733 O2 Delivery Room air 08/22 1733 Pulse 75 08/22 1733 Resp 18 08/22 1733 All vital signs available at the time of this entry have been reviewed. at 1824RPT #:[id number] OF REPORTEDEmergency department ozkmqj9209-87-92Q06:15:00Z.QRUX28645238-1 365AVAvailable for patient qmccWGYNWHEJIGYNBA1095-99-58A35:24:27 [facility] 2020-08-22 18:15:00 EPdbvmgmgyi53466539b Qj2hF8Hy4HNea3qadKVLw LkmgXWSuwIEC68j5duVCi9UkleBclW7XMFRdi3hFL B5705-14-74J71:15:00 [facility] ([facility])EMERGENCY PROVIDER REPORTREPORT#:[id number] REPORT STATUS: SignedDATE:08/22/20 TIME: 1814 PATIENT: THERESA BROWN UNIT #: [id number]#: [id number] [facility]AGE: 45 SEX: F PCP PHYS: No Primary or Family PhysicianSERVICE AUTHOR: Ty Garcia MD R1 LOCATION: [facility] * ALL edits or amendments must be made on the electronic/computer document * Ty Garcia 08/22/201814:HPI-Chest Pain 40 and Over PresentationChief Complaint Chest pain, DiaphoresisSudden in Onset? Yes)( Migration/Movement None Free Text HPI NotesFree Text HPI NotesPt is a 45 yo woman with history of [place] transfer after NSTEMI. Pt was in her usual state of health yesterday when she took her mom to doctors appt. Pt experienced CP radiating to arm, pale, sweating. Transferred next door to [facility] by EMS. Pt was admitted overnight for observation after resolution of symptoms. She received aspirin and enoxaparin (last dose 1000 today 60mg). CXR was performed at [facility]. Trops trended yesterday 2007 .046, today 0130 0.182, 0625 0.183, 0954 0.143, [address] Garcia for cardiology, Bandar Montes for primary care. Pt reports no continued symptoms. Pt had MO one year ago, no stents. Outpt meds include lisinopril, diltiazem, atorvastatin, and aspirin. Surgical history: tubal ligation. Review of Systems Focused Review of SystemsConstitutionalDenies: Chills, Fever, Malaise. RespiratoryReports: Dyspnea on exertion. Denies: Cough, non-productive, Cough, productive,Shortness of breath. CardiovascularReports: Chest pain (resolved). Denies: Syncope. GIDenies: Abdominal pain, Diarrhea, Nausea, Vomiting. NeurologicDenies: Syncope. Past Medical History - AdultStated [facility]:Penicillins (UNKNOWN 08/22/20) Home MedicationsReported MedicationsASPIRIN 81 MG PO DAILY ATORVASTATIN (LIPITOR) 40 MG PO BEDTIME DILTIAZEM SR (CARDIZEM SR) 120 MG PO DAILY LISINOPRIL (ZESTRIL) 20 MG PO BID EZETIMIBE (ZETIA) 10 MG PO DAILY Smoking status for patients 13 years old or older: Never SmokerFree Text PMH NotesHTN, MO Physical Exam Vital SignsVital SignsFirst Documented: Result Date Time Pulse Ox 100 08/22 173 B/P 181/77 08/22 1733 B/P Mean 111 08/22 1733 O2 Delivery Room air 08/22 1733 Pulse 75 08/22 1733 Resp 18 08/22 1733 Temp 36.8 08/22 1735 Last Documented: Result Date Time Temp 36.8 08/22 1735 Pulse Ox 100 08/22 173 B/P 181/77 08/22 1733 B/P Mean 111 08/22 1733 O2 Delivery Room air 08/22 1733 Pulse 75 08/22 1733 Resp 18 08/22 1733 Review of Vital Signs Reviewed, Vital signs abnormal (HTN) Focused PEGeneral/Const General/Const Awake, Alert, No acute distress, Well appearing, Well developed, Well hydrated, Well nourished, Cooperative, Not toxic appearingResp/Chest Respiratory/Chest Breath sounds NL, Breath sounds = bilat, No respiratory distress, No rales, No rhonchi, No wheezing, No retractionsCardiovascular Cardiovascular Heart rate NL, Regular rhythm, Heart sounds NL, No gallop, No murmurs, No rubsAbdomen/GI Abdomen/GI Soft, Non-tender, No guarding, No rebound, BS normoactive, No distention, No hernia, No palpable mass, No pulsatile massNeurologic Neurologic Oriented X3, Speech NL, Memory NLPsychiatric Psychiatric Affect NL, Mood NL, Cognitive function NL, Judgment/insight NL, Thought content NL Interpretation Diagnostics Lab Results InterpretationResultsLaboratory Tests 08/22/201739:[Embedded Image Not Available]Laboratory Tests: 08/22 1740 Chemistry Sodium (137 - 145 MMOL/L) 138 Potassium (3.5 - 5.1 MMOL/L) 3.8 Chloride (98 - 107 MMOL/L) 107 Carbon Dioxide (22 - 30 MMOL/L) 21 L BUN (7 - 17 MG/DL) 8 Creatinine (0.52 - 1.04 MG/DL) 0.60 Glomerular Filtr Rate > 60 Glucose (74 - 106 MG/DL) 112 H Calcium (8.4 - 10.2 MG/DL) 8.8 Magnesium (1.6 - 2.3 MG/DL) 2.1 Total Bilirubin (0.2 - 1.3 MG/DL) 0.7 Direct Bilirubin (0.0 - 0.3 MG/DL) 0.0 AST (14 - 36 UNITS/L) 111 H ALT (<35 UNITS/L) 59 Total Alk Phosphatase (38 - 126 UNITS/L) 89 Troponin I (0.012 - 0.033 NG/ML) 0.069 H B-Natriuretic Peptide (0 - 100 PG/ML) 138.0 H Total Protein (6.3 - 8.2 G/DL) 7.0 Albumin (3.5 - 5.0 G/DL) 4.1 Lipase (23 - 300 UNITS/L) 58 TSH (0.465 - 4.68 MIU/L) 3.640 Serum , Qual (NEGATIVE) NEGATIVE L Coagulation INR 1.0 APTT (25.1 - 36.5 SECONDS) 39.1 H PT Patient/Control Mix (9.4 - 12.5 SECONDS) 11.3 D-Dimer (0 - 499 ng/mLFEU) 259 Hematology WBC (3.8 - 9.8 K/MM3) 8.4 RBC (3.58 - 4.97 M/MM3) 4.54 Hgb (11.2 - 14.9 G/DL) 13.6 Hct (33.2 - 43.5 %) 41.2 MCV (80.7 - 99.1 fL) 91 MCH (27.0 - 34.1 pg) 30.0 MCHC (32.2 - 35.7 %) 33.0 RDW (12.1 - 15.2 %) 14.2 Plt Count (129 - 368 K/MM3) 266 MPV (7.4 - 10.4 fl) 11.3 H Neut % (Auto) (43 - 75 %) 65.2 Lymph % (Auto) (14 - 44 %) 24.1 [place] % (Auto) (4 - 13 %) 7.8 Eos % (Auto) (0 - 6 %) 2.1 Baso % (Auto) (0 - 2 %) 0.6 Neut # (Auto) (2.0 - 7.6 K/mm3) 5.46 Lymph # (Auto) (1.0 - 3.8 K/mm3) 2.02 [place] # (Auto) (0.1 - 0.8 K/mm3) 0.65 Eos # (Auto) (0.0 - 0.2 K/mm3) 0.18 Baso # (Auto) (0.0 - 0.2 K/mm3) 0.05 Immature Gran % (0.0 - 2.0 %) 0.2 Nucleated RBC % (0 - 1.0 %) 0.0 Nucleated RBCs # (Man) (0.0 - 0.1 K/mm3) 0.00 Toxicology Urine Opiates Screen (NEGATIVE) NEGATIVE Ur Barbiturates, Qual (NEGATIVE) NEGATIVE Ur Phencyclidine Scrn (NEGATIVE) NEGATIVE Ur Amphetamines Screen (NEGATIVE) NEGATIVE U Benzodiazepines Scrn (NEGATIVE) NEGATIVE Urine Cocaine Screen (NEGATIVE) NEGATIVE Urine Cannabinoids (NEGATIVE) NEGATIVE Urines Urine Color (YELLOW) YELLOW Urine Appearance (CLEAR) CLEAR Urine pH (5.0 - 9.0) 7.0 Ur Specific [place] (1.003 - 1.030) 1.010 Urine Protein (NEGATIVE MG/DL) NEGATIVE Urine Glucose (UA) (NORMAL MG/DL) NORMAL Urine Ketones (NEGATIVE MG/DL) NEGATIVE Urine Blood (NEGATIVE Michael/mm3) NEGATIVE Urine Nitrite (NEGATIVE) NEGATIVE Urine Bilirubin (NEGATIVE MG/DL) NEGATIVE Urine Urobilinogen (NORMAL MG/DL) NORMAL Ur Leukocyte Esterase (NEGATIVE /mm3) NEGATIVE Urine Culture Screen (Culture Chk Criteria) NEGATIVE, NO CULTURE Recent Impressions:RADIOLOGY - XR CHEST 1V 08/22 1750 Report Impression - Status: SIGNED Entered: 08/22/2020 1806 IMPRESSION: Low lung volumes, no focal consolidation.Impression By: [email or web address] - Johann Pompa ECG #1 InterpretationText/Dict NoteNormal sinus rhythm, narrow QRS, no ST elevation, no STEMI, QT <500ms, poor R wave progression, q wave in V2.Date 08/22/20Time 1735Interpreted by and reviewed by me, ED physicianNL ECG Interpretation Normal rate, Normal sinus rhythm, No acute ischemic changes, No STEMI, Normal QRS, Normal ST waves, Adequate tracingRate 69 Patient Discharge Departure Vital Signs/ConditionVital SignsFirst Documented: Result Date Time Pulse Ox 100 08/22 1733 B/P 181/77 08/22 1733 B/P Mean 111 08/22 1733 O2 Delivery Room air 08/22 1733 Pulse 75 08/22 1733 Resp 18 08/22 173 Temp 36.8 08/22 1735 Last Documented: Result Date Time Temp 36.8 08/22 1735 Pulse Ox 100 08/22 1733 B/P 181/77 08/22 1733 B/P Mean 111 08/22 1733 O2 Delivery Room air 08/22 173 Pulse 75 08/22 1733 Resp 18 08/22 173 All vital signs available at the time of this entry have been reviewed. Kulwant De Oliveira 08/22/201909:HPI-Chest Pain 40 and Over GeneralInitial Greet Date/Time 08/22/20 172 Patient Discharge Departure Vital Signs/ConditionCondition Stable, Improved Clinical ImpressionClinical ImpressionPrimary Impression: NSTEMI (non-ST elevated myocardial infarction)Secondary Impressions: Chest pain Disposition DecisionAdmit Admit Physician Name Lindsay Bal MD Admit Physician Hospitalist Request Time 1910 Request Date 08/22/20 )( Admission Accepts Yes )( Accepted Time 1911 )( Accepted Date 08/22/20 Call Information will see patient, agrees with eval, agrees with plan at 1824RPT #:[id number] OF REPORTEDEmergency department [id number]:15:00Z.[id number] 365AVAvailable for patient [id number]:11:38 [facility] 2020-08-22 18:15:00 [id number] [id number]:15:00 [facility] ([facility])EMERGENCY PROVIDER REPORTREPORT#:[id number] REPORT STATUS: SignedDATE:08/22/20 TIME: 1814 PATIENT: THERESA BROWN UNIT #: [id number]#: [id number] ROOM/BED: GUSTAVO-3AGE: 45 SEX: F PCP PHYS: No Primary or Family PhysicianSERVICE AUTHOR: Ty Garcia MD R1 LOCATION: [facility] * ALL edits or amendments must be made on the electronic/computer document * Ty Garcia 08/22/201814:HPI-Chest Pain 40 and Over PresentationChief Complaint Chest pain, DiaphoresisSudden in Onset? Yes)( Migration/Movement None Free Text HPI NotesFree Text HPI NotesPt is a 45 yo woman with history of [place] transfer after NSTEMI. Pt was in her usual state of health yesterday when she took her mom to doctors appt. Pt experienced CP radiating to arm, pale, sweating. Transferred next door to [facility] by EMS. Pt was admitted overnight for observation after resolution of symptoms. She received aspirin and enoxaparin (last dose 1000 today 60mg). CXR was performed at [facility]. Trops trended yesterday 2007 .046, today 0130 0.182, 0625 0.183, 0954 0.143, [address] Garcia for cardiology, Bandar Montes for primary care. Pt reports no continued symptoms. Pt had MO one year ago, no stents. Outpt meds include lisinopril, diltiazem, atorvastatin, and aspirin. Surgical history: tubal ligation. Review of Systems Focused Review of SystemsConstitutionalDenies: Chills, Fever, Malaise. RespiratoryReports: Dyspnea on exertion. Denies: Cough, non-productive, Cough, productive,Shortness of breath. CardiovascularReports: Chest pain (resolved). Denies: Syncope. GIDenies: Abdominal pain, Diarrhea, Nausea, Vomiting. NeurologicDenies: Syncope. Past Medical History - AdultStated Complaint [facility] Allergies:Penicillins (UNKNOWN 08/22/20) Home MedicationsReported MedicationsASPIRIN 81 MG PO DAILY ATORVASTATIN (LIPITOR) 40 MG PO BEDTIME DILTIAZEM SR (CARDIZEM SR) 120 MG PO DAILY LISINOPRIL (ZESTRIL) 20 MG PO BID EZETIMIBE (ZETIA) 10 MG PO DAILY Smoking status for patients 13 years old or older: Never SmokerFree Text [facility] NotesHTN, [place] Physical Exam Vital SignsVital SignsFirst Documented: Result Date Time Pulse Ox 100 08/22 1733 B/P 181/77 08/22 173 B/P Mean 111 08/22 1733 O2 Delivery Room air 08/22 1733 Pulse 75 08/22 1733 Resp 18 08/22 1733 Temp 36.8 08/22 1735 Last Documented: Result Date Time Temp 36.8 08/22 1735 Pulse Ox 100 08/22 1733 B/P 181/77 08/22 1733 B/P Mean 111 08/22 1733 O2 Delivery Room air 08/22 1733 Pulse 75 08/22 1733 Resp 18 08/22 1733 Review of Vital Signs Reviewed, Vital signs abnormal (HTN) Focused PEGeneral/Const General/Const Awake, Alert, No acute distress, Well appearing, Well developed, Well hydrated, Well nourished, Cooperative, Not toxic appearingResp/Chest Respiratory/Chest Breath sounds NL, Breath sounds = bilat, No respiratory distress, No rales, No rhonchi, No wheezing, No retractionsCardiovascular Cardiovascular Heart rate NL, Regular rhythm, Heart sounds NL, No gallop, No murmurs, No rubsAbdomen/GI Abdomen/GI Soft, Non-tender, No guarding, No rebound, BS normoactive, No distention, No hernia, No palpable mass, No pulsatile massNeurologic Neurologic Oriented X3, Speech NL, Memory NLPsychiatric Psychiatric Affect NL, Mood NL, Cognitive function NL, Judgment/insight NL, Thought content NL Interpretation Diagnostics Lab Results InterpretationResultsLaboratory Tests 08/22/201739:[Embedded Image Not Available]Laboratory Tests: 08/22 Chemistry Sodium (137 - 145 MMOL/L) 138 Potassium (3.5 - 5.1 MMOL/L) 3.8 Chloride (98 - 107 MMOL/L) 107 Carbon Dioxide (22 - 30 MMOL/L) 21 L BUN (7 - 17 MG/DL) 8 Creatinine (0.52 - 1.04 MG/DL) 0.60 Glomerular Filtr Rate > 60 Glucose (74 - 106 MG/DL) 112 H Calcium (8.4 - 10.2 MG/DL) 8.8 Magnesium (1.6 - 2.3 MG/DL) 2.1 Total Bilirubin (0.2 - 1.3 MG/DL) 0.7 Direct Bilirubin (0.0 - 0.3 MG/DL) 0.0 AST (14 - 36 UNITS/L) 111 H ALT (<35 UNITS/L) 59 Total Alk Phosphatase (38 - 126 UNITS/L) 89 Troponin I (0.012 - 0.033 NG/ML) 0.069 H B-Natriuretic Peptide (0 - 100 PG/ML) 138.0 H Total Protein (6.3 - 8.2 G/DL) 7.0 Albumin (3.5 - 5.0 G/DL) 4.1 Lipase (23 - 300 UNITS/L) 58 TSH (0.465 - 4.68 MIU/L) 3.640 Serum , Qual (NEGATIVE) NEGATIVE L Coagulation INR 1.0 APTT (25.1 - 36.5 SECONDS) 39.1 H PT Patient/Control Mix (9.4 - 12.5 SECONDS) 11.3 D-Dimer (0 - 499 ng/mLFEU) 259 Hematology WBC (3.8 - 9.8 K/MM3) 8.4 RBC (3.58 - 4.97 M/MM3) 4.54 Hgb (11.2 - 14.9 G/DL) 13.6 Hct (33.2 - 43.5 %) 41.2 MCV (80.7 - 99.1 fL) 91 MCH (27.0 - 34.1 pg) 30.0 MCHC (32.2 - 35.7 %) 33.0 RDW (12.1 - 15.2 %) 14.2 Plt Count (129 - 368 K/MM3) 266 MPV (7.4 - 10.4 fl) 11.3 H Neut % (Auto) (43 - 75 %) 65.2 Lymph % (Auto) (14 - 44 %) 24.1 [place] % (Auto) (4 - 13 %) 7.8 Eos % (Auto) (0 - 6 %) 2.1 Baso % (Auto) (0 - 2 %) 0.6 Neut # (Auto) (2.0 - 7.6 K/mm3) 5.46 Lymph # (Auto) (1.0 - 3.8 K/mm3) 2.02 [place] # (Auto) (0.1 - 0.8 K/mm3) 0.65 Eos # (Auto) (0.0 - 0.2 K/mm3) 0.18 Baso # (Auto) (0.0 - 0.2 K/mm3) 0.05 Immature Gran % (0.0 - 2.0 %) 0.2 Nucleated RBC % (0 - 1.0 %) 0.0 Nucleated RBCs # (Man) (0.0 - 0.1 K/mm3) 0.00 Toxicology Urine Opiates Screen (NEGATIVE) NEGATIVE Ur Barbiturates, Qual (NEGATIVE) NEGATIVE Ur Phencyclidine Scrn (NEGATIVE) NEGATIVE Ur Amphetamines Screen (NEGATIVE) NEGATIVE U Benzodiazepines Scrn (NEGATIVE) NEGATIVE Urine Cocaine Screen (NEGATIVE) NEGATIVE Urine Cannabinoids (NEGATIVE) NEGATIVE Urines Urine Color (YELLOW) YELLOW Urine Appearance (CLEAR) CLEAR Urine pH (5.0 - 9.0) 7.0 Ur Specific [place] (1.003 - 1.030) 1.010 Urine Protein (NEGATIVE MG/DL) NEGATIVE Urine Glucose (UA) (NORMAL MG/DL) NORMAL Urine Ketones (NEGATIVE MG/DL) NEGATIVE Urine Blood (NEGATIVE Michael/mm3) NEGATIVE Urine Nitrite (NEGATIVE) NEGATIVE Urine Bilirubin (NEGATIVE MG/DL) NEGATIVE Urine Urobilinogen (NORMAL MG/DL) NORMAL Ur Leukocyte Esterase (NEGATIVE /mm3) NEGATIVE Urine Culture Screen (Culture Chk Criteria) NEGATIVE, NO CULTURE Recent Impressions:RADIOLOGY - XR CHEST 1V 08/22 1750 Report Impression - Status: SIGNED Entered: 08/22/2020 1806 IMPRESSION: Low lung volumes, no focal consolidation.Impression By: ShabnamANSChristopher Pompa ECG #1 InterpretationText/Dict NoteNormal sinus rhythm, narrow QRS, no ST elevation, no STEMI, QT <500ms, poor R wave progression, q wave in V2.Date 08/22/20Time 1735Interpreted by and reviewed by me, ED physicianNL ECG Interpretation Normal rate, Normal sinus rhythm, No acute ischemic changes, No STEMI, Normal QRS, Normal ST waves, Adequate tracingRate 69 Patient Discharge Departure Vital Signs/ConditionVital SignsFirst Documented: Result Date Time Pulse Ox 100 08/22 1733 B/P 181/77 08/22 1733 B/P Mean 111 08/22 1733 O2 Delivery Room air 08/22 173 Pulse 75 08/22 1733 Resp 18 08/22 1733 Temp 36.8 08/22 1735 Last Documented: Result Date Time Temp 36.8 08/22 1735 Pulse Ox 100 08/22 1733 B/P 181/77 08/22 1733 B/P Mean 111 08/22 1733 O2 Delivery Room air 08/22 173 Pulse 75 08/22 1733 Resp 18 08/22 173 All vital signs available at the time of this entry have been reviewed. Kulwant De Oliveira 08/22/201909:HPI-Chest Pain 40 and Over GeneralInitial Greet Date/Time 08/22/20 1723 Re-Evaluation MDM Free Text MDM NotesFree Text MDM NotesTroponin has remained elevated will admit for cardiology evaluation. EKG is abnormal however no acute process seen rather poor R wave progression and Q wavepresent in anterior lead. Chest pain has also resolved at this time. Patient received Lovenox early this morning at outside hospital will give aspirin sinceher chest pain has resolved Patient Discharge Departure Vital Signs/ConditionCondition Stable, Improved Clinical ImpressionClinical ImpressionPrimary Impression: NSTEMI (non-ST elevated myocardial infarction)Secondary Impressions: Chest pain Disposition DecisionAdmit Admit Physician Name Lindsay Bal MD Admit Physician Hospitalist Request Time 1910 Request Date 08/22/20 )( Admission Accepts Yes )( Accepted Time 1911 )( Accepted Date 08/22/20 Call Information will see patient, agrees with eval, agrees with plan at 1824RPT #:[id number] OF REPORTEDEmergency department [id number]:15:00Z.[id number] 365AVAvailable for patient [id number]:15:58 [facility] 2020-08-22 18:15:00 [id number]:15:00 [facility] PROVIDER REPORTREPORT#:[id number] REPORT STATUS: SignedDATE:08/22/20 TIME: 1814 PATIENT: DARION BROWN UNIT #: [id number]#: [id number] [address] 45 SEX: F PCP PHYS: No Primary or Family PhysicianSERVICE AUTHOR: Ty Garcia MD R1 [place] [facility] [place] * ALL edits or amendments must be made on the electronic/computer document * Ty Garcia 08/22/201814:HPI-Chest Pain 40 and Over PresentationChief Complaint Chest pain, DiaphoresisSudden in Onset? Yes)( Migration/Movement None Free Text HPI NotesFree Text HPI NotesPt is a 45 yo woman with history of [place] transfer after NSTEMI. Pt was in her usual state of health yesterday when she took her mom to doctors appt. Pt experienced CP radiating to arm, pale, sweating. Transferred next door to [facility] by EMS. Pt was admitted overnight for observation after resolution of symptoms. She received aspirin and enoxaparin (last dose 1000 today 60mg). CXR was performed at [facility]. Trops trended yesterday 2007 .046, today 0130 0.182, 0625 0.183, 0954 0.143, [address] Garcia for cardiology, Bandar Montes for primary care. Pt reports no continued symptoms. Pt had MO one year ago, no stents. Outpt meds include lisinopril, diltiazem, atorvastatin, and aspirin. Surgical history: tubal ligation. Review of Systems Focused Review of SystemsConstitutionalDenies: Chills, Fever, Malaise. RespiratoryReports: Dyspnea on exertion. Denies: Cough, non-productive, Cough, productive,Shortness of breath. CardiovascularReports: Chest pain (resolved). Denies: Syncope. GIDenies: Abdominal pain, Diarrhea, Nausea, Vomiting. NeurologicDenies: Syncope. Past Medical History - AdultStated Complaint [facility]SFER [facility] MedicationsReported MedicationsASPIRIN 81 MG PO DAILY ATORVASTATIN (LIPITOR) 40 MG PO BEDTIME DILTIAZEM SR (CARDIZEM SR) 120 MG PO DAILY LISINOPRIL (ZESTRIL) 20 MG PO BID EZETIMIBE (ZETIA) 10 MG PO DAILY Smoking status for patients 13 years old or older: Never SmokerFree Text H NotesHTN, [place] Physical Exam Vital SignsVital SignsFirst Documented: Result Date Time Pulse Ox 100 08/22 173 B/P 181/77 08/22 173 B/P Mean 111 08/22 1733 O2 Delivery Room air 08/22 1733 Pulse 75 08/22 1733 Resp 18 08/22 1733 Temp 36.8 08/22 1735 Last Documented: Result Date Time Pulse Ox 100 08/22 1800 B/P 167/79 08/22 1800 B/P Mean 108 08/22 1800 O2 Delivery Room air 08/22 1800 Pulse 74 08/22 1800 Resp 16 08/22 1800 Temp 36.8 08/22 1735 Review of Vital Signs Reviewed, Vital signs abnormal (HTN) Focused PEGeneral/Const General/Const Awake, Alert, No acute distress, Well appearing, Well developed, Well hydrated, Well nourished, Cooperative, Not toxic appearingResp/Chest Respiratory/Chest Breath sounds NL, Breath sounds = bilat, No respiratory distress, No rales, No rhonchi, No wheezing, No retractionsCardiovascular Cardiovascular Heart rate NL, Regular rhythm, Heart sounds NL, No gallop, No murmurs, No rubsAbdomen/GI Abdomen/GI Soft, Non-tender, No guarding, No rebound, BS normoactive, No distention, No hernia, No palpable mass, No pulsatile massNeurologic Neurologic Oriented X3, Speech NL, Memory NLPsychiatric Psychiatric Affect NL, Mood NL, Cognitive function NL, Judgment/insight NL, Thought content NL Interpretation Diagnostics Lab Results InterpretationResultsLaboratory Tests 08/22/201739:[Embedded Image Not Available]Laboratory Tests: 08/22 Chemistry Sodium (137 - 145 MMOL/L) 138 Potassium (3.5 - 5.1 MMOL/L) 3.8 Chloride (98 - 107 MMOL/L) 107 Carbon Dioxide (22 - 30 MMOL/L) 21 L BUN (7 - 17 MG/DL) 8 Creatinine (0.52 - 1.04 MG/DL) 0.60 Glomerular Filtr Rate > 60 Glucose (74 - 106 MG/DL) 112 H Calcium (8.4 - 10.2 MG/DL) 8.8 Magnesium (1.6 - 2.3 MG/DL) 2.1 Total Bilirubin (0.2 - 1.3 MG/DL) 0.7 Direct Bilirubin (0.0 - 0.3 MG/DL) 0.0 AST (14 - 36 UNITS/L) 111 H ALT (<35 UNITS/L) 59 Total Alk Phosphatase (38 - 126 UNITS/L) 89 Troponin I (0.012 - 0.033 NG/ML) 0.069 H B-Natriuretic Peptide (0 - 100 PG/ML) 138.0 H Total Protein (6.3 - 8.2 G/DL) 7.0 Albumin (3.5 - 5.0 G/DL) 4.1 LDL Cholesterol (100 - 129 mg/dL) 80 L Lipase (23 - 300 UNITS/L) 58 TSH (0.465 - 4.68 MIU/L) 3.640 Serum , Qual (NEGATIVE) NEGATIVE L Coagulation INR 1.0 APTT (25.1 - 36.5 SECONDS) 39.1 H PT Patient/Control Mix (9.4 - 12.5 SECONDS) 11.3 D-Dimer (0 - 499 ng/mLFEU) 259 Hematology WBC (3.8 - 9.8 K/MM3) 8.4 RBC (3.58 - 4.97 M/MM3) 4.54 Hgb (11.2 - 14.9 G/DL) 13.6 Hct (33.2 - 43.5 %) 41.2 MCV (80.7 - 99.1 fL) 91 MCH (27.0 - 34.1 pg) 30.0 MCHC (32.2 - 35.7 %) 33.0 RDW (12.1 - 15.2 %) 14.2 Plt Count (129 - 368 K/MM3) 266 MPV (7.4 - 10.4 fl) 11.3 H Neut % (Auto) (43 - 75 %) 65.2 Lymph % (Auto) (14 - 44 %) 24.1 [place] % (Auto) (4 - 13 %) 7.8 Eos % (Auto) (0 - 6 %) 2.1 Baso % (Auto) (0 - 2 %) 0.6 Neut # (Auto) (2.0 - 7.6 K/mm3) 5.46 Lymph # (Auto) (1.0 - 3.8 K/mm3) 2.02 [place] # (Auto) (0.1 - 0.8 K/mm3) 0.65 Eos # (Auto) (0.0 - 0.2 K/mm3) 0.18 Baso # (Auto) (0.0 - 0.2 K/mm3) 0.05 Immature Gran % (0.0 - 2.0 %) 0.2 Nucleated RBC % (0 - 1.0 %) 0.0 Nucleated RBCs # (Man) (0.0 - 0.1 K/mm3) 0.00 Toxicology Urine Opiates Screen (NEGATIVE) NEGATIVE Ur Barbiturates, Qual (NEGATIVE) NEGATIVE Ur Phencyclidine Scrn (NEGATIVE) NEGATIVE Ur Amphetamines Screen (NEGATIVE) NEGATIVE U Benzodiazepines Scrn (NEGATIVE) NEGATIVE Urine Cocaine Screen (NEGATIVE) NEGATIVE Urine Cannabinoids (NEGATIVE) NEGATIVE Urines Urine Color (YELLOW) YELLOW Urine Appearance (CLEAR) CLEAR Urine pH (5.0 - 9.0) 7.0 Ur Specific [place] (1.003 - 1.030) 1.010 Urine Protein (NEGATIVE MG/DL) NEGATIVE Urine Glucose (UA) (NORMAL MG/DL) NORMAL Urine Ketones (NEGATIVE MG/DL) NEGATIVE Urine Blood (NEGATIVE Michael/mm3) NEGATIVE Urine Nitrite (NEGATIVE) NEGATIVE Urine Bilirubin (NEGATIVE MG/DL) NEGATIVE Urine Urobilinogen (NORMAL MG/DL) NORMAL Ur Leukocyte Esterase (NEGATIVE /mm3) NEGATIVE Urine Culture Screen (Culture Chk Criteria) NEGATIVE, NO CULTURE Recent Impressions:RADIOLOGY - XR CHEST 1V 08/22 1750 Report Impression - Status: SIGNED Entered: 08/22/2020 1806 IMPRESSION: Low lung volumes, no focal consolidation.Impression By: ShabnamANS4 - Johann Pompa ECG #1 InterpretationText/Dict NoteNormal sinus rhythm, narrow QRS, no ST elevation, no STEMI, QT <500ms, poor R wave progression, q wave in V2.Date 08/22/20Time 1735Interpreted by and reviewed by me, ED physicianNL ECG Interpretation Normal rate, Normal sinus rhythm, No acute ischemic changes, No STEMI, Normal QRS, Normal ST waves, Adequate tracingRate 69 Patient Discharge Departure Vital Signs/ConditionVital SignsFirst Documented: Result Date Time Pulse Ox 100 08/22 1733 B/P 181/77 08/22 1733 B/P Mean 111 08/22 1733 O2 Delivery Room air 08/22 1733 Pulse 75 08/22 1733 Resp 18 08/22 1733 Temp 36.8 08/22 1735 Last Documented: Result Date Time Pulse Ox 100 08/22 1800 B/P 167/79 08/22 1800 B/P Mean 108 08/22 1800 O2 Delivery Room air 08/22 1800 Pulse 74 08/22 1800 Resp 16 08/22 1800 Temp 36.8 08/22 1735 All vital signs available at the time of this entry have been reviewed. De OliveiraKulwant 08/22/201909:HPI-Chest Pain 40 and Over GeneralInitial Greet Date/Time 08/22/201722 Risk-Chest Pain 40 and Over Risk Stratification)( Coronary Artery Disease Risk factors reviewed, Hypertension, Known CAD)( Thoracic Aortic Dissection Risk factors reviewed, Hypertension Past Medical History - AdultAllergiesCoded Allergies:Penicillins (Severe, swelling, unable to breath 08/22/20) Re-Evaluation MDM Free Text MDM NotesFree Text MDM NotesTroponin has remained elevated will admit for cardiology evaluation. EKG is abnormal however no acute process seen rather poor R wave progression and Q wavepresent in anterior lead. Chest pain has also resolved at this time. Patient received Lovenox early this morning at outside hospital will give aspirin since her chest pain has resolved Patient Discharge Departure Vital Signs/ConditionCondition Stable, Improved Clinical ImpressionClinical ImpressionPrimary Impression: NSTEMI (non-ST elevated myocardial infarction)Secondary Impressions: Chest pain Disposition DecisionAdmit Admit Physician Name Lindsay Bal MD Admit Physician Hospitalist Request Time 1910 Request Date 08/22/20 )( Admission Accepts Yes )( Accepted Time 1911 )( Accepted Date 08/22/20 Call Information will see patient, agrees with eval, agrees with plan Supervising Physician Note Resident Saw PtThis patient was seen by a resident. I have personally seen the patient, performed the critical or coello portions of the service, and participated in the management of the patient. I have reviewed and agree with the resident's note, and I have reviewed all labs, ECGs, and imaging studies or reports. I agree withthis resident's findings, exam and plan. After reviewing records there still is some confusion regarding the patient being previously in observation or inpatient in [place], regardless will admit patient to have cardiology evaluate patient further given her trop elevation andabnormal ekg and previous h/o MO at young age. CP has resolved and has mildly elevated BP during her ER encounter. at 1824 at 0014RPT #:[id number] OF [facility]ED[facility] department [id number] 365AVAvailable for patient [id number] [facility]"
[2024-05-15] MEDS ORDERED: NA CHLORIDE 0.9% 1,000 ML ONE (17:40)
[2024-05-15 17:52] LABS: Absolute Basophils 0.1 K/uL (0-0.5); Absolute Eosinophils 0.1 K/uL (0-0.5); Absolute Lymphocytes (CBC) 1.7 K/uL (0.7-4.9); Absolute Monocytes 0.5 K/uL (0.1-1.3); Basophils % 0.7 % (0-1.3); Eosinophils % 0.9 % (0-4.4); Hematocrit 30.7 % (36.0-45.0); Hemoglobin 9.4 g/dL (12.0-15.0); Lymphocytes % 20.6 % (15.3-44.8); MCH 20.5 pg (27.0-35.0); MCHC 30.6 g/dL (32.0-36.0); MCV 67.2 fL (80-100); MPV 8.5 fL (7.6-11.3); Monocytes % 6.3 % (3.3-12.3); Neutrophils % 71.5 % (41.7-73.7); Nucleated Red Blood Cells % 0.1 % (0-0); Platelets 437 thou/uL (152-406); RBC Red Blood Cell Count 4.58 M/uL (3.86-4.86); Red Cell Distribution Width 18.9 % (12.1-15.2)
[2024-05-15 17:53] LABS: PT Prothrombin Time 11.9 SECONDS (9.4-12.5); Protime INR 1.08
[2024-05-15 18:01] LABS: Specific Gravity 1.013 (1.005-1.030); Sqamous Epithelial <5 /HPF (None Seen); Urine Bacteria <20 /HPF (<20); Urine Bilirubin 1+ (Negative); Urine Blood Negative (Negative); Urine Clarity Turbid (Clear); Urine Color Dark-Yellow (Yellow); Urine Culture Reflex Order NOT NEEDED; Urine Glucose NEGATIVE (Negative); Urine Ketones NEGATIVE (Negative); Urine Microscopic Reflex YN ORDER UMIC; Urine Mucus Slight /HPF (None Seen); Urine Nitrite 1+ (Negative); Urine Protein NEGATIVE (Negative); Urine Urobilinogen 1+ (Normal); Urine WBC <5 /HPF (<5); Urine pH 6.5 (5.0-7.0)
--- NOTE | 2024-05-15 18:11 | RAD REPORT ---
EXAM DESCRIPTION: RAD - Chest Single View - 05/15/2024 6:05 pm CLINICAL HISTORY: Chest pain;Dyspnea Chest pain. COMPARISON: <Comparisons> FINDINGS: Portable technique limits examination quality. The lungs are grossly clear. The heart is normal in size. No displaced fractures. IMPRESSION: No acute intrathoracic process suspected.
[2024-05-15 18:22] LABS: ALT/SGPT 29 U/L (13-56); AST/SGOT 18 U/L (15-37); Albumin/Globulin Ratio 1.1 (1.1-1.8); Alkaline Phosphatase 60 U/L (45-117); Anion Gap 8.6 mEq/L (5.0-15.0); BUN Blood Urea Nitrogen 10 mg/dL (7-18); Bicarbonate 26 mEq/L (21-32); Bilirubin Total 0.4 mg/dL (0.2-1.0); Globulin 3.5 g/dL (2.3-3.5); Glomerular Filtration Rate 64 ml/min (=/>90); Glucose Level 111 mg/dL (74-106); Lipase 28 U/L (13-75); Magnesium 2.1 mg/dL (1.6-2.4); NT PRO-BNP 175 pg/mL (<125); Potassium 3.6 mEq/L (3.5-5.1); Protein, Total 7.5 g/dL (6.4-8.2); Sodium Level 141 mEq/L (136-145)
[2024-05-15 18:23] LABS: Bilirubin Direct < 0.2 mg/dL (0-0.2); Bilirubin Indirect, Calculated 0.2 mg/dL (0.2-0.8)
[2024-05-15 18:30] LABS: Blood Morphology Comment NOTED (NOT SEEN); Platelet Estimate INCR; Platelets, Giant PRESENT; White Blood Cell Scan OK (OK)
[2024-05-15 18:31] LABS: Hypochromasia 1+; Microcytosis 1+
[2024-05-15] MEDS ORDERED: CEFTRIAXONE 1000 MG/VIAL ONE (18:55)
[2024-05-15] MEDS ORDERED: CIPROFLOXACIN HCL 500 MG TAB ONE (18:56)
--- NOTE | 2024-05-15 19:55 | ER ---
Nurse's Notes [facility] Name: Dwight Hylton Age: 48 yrs Sex: Female : 1975 Arrival Date: 05/15/2024 Time: 17:06 Bed 20 Private MD: Diagnosis: Chest pain, unspecified;Essential (primary) hypertension;UTI/ Urinary tract infection, site not specified Presentation: 05/15 17:14 Chief complaint: EMS states: "toned out for chest pain and SOB for the past 3 days. 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 20g right AC.". Coronavirus screen: Vaccine status: Patient reports receiving the 2nd dose of the covid vaccine. Ebola Screen: No symptoms or risks identified at this time. Initial Sepsis Screen: Does the patient meet any 2 criteria? No. Patient's initial sepsis screen is negative. Does the patient have a suspected source of infection? No. Patient's initial sepsis screen is negative. Risk Assessment: Do you want to hurt yourself or someone else? Patient reports no desire to harm self or others. Onset of symptoms was 2023. 17:14 Acuity: LUCIO 2 mb9 17:14 Method Of Arrival: EMS: [facility] mb9 Triage Assessment: 17:16 General: Appears in no apparent distress. Behavior is calm, cooperative. Pain: mb9 Complains of pain in chest Pain does not radiate. Pain currently is 4 out of 10 on a pain scale. Quality of pain is described as pressure, Pain began 2-3 days ago. Is continuous. EENT: No signs and/or symptoms were reported regarding the EENT system. Neuro: [place] Agitation-Sedation Scale (RASS): 0 - Alert and Calm Level of Consciousness is awake, alert, obeys commands, Oriented to person, place, time, situation, Appropriate for age. Cardiovascular: Reports chest pain, lightheadedness, shortness of breath, Heart tones S1 S2 present Patient's skin is warm and dry. Rhythm is regular. Respiratory: Reports shortness of breath Airway is patent Respiratory effort is even, unlabored, Respiratory pattern is regular, symmetrical, Breath sounds are clear bilaterally. GI: Abdomen is round non-distended, Bowel sounds present X 4 quads. Abd is soft and non tender X 4 quads. : No signs and/or symptoms were reported regarding the genitourinary system. Derm: Skin is pink, warm \\T\\ dry. Musculoskeletal: Range of motion: intact in all extremities. Historical: - Allergies: 17:15 PENICILLINS; mb9 - Home Meds: 17:15 atorvastatin 40 mg Oral tab 1 tab once daily [Active]; lisinopril 20 mg Oral tab 1 tab mb9 once daily [Active]; Cardizem Oral [Active]; Isosorbide Mononitrate Oral [Active]; - PMHx: 17:15 Hypertensive disorder; Myocardial infarction; mb9 - PSHx: 17:15 None; mb9 - Immunization history:: Adult Immunizations up to date. - Infectious Disease History:: Denies. - Social history:: Smoking status: Patient denies any tobacco usage or history of. - Family history:: not pertinent. Screenin:17 [facility] ED Fall Risk Assessment (Adult) History of falling in the last 3 months, mb9 including since admission No falls in past 3 months (0 pts) Confusion or Disorientation No (0 pts) Intoxicated or Sedated No (0 pts) Impaired Gait No (0 pts) Mobility Assist Device Used No (0 pt) Altered Elimination No (0 pt) Score/Fall Risk Level 0 - 2 = Low Risk Oriented to surroundings, Maintained a safe environment, Educated pt \\T\\ family on fall prevention, incl call for assistance when getting out of bed. Abuse screen: Denies threats or abuse. Nutritional screening: No deficits noted. Tuberculosis screening: No symptoms or risk factors identified. Assessment: 17:17 Reassessment: see triage assessment. mb9 20:18 Reassessment: Patient appears in no apparent distress at this time. Patient and/or jb4 family updated on plan of care and expected duration. Pain level reassessed. Patient is alert, oriented x 3, equal unlabored respirations, skin warm/dry/pink. Vital Signs: 17:14 BP 169 / 73; Pulse 69; Resp 18; Temp 98; Pulse Ox 100% ; Weight 113.4 kg; Height 5 ft. mb9 5 in. ; Pain 4/10; 17:14 Body Mass Index 41.60 (113.40 kg, 165.1 cm) mb9 17:14 Pain Scale: Adult mb9 [place] Coma Score: 18:43 Eye Response: spontaneous(4). Motor Response: obeys commands(6). Verbal Response: salma oriented(5). Total: 15. ED Course: 17:14 Patient arrived in ED. mb9 17:15 Demetrius Camacho MD is Attending Physician. salma 17:15 Triage completed. mb9 17:16 Arm band placed on. mb9 17:17 Placed in gown. Bed in low position. Call light in reach. Side rails up X 1. Provided mb9 Education on: press call light if needing anything. Client placed on continuous cardiac and pulse oximetry monitoring. NIBP monitoring applied. quality assurance monitor on. Door closed. Noise minimized. Warm blanket given. Pillow given. 17:18 EKG done, by ED staff, reviewed by Demetrius Camacho MD. Maintain EMS IV. Dressing intact. mb9 Good blood return noted. Site clean \\T\\ dry. Gauge \\T\\ site: 20g right AC. 17:37 Aylin Michaels RN is Primary Nurse. mb9 17:41 Initial lab(s) drawn, by ED staff, sent to lab. Urine collected: clean catch specimen, aw1 clear. 17:41 Urinalysis w/ reflexes Sent. aw1 17:41 Lipase Sent. aw1 17:41 Basic Metabolic Panel Sent. aw1 17:41 CBC with Diff Sent. aw1 17:41 LFT's Sent. aw1 17:41 Magnesium Sent. aw1 17:41 NT PRO-BNP Sent. aw1 17:41 PT-INR Sent. aw1 17:41 Troponin HS Sent. aw1 18:06 XRAY Chest (1 view) In Process Unspecified. EDMS 18:30 No provider procedures requiring assistance completed. mb9 18:58 Urine Culture Sent. mb9 19:06 Report given to CLAUDE Wynn. mb9 19:54 Jeremi Stewart MD is Referral Physician. salma 20:13 IV discontinued, intact, bleeding controlled, No redness/swelling at site. Pressure ty dressing applied. Administered Medications: 17:43 Drug: NS 0.9% IV 1000 ml IV at 125 ml/hr continuous Route: IV; Rate: 125 ml/hr; Site: mb9 right antecubital; 19:00 Drug: Rocephin IV 1 grams IV at per protocol once; Given slow IV push per pharmacy kj2 instructions Route: IV; Rate: per protocol; Site: right antecubital; 19:00 Drug: Ciprofloxacin PO 500 mg PO once Route: PO; kj2 Medication: 17:17 VIS not applicable for this client. mb9 Outcome: 19:55 Discharge ordered by . salma 20:18 Discharged to home ambulatory, juani 20:18 Condition: stable 20:18 Discharge instructions given to patient, Instructed on discharge instructions, follow up and referral plans. medication usage, Demonstrated understanding of instructions, follow-up care, medications, Prescriptions given X 1, 20:18 Patient left the ED. jb4 Signatures: Dispatcher [employer] EDMS Demetrius Camacho MD MD cha Bryson, James, RN RN jb4 Brando, Aylin Kulkarni RN RN mb9 Chelita Valentin Tylor ty Jordan, Krystal, RN RN kj2
--- NOTE | 2024-05-15 19:55 | EDPHYS ---
Physician Documentation [facility] Name: Dwight Hylton Age: 48 yrs Sex: Female : 1975 Arrival Date: 05/15/2024 Time: 17:06 Bed 20 Private MD: ED Physician Demetrius Camacho HPI: 05/15 18:32 This 48 yrs old Female presents to ER via EMS with complaints of Chest Pain. salma 18:32 The patient or guardian reports chest pain that is located primarily in the substernal salma area. Onset: 3 day(s) ago. The pain does not radiate. Associated signs and symptoms: The patient has no apparent associated signs or symptoms. The chest pain is described as aching. Duration: The patient or guardian reports multiple episodes, with no pattern. Modifying factors: The symptoms are alleviated by nothing. the symptoms are aggravated by nothing. Severity of pain: At its worst the pain was mild in the emergency department the pain has improved moderately. The patient has experienced similar episodes in the past, multiple times. Historical: - Allergies: 17:15 PENICILLINS; mb9 - Home Meds: 17:15 atorvastatin 40 mg Oral tab 1 tab once daily [Active]; lisinopril 20 mg Oral tab 1 tab mb9 once daily [Active]; Cardizem Oral [Active]; Isosorbide Mononitrate Oral [Active]; - PMHx: 17:15 Hypertensive disorder; Myocardial infarction; mb9 - PSHx: 17:15 None; mb9 - Immunization history:: Adult Immunizations up to date. - Infectious Disease History:: Denies. - Social history:: Smoking status: Patient denies any tobacco usage or history of. - Family history:: not pertinent. ROS: 18:32 Constitutional: Negative for fever, chills, and weight loss, Eyes: Negative for injury, salma pain, redness, and discharge, ENT: Negative for injury, pain, and discharge, Neck: Negative for injury, pain, and swelling, Respiratory: Negative for shortness of breath, cough, wheezing, and pleuritic chest pain, Abdomen/GI: Negative for abdominal pain, nausea, vomiting, diarrhea, and constipation, Back: Negative for injury and pain, : Negative for injury, bleeding, discharge, and swelling, MS/Extremity: Negative for injury and deformity, Skin: Negative for injury, rash, and discoloration, Neuro: Negative for headache, weakness, numbness, tingling, and seizure, Psych: Negative for depression, anxiety, suicide ideation, homicidal ideation, and hallucinations, Allergy/Immunology: Negative for hives, rash, and allergies, Endocrine: Negative for neck swelling, polydipsia, polyuria, polyphagia, and marked weight changes, Hematologic/Lymphatic: Negative for swollen nodes, abnormal bleeding, and unusual bruising, 18:32 Cardiovascular: Positive for chest pain, 18:32 Respiratory: Negative for cough, dyspnea on exertion, hemoptysis, orthopnea, pleurisy, shortness of breath, Exam: 18:32 Constitutional: This is a well developed, well nourished patient who is awake, alert, salma and in no acute distress. Head/Face: Normocephalic, atraumatic. Eyes: Pupils equal round and reactive to light, extra-ocular motions intact. Lids and lashes normal. Conjunctiva and sclera are non-icteric and not injected. Cornea within normal limits. Periorbital areas with no swelling, redness, or edema. ENT: Nares patent. No nasal discharge, no septal abnormalities noted. Tympanic membranes are normal and external auditory canals are clear. Oropharynx with no redness, swelling, or masses, exudates, or evidence of obstruction, uvula midline. Mucous membranes moist. Neck: Trachea midline, no thyromegaly or masses palpated, and no cervical lymphadenopathy. Supple, full range of motion without nuchal rigidity, or vertebral point tenderness. No Meningismus. Chest/axilla: Normal chest wall appearance and motion. Nontender with no deformity. No lesions are appreciated. Cardiovascular: Regular rate and rhythm with a normal S1 and S2. No gallops, murmurs, or rubs. Normal PMI, no JVD. No pulse deficits. Respiratory: Lungs have equal breath sounds bilaterally, clear to auscultation and percussion. No rales, rhonchi or wheezes noted. No increased work of breathing, no retractions or nasal flaring. Abdomen/GI: Soft, non-tender, with normal bowel sounds. No distension or tympany. No guarding or rebound. No evidence of tenderness throughout. Back: No spinal tenderness. No costovertebral tenderness. Full range of motion. Skin: Warm, dry with normal turgor. Normal color with no rashes, no lesions, and no evidence of cellulitis. MS/ Extremity: Pulses equal, no cyanosis. Neurovascular intact. Full, normal range of motion. Neuro: Awake and alert, GCS 15, oriented to person, place, time, and situation. Cranial nerves II-XII grossly intact. Motor strength 5/5 in all extremities. Sensory grossly intact. Cerebellar exam normal. Normal gait. Psych: Awake, alert, with orientation to person, place and time. Behavior, mood, and affect are within normal limits. 18:32 ECG was reviewed by the Attending Physician. 18:43 Musculoskeletal/extremity: DVT Exam: No signs of deep vein thrombosis. no pain, no salma swelling, no tenderness, negative Homans' sign noted on exam, no appreciated bluish discoloration, no erythema, no increased warmth, Vital Signs: 17:14 BP 169 / 73; Pulse 69; Resp 18; Temp 98; Pulse Ox 100% ; Weight 113.4 kg; Height 5 ft. mb9 5 in. ; Pain 4/10; 17:14 Body Mass Index 41.60 (113.40 kg, 165.1 cm) mb9 17:14 Pain Scale: Adult mb9 [place] Coma Score: 18:43 Eye Response: spontaneous(4). Motor Response: obeys commands(6). Verbal Response: salma oriented(5). Total: 15. MDM: 17:15 Patient medically screened. salma 18:35 Differential diagnosis: abnormal EKG, acute myocardial infarction, acute pericarditis, salma anxiety, chest wall pain, Cholelithiasis costochondritis, herpes zoster, pancreatitis, peptic ulcer disease, pericarditis, pneumonia, pneumothorax, pulmonary embolus, stable angina, thoracic aortic disection, unstable angina. HEART Score: History: Slightly Suspicious (0), ECG: Non specific repolarization disturbance / LBTB / PM (1), Age: > 45 and < 65 years (1), Risk Factors: > or = 3 Risk factors for atherosclerotic disease (2), [Hypertension] [+ Family HX] [Obesity] Troponin: < or = 1 x Normal Limit (0). The patient was given aspirin in the Emergency Department. MARY LOU Risk Score: 1 - Three or more CAD risk factors, TOTAL SCORE = 1. Data reviewed: vital signs, nurses notes, lab test result(s), EKG, radiologic studies, plain films. Consideration of Admission/Observation Escalation of care including admission/observation considered. I considered the following discharge prescriptions or medication management in the emergency department Medications were administered in the Emergency Department. See MAR. Independent interpretation of the following test(s) in the Emergency Department EKG: See my EKG interpretation above. Test considered but Not performed: CT: no ct chest. Care significantly affected by the following chronic conditions: Hypertension, Obesity. 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 18:44 ED course: last cath 2018 completely negative for disease, spasm. [facility] [place] 05/15 17:29 Order name: Basic Metabolic Panel; Complete Time: 18:38 [facility] [place] 05/15 17:29 Order name: CBC with Diff; Complete Time: 18:38 [facility] [place] 05/15 17:29 Order name: LFT's; Complete Time: 18:38 [facility] [place] 05/15 17:29 Order name: Magnesium; Complete Time: 18:38 [facility] [place] 05/15 17:29 Order name: NT PRO-BNP; Complete Time: 18:38 [facility] [place] 05/15 17:29 Order name: PT-INR; Complete Time: 18:38 [facility] [place] 05/15 17:29 Order name: Troponin HS; Complete Time: 18:38 [facility] [place] 05/15 17:29 Order name: Lipase; Complete Time: 18:38 [facility] [place] 05/15 17:29 Order name: Urinalysis w/ reflexes; Complete Time: 18:38 [facility] [place] 05/15 18:31 Order name: CBC Smear Scan; Complete Time: 18:38 [facility] 05/15 18:40 Order name: Troponin High Sensitivity: 7 pm; Complete Time: 19:54 salma 05/15 18:41 Order name: Urine Culture [facility] [place] 05/15 17:29 Order name: XRAY Chest (1 view); Complete Time: 18:38 [facility] [place] 05/15 17:29 Order name: EKG; Complete Time: 17:29 [facility] [place] 05/15 17:29 Order name: Cardiac monitoring; Complete Time: 17:41 [facility] [place] 05/15 17:29 Order name: EKG - Nurse/Tech; Complete Time: 17:41 [facility] [place] 05/15 17:29 Order name: IV Saline Lock; Complete Time: 17: [facility] [place] 05/15 17:29 Order name: Labs collected and sent; Complete Time: : [facility] [place] 05/15 17:29 Order name: O2 Per Protocol; Complete Time: : [facility] [place] 05/15 17:29 Order name: O2 Sat Monitoring; Complete Time: 17:41 [facility] [place] EC:32 Rate is 82 beats/min. Rhythm is regular. QRS [place] is Normal. IN interval is normal. QRS salma interval is normal. QT interval is normal. No Q waves. T waves are Normal. No ST changes noted. Clinical impression: NSR w/ Non-specific ST/T Changes and No evidence of ischemia. Interpreted by me. Reviewed by me. Administered Medications: 17:43 Drug: NS 0.9% IV 1000 ml IV at 125 ml/hr continuous Route: IV; Rate: 125 ml/hr; Site: mb9 right antecubital; 19:00 Drug: Rocephin IV 1 grams IV at per protocol once; Given slow IV push per pharmacy kj2 instructions Route: IV; Rate: per protocol; Site: right antecubital; 19:00 Drug: Ciprofloxacin PO 500 mg PO once Route: PO; kj2 Disposition Summary: 05/15/24 19:55 Discharge Ordered Notes: Location: Home salma Problem: new salma Symptoms: have improved salma Condition: Stable salma Diagnosis - Chest pain, unspecified salma - Essential (primary) hypertension salma - UTI/ Urinary tract infection, site not specified salma Followup: salma - With: Private Physician - When: 1 - 2 days - Reason: Recheck today's complaints, Continuance of care, Re-evaluation by your physician Followup: salma - With: Jeremi Stewart MD - When: 2 - 3 days - Reason: Recheck today's complaints, Re-evaluation by your physician Discharge Instructions: - Discharge Summary Sheet salma - Nonspecific Chest Pain, Adult salma - Hypertension, Adult salma - Urinary Tract Infection, Adult salma - Urinary Tract Infection, Adult, [id number] salma - Hypertension, Adult, Knsk-ty-[id number] salma - How to Take Your Blood Pressure, Fzzx-vy-[id number] salma - Aspirin and Your Heart salma - Managing Your Hypertension salma Forms: - Medication Reconciliation Form salma - Antibiotic Education salma - Prescription Opioid Use salma - Patient Portal Instructions salma - Leadership Thank You Letter salma Prescriptions: - Cipro 250 mg Oral tablet - take 1 tablet ORAL route every 12 hours; 15 tablet; Refills: 0, Product salma Selection Permitted Signatures: Dispatcher [employer] EDDemetrius Singh MD MD cha Wilkerson, Martina, RN RN mb9 Edith Mcbride RN RN kj2 Corrections: (The following items were deleted from the chart) 17:29 17:29 BASIC METABOLIC PANEL+C.LAB.BRZ ordered. EDMS EDMS 17: 17:29 CBC+H.LAB.BRZ ordered. EDMS EDMS 17:29 17:29 HEPATIC FUNCTION+C.LAB.BRZ ordered. EDMS EDMS 17: 17:29 MAGNESIUM+C.LAB.BRZ ordered. EDMS EDMS 17: 17:29 PROBNP+C.LAB.BRZ ordered. EDMS EDMS 17:29 17:29 PROTIME (+INR)+COAG.LAB.BRZ ordered. EDMS EDMS 17: 17:29 Troponin High Sensitivity+C.LAB.BRZ ordered. EDMS EDMS 17:29 17:29 LIPASE+C.LAB.BRZ ordered. EDMS EDMS 17:29 17:29 Urinalysis+U.LAB.BRZ ordered. EDMS EDMS
[2024-05-15 21:27] VITALS: BP 169/73; TEMP 98; O2SAT 100
== END 2024-05-15 20:18 | disposition home or self-care (01) ==
LOC: ER 17:06
DX: R07.9 Chest pain, unspecified (principal); I10 Essential (primary) hypertension; N39.0 Urinary tract infection, site not specified; I25.2 Old myocardial infarction
CPT/HCPCS: 87088; 85025; 81001; 87086; 80048; 36415; 83735; 85610; 80076; 84484 ×2; 83690; 83880; 71045; 96374; 99285; J7030; J0696